=== PATIENT | female | born 1990 | race Caucasian/White ===

== ENCOUNTER 2023-04-02 13:47 | Emergency (ER) | payer OTHER, SELFPAY ==
[2023-04-02 13:57] VITALS: BP 137/81; PULSE 69; RESP 16; TEMP 36.8; O2SAT 98; BMI 26.6
--- NOTE | 2023-04-02 14:16 | ED.GENADULT ---
HPI - General Adult General Time Seen by Provider: 14:16 Date Seen: 04/02/23 Chief complaint: Nausea/Vomiting Stated complaint: Abdominal pain, vomited blood Time Seen by Provider: 04/02/23 14:16 Source: patient and RN notes reviewed Mode of arrival: ambulatory Limitations: no limitations History of Present Illness HPI narrative: This 32-year-old female is coming in with complaint of constipation and no stool production in 36 days. She went to an urgent care last week, did have an x-ray which showed large stool burden in the left colon and distension of the cecum. Friday she took a whole bottle of MiraLax, did produce some gas and has relieved the pressure of gas she has had. She was having some left shoulder pain which did resolve. She states she cannot lie on either side anymore because it hurts in her stomach. Today she started having nausea and vomiting, pain really intensified yesterday. She is scheduled to see a GI specialist in [place] next week. She states she just could not wait. She has had 3 vaginal deliveries since 2018, has 4 kids under the age of 4. She did have to have a retrieval of a migrated IUD in 2018 at [place]. Feels like she has had low-grade fever at home. She has been taking Colace. She has been on Cymbalta low-dose for neuropathic pain for about 3 years, denies any other medicines, no narcotics, not aware of anything else she could be taking that is constipating. She states she is having difficulty sleeping because she can not sleep on her sides due to the abdominal pain. She is on levothyroxine, states her TSH was normal last week at Urgent Care. She states she is eating minimally, still drinking. She does eat anything, has sharp type abdominal pain for about 10 minutes after that. Related Data Home Medications Medication Instructions Recorded Confirmed acetaminophen 500 mg oral powder 500 mg PO Q4-6H PRN 04/02/23 04/02/23 packet (Tylenol Extra Strength) doxylamine succinate 25 mg tablet 25 mg PO Q4H PRN 04/02/23 04/02/23 (Unisom (doxylamine)) levothyroxine 50 mcg tablet 50 mcg PO DAILY 04/02/23 04/02/23 (Synthroid) Allergies Allergy/AdvReac Type Severity Reaction Status Date / Time amoxicillin Allergy Intermediate Rash Verified 04/02/23 15:34 Review of Systems Status of ROS: Reports: 6 or more systems reviewed and unremarkable except as noted in History and below [facility] Social History Smoking Status: Never smoker Do you use any of these nicotine containing products: None Second hand tobacco smoke exposure: No How often do you have a drink containing alcohol: never AUDIT-C Alcohol total score: 0 Non-prescribed substance use: denies use service: No Exam Const: Vital Signs, click to edit/add: Vital Signs - 24 hr 04/02/23 13:57 Temperature 98.3 F Pulse Rate [Pulse Oximeter] 69 Respiratory Rate 16 Blood Pressure [Ri ght Upper Arm] 137/81 Pulse Oximetry 98 Oxygen Delivery Me thod Room Air Documenting provider has reviewed patient's vital signs: yes Common normals: no apparent distress, average body habitus, oriented x3, no limitations, healthy appearing, alert and well nourished General appearance: cooperative, comfortable, well kempt and well developed HENMT: Common normals: normocephalic, head/scalp atraumatic, hearing grossly normal bilaterally, external nose normal, moist oral mucous membranes, oropharynx normal, dentition normal and gingiva normal Head and scalp: normocephalic and atraumatic Nose: external nose normal Eye: Common normals: PERRL, EOMs intact bilaterally, conjunctivae normal and no scleral icterus Conjunctiva: conjunctiva(e) normal Pupil: PERRL Neck & C-Spine: Common normals: full ROM, no lymphadenopathy, supple, no meningeal signs, no JVD and thyroid normal Thyroid: thyroid normal Resp: Common normals: normal respiratory effort, no retractions, no use of accessory muscles and clear to auscultation bilaterally Auscultation: clear to auscultation bilaterally Cardio: Common normals: no JVD, regular rate, regular rhythm, S1 normal heart sound, S2 normal heart sound, no gallops, no clicks and no murmurs Rate: regular rate Rhythm: regular rhythm Heart sounds: S1 normal and S2 normal GI: Common normals: Normal to inspection, nondistended, normoactive bowel sounds present, soft to palpation, no hepatosplenomegaly and no masses Palpation: soft and no hepatosplenomegaly Other: Abdomen is soft but she states she hurts left upper quadrant and generalize periumbilical and lower abdomen on palpation. There is no rebound or guarding however. Neuro: Common normals: oriented x3 Sensorium/orientation: alert Meningeal signs: no meningeal signs Psych: Appearance: well kempt Course Course Hospital Course: Patient in I discussed her situation. At this time, I feel we should proceed with CT abdomen and pelvis with IV contrast. She is in agreement. Will check a full complement of labs. TSH will not be rechecked as it was just reported to be normal last week. Certainly she is reporting constipation, need to rule out other intra-abdominal pathology such as masses, possible strictures, bowel obstruction. CT imaging with IV contrast should certainly help us achieve this goal. Vital Signs Vital signs: Initial Vital Signs Temperature 98.3 F 04/02/23 13:57 Temperature Source Temporal Artery Scan 04/02/23 13:57 Pulse Rate 69 04/02/23 13:57 Pulse Rhythm Regular 04/02/23 13:57 Pulse Strength 3+ Normal 04/02/23 13:57 Respiratory Rate 16 04/02/23 13:57 Blood Pressure 137/81 04/02/23 13:57 Blood Pressure Mean 99 04/02/23 13:57 Blood Pressure Position Sitting 04/02/23 13:57 Pulse Oximetry 98 04/02/23 13:57 Oxygen Delivery Method Room Air 04/02/23 13:57 Vital Signs Temperature 98.3 F 04/02/23 13:57 Pulse Rate 69 04/02/23 13:57 Respiratory Rate 16 04/02/23 13:57 Blood Pressure 137/81 04/02/23 13:57 Pulse Oximetry 98 04/02/23 13:57 Oxygen Delivery Method Room Air 04/02/23 13:57 Temperature 98.3 F 04/02/23 13:57 Pulse Rate 69 04/02/23 13:57 Respiratory Rate 16 04/02/23 13:57 Blood Pressure 137/81 04/02/23 13:57 Pulse Oximetry 98 04/02/23 13:57 Oxygen Delivery Method Room Air 04/02/23 13:57 Medical Decision Making Lab Data Lab results reviewed: Yes I reviewed the patient's lab results Labs: Lab Results 04/02/23 Range/Units 14:55 WBC 8.97 (4.50-11.00) K/uL RBC 4.86 (4.00-5.20) m/uL Hgb 12.6 (12.0-16.0) gm/dL Hct 38.6 (33.0-51.0) % MCV 79 L (80-100) fL MCH 26 (26-34) pg MCHC 33 (32-36) gm/dL RDW Coeff of Sonia 13.8 (11.5-15.5) % Plt Count 243 (140-440) K/uL Neut % (Auto) 59.3 (42.0-72.0) % Lymph % (Auto) 27.4 (20-44) % [place] % (Auto) 6.8 (0.0-11.0) % Eos % (Auto) 6.2 (0.0-7.0) % Baso % (Auto) 0.2 (0.0-3.0) % Neut # (Auto) 5.31 (1.7-7.0) K/uL Lymph # (Auto) 2.46 (0.90-2.90) K/uL [place] # (Auto) 0.60 (0.00-0.90) K/UL Eos # (Auto) 0.56 H (0.00-0.50) K/uL Baso # (Auto) 0.02 (0.00-0.30) K/uL Sodium 138 (135-149) mmol/L Potassium 3.6 (3.6-5.1) mmol/L Chloride 104 (96-114) mmol/L Carbon Dioxide 25 (20-32) mmol/L BUN 7 (5-24) mg/dL Creatinine 0.6 (0.5-1.5) mg/dL Estimated Creat Clear 128.48 Estimated GFR 121 ml/min Glucose 79 (60-115) mg/dL Lactate 1.4 (0.5-1.9) mmol/L Calcium 9.2 (8.4-10.6) mg/dL Magnesium 2.1 (1.5-2.6) mg/dL Total Bilirubin 0.4 (0.1-1.5) mg/dL AST 16 (12-35) U/L ALT 16 (4-35) U/L Alkaline Phosphatase 53 (40-150) U/L C-Reactive Protein 0.7 (0.5-1.0) mg/dL Total Protein 7.0 (6.0-8.3) g/dL Albumin 4.0 (3.3-5.0) g/dL Imaging Data CT scan - abdomen: Attestation: I have reviewed the pertinent imaging results. Radiologist's impression: Patient: ANGEL BROWNLEE Facility:?[facility] Patient ID:?[id number] Site Patient ID:?[id number]. Site :?[id number] Study:?CT Abdomen/Pelvis 83 cc's Isovue 370-04/02/2023 3:34:19 PM Ordering Physician:?Jordy Copeland Final Report: INDICATION: Nausea, vomiting. TECHNIQUE: CT abdomen and pelvis acquired with 83 cc Omnipaque 350 IV contrast. COMPARISON: None. FINDINGS: Lower chest: Unremarkable. Liver: Unremarkable. Normal in size and attenuation. No suspicious masses. Gallbladder and bile ducts: Unremarkable. No stones or inflammation. No biliary dilatation. Pancreas: Unremarkable. No mass or inflammation. Spleen: Unremarkable. Normal in size. No masses. Adrenal glands: Unremarkable. No nodules. Kidneys: Unremarkable. No suspicious masses, stones, or hydronephrosis. GI tract: Mild colonic stool burden. Normal in caliber. No sign of mass or inflammation. Normal appendix. Vasculature: Abdominal aorta is normal in caliber. Mesenteric arteries are patent. Lymph nodes: No lymphadenopathy. Peritoneum/Abdominal Wall: Tiny fat containing umbilical hernia. No sign of mass or infiltration. No free air or significant free fluid. Pelvis: Unremarkable. Bones: Unremarkable for age. IMPRESSION: Mild colonic stool burden. Otherwise, no acute intra-abdominal/pelvic abnormality. Please note that all CT scans at this facility use dose modulation, iterative reconstruction, and/or weight-based dosing when appropriate to reduce radiation dose to as low as reasonably achievable. Dictated by Carlos Morgan MD @ 04/02/2023 4:11:49 PM (Electronic Signature) Critical Care Time Critical Care Time Critical Care Time: No Discharge Plan Discharge Clinical Impression: Constipation Patient Disposition: Home, Self-Care Condition: Stable Instructions: Constipation (ED), High Fiber Diet (ED) Additional Instructions: Recommend trying GoLYTELY, this is sold [id number]. Can mix with Gatorade or fluid of choice. Need to keep gastroenterology appointment for next week. Activity Level: No Restrictions Discharge Diet: Regular and High Fiber Prescriptions: No Action levothyroxine [Synthroid] 50 mcg tablet 50 mcg PO DAILY Tylenol Extra Strength 500 mg powder in packet 500 mg PO Q4-6H PRN Unisom (doxylamine) 25 mg tablet 25 mg PO Q4H PRN Stand Alone Forms: [employer] Info Instructions
--- NOTE | 2023-04-02 14:24 | CRLHL7_ITS ---
For Patients: As a result of the Century Cures Act, medical imaging exams and procedure reports are released immediately into your electronic medical record. You may view this report before your referring provider. If you have questions, please contact your health care provider. INDICATION: Nausea, vomiting. TECHNIQUE: CT abdomen and pelvis acquired with 83 cc Omnipaque 350 IV contrast. COMPARISON: None. FINDINGS: Lower chest: Unremarkable. Liver: Unremarkable. Normal in size and attenuation. No suspicious masses. Gallbladder and bile ducts: Unremarkable. No stones or inflammation. No biliary dilatation. Pancreas: Unremarkable. No mass or inflammation. Spleen: Unremarkable. Normal in size. No masses. Adrenal glands: Unremarkable. No nodules. Kidneys: Unremarkable. No suspicious masses, stones, or hydronephrosis. GI tract: Mild colonic stool burden. Normal in caliber. No sign of mass or inflammation. Normal appendix. Vasculature: Abdominal aorta is normal in caliber. Mesenteric arteries are patent. Lymph nodes: No lymphadenopathy. Peritoneum/Abdominal Wall: Tiny fat containing umbilical hernia. No sign of mass or infiltration. No free air or significant free fluid. Pelvis: Unremarkable. Bones: Unremarkable for age. IMPRESSION: Mild colonic stool burden. Otherwise, no acute intra-abdominal/pelvic abnormality. Please note that all CT scans at this facility use dose modulation, iterative reconstruction, and/or weight-based dosing when appropriate to reduce radiation dose to as low as reasonably achievable. Dictated by Carlos Morgan MD @ 04/02/2023 4:11:49 PM (Electronically Signed)
[2023-04-02 15:03] LABS: Lactate* 1.4 mmol/L (0.5-1.9)
[2023-04-02 15:05] LABS: Basophils Absolute Auto 0.02 K/uL (0.00-0.30); Basophils Percent Auto 0.2 % (0.0-3.0); Eosinophils Absolute Auto 0.56 K/uL (0.00-0.50); Eosinophils Percent Auto 6.2 % (0.0-7.0); Hematocrit 38.6 % (33.0-51.0); Hemoglobin* 12.6 gm/dL (12.0-16.0); Immature Granulocytes Abs Auto 0.01 K/uL (0.00-0.30); Immature Granulocytes Pct Auto 0.1 %; Lymphocytes Absolute Auto 2.46 K/uL (0.90-2.90); Lymphocytes Percent Auto 27.4 % (20-44); Mean Corpuscular HGB Conc 33 gm/dL (32-36); Mean Corpuscular Hemoglobin 26 pg (26-34); Mean Corpuscular Volume 79 fL (80-100); Monocytes Percent Auto 6.8 % (0.0-11.0); Neutrophils Absolute Auto 5.31 K/uL (1.7-7.0); Neutrophils Percent Auto 59.3 % (42.0-72.0); Platelet Count* 243 K/uL (140-440); RDW Coefficient of Variation % 13.8 % (11.5-15.5); Red Blood Count 4.86 m/uL (4.00-5.20); Slide Review Reflex No; White Blood Count* 8.97 K/uL (4.50-11.00)
[2023-04-02 15:24] LABS: Chloride* 104 mmol/L (96-114)
[2023-04-02 15:25] LABS: Potassium* 3.6 mmol/L (3.6-5.1); Sodium* 138 mmol/L (135-149)
[2023-04-02 15:27] LABS: Alkaline Phosphatase* 53 U/L (40-150); Aspartate Amino Transferase* 16 U/L (12-35); Bilirubin Total* 0.4 mg/dL (0.1-1.5); Carbon Dioxide* 25 mmol/L (20-32); Creatinine* 0.6 mg/dL (0.5-1.5); Est. Creatinine Clearance* 128.48; Estimated Glomerular Filt Rate 121 ml/min
[2023-04-02 15:28] LABS: Alanine Aminotransferase* 16 U/L (4-35); Blood Urea Nitrogen* 7 mg/dL (5-24); Calcium* 9.2 mg/dL (8.4-10.6); Glucose* 79 mg/dL (60-115); Magnesium* 2.1 mg/dL (1.5-2.6)
[2023-04-02 15:30] LABS: C Reactive Protein* 0.7 mg/dL (0.5-1.0)
== END 2023-04-02 16:30 | disposition home or self-care (01) ==
PROVIDERS: Family Medicine; Emergency Provider Family Medicine; PCP Physician Assistant
DX: K59.00 Constipation, unspecified (principal)
CPT/HCPCS: 36415; 74177; 80053; 83605; 83735; 85025; 86140; 99283; 99284; Q9967

== ENCOUNTER 2024-07-01 20:19 | Emergency (ER) | payer OTHER, SELFPAY ==
[2024-07-01 20:23] VITALS: BP 153/117; PULSE 112; RESP 16; TEMP 36.6; O2SAT 100; BMI 25.1
[2024-07-01 21:02] LABS: Appearance Urine Clear (Clear); Bilirubin Urine Negative (Negative); Blood Urine Negative (Negative); Color Urine Yellow (Yellow); Glucose Urine Negative (Negative); Ketones Urine Negative (Negative); Leukocyte Esterase Urine 2+ (Negative); Nitrite Urine Negative (Negative); Protein Urine Negative (Negative); Urobilinogen Urine 0.2 (0.2-1.0)
[2024-07-01 21:24] LABS: Bacteria Urine Few; Squamous Epithelial Cell Urine Few (None-Few)
--- NOTE | 2024-07-01 21:38 | ED_ITS ---
HPI - General Adult General Date Seen: 07/01/24 Chief complaint: Urogenital Problems, Female Stated complaint: UTI, abdominal pain Time Seen by Provider: 07/01/24 21:20 Source: patient Mode of arrival: ambulatory Limitations: no limitations History of Present Illness HPI narrative: Patient is a 33-year-old female presenting to emergency department for abdominal pain. She states about a week ago she began having a lot of fatigue when she felt like she slept all weekend. Friday night she noted she was not urinating much so did a virtual visit and was prescribed Macrobid for UTI. She says since then she has felt like she is urinating low bit more but still feels like she is retaining. Does not have any associated back pain. Also noticing generalized abdominal pain worse in the epigastric and right lower quadrant regions. She had no previous abdominal surgeries. 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 Denies fevers but has had chills. Does notice pain worse at night. States she has been eating normally and has been drinking as much fluids as she can trying to get herself to urinate. Denies any shortness of breath or chest pain at this time. Denies headache, vision changes, weakness, numbness. Related Data Home Medications ?Medication ?Instructions ?Recorded ?Confirmed levothyroxine 50 mcg tablet 50 mcg PO DAILY 04/02/23 07/01/24 (Synthroid) nitrofurantoin 1 cap PO Q12H 07/01/24 07/01/24 monohydrate/macrocrystals 100 mg capsule Allergies Allergy/AdvReac Type Severity Reaction Status Date / Time amoxicillin Allergy Intermediate Rash Verified 07/01/24 22:27 Review of Systems Status of ROS: Reports: 10 or more systems reviewed and unremarkable except as noted in History and below [facility] Social History Smoking Status: Never smoker Do you use any of these nicotine containing products: None Second hand tobacco smoke exposure: No How often do you have a drink containing alcohol: never AUDIT-C Alcohol total score: 0 Non-prescribed substance use: denies use service: No Exam Narrative: Exam Narrative: Const: Well-nourished, Well-developed, in mild distress Eyes: PERRL, no conjunctival injection, and symmetrical lids HENT: Atraumatic external nose and ears. Moist mucous membranes. Neck: Symmetric, trachea midline, No thyromegaly. CVS: RRR, No murmurs or gallops. Peripheral pulses 2+ and equal in all extremities RESP: Unlabored respiratory effort. Clear to auscultation bilaterally. GI: Right lower quadrant tenderness, Nondistended, No rebound or guarding. MSK:Extremities w/o deformity, Normal Active ROM Skin: Warm, Dry. No rashes or lesions. Neuro: Normal Muscle tone, No focal neurological deficits. Psych: Awake, Alert, & Oriented x3. Appropriate mood and affect. Const: Vital Signs, click to edit/add: Vital Signs - 24 hr 07/01/24 20:23 Temperature 97.8 F Pulse Rate [Pulse Oximeter] 112 H Respiratory Rate 16 Blood Pressure [Ri ght Upper Arm] 153/117 H Pulse Oximetry 100 Oxygen Delivery Me thod Room Air Course Vital Signs Vital signs: Initial Vital Signs Temperature 97.8 F 07/01/24 20:23 Temperature Source Temporal Artery Scan 07/01/24 20:23 Pulse Rate 112 H 07/01/24 20:23 Respiratory Rate 16 07/01/24 20:23 Blood Pressure 153/117 H 07/01/24 20:23 Blood Pressure Mean 129 H 07/01/24 20:23 Blood Pressure Position Sitting 07/01/24 20:23 Pulse Oximetry 100 07/01/24 20:23 Oxygen Delivery Method Room Air 07/01/24 20:23 Vital Signs Temperature 97.8 F 07/01/24 20:23 Pulse Rate 112 H 07/01/24 20:23 Respiratory Rate 16 07/01/24 20:23 Blood Pressure 153/117 H 07/01/24 20:23 Pulse Oximetry 100 07/01/24 20:23 Oxygen Delivery Method Room Air 07/01/24 20:23 Temperature 97.8 F 07/01/24 20:23 Pulse Rate 112 H 07/01/24 20:23 Respiratory Rate 16 07/01/24 20:23 Blood Pressure 153/117 H 07/01/24 20:23 Pulse Oximetry 100 07/01/24 20:23 Oxygen Delivery Method Room Air 07/01/24 20:23 Medications Administered Medications: Discontinued Medications Generic Name Dose Route Start Last Admin Trade Name Freq PRN Reason Stop Dose Admin Hydromorphone HCl 0.5 mg 07/01/24 22:28 07/01/24 22:54 Hydromorphone 0.5 Mg/0.5 Ml Inj IVP 07/01/24 22:29 0.5 mg ONCE ONE Administration Lactated Ringer's 1,000 mls @ 1,000 mls/hr 07/01/24 21:43 07/01/24 23:06 Lactated Ringers 1000 Ml IV 07/01/24 22:42 Infused .Q1H ONE Infusion Ketorolac Tromethamine 15 mg 07/01/24 21:43 07/01/24 22:32 Ketorolac 15 Mg/Ml Inj IVP 07/01/24 21:44 15 mg ONCE ONE Administration Medical Decision Making MDM Narrative Medical decision making narrative: Patient is a 33-year-old female presenting for abdominal pain and concerns of UTI. Urinalysis will be ordered. Based on pain at McBurney's point I am concerned about the appendicitis. Less likely to be SBO considering no previous surgeries. Considering location also less likely to be gallbladder or pancreas disease. No pain left lower quadrant so diverticulitis is less likely. No pain in the pelvis and seems unlikely to be ovarian torsion at this time. Will also order a CBC, CMP, lipase. Toradol given for pain. Did do postvoid bladder scan and showed she is fully emptying her bladder. Lab work returned showing no concerning abnormalities. She was still having some pain and dose of dilaudid was ordered. CT scan reviewed by myself myalgias shows some moderate constipation but no CT evidence of acute abnormalities. Some not sure was causing pain at this time that she is doing well and will be discharged. Lab Data Labs: Lab Results 07/01/24 07/01/24 07/01/24 Range/Units 21:43 22:03 22:12 WBC 6.79 (4.50-11.00) K/uL RBC 4.94 (4.00-5.20) m/uL Hgb 13.1 (12.0-16.0) gm/dL Hct 40.1 (33.0-51.0) % MCV 81 (80-100) fL MCH 27 (26-34) pg MCHC 33 (32-36) gm/dL RDW Coeff of Sonia 13.4 (11.5-15.5) % Plt Count 240 (140-440) K/uL Neut % (Auto) 43.5 (42.0-72.0) % Lymph % (Auto) 42.4 (20-44) % [place] % (Auto) 7.4 (0.0-11.0) % Eos % (Auto) 5.7 (0.0-7.0) % Baso % (Auto) 0.6 (0.0-3.0) % Neut # (Auto) 2.95 (1.7-7.0) K/uL Lymph # (Auto) 2.88 (0.90-2.90) K/uL [place] # (Auto) 0.50 (0.00-0.90) K/UL Eos # (Auto) 0.39 (0.00-0.50) K/uL Baso # (Auto) 0.04 (0.00-0.30) K/uL Abs Immat Gran (auto) 0.03 (0.00-0.30) K/uL Imm/Tot Granulo (auto) 0.4 % Sodium 138 (135-149) mmol/L Potassium 3.9 (3.6-5.1) mmol/L Chloride 104 (96-114) mmol/L Carbon Dioxide 27 (20-32) mmol/L Anion Gap 7 (7-15) mEq/L BUN 15 (5-24) mg/dL Creatinine 0.8 (0.5-1.5) mg/dL Estimated Creat Clear 95.45 Estimated GFR 98 ml/min Glucose 96 (60-115) mg/dL Calcium 9.2 (8.4-10.6) mg/dL Total Bilirubin 0.6 (0.1-1.5) mg/dL AST 21 (12-35) U/L ALT 20 (4-35) U/L Alkaline Phosphatase 59 (40-150) U/L Total Protein 7.6 (6.0-8.3) g/dL Albumin 4.7 (3.3-5.0) g/dL Lipase 71 (23-300) U/L Urine Color (Yellow) Urine Appearance (Clear) Urine pH (5.0-8.5) Ur Specific [place] (1.000-1.030) Urine Protein (Negative) Urine Glucose (UA) (Negative) Urine Ketones (Negative) Urine Blood (Negative) Urine Nitrite (Negative) Urine Bilirubin (Negative) Urine Urobilinogen (0.2-1.0) Ur Leukocyte Esterase (Negative) Urine RBC (0-2) Urine WBC (0-5) Ur Squamous Epith Cells (None-Few) Urine Bacteria (None) Urine HCG, Qual Negative (Negative) SARS-CoV-2 (PCR) Negative SARS-CoV-2 (Negative) Influenza Type A (PCR) Negative PCR FLU A (Negative) Influenza Type B (PCR) Negative PCR FLU B (Negative) 07/01/24 Range/Units Unknown WBC (4.50-11.00) K/uL RBC (4.00-5.20) m/uL Hgb (12.0-16.0) gm/dL Hct (33.0-51.0) % MCV (80-100) fL MCH (26-34) pg MCHC (32-36) gm/dL RDW Coeff of Sonia (11.5-15.5) % Plt Count (140-440) K/uL Neut % (Auto) (42.0-72.0) % Lymph % (Auto) (20-44) % [place] % (Auto) (0.0-11.0) % Eos % (Auto) (0.0-7.0) % Baso % (Auto) (0.0-3.0) % Neut # (Auto) (1.7-7.0) K/uL Lymph # (Auto) (0.90-2.90) K/uL [place] # (Auto) (0.00-0.90) K/UL Eos # (Auto) (0.00-0.50) K/uL Baso # (Auto) (0.00-0.30) K/uL Abs Immat Gran (auto) (0.00-0.30) K/uL Imm/Tot Granulo (auto) % Sodium (135-149) mmol/L Potassium (3.6-5.1) mmol/L Chloride (96-114) mmol/L Carbon Dioxide (20-32) mmol/L Anion Gap (7-15) mEq/L BUN (5-24) mg/dL Creatinine (0.5-1.5) mg/dL Estimated Creat Clear Estimated GFR ml/min Glucose (60-115) mg/dL Calcium (8.4-10.6) mg/dL Total Bilirubin (0.1-1.5) mg/dL AST (12-35) U/L ALT (4-35) U/L Alkaline Phosphatase (40-150) U/L Total Protein (6.0-8.3) g/dL Albumin (3.3-5.0) g/dL Lipase (23-300) U/L Urine Color Yellow (Yellow) Urine Appearance Clear (Clear) Urine pH 7.0 (5.0-8.5) Ur Specific [place] 1.020 (1.000-1.030) Urine Protein Negative (Negative) Urine Glucose (UA) Negative (Negative) Urine Ketones Negative (Negative) Urine Blood Negative (Negative) Urine Nitrite Negative (Negative) Urine Bilirubin Negative (Negative) Urine Urobilinogen 0.2 (0.2-1.0) Ur Leukocyte Esterase 2+ A (Negative) Urine RBC 2-5 A (0-2) Urine WBC 5-10 A (0-5) Ur Squamous Epith Cells Few (None-Few) Urine Bacteria Few A (None) Urine HCG, Qual (Negative) SARS-CoV-2 (PCR) (Negative) Influenza Type A (PCR) (Negative) Influenza Type B (PCR) (Negative) Imaging Data CT scan abdomen pelvis: Attestation: I have reviewed the pertinent imaging results. Radiologist's impression: No CT evidence of an acute process involving the abdomen or pelvis. Please note that all CT scans at this facility use dose modulation, iterative reconstruction, and/or weight-based dosing when appropriate to reduce radiation dose to as low as reasonably achievable. Dictated by Gómez Adkins MD @ 07/01/2024 11:17:36 PM Discharge Plan Discharge Clinical Impression: Abdominal pain Qualifiers: Abdominal location: unspecified location Qualified Code(s): R10.9 - Unspecified abdominal pain Patient Disposition: Home, Self-Care Condition: Stable Instructions: Abdominal Pain (ED) Additional Instructions: Take Tylenol and ibuprofen for your pain. If symptoms persist follow-up with primary care provider. Return for new worsening symptoms Prescriptions: No Action levothyroxine [Synthroid] 50 mcg tablet 50 mcg PO DAILY nitrofurantoin monohyd/m-cryst 100 mg capsule 1 cap PO Q12H Follow Up/Referrals: Scott,Jazmín N, PA [Primary Care Provider] - Stand Alone Forms: [employer] Info Instructions
--- NOTE | 2024-07-01 21:43 | CRLHL7_ITS ---
For Patients: As a result of the Century Cures Act, medical imaging exams and procedure reports are released immediately into your electronic medical record. You may view this report before your referring provider. If you have questions, please contact your health care provider. Indication: RLQ TENDERNESS Technique: CT abdomen/pelvis with IV contrast, 79 mL Isovue 370 Comparison: CT abdomen/pelvis on April 02, 2023 Findings: Lower thorax: Unremarkable Abdomen/pelvis: The liver, gallbladder and biliary system, spleen, pancreas, adrenal glands, kidneys, ureters, bladder, uterus, and bilateral ovaries are within normal limits in appearance. Likely right ovarian corpus luteal cyst measuring approximately 1.8 centimeters in greatest dimension. There is no evidence of bowel obstruction or inflammation. The appendix is normal in appearance. Moderate stool burden throughout the colon. No free fluid or free air. No abscess. No abdominopelvic lymphadenopathy. The vasculature is unremarkable. Soft tissue/musculoskeletal: Tiny fat containing umbilical hernia. No acute fracture or malalignment. No suspicious osseous lesions. Impression: No CT evidence of an acute process involving the abdomen or pelvis. Please note that all CT scans at this facility use dose modulation, iterative reconstruction, and/or weight-based dosing when appropriate to reduce radiation dose to as low as reasonably achievable. Dictated by Gómez Adkins MD @ 07/01/2024 11:17:36 PM (Electronically Signed)
[2024-07-01 22:09] LABS: Basophils Absolute Auto 0.04 K/uL (0.00-0.30); Basophils Percent Auto 0.6 % (0.0-3.0); Eosinophils Absolute Auto 0.39 K/uL (0.00-0.50); Eosinophils Percent Auto 5.7 % (0.0-7.0); Hematocrit 40.1 % (33.0-51.0); Hemoglobin* 13.1 gm/dL (12.0-16.0); Immature Granulocytes Abs Auto 0.03 K/uL (0.00-0.30); Immature Granulocytes Pct Auto 0.4 %; Lymphocytes Absolute Auto 2.88 K/uL (0.90-2.90); Lymphocytes Percent Auto 42.4 % (20-44); Mean Corpuscular HGB Conc 33 gm/dL (32-36); Mean Corpuscular Hemoglobin 27 pg (26-34); Mean Corpuscular Volume 81 fL (80-100); Monocytes Percent Auto 7.4 % (0.0-11.0); Neutrophils Absolute Auto 2.95 K/uL (1.7-7.0); Neutrophils Percent Auto 43.5 % (42.0-72.0); Platelet Count* 240 K/uL (140-440); RDW Coefficient of Variation % 13.4 % (11.5-15.5); Red Blood Count 4.94 m/uL (4.00-5.20); White Blood Count* 6.79 K/uL (4.50-11.00)
[2024-07-01 22:12] LABS: Ur HCG Qualitative* Negative (Negative)
[2024-07-01 22:12] LABS: Slide Review Reflex No
--- OUTSIDE RECORDS SUMMARY | 2024-07-01 22:15 | XMS_ITS | Encounter Summary ---
Author Organization [facility] Address [address] [place] [address]. [place] [address] Care Team Providers Care Weather Strip Installer Name Role Phone Jazmín Chavez PA-C Primary Care Provider [phone]- [phone] Jazmín Chavez PA-C Unavailable Encounter Details Date Type Department Care Team (Late st Contact Info) Description 05/03/2024 MyC Medical Advice [facility] [id number] [place] [id number] Jazmín Chavez PA-C [id number] [place] [address] [id number] ADHD, predominantly inattentive type Social History Tobacco Use Types Packs/Day Years Used Date Smoking Tobacco: Never Smokeless Tobacco: Never Alcohol Use Standard Drinks/Week Comments No 0 (1 standard drink = 0.6 oz pur e alcohol) PHQ-2 Answer Date Recorded PHQ-2 Score 2 04/06/2024 Adolescent Education Answer Date Record ed Getting School Help Needed Not on file 06/20 Food Insecurity Answer Date Recorded Within the past 12 months, d id you worry that your food would run out before you got money to buy more? No 07/04/2023 Within the past 12 months, d id the food you bought just not last and you didn? t have money to get more? No 07/04/2023 Housing Stability Answer Date Recorded Do you have housing? (Housin g is defined as stable permanent housing and does not include staying ouside in a car, in a tent, in an abandoned building, in an overnight prison, or couch-surfing.) Yes 07/04/2023 Are you worried about losing your housing? No 07/04/2023 Financial Resource Strain Answer Date R ecorded Within the past 12 months, h ave you or your family members you live with been unable to get utilities (heat, electricity) when it was really needed? No 07/04/2023 Transportation Needs Answer Date Record ed Within the past 12 months, h as lack of transportation kept you from medical appointments, getting your medicines, non-medical meetings or appointments, work, or from getting things that you need? No 07/04/2023 Interpersonal Safety Answer Date Record ed Do you feel physically and e motionally safe where you currently live? Yes 07/04/2023 Within the past 12 months, h ave you been hit, slapped, kicked or otherwise physically hurt by someone? No 07/04/2023 Within the past 12 months, h ave you been humiliated or emotionally abused in other ways by your partner or ex-partner? 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
--- OUTSIDE RECORDS SUMMARY | 2024-07-01 22:15 | XMS_ITS | Clinical Summary ---
Author Organization [facility] Address [address] [place] [id number] Care Team Providers Care Banquet Set Up Person Name Role Phone Jazmín Chavez PA-C Unavailable [phone] Allergies Active Allergy Reactions Criticality Noted Date Comments Adhesive Tape Itching,Rash Low 07/19/2021 Amoxicillin Rash Low 12/05/2012 Azithromycin Diarrhea 03/07/2022 Watery diarrhea on the first day Cats 11/25/2013 Dexamethasone Other (See Comments) 09/10/2022 Numbness in legs Dogs 11/25/2013 Droperidol 11/20/2020 Dust Mite Extract Other (See Comments) 11/28/19 13 ITCHING Dust Mites 11/25/2013 [place] 11/25/2013 Gluten Meal 09/09/2022 Nuts 11/25/2013 Cephalexin Diarrhea 03/07/2022 Pollen Extract 11/25/2013 Medications Medication Sig Dispensed Refills Start Date End Date Status albuterol (PROAIR HFA/PROVENTIL HFA/VENTOLIN HFA) 108 (90 Base) MCG/ACT inhaler 1 Active EPINEPHrine (ANY BX GENERIC EQUIV) 0.3 MG/0.3ML injection 2-packIndications :Allergy to bee sting Inject 0.3 mLs (0.3 mg) into the muscle as needed for anaphylaxis 0.6 mL 2 Active cyclobenzaprine (FLEXERIL) 10 MG tabletIndications :Acute bilateral thoracic back pain Take 1 tablet (10 mg) by mouth nightly as needed for muscle spasms 90 tablet 2 3 Active ALPRAZolam (XANAX) 0.5 MG tabletIndications :Anxiety Take 1 tablet (0.5 mg) by mouth 3 times daily as needed for anxiety 10 tablet 3 Active drospirenone-ethi nyl estradiol (JANELLE) 3-0.03 MG tabletIndications :Encounter for initial prescription of contraceptive pills Take 1 tablet by mouth daily 84 tablet 3 4 Active Additional Information Patient not taking.Reported on 04/06/2024 benzonatate (TESSALON) 100 MG capsule Take 1 capsule (100 mg) by mouth 3 times daily as needed for cough 12 capsule 4 Active Additional Information Patient not taking.Reported on 04/06/2024 guaiFENesin (MUCINEX) 600 MG 12 hr tablet Take 1 tablet (600 mg) by mouth 2 times daily as needed for congestion 12 tablet 4 Active Additional Information Patient not taking.Reported on 04/06/2024 dextromethorphan (DELSYM) 30 MG/5ML liquid Take 10 mLs (60 mg) by mouth every 12 hours as needed for cough 89 mL 4 Active Additional Information Patient not taking.Reported on 04/06/2024 ondansetron (ZOFRAN ODT) 4 MG ODT tab Take 1 tablet (4 mg) by mouth every 8 hours as needed for vomiting or nausea 10 tablet 4 Active DULoxetine (CYMBALTA) 60 MG capsuleIndication s:Fibromyalgia Take 1 capsule (60 mg) by mouth daily 90 capsule 4 Active hydrOXYzine HCl (ATARAX) 25 MG tabletIndications :Other insomnia Take 1-2 tablets (25-50 mg) by mouth every 8 hours as needed for anxiety (or sleep) 30 tablet 1 4 Active rizatriptan (MAXALT) 10 MG tabletIndications :Migraine without aura and without status migrainosus, not intractable Take 1 tablet (10 mg) by mouth at onset of headache for migraine May repeat in 2 hours. Max 3 tablets/24 hours. 9 tablet 1 4 Active busPIRone (BUSPAR) 10 MG tabletIndications :Anxiety Take 1 tablet (10 mg) by mouth 2 times daily 60 tablet 1 4 Active cyclobenzaprine (FLEXERIL) 5 MG tabletIndications :Muscle spasm Take 1 tablet (5 mg) by mouth every 8 hours as needed for muscle spasms 12 tablet 4 Active amphetamine-dextr oamphetamine (ADDERALL) 10 MG tabletIndications :ADHD, predominantly inattentive type Take 1 tablet (10 mg) by mouth 2 times daily 60 tablet 4 Active SYNTHROID 75 MCG tabletIndications :Hypothyroidism, unspecified type Take 1 tablet (75 mcg) by mouth daily 90 tablet 1 4 Active amphetamine-dextr oamphetamine (ADDERALL XR) 30 MG 24 hr capsuleIndication s:ADHD, predominantly inattentive type Take 1 capsule (30 mg) by mouth daily 30 capsule 4 Active amphetamine-dextr oamphetamine (ADDERALL XR) 30 MG 24 hr capsuleIndication s:ADHD, predominantly inattentive type Take 1 capsule (30 mg) by mouth daily. Do not start before June 04, 2024. 30 capsule 4 Active amphetamine-dextr oamphetamine (ADDERALL) 10 MG tabletIndications :ADHD, predominantly inattentive type Take 1 tablet (10 mg) by mouth 2 times daily. Do not start before June 04, 2024. 60 tablet 4 Active amphetamine-dextr oamphetamine (ADDERALL XR) 30 MG 24 hr capsuleIndication s:ADHD, predominantly inattentive type Take 1 capsule (30 mg) by mouth daily. 30 capsule 4 Active amphetamine-dextr oamphetamine (ADDERALL) 10 MG tabletIndications :ADHD, predominantly inattentive type Take 1 tablet (10 mg) by mouth 2 times daily. 60 tablet 4 Active triamcinolone (KENALOG) 0.1 % pasteIndications: Aphthous ulcer of tongue Take by mouth 3 times daily 10 g 2 06/29/20 24 Discontinued ondansetron (ZOFRAN ODT) 4 MG ODT tabIndications:Mi graine without aura and without status migrainosus, not intractable Take 1 tablet (4 mg) by mouth every 8 hours as needed for nausea 9 tablet 1 3 06/29/20 24 Discontinued Zinc 30 MG TABS Take 1 by oral route once daily 3 06/29/20 24 Discontinued amphetamine-dextr oamphetamine (ADDERALL XR) 30 MG 24 hr capsuleIndication s:ADHD, predominantly inattentive type Take 1 capsule (30 mg) by mouth daily. Do not start before July 04, 2024. 30 capsule 4 06/29/20 24 Discontinued(Re order (No AVS)) amphetamine-dextr oamphetamine (ADDERALL) 10 MG tabletIndications :ADHD, predominantly inattentive type Take 1 tablet (10 mg) by mouth 2 times daily. Do not start before July 04, 2024. 60 tablet 4 06/29/20 24 Discontinued(Re order (No AVS)) Active Problems Problem Noted Date Diagnosed Date Fibromyalgia 03/11/2023 Migraine without aura and wi thout status migrainosus, not intractable 03/11/2023 Acute bilateral thoracic back pain 03/11/2023 Chronic constipation 03/11/2023 Encounter for triage in patient 021 Controlled substance agreement signed 06/11/2018 Other migraine without status migrainosus, not i ntractable 02/11/2017 Seasonal allergies 03/20/2016 Hypothyroidism 12/18/2015 Localized skin mass, lump, or swelling- left low back 12/18/2015 Swelling of face- puffy, per patient report 10/30 Other fatigue 11/08/2015 History of hypothyroidism= in college 11/08/2015 Low ferritin- taking oral ir on daily = stomach upset - consider iron infusions with hematology 08/06/2014 Scoliosis 06/30/2013 Cyst of brain 04/20/2013 CARDIOVASCULAR SCREENING; LDL GOAL LESS THAN 160 04/20/2013 OCD (obsessive compulsive disorder) 04/20/2013 Anxiety 02/17/2013 ADHD, 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 All refills should be approved by this provider, or covering partner. Medication(s): ritalin 20mg IR in the morning, 10 mg at noon, 10 mg at 3 pm Maximum quantity per month: #30 (20 mg); #60 (10 mg) of each Clinic visit frequency required: Q 3 months Controlled substance agreement on file: Yes Date(s): 11/08/2015, 06/11/2018 Neuropsych evaluation for ADD completed: Yes, completed in 2005 at [facility] aDisy Patten . , not on file Last [facility] website verification: Done 07/08/17 [email or web address] Resolved Problems Problem Noted Date Diagnosed Date Resolved Date H/O sinus surgery 03/20/2016 09/28/2020 Migraine headache 04/20/2013 04/20/2013 Encounters Date Type Department Care Team Description 06/29/2024 [facility] Medical Advice [address] [phone] Dulce Friedman PA-C Medication Problem 06/16/2024 [facility] Medical Advice [address] [address] Jumana Woods 05/24/2024 [facility] Medical Advice [address] [address] Jazmín Chavez PA-C 05/24/2024 MyC Refill [address] [address] Jazmín Chavez PA-C Refill Request 05/03/2024 My[facility] Medical Advice [address] [address] Jazmín Chavez PA-C ADHD, predominantly inattentive type 05/03/2024 Orders Only [address] [address] Jazmín Chavez PA-C Hypothyroidism, unspecified type 04/29/2024 4:15 PM CDT Lab [facility] [address] [place] [phone] Sweating increase; Muscle spasm; ADHD, predominantly inattentive type 04/29/2024 Travel 04/28/2024 MyC Medical Advice [address] [place] [address] Jazmín Chavez PA-C Patient Request 04/14/2024 MyC Medical Advice [facility] [address] [address] Zeina Macias 04/06/2024 2:30 PM CDT Virtual Visit [address] [address] Jazmín Chavez PA-C ADHD, predominantly inattentive type (Primary Dx); Fibromyalgia; Other insomnia; Migraine without aura and without status migrainosus, not intractable; Anxiety; Obsessive-compulsive disorder, unspecified type; Muscle spasm; Sweating increase; Neuropathy from Last 3 Months Immunizations Name Administration Dates Next Due Flu 65+ (Fluad) 10/12/2015 Flu, Unspecified 10/12/2015,09/18/2011 Influenza Vaccine >6 months,quad, PF 08/2023,07/05/2021,07/02/2020,2018,07/28/2018,09/02/2016,10/12/2015 MMR 07/10/2020 Rhogam 08/28/2021,,06/26/2019,2018,06/10/2018 TDAP (Adacel,Boostrix) 08/02/2021,2018,04/28/2018,2015,05/30/2005 TDAP Vaccine (Adacel) 05/30/2005,06/18/2002 Family History Medical History Relation Comments Diabetes Father Hypertension Father Coronary Artery Disease Maternal Grandfather Colon Cancer Maternal Grandmother Hypertension Mother Coronary Artery Disease Paternal Grandmother Psychotic Disorder Sister 2 anxiety Obesity Sister 3 Other Cancer Sister 3 Obesity Sister 4 Relation Status Comments Brother Alive Father Alive Maternal Grandfather Maternal Grandmother Mother Alive Paternal Grandfather Paternal Grandmother Sister 1 Alive 3 Sister 2 Sister 3 Sister 4 Social History Tobacco Use Types Packs/Day Years Used Date Smoking Tobacco: Never Smokeless Tobacco: Never Tobacco Cessation:Counseling Given: Not Answered Alcohol Use Standard Drinks/Week Comments No 0 [...] Answer Date Recorded Do you have housing? (Linda munson is defined as stable permanent housing and does not include staying ouside in a car, in a tent, in an abandoned building, in an overnight care home, or couch-surfing.) Yes 07/04/2023 Are you worried [...] Orientation Straight 02/28/2020 8: 14 PM CDT Last Filed Vital Signs Vital Sign Reading Time Taken Comments Blood Pressure 136/88 12/27/2023 12:36 AM CDT Pulse 88 12/27/2023 12:36 AM CDT Temperature 36.9 ??C (98.4 ??F) 12/26/2023 8:38 PM CD T Respiratory Rate 18 12/27/2023 12:36 AM CDT Oxygen Saturation 100% 12/27/2023 12:36 AM CDT Inhaled Oxygen Concentration - - Weight 80.8 kg (178 lb 3.2 oz) 07/04/2023 1:32 P M CDT Height 170.2 cm (5' 7) 07/04/2023 1:32 PM CDT Body Mass Index 27.91 07/04/2023 1:32 PM CDT Plan of Treatment Health Maintenance Due Date Last Done Comments ADVANCE CARE PLANNING 1988 CT COLONOGRAPHY 1988 FIT 1988 sDNA (Cologuard) 1988 HEPATITIS B IMMUNIZATION (1 of 3 - 19+ 3-dose series) 2007 YEARLY PREVENTIVE VISIT 08/23/2020 08/23/2019 COVID-19 Vaccine ( season) 2024 INFLUENZA VACCINE (#1) 2024 , 07/05/2021, 07/02/2020, Additional history exists HPV TEST 08/23/2024 08/23/2019, 08/23/2019 PAP 08/23/2024 08/23/2019, 07/31, 08/23/2019, Additional history exists ANNUAL REVIEW OF HM ORDERS 04/06/202504/06, 03/11/2023, 10/23/2021 TSH W/FREE T4 REFLEX 04/29/2025 04/29/2024, 04/29/2024, 07/04/2023, Additional history exists GLUCOSE 04/29/2027 04/29/2024, 11/28, 07/04/2023, Additional history exists FLEX SIG 06/03/2028 06/03/2023 DTAP/TDAP/TD IMMUNIZATION (7 - Td or Tdap) 08/02/2031 08/02/2021, 04/20/2019, 04/28/2018, Additional history exists COLONOSCOPY 06/04/2033 06/04/2023, 09/0 02/2023, 06/03/2023, Additional history exists COLORECTAL CANCER SCREENING 06/04/2033 RSV VACCINE (1 - 1-dose 75+ series) 2063 MIGRAINE ACTION PLAN Completed 04/20/2013 HIV SCREENING Completed 10/08/2017 HEPATITIS C SCREENING Addressed 10/23/2021 (Decline d) Overridden with the intention of not completing the topic MAMMO SCREENING Discontinued 07/18/2023, 03/08/2022 PHQ-2 (once per calendar year) Completed 04/06/2024, 04/06/2024, 11/20/2023, Additional history exists HPV IMMUNIZATION Aged Out No longer e ligible based on patient's age to complete this topic MENINGITIS IMMUNIZATION Aged Out No l onger eligible based on patient's age to complete this topic Pneumococcal Vaccine: Pediatrics (0 to 5 Years) and At-Risk Patients (6 to 64 Years) Aged Out No longer eligible based on patient's age to complete this topic RSV MONOCLONAL ANTIBODY Aged Out No l onger eligible based on patient's age to complete this topic Procedures Procedure Name Priority Date/Time Associated Diagnosis Comments DRUG CONFIRMATION PANEL URINE WITH CREAT Routine 04/29/2024 4:43 PM CDT ADHD, predominantly inattentive type URINE CREATININE FOR DRUG SCREEN PANEL Routine 04/29/2024 4:43 PM CDT ADHD, predominantly inattentive type URINE DRUG CONFIRMATION PANEL Routine 04/29/2024 4:43 PM CDT ADHD, predominantly inattentive type T4 FREE Routine 04/29/2024 4:39 PM CDT Sweating increase MAGNESIUM Routine 04/29/2024 4:39 PM CDT Muscle spasm FERRITIN Routine 04/29/2024 4:39 PM CDT Muscle spasm HEMOGLOBIN A1C Routine 04/29/2024 4:39 PM CDT Sweating increase TSH WITH FREE T4 REFLEX Routine 04/29/2024 4:39 PM CDT Sweating increase COMPREHENSIVE METABOLIC PANEL Routine 04/29/2024 4:39 PM CDT Sweating increase CBC WITH PLATELETS Routine 04/29/2024 4: 39 PM CDT Sweating increase MA DIAGNOSTIC BILATERAL W/ ARVIND Routine 07/18/2023 3:16 PM CDT Mass of right axilla COLONOSCOPY - HIM SCAN 06/04/2023 12:00 AM CDT ABSTRACT HPV (HIM EXTERNAL RESULT) Routine 08/23/2019 HIV ANTIGEN ANTIBODY COMBO Routine 10/08/2017 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 The results should be integrated into the clinical context for interpretation. Urine MID-STREAM URINE SPECIMEN / Unknown Non-blood Collection / Unknown 04/29/2024 4:43 PM CDT 04/29/2024 4:43 PM CDT Jazmín Chavez PA-C LAB - URINE ORDERA BLES [facility] [address] [facility], [address] [address] * (ABNORMAL) Urine Drug Confirmation Panel (04/29/2024 4:43 PM CDT) Amphetamine ng/mL >12,000(H) <50 ng/mL 05/05/2024 7:17 AM CDT [facility] Amphetamine 05/05/2024 7:17 AM CDT [facility] Comment:Unable to calculate: Result value above analytical measurement range Urine MID-STREAM URINE SPECIMEN / Unknown Non-blood Collection / Unknown 04/29/2024 4:43 PM CDT 04/29/2024 4:43 PM CDT Narrative SPECIALTY LABS - 05/05/2024 7:17 AM CDT Interpretation: ??Absent or none detected This test was developed and its performance characteristics determined by the [facility], ??Special Chemistry Laboratory. It has not been cleared or approved by the FDA. The laboratory is regulated under CLIA as qualified to perform high-complexity testing. This test is used for clinical purposes. It should not be regarded as investigational or for research. Drugs with concentrations less than the cutoff will not be reported.?? The drugs with applicable detection cutoff limits that are included within the Drug Confirmation Panel are: The following drugs are detected with a cutoff of 3 ng/ml: FENTANYL The following drugs are detected with a cutoff of 5 ng/mL: 6-ACETYLMORPHINE, BUPRENORPHINE, NALOXONE, NORBUPRENORPHINE, NORFENTANYL The following drugs are detected with a cutoff of 10 ng/mL: SUFENTANIL The following drugs are detected with a cutoff of 20 ng/mL: PCP (PHENCYCLIDINE) The following drugs are detected with a cutoff of 50 ng/mL: 7-AMINOCLONAZEPAM, 7-AMINOFLUNITRAZEPAM, ALPRAZOLAM, AMPHETAMINE, X-ZU-AJFNJQXACS, N-XG-JZGGYTPIR, D-QQ-FDSDZEOJC, BENZOYLECGONINE (Cocaine Metabolite), CLONAZEPAM, COCAETHYLENE (Cocaine Metabolite), CODEINE, DIAZEPAM, DIHYDROCODEINE, EDDP (Methadone Metabolite), HYDROCODONE, HYDROMORPHONE, LORAZEPAM, MDA (3,4-Methylenedioxyamphetamine), MDEA (3,3-Qvapknwcfsqvqa-Y-ethylcathinone), MDMA (Methylenedioxyamphetamine,Ecstasy), MEPERIDINE, METHADONE, METHAMPHETAMINE, METHYLPHENIDATE (Ritalin), MORPHINE, NALTREXONE, Y-SHJVFTW-VMUNYAPOAS, NORCODEINE, NORDIAZEPAM, NORMEPERIDINE, U-HDE-NVNJHEAK, OXAZEPAM, OXYCODONE, OXYMORPHONE, PROPOXYPHENE, RITALINIC ACID, TAPENTADOL, TEMAZEPAM, THEBAINE, TRAMADOL The following drugs are detected with a cutoff of 100 ng/mL: GABAPENTIN, KETAMINE The following drugs are detected with a cutoff of 200 ng/mL: PREGABALIN, XYLAZINE Questions surrounding testing results should be directed to the Clinical Chemistry service line at: [phone] Jazmín Chavez PA-C LAB - URINE ORDERA BLES [facility] [address] [facility], [address] [address] Special Drug/[facility] [address] [facility], [address] [address] * (ABNORMAL) TSH with free T4 reflex (04/29/2024 4:39 PM CDT) TSH 4.52(H) 0.30 - 4.20 uIU/mL 04/30/2024 2:58 PM CDT [facility] Blood STRUCTURE OF RIGHT UPPER LIMB / Unknown Venipuncture / Unknown 04/29/2024 4:39 PM CDT 04/29/2024 4:39 PM CDT Jazmín Chavez PA-C LAB - BLOOD ORDERA BLES Performing Organization Address City/[facility]/ZIP Co de Phone Number [facility] [place] [facility] [address] [facility], [address] [address] * T4 free (04/29/2024 4:39 PM CDT) Free T4 1.30 0.90 - 1.70 ng/dL 04/30/2024 3:23 PM CDT [facility] Blood STRUCTURE OF RIGHT UPPER LIMB / Unknown Venipuncture / Unknown 04/29/2024 4:39 PM CDT 04/29/2024 4:39 PM CDT Jazmín Chavez PA-C LAB - BLOOD ORDERA BLES [facility] [place] [facility] [address] [facility], [address] [address] * (ABNORMAL) Magnesium (04/29/2024 4:39 PM CDT) Magnesium 2.4(H) 1.7 - 2.3 mg/dL 04/30/2024 2:57 PM CDT [facility] Blood STRUCTURE OF RIGHT UPPER LIMB / Unknown Venipuncture / Unknown 04/29/2024 4:39 PM CDT 04/29/2024 4:39 PM CDT Jazmín Chavez PA-C LAB - BLOOD ORDERA BLES [facility] [place] [facility] [address] [facility], [address] [place] [address], [facility] * (ABNORMAL) Hemoglobin A1c (04/29/2024 4:39 PM CDT) Hemoglobin A1C 5.7(H) 0.0 - 5.6 % 04/29/2024 4:46 PM CDT [facility] Comment: Normal <5.7% Prediabetes 5.7-6.4% ?? Diabetes 6.5% or higher Note: Adopted from ADA consensus guidelines. Blood STRUCTURE OF RIGHT UPPER LIMB / Unknown Venipuncture / Unknown 04/29/2024 4:39 PM CDT 04/29/2024 4:39 PM CDT Jazmín Chavez PA-C LAB - BLOOD ORDERA BLES [facility] [place] [facility] [address] [place] [address] (no room number, 1st floor of clinic) [place] [address], [facility] [phone] * Ferritin (04/29/2024 4:39 PM CDT) Ferritin 17 6 - 175 ng/mL 04/30/2024 2:57 PM CDT [facility] Blood STRUCTURE OF RIGHT UPPER LIMB / Unknown Venipuncture / Unknown 04/29/2024 4:39 PM CDT 04/29/2024 4:39 PM CDT Jazmní Chavez PA-C LAB - BLOOD ORDERA BLES [facility] [place] [facility] [address] [facility]. [facility], [address] [place] [address], [facility] * (ABNORMAL) Comprehensive metabolic panel (BMP + Alb, Alk Phos, ALT, AST, Total. Bili, TP) (04/29/2024 4:39 PM CDT) Sodium 140 135 - 145 mmol/L 04/30/2024 2:57 PM CDT [facility] Potassium 4.0 3.4 - 5.3 mmol/L 04/30/2024 2:57 PM CDT [facility] Carbon Dioxide (CO2) 25 22 - 29 mmol/L 04/30/2024 2:57 PM CDT [facility] Anion Gap 12 7 - 15 mmol/L 04/30/2024 2:57 PM CDT [facility] Urea Nitrogen 12.3 6.0 - 20.0 mg/dL 04/30/2024 2:57 PM CDT [facility] Creatinine 0.80 0.51 - 0.95 mg/dL 04/30/2024 2:57 PM CDT [facility] GFR Estimate >90 >60 mL/min/1.7 3m2 04/30/2024 2:57 PM CDT [facility] Comment:eGFR calculated usin 2020 CKD-EPI equation. Calcium 8.9 8.8 - 10.4 mg/dL 04/30/2024 2:57 PM CDT [facility] Comment:Reference intervals for this test were updated on 04/13/2024 to reflect our healthy population more accurately. There may be differences in the flagging of prior results with similar values performed with this method. Those prior results can be interpreted in the context of the updated reference intervals. Chloride 103 98 - 107 mmol/L 04/30/2024 2:57 PM CDT [facility] Glucose 105(H) 70 - 99 mg/dL 04/30/2024 2:57 PM CDT [facility] Alkaline Phosphatase 69 40 - 150 U/L 04/30/2024 2:57 PM CDT [facility] AST 20 0 - 45 U/L 04/30/2024 2:57 PM CDT [facility] ALT 18 0 - 50 U/L 04/30/2024 2:57 PM CDT [facility] Protein Total 7.3 6.4 - 8.3 g/dL 04/30/2024 2:57 PM CDT [facility] Albumin 4.5 3.5 - 5.2 g/dL 04/30/2024 2:57 PM CDT [facility] Bilirubin Total 0.3 <=1.2 mg/dL 04/30/2024 2:57 PM CDT [facility] Blood STRUCTURE OF RIGHT UPPER LIMB / Unknown Venipuncture / Unknown 04/29/2024 4:39 PM CDT 04/29/2024 4:39 PM CDT Jazmín Chavez PA-C LAB - BLOOD ORDERA BLES [facility] [place] [facility] [address] [facility], [address] [address] * (ABNORMAL) CBC with platelets (04/29/2024 4:39 PM CDT) WBC Count 7.5 4.0 - 11.0 10e3/uL 04/29/2024 5:21 PM CDT [facility] RBC Count 4.94 3.80 - 5.20 10e6/uL 04/29/2024 5:21 PM CDT [facility] Hemoglobin 13.0 11.7 - 15.7 g/dL 04/29/2024 5:21 PM CDT [facility] Hematocrit 39.3 35.0 - 47.0 % 04/29/2024 5:21 PM CDT [facility] MCV 80 78 - 100 fL 04/29/2024 5:21 PM CDT [facility] MCH 26.3(L) 26.5 - 33.0 pg 04/29/2024 5:21 PM CDT [facility] MCHC 33.1 31.5 - 36.5 g/dL 04/29/2024 5:21 PM CDT [facility] RDW 14.2 10.0 - 15.0 % 04/29/2024 5:21 PM CDT [facility] Platelet Count 231 150 - 450 10e3/uL 04/29/2024 5:21 PM CDT [facility] Blood STRUCTURE OF RIGHT UPPER LIMB / Unknown Venipuncture / Unknown 04/29/2024 4:39 PM CDT 04/29/2024 4:39 PM CDT Jazmín Chavez PA-C LAB - BLOOD ORDERA BLES [facility] [place] [facility] [address] [facility] (no room number, 1st floor of clinic) [place] [address], [facility] [phone] * MA Diagnostic Bilateral w/Arvind (07/18/2023 3:16 PM CDT) Anatomical Region Laterality Modality Breast Bilateral Mammography Impressions 07/18/2023 3:29 PM CDT Impression: BI-RADS CATEGORY: 1 - ??NEGATIVE Given the lack of specific imaging findings for this patient's symptoms, further management would need to be based on clinical grounds. Recommended Follow-up: Annual Mammography. The patient was given the results of the examination. ADRIEL MATHUR MD Narrative 07/18/2023 3:29 PM CDT Examinations: MA DIAGNOSTIC BILATERAL W/ ARVIND, US AXILLARY RIGHT, 07/18/2023 3:16 PM Comparisons: Diagnostic mammogram and ultrasound 03/08/2023 History/family history: Right axillary lump and tenderness. Breast Density: Heterogeneously dense Findings: ?? Mammogram: No suspicious findings or significant interval change in either breast. Ultrasound: Targeted ultrasound evaluation of the right axilla was performed by the technologist and the radiologist at the site of the patient's palpable concern, which demonstrates only normal tissue. No lymphadenopathy or other suspicious sonographic findings are identified. Dulce Friedman PA-C IMG MAMMOGRAPHY OR DERABLES * COLONOSCOPY - HIM SCAN (06/04/2023 12:00 AM CDT) 06/04/2023 Provider Outside PROCEDURES * ABSTRACT HPV-NO CHARGE (08/23/2019) HPV Abstract See Scanned Document [facility] Comment:Not Detected 08/23/[address] [facility] - 08/23/2019 See Care Everywhere-[facility] Provider Outside LAB - HIM EXTERNAL R ESULT 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
--- OUTSIDE RECORDS SUMMARY | 2024-07-01 22:15 | XMS_ITS | Encounter Summary ---
Author Organization [facility] Address [address] [place] [address]. [place] [address] Care Team Providers Care Senior Ui Software Engineer Name Role Phone Jazmín Chavez PA-C Primary Care Provider [phone]- [phone] Jazmín Chavez PA-C Unavailable [phone] Reason for Visit * Reason Onset Date Comments Patient Request 04/28/2024 Encounter Details Date Type Department Care Team (Late st Contact Info) Description 04/28/2024 MyC Medical Advice [address] [address] Jazmín Chavez PA-C [address] [place] [address] [phone] Patient Request Social History Tobacco Use Types Packs/Day Years [...] in an abandoned building, in an overnight mcfp, or couch-surfing.) Yes 07/04/2023 Are you worried [...] documented as of this encounter Visit Diagnoses Not on filedocumented in this encounter Additional Health Concerns Assessment Noted Time PHQ-9 Depression Total Score: 10 024 2:28 PM CDT documented as of this encounter Care Teams Senior Ui Software Engineer Relationship Specialty Start Date End Date Jazmín Chavez PA-C [address] [place] [address] PCP - General Family Medicine 02/10/23 06/28/24 Jazmín Chavez PA-C [address] [place] [address] Assigned PCP 02/15/23 documented as of this encounter
--- OUTSIDE RECORDS SUMMARY | 2024-07-01 22:15 | XMS_ITS | Encounter Summary ---
Author Organization [facility] Address [address] [place] [address]. [place] [address] Care Team Providers Care Mining Support Worker Name Role Phone Jazmín Chavez PA-C Primary Care Provider [phone]- [phone] Jazmín Chavez PA-C Unavailable Encounter Details Date Type Department Care Team (Late st Contact Info) Description 05/03/2024 Orders Only [facility] [address] [place] [phone] Jazmín Chavez PA-C [id number] [place] [address] [phone] Hypothyroidism, unspecified type Social History Tobacco Use Types Packs/Day [...] in an abandoned building, in an overnight retirement, or couch-surfing.) Yes 07/04/2023 Are you worried [...] as of this encounter Visit Diagnoses Diagnosis Hypothyroidism, unspecified type documented in this encounter Additional Health Concerns Assessment Noted Time PHQ-9 Depression Total Score: 10 024 2:28 PM CDT documented as of this encounter Care Teams Mining Support Worker Relationship Specialty Start Date End Date Jazmín Chavez PA-C [address] [place] [address] PCP - General Family Medicine 02/10/23 06/28/24 Jazmín Chavez PA-C [address] [place] [address] Assigned PCP 02/15/23 documented as of this encounter
--- OUTSIDE RECORDS SUMMARY | 2024-07-01 22:15 | XMS_ITS | Encounter Summary ---
Author Organization [facility] Address [address] [place] [address]. [place] [address] Care Team Providers Care Hand Paint Mixer Name Role Phone Jazmín Chavez PA-C Primary Care Provider [phone]- [phone] Jazmín Chavez PA-C Unavailable Reason for Visit * Reason Onset Date Comments Refill Request 05/24/2024 Encounter Details Date Type Department Care Team (Late st Contact Info) Description 05/24/2024 [facility] [address] [address] Jazmín Chavez PA-C [address] [place] [address] [phone] Refill Request Social History Tobacco Use Types Packs/Day [...] in an abandoned building, in an overnight mcc, or couch-surfing.) Yes 07/04/2023 Are you worried [...] documented as of this encounter Care Teams Hand Paint Mixer Relationship Specialty Start Date End Date Jazmín Chavez PA-C [address] [place] [address] PCP - General Family Medicine 02/10/23 06/28/24 Jazmín Chavez PA-C [address] [place] [address] Assigned PCP 02/15/23 documented as of this encounter
--- OUTSIDE RECORDS SUMMARY | 2024-07-01 22:15 | XMS_ITS | Encounter Summary ---
Author Organization [facility] Address [address] [place] [address]. [place] [address] Care Team Providers Care Table Tender Sludge Name Role Phone Jazmín Chavez PA-C Primary Care Provider [phone]- [phone] Jazmín Chavez PA-C Unavailable [phone] Encounter Details Date Type Department Care Team (Late st Contact Info) Description 04/14/2024 MyC Medical Advice [facility] Mental Health & Addiction [facility] [id number] [place] [phone] Zeina Macias Social History Tobacco Use Types Packs/Day Years [...] in an abandoned building, in an overnight alf, or couch-surfing.) Yes 07/04/2023 Are you worried [...] documented as of this encounter Care Teams Table Tender Sludge Relationship Specialty Start Date End Date Jazmín Chavez PA-C [address] [place] [address] PCP - General Family Medicine 02/10/23 06/28/24 Jazmín Chavez PA-C [address] [place] [address] Assigned PCP 02/15/23 documented as of this encounter
--- OUTSIDE RECORDS SUMMARY | 2024-07-01 22:15 | XMS_ITS | Encounter Summary ---
Author Organization [facility] Address [address] [place] [address]. [place] [address] Care Team Providers Care Replenishment Buyer Name Role Phone Jazmín Chavez PA-C Primary Care Provider [phone]- [phone] Jazmín Chavez PA-C Unavailable [phone] Encounter Details Date Type Department Care Team (Late st Contact Info) Description 05/24/2024 MyC Medical Advice [facility] [address] [place] [phone] Jazmín Chavez PA-C [id number] [place] [address] [phone] Social History Tobacco Use Types Packs/Day Years [...] in an abandoned building, in an overnight usp, or couch-surfing.) Yes 07/04/2023 Are you worried [...] documented as of this encounter Care Teams Replenishment Buyer Relationship Specialty Start Date End Date Jazmín Chavez PA-C [address] [place] [address] PCP - General Family Medicine 02/10/23 06/28/24 Jazmín Chavez PA-C [address] [place] [address] Assigned PCP 02/15/23 documented as of this encounter
--- OUTSIDE RECORDS SUMMARY | 2024-07-01 22:15 | XMS_ITS | Encounter Summary ---
Author Organization [facility] Address [address] [facility] [place] [address] Care Team Providers Care Financial Accounting Analyst Name Role Phone Jazmín Chavez PA-C Primary Care Provider [phone]- [phone] Jazmín Chavez PA-C Unavailable [phone] Encounter Details Date Type Department Care Team (Latest Contact Info) Description 04/29/2024 Travel Social History Tobacco Use Types Packs/Day Years [...] Answer Date Recorded Do you have housing? (Adrianin g is defined as stable permanent housing and does not include staying ouside in a car, in a tent, in an abandoned building, in an overnight detention, or couch-surfing.) Yes 07/04/2023 Are you worried [...] documented as of this encounter Care Teams Financial Accounting Analyst Relationship Specialty Start Date End Date Jazmín Chavez PA-C [address] [place] [address] PCP - General Family Medicine 02/10/23 06/28/24 Jazmín Chavez PA-C [address] [place] [address] Assigned PCP 02/15/23 documented as of this encounter
--- OUTSIDE RECORDS SUMMARY | 2024-07-01 22:15 | XMS_ITS | Encounter Summary ---
Author Organization [facility] Address [address] [place] [address]. [place] [address] Care Team Providers Care Electrical Appliance Servicer Name Role Phone Jazmín Chavez PA-C Primary Care Provider [phone]- [phone] Jazmín Chavez PA-C Unavailable [phone] Encounter Details Date Type Department Care Team (Late st Contact Info) Description 06/16/2024 MyC Medical Advice [address] [address] Jumana Woods Social History Tobacco Use Types Packs/Day Years [...] in an abandoned building, in an overnight half-way, or couch-surfing.) Yes 07/04/2023 Are you worried [...] documented as of this encounter Care Teams Electrical Appliance Servicer Relationship Specialty Start Date End Date Jazmín Chavez PA-C [address] [place] [address] PCP - General Family Medicine 02/10/23 06/28/24 Jazmín Chavez PA-C [address] [place] [address] Assigned PCP 02/15/23 documented as of this encounter
--- OUTSIDE RECORDS SUMMARY | 2024-07-01 22:15 | XMS_ITS | Encounter Summary ---
Author Organization [facility] Address [address] [place] [address] Care Team Providers Care Hospital Fellow Name Role Phone Jazmín Chavez PA-C Unavailable [phone] Reason for Visit * Reason Onset Date Comments Medication Problem 06/29/2024 Encounter Details Date Type Department Care Team (Late st Contact Info) Description 06/29/2024 MyC Medical Advice [facility] [address] [place] [phone] Dulce Friedman PA-C [address] [place], [place] [phone] Medication Problem Social History Tobacco Use Types Packs/Day Years [...] PM CDT documented as of this encounter Miscellaneous Notes * Telephone Encounter - Dulce Friedman PA-C - 06/29/2024 11:43 AM CDT MANAGER PRODUCT reviewed and refill sent. 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
--- OUTSIDE RECORDS SUMMARY | 2024-07-01 22:15 | XMS_ITS | Referral Summary ---
Author Organization [facility] Address [address] [place] [address] Care Team Providers Care Box Maker Name Role Phone Jazmín Chavez PA-C Unavailable [phone] Encounters Date Type Department Care Team Description 06/29/2024 MyC Medical Advice [address] [phone] Dulce Friedman PA-C Medication Problem 06/16/2024 MyC Medical Advice [address] [phone] Jumana Woods 05/24/2024 MyC Medical Advice [address] [address] Jazmín Chavez PA-C 05/24/2024 MyC Refill [address] [address] Jazmín Chavez PA-C Refill Request 05/03/2024 MyC Medical Advice [address] [address] Jazmín Chavez PA-C ADHD, predominantly inattentive type 05/03/2024 Orders Only [address] [address] Jazmín Chavez PA-C Hypothyroidism, unspecified type 04/29/2024 Travel 04/29/2024 4:15 PM CDT Lab [facility] [address] [place] [phone] Sweating increase; Muscle spasm; ADHD, predominantly inattentive type 04/28/2024 MyC Medical Advice [facility] [address] [place] [phone] Jazmín Chavez PA-C Patient Request 04/14/2024 MyC Medical Advice [facility] Mental Health & Addiction [address] [phone] Zeina Macias 04/06/2024 2:30 PM CDT Virtual Visit [address] [address] Jazmín Chavez PA-C ADHD, predominantly inattentive type (Primary Dx); Fibromyalgia; Other insomnia; Migraine without aura and without status migrainosus, not intractable; Anxiety; Obsessive-compulsive disorder, unspecified type; Muscle spasm; Sweating increase; Neuropathy from Last 3 Months Allergies Active Allergy Reactions Criticality Noted Date Comments Adhesive Tape Itching,Rash Low 07/19/2021 Amoxicillin Rash Low 12/05/2012 Azithromycin Diarrhea 03/07/2022 Watery diarrhea on the first day Cats 11/25/2013 Dexamethasone Other (See Comments) 09/10/2022 Numbness in legs Dogs 11/25/2013 Droperidol 11/20/2020 Dust Mite Extract Other (See Comments) 11/28/19 13 ITCHING Dust Mites 11/25/2013 [place] 11/25/2013 Gluten Meal 09/09/2022 Nuts 11/25/2013 Cephalexin [...] 02/17/2013 Overview: Patient is followed by Jazmín Chavez for ongoing prescription of stimulants. All refills [...] [facility] completed: [facility] , not on file Last [facility] website verification: Done 07/08/17 [email or web address] Problem Noted Date Diagnosed Date Resolved Date H/O sinus surgery 03/20/2016 09/28/2020 Migraine headache 04/20/2013 04/20/2013 Immunizations Name Administration Dates Next Due Flu 65+ (Fluad) 10/12/2015 Flu, Unspecified 10/12/2015,09/18/2011 Influenza Vaccine >6 months,quad, PF 08/2023,07/05/2021,07/02/2020,2018,07/28/2018,09/02/2016,10/12/2015 MMR 07/10/2020 Rhogam 08/28/2021,,06/26/2019,2018,06/10/2018 TDAP (Adacel,Boostrix) 08/02/2021,2018,04/28/2018,2015,05/30/2005 TDAP Vaccine (Adacel) 05/30/2005,06/18/2002 Social History Tobacco Use Types Packs/Day Years [...] in an abandoned building, in an overnight halfway, or couch-surfing.) Yes 07/04/2023 Are you worried [...] 07/04/2023 1:32 PM CDT Plan of Treatment Not on file Procedures Procedure Name Priority Date/Time Associated Diagnosis [...] ANTIGEN ANTIBODY COMBO Routine 10/08/2017 9:01 AM WARP SCOURING VAT TENDER , incidental from Last 3 Months or [...] Chavez PA-C LAB - URINE ORDERA BLES LABORATORY [facility] Core Lab [address] [facility], [address] [address] * (ABNORMAL) Urine Drug Confirmation Panel (04/29/2024 4:43 PM CDT) Amphetamine ng/mL >12,000(H) <50 ng/mL 05/05/2024 7:17 AM CDT [facility] Amphetamine 05/05/2024 7:17 AM CDT [facility] Comment:Unable to calculate: Result value above analytical measurement range Urine MID-STREAM URINE SPECIMEN / Unknown Non-blood Collection / Unknown 04/29/2024 4:43 PM CDT 04/29/2024 4:43 PM CDT Narrative SPECIALTY LABS - 05/05/2024 7:17 AM CDT Interpretation: ??Absent or none detected This test was developed and its performance characteristics determined by the [facility], ??Special Chemistry Laboratory. It has not been [...] of 50 ng/mL: 7-AMINOCLONAZEPAM, 7-AMINOFLUNITRAZEPAM, ALPRAZOLAM, AMPHETAMINE, F-QS-JSTXWYWYRM, Y-OY-AXRFTHMSJ, A-MM-QMWGXWWYT, BENZOYLECGONINE (Cocaine Metabolite), CLONAZEPAM, COCAETHYLENE (Cocaine Metabolite), CODEINE, DIAZEPAM, DIHYDROCODEINE, EDDP (Methadone Metabolite), HYDROCODONE, HYDROMORPHONE, LORAZEPAM, MDA (3,4-Methylenedioxyamphetamine), MDEA (3,9-Kriithnxynrjov-O-ethylcathinone), MDMA (Methylenedioxyamphetamine,Ecstasy), MEPERIDINE, METHADONE, METHAMPHETAMINE, METHYLPHENIDATE (Ritalin), MORPHINE, NALTREXONE, Z-ATILZGA-SXUEKGUGFB, NORCODEINE, NORDIAZEPAM, NORMEPERIDINE, I-JCU-VPQAARNQ, OXAZEPAM, OXYCODONE, OXYMORPHONE, PROPOXYPHENE, RITALINIC ACID, TAPENTADOL, TEMAZEPAM, THEBAINE, TRAMADOL The following drugs are detected with a cutoff of 100 ng/mL: GABAPENTIN, KETAMINE The following drugs are detected with a cutoff of 200 ng/mL: PREGABALIN, XYLAZINE Questions surrounding testing results should be directed to the Clinical Chemistry service line at: [phone] Jazmín Chavez PA-C LAB - URINE ORDERA BLES [facility] Specialty Lab [address] [facility], [address] [place] [address], [facility] SPECIAL DRUG/[facility] Special Drug/[facility] [address] [facility] [address] [facility], [address] [place] [address], [facility] * (ABNORMAL) TSH with free T4 reflex (04/29/2024 4:39 PM CDT) TSH 4.52(H) 0.30 - 4.20 uIU/mL 04/30/2024 2:58 PM CDT [facility] Blood STRUCTURE OF RIGHT UPPER LIMB / Unknown Venipuncture / Unknown 04/29/2024 4:39 PM CDT 04/29/2024 4:39 PM CDT Jazmín Chavez PA-C LAB - BLOOD ORDERA BLES Performing Organization Address City/[facility]/ZIP Co de Phone Number U LABORATORY [facility] [address] [facility], [address] * T4 free (04/29/2024 4:39 PM CDT) Free T4 1.30 0.90 - 1.70 ng/dL 04/30/2024 3:23 PM CDT U LABORATORY Blood STRUCTURE OF RIGHT UPPER LIMB / Unknown Venipuncture / Unknown 04/29/2024 4:39 PM CDT 04/29/2024 4:39 PM CDT Jazmín Chavez PA-C LAB - BLOOD ORDERA BLES Performing Organization Address City/[facility]/ZIP Co de Phone Number LABORATORY [facility] [address] [facility], [address] * (ABNORMAL) Magnesium (04/29/2024 4:39 PM CDT) Magnesium 2.4(H) 1.7 - 2.3 mg/dL 04/30/2024 2:57 PM CDT U LABORATORY Blood STRUCTURE OF RIGHT UPPER LIMB / Unknown Venipuncture / Unknown 04/29/2024 4:39 PM CDT 04/29/2024 4:39 PM CDT Jazmín Chavez PA-C LAB - BLOOD ORDERA BLES Performing Organization Address City/[facility]/ZIP Co de Phone Number U LABORATORY [facility] [address] [facility], [address] * (ABNORMAL) Hemoglobin A1c (04/29/2024 4:39 PM [...] LAB - BLOOD ORDERA BLES CR LABORATORY [facility] [address] [facility] Lab (no room number, 1st floor of clinic) [place] [address], [facility] [phone] * Ferritin (04/29/2024 4:39 PM CDT) Pathologist [facility] Ferritin 17 6 - 175 ng/mL 04/30/2024 2:57 PM CDT [facility] LABORATORY Blood STRUCTURE OF RIGHT UPPER LIMB / Unknown Venipuncture / Unknown 04/29/2024 4:39 PM CDT 04/29/2024 4:39 PM CDT Jazmín Chavez PA-C LAB - BLOOD ORDERA BLES [facility] LABORATORY [facility] [address] [facility], [address] [place] [address], [facility] * (ABNORMAL) Comprehensive metabolic panel (BMP + Alb, Alk Phos, ALT, AST, Total. Bili, TP) (04/29/2024 4:39 PM CDT) Pathologist [facility] Sodium 140 135 - 145 mmol/L 04/30/2024 [...] 2:57 PM CDT [facility] Comment:eGFR calculated us2020 CKD-EPI equation. Calcium 8.9 8.8 - 10.4 [...] PM CDT 04/29/2024 4:39 PM CDT Jazmín N Scott PA-C LAB - BLOOD ORDERA BLES [facility] LABORATORY [facility] Lab [address] [facility], [address] [place] [address], [facility] * (ABNORMAL) CBC with platelets (04/29/2024 4:39 [...] LAB - BLOOD ORDERA BLES CR LABORATORY [facility] [address] [place] [address] (no room number, 1st floor of clinic) [place] [address], [place] [phone] * MA Diagnostic Bilateral w/Arvind (07/18/2023 3:16 [...] CHARGE (08/23/2019) HPV Abstract See Scanned Document [facility] Comment:Not Detected 08/23/2019 Narrative [facility] - 08/23/2019 See Care Everywhere-[facility] Provider Outside LAB - HIM EXTERNAL R ESULT [facility] [address] [employer] [place] [address], [facility] [phone] * HIV Antigen Antibody Combo (10/08/2017 9:01 AM WARP SCOURING VAT TENDER) HIV Antigen Antibody Combo Nonreactive NR^Nonrea ctive 10/08/2017 9:02 PM WARP SCOURING VAT TENDER [facility] Comment:HIV-1 p24 Ag & HIV-1 /HIV-2 Ab Not Detected Blood specimen (specimen) 10/08/2017 9:01 AM WARP SCOURING VAT TENDER 10/08/2017 9:02 AM WARP SCOURING VAT TENDER Micaela Baker MD LAB - BLOOD ORDERABL ES [facility] [address] [place] [address] from Last 3 Months or Most Recently Relevant to Health Maintenance Care Teams Box Maker Relationship Specialty Start Date End Date Jazmín Chavez PA-C [address] [place] [address] Assigned PCP 02/15/23
--- OUTSIDE RECORDS SUMMARY | 2024-07-01 22:15 | XMS_ITS | Encounter Summary ---
Author Organization [place] Address [address] [place] [address] Care Team Providers Care Gas Turbine Powerplant Mechanic Name Role Phone Jazmín Chavez PA-C Primary Care Provider [phone]- [phone] Jazmín Chavez PA-C Unavailable [phone] Encounter Details Date Type Department Care Team (Late st Contact Info) Description 04/29/2024 4:[address] [facility] Laboratory [address] [place] [phone] Sweating increase; Muscle spasm; ADHD, predominantly inattentive type Social History Tobacco [...] on file documented as of this encounter Procedures Procedure Name Priority Date/Time Associated Diagnosis Comments URINE CREATININE FOR DRUG SCREEN PANEL Routine 04/29/2024 4:43 PM CDT ADHD, predominantly inattentive type URINE DRUG CONFIRMATION PANEL Routine 04/29/2024 4:43 PM CDT ADHD, predominantly inattentive type DRUG CONFIRMATION PANEL URINE WITH CREAT Routine 04/29/2024 4:43 PM CDT ADHD, predominantly inattentive type TSH WITH FREE T4 REFLEX Routine 04/29/2024 4:39 PM CDT Sweating increase T4 FREE Routine 04/29/2024 4:39 PM CDT Sweating increase MAGNESIUM Routine 04/29/2024 4:39 PM CDT Muscle spasm HEMOGLOBIN A1C Routine 04/29/2024 4:39 PM CDT Sweating increase FERRITIN Routine 04/29/2024 4:39 PM CDT Muscle spasm COMPREHENSIVE METABOLIC PANEL Routine 04/29/2024 4:39 PM CDT Sweating increase CBC WITH PLATELETS Routine 04/29/2024 4: 39 PM CDT Sweating increase documented in this encounter Results * Urine Creatinine for Drug Screen Panel (04/29/2024 4:43 PM CDT) Creatinine Urine for Drug Screen 164 mg/dL 04/30/2024 2:49 PM CDT U LABORATORY Comment:The reference range has not been established for creatinine in random urines. The results should be integrated into the clinical context for interpretation. Urine MID-STREAM URINE SPECIMEN / Unknown Non-blood Collection / Unknown 04/29/2024 4:43 PM CDT 04/29/2024 4:43 PM CDT Jazmín Chavez PA-C LAB - URINE ORDERA ANH UU LABORATORY [facility] Core Lab 500 [facility], Room [address] [phone] * (ABNORMAL) Urine Drug Confirmation Panel [...] and its performance characteristics determined by the [facility], ??Special Chemistry Laboratory. It has not been [...] of 50 ng/mL: 7-AMINOCLONAZEPAM, 7-AMINOFLUNITRAZEPAM, ALPRAZOLAM, AMPHETAMINE, W-HV-VXEPDGEULU, N-CD-WKESKENQW, L-JA-YYQCXNOVZ, BENZOYLECGONINE (Cocaine Metabolite), CLONAZEPAM, COCAETHYLENE (Cocaine Metabolite), CODEINE, DIAZEPAM, DIHYDROCODEINE, EDDP (Methadone Metabolite), HYDROCODONE, HYDROMORPHONE, LORAZEPAM, MDA (3,4-Methylenedioxyamphetamine), MDEA (3,0-Hrdzoxtcblwilb-I-ethylcathinone), MDMA (Methylenedioxyamphetamine,Ecstasy), MEPERIDINE, METHADONE, METHAMPHETAMINE, METHYLPHENIDATE (Ritalin), MORPHINE, NALTREXONE, Y-BLMTNBX-WEOQPUIVTG, NORCODEINE, NORDIAZEPAM, NORMEPERIDINE, G-VGS-AFVTGKTQ, OXAZEPAM, OXYCODONE, OXYMORPHONE, PROPOXYPHENE, RITALINIC ACID, TAPENTADOL, TEMAZEPAM, THEBAINE, TRAMADOL The following drugs are detected with a cutoff of 100 ng/mL: GABAPENTIN, KETAMINE The following drugs are detected with a cutoff of 200 ng/mL: PREGABALIN, XYLAZINE Questions surrounding testing results should be directed to the Clinical Chemistry service line at: [phone] Jazmín Chavez PA-C LAB - URINE ORDERA BLES SPECIALTY LABS Specialty Lab 500 [facility], Room [address] [phone], [facility] UM SPECIAL DRUG/BGEN Special Drug/BGEN 500 [facility], Room [address] [phone] * T4 free (04/29/2024 4:39 PM CDT) Free T4 1.30 0.90 - 1.70 ng/dL 04/30/2024 3:23 PM CDT UU LABORATORY Blood STRUCTURE OF RIGHT UPPER LIMB / Unknown Venipuncture / Unknown 04/29/2024 4:39 PM CDT 04/29/2024 4:39 PM CDT Jazmín Chavez PA-C LAB - BLOOD ORDERA BLES Performing Organization Address City/[facility]/ZIP Co de Phone Number LABORATORY [facility] [place] Core Lab 500 [facility], [address] [phone] * (ABNORMAL) Magnesium (04/29/2024 4:39 PM CDT) [facility] Magnesium 2.4(H) 1.7 - 2.3 mg/dL 04/30/2024 2:57 PM CDT UU LABORATORY Blood STRUCTURE OF RIGHT UPPER LIMB / Unknown Venipuncture / Unknown 04/29/2024 4:39 PM CDT 04/29/2024 4:39 PM CDT Jazmín Chavez PA-C LAB - BLOOD ORDERA BLES Performing Organization Address City/[facility]/ZIP Co de Phone Number LABORATORY [facility] [place] Core Lab 500 [facility], [address] [phone] * Ferritin (04/29/2024 4:39 PM CDT) Pathologist [facility] Ferritin 17 6 - 175 ng/mL 04/30/2024 2:57 PM CDT UU LABORATORY Blood STRUCTURE OF RIGHT UPPER LIMB / Unknown Venipuncture / Unknown 04/29/2024 4:39 PM CDT 04/29/2024 4:39 PM CDT Jazmín Chavez PA-C LAB - BLOOD ORDERA BLES UU LABORATORY [facility] [place] [facility] 500 [facility], Room [address] [place] [address] * (ABNORMAL) Hemoglobin A1c (04/29/2024 4:39 PM [...] LAB - BLOOD ORDERA BLES CR LABORATORY [facility] - [address] (no room number, 1st floor of clinic) [place] [address], [facility] [phone] * (ABNORMAL) TSH with free T4 reflex (04/29/2024 4:39 PM CDT) TSH 4.52(H) 0.30 - 4.20 uIU/mL 04/30/2024 2:58 PM CDT UU LABORATORY Blood STRUCTURE OF RIGHT UPPER LIMB / Unknown Venipuncture / Unknown 04/29/2024 4:39 PM CDT 04/29/2024 4:39 PM CDT Jazmín Chavez PA-C LAB - BLOOD ORDERA BLES UU LABORATORY [facility] [place] [facility] Lab 500 [facility], Room [address] [place] [address], [facility] * (ABNORMAL) Comprehensive metabolic panel [...] LAB - BLOOD ORDERA BLES UU LABORATORY [facility] [place] [facility] Lab 500 [facility], [address] [phone] * (ABNORMAL) CBC with platelets (04/29/2024 [...] LAB - BLOOD ORDERA BLES CR LABORATORY [facility] [place] Lab [address] [facility] (no room number, 1st floor of clinic) [place] [address], [facility] [phone] documented in this encounter Visit Diagnoses Diagnosis Sweating increase Generalized hyperhidrosis Muscle spasm Spasm of muscle ADHD, 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
--- OUTSIDE RECORDS SUMMARY | 2024-07-01 22:16 | XMS_ITS | Encounter Summary ---
Author Organization [place] Address [address] [place] [address]. [place] [address] Care Team Providers Care Centrifuge Operator Name Role Phone Dewey Astorga PA-C Unavailable Dewey Astorga PA-C Primary Care Provide r Johnathan Brand Primary Care Provider Unavailab le Jazmín Chavez PA-C Unavailable Johnathan Villanueva DO Unavailable [phone] Jazmín Chavez PA-C Primary Care Provider [phone]- [phone] Jazmín Chavez PA-C Unavailable Reason for Visit * Reason Comments Medication Refill Encounter Details Date Type Department Care Team (Late st Contact Info) Description 06/07/[address] [facility] [address], [address] [place] [address] Dewey Astorga PA-C [address] [facility] [address] [place] [address] Medication Refill Social History Tobacco Use Types Packs/Day Years Used Date Smoking Tobacco: Never Smokeless Tobacco: Never Alcohol Use Standard Drinks/Week Comments No 0 (1 standard drink = 0.6 oz pur e alcohol) PHQ-2 Answer Date Recorded PHQ-2 Score 0 10/05/2020 Sex and Gender Information Value Date Recorded Sex Assigned at Female 02/28/2020 8:14 PM CDT Gender Identity Female 02/28/2020 8:14 PM CDT Sexual Orientation Straight 02/28/2020 8: 14 PM CDT documented as of this encounter Miscellaneous Notes * Telephone Encounter - aCtherine Gonsalez RN - 06/07/2021 9:26 AM CDT [facility] requesting refill Denied Too early; Rx sent 01/30/2021 for 6 months to Jennifer Reese RN documented in this encounter Plan of Treatment Not on file documented as of this encounter Visit Diagnoses Diagnosis Fibromyalgia Mylagia and myositis, unspecified documented in this encounter Additional Health Concerns Infection Onset Date Last Indicated Resolved Time Rule Out COVID-19 12/14/2021 12/14/2021 12/15/2021 11:31 PM CDT Rule Out COVID-19 12/26/2023 12/26/2023 12/26/2023 9:46 PM CDT Assessment Noted Time PHQ-9 Depression Total Score: 4 08/11/20 17 7:57 AM APPETIZER PACKER documented as of this encounter Care Teams Centrifuge Operator Relationship Specialty Start Date End Date Dewey Astorga PA-C [address] [place] [address] PCP - General Family Medicine 11/18/20 11/20/21 Johnathan Brand [address] [place] [address] PCP - General Family Medicine 11/21/21 09/23/22 Jazmín Chavez PA-C [address] [place] [address] PCP - General Family Medicine 02/10/23 06/28/24 Dewey Astorga PA-C [address] [place] [address] Assigned PCP 07/23/20 08/02/22 Jazmín Chavez PA-C [address] [place] [address] Assigned PCP 08/03/22 08/30/22 [place] [address] [place] [address] Assigned PCP 09/28/22 02/14/23 Jazmín Chavez PA-C [address] [place] [address] Assigned PCP 02/15/23 documented as of this encounter
--- OUTSIDE RECORDS SUMMARY | 2024-07-01 22:16 | XMS_ITS | Encounter Summary ---
Author Organization [place] Address [address] [place] [address]. [place] [address] Care Team Providers Care Negative Stripper Name Role Phone Johnathan Villanueva Unavailable [phone] Jazmín Chavez PA-C Primary Care Provider [phone]- [phone] Jazmín Chavez PA-C Unavailable Reason for Visit * Reason Onset Date Comments Refill Request 11/08/2022 Encounter Details Date Type Department Care Team (Late st Contact Info) Description 11/08/2022 Ernst [address] [phone] Jazmín Chavez PA-C [address] [place] [phone] Refill Request Social History Tobacco Use Types Packs/Day Years Used Date Smoking Tobacco: Never Smokeless Tobacco: Never Alcohol Use Standard Drinks/Week Comments No 0 (1 standard drink = 0.6 oz pur e alcohol) PHQ-2 Answer Date Recorded PHQ-2 Score 0 06/11/2022 Sex and Gender Information Value Date Recorded [...] Last Indicated Resolved Time Rule Out COVID-19 12/26/2023 12/26/2023 12/26/2023 9:46 PM CDT Assessment Noted Time PHQ-9 Depression Total Score: 4 06/11/20 3:16 AM CDT documented as of this encounter Care Teams Negative Stripper Relationship Specialty Start Date End Date Jazmín Chavez PA-C [address] [place] [address] PCP - General Family Medicine 02/10/23 06/28/24 [place] [address] [place] [address] Assigned PCP 09/28/22 02/14/23 Jazmín Chavez PA-C [address] [place] [address] Assigned PCP 02/15/23 documented as of this encounter
--- OUTSIDE RECORDS SUMMARY | 2024-07-01 22:16 | XMS_ITS | Encounter Summary ---
Author Organization [place] Address [address] [place] [address]. [place] [address] Care Team Providers Care Outreach Assistant Name Role Phone Jazmín Chavez PA-C Primary Care Provider [phone]- [phone] Jazmín Chavez PA-C Unavailable Reason for Visit * Reason Onset Date Comments Refill Request 05/02/2023 Encounter Details Date Type Department Care Team (Late st Contact Info) Description 05/02/2023 Ernst Patel [address] [address] Jazmín Chavez PA-C [address] [place] [phone] Refill Request Social History Tobacco Use Types [...] Telephone Encounter - Dulce Friedman PA-C - 05/02/2023 3:52 PM CDT Prescription request is a little early. SAMPLE DYE MIXER reviewed. Will leave for PCP to send when she is back next week. * Telephone Encounter - Elidia Roca RN - 05/02/2023 3:11 PM CDT Routing refill request to provider for review/approval because: Drug not on the [facility] refill protocol Please clarify dosing. 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
--- OUTSIDE RECORDS SUMMARY | 2024-07-01 22:16 | XMS_ITS | Encounter Summary ---
Author Organization [facility] Address [address] [place] [address]. [place] [address] Care Team Providers Care Continuous Pillowcase Cutter Name Role Phone Jazmín Chavez PA-C Primary Care Provider [phone]- [phone] Jazmín Chavez PA-C Unavailable Encounter Details Date Type Department Care Team (Late st Contact Info) Description 10/28/2023 MyC Medical Advice [facility] [address] [place] [phone] Jazmín Chavez PA-C [address] [place] [phone] Social History Tobacco Use Types Packs/Day Years Used Date Smoking Tobacco: Never Smokeless Tobacco: Never Alcohol Use Standard Drinks/Week Comments No 0 (1 standard drink = 0.6 oz pur e alcohol) PHQ-2 Answer Date Recorded PHQ-2 Score 1 07/04/2023 Adolescent Education Answer Date Record ed Getting [...] in an abandoned building, in an overnight jail, or couch-surfing.) Yes 07/04/2023 Are you worried [...] encounter Miscellaneous Notes * Telephone Encounter - Mayda Amado RN - 10/28/2023 8:43 AM NEUROSURGICAL NURSE Responded to pt [employer] message advising pt submit e-visit for UTI Mayda Huerta RN OSURGICAL NURSE documented in this encounter Plan of Treatment Not on file documented as of this encounter Visit Diagnoses Not on filedocumented in this encounter Additional Health Concerns Infection Onset Date Last Indicated Resolved Time Rule Out COVID-19 12/26/2023 12/26/2023 12/26/2023 9:46 PM CDT Assessment Noted Time PHQ-9 Depression Total Score: 4 06/11/20 22 3:16 AM CDT documented as of this encounter Care Teams Continuous Pillowcase Cutter Relationship Specialty Start Date End Date Jazmín Chavez PA-C [address] [place] [address] PCP - General Family Medicine 02/10/23 06/28/24 Jazmín Chavez PA-C [address] [place] [address] Assigned PCP 02/15/23 documented as of this encounter
--- OUTSIDE RECORDS SUMMARY | 2024-07-01 22:16 | XMS_ITS | Encounter Summary ---
Author Organization [place] Address [address] [place] [address]. [place] [address] Care Team Providers Care Rope Tow Operator Name Role Phone Dewey Astorga PA-C Unavailable Johnathan Brand Primary Care Provider Unavailab le Jazmín Chavez PA-C Unavailable Johnathan Villanueva DO Unavailable [phone] Jazmín Chavez PA-C Primary Care Provider [phone] Jazmín Chavez PA-C Unavailable Reason for Visit * Reason Onset Date Comments MyChart Communication 01/15/2022 F/up covid ? Encounter Details Date Type Department Care Team (Late st Contact Info) Description 01/15/2022 [facility] [address] [place] [phone] Jazmín Chavez PA-C [address] [place] [address] MyChart Communication (F/up covid ?) Social History Tobacco Use Types Packs/Day Years Used Date Smoking Tobacco: Never Smokeless Tobacco: Never Alcohol Use Standard Drinks/Week Comments No 0 (1 standard drink = 0.6 oz pur e alcohol) PHQ-2 Answer Date Recorded PHQ-2 Score 1 10/23/2021 Sex and Gender Information Value Date Recorded Sex Assigned at Female 02/28/2020 8:14 PM CDT Gender Identity Female 02/28/2020 8:14 PM CDT Sexual Orientation Straight 02/28/2020 8: 14 PM CDT COVID-19 Exposure Response Date Recorded In the last 10 days, have yo u been in contact with someone who was confirmed or suspected to have Coronavirus/COVID-19? No / Unsure 01/18/2022 1:10 PM CDT documented as of this encounter Miscellaneous Notes * Telephone Encounter - Yoli Raza RN - 01/16/2022 7:40 AM CDT See [employer] message and advise, pt sending CJ message, PCP listed elsewhere Yoli Raza RN, BSN [facility] documented in this encounter Plan of Treatment Not on file documented as of this encounter Visit Diagnoses Not on filedocumented in this encounter Additional Health Concerns Infection Onset Date Last Indicated Resolved Time Rule Out COVID-19 12/26/2023 12/26/2023 12/26/2023 9:46 PM CDT Assessment Noted Time PHQ-9 Depression Total Score: 14 022 11:53 AM ENVIRONMENTAL MANAGEMENT SPECIALIST documented as of this encounter Care Teams Rope Tow Operator Relationship Specialty Start Date End Date Johnathan Brand [facility] [employer] [address] PCP - General Family Medicine 11/21/21 09/23/22 Jazmín Chavez PA-C [address] [place] [address] PCP - General Family Medicine 02/10/23 06/28/24 Dewey Astorga PA-C [facility] [employer] [address] Assigned PCP 07/23/20 08/02/22 Jazmín Chavez PA-C [address] [place] [address] Assigned PCP 08/03/22 08/30/22 [place] [address] [place] [address] Assigned PCP 09/28/22 02/14/23 Jazmín Chavez PA-C [address] [place] [address] Assigned PCP 02/15/23 documented as of this encounter
--- OUTSIDE RECORDS SUMMARY | 2024-07-01 22:16 | XMS_ITS | Encounter Summary ---
Author Organization [place] Address [address] [place] [address]. [place] [address] Care Team Providers Care Decay Control Operator Name Role Phone Dewey Astorga PA-C Unavailable Dewey Astorga PA-C Primary Care Provide r Johnathan Brand Primary Care Provider Unavailab le Jazmín Chavez PA-C Unavailable Johnathan Villanueva DO Unavailable [phone] Jazmín Chavez PA-C Primary Care Provider [phone] Jazmín Chavez PA-C Unavailable Reason for Visit * Reason Onset Date Comments Refill Request 05/08/2021 SYNTHROID 50 MCG tablet Encounter Details Date Type Department Care Team (Late st Contact Info) Description 05/08/2021 Refill [facility] [address], [address] [place] [address] Dewey Astorga PA-C [address] [facility] [address] [place] [address] Refill Request (SYNTHROID 50 MCG tablet) Social History Tobacco Use Types Packs/Day Years [...] encounter Miscellaneous Notes * Telephone Encounter - Catherine Gonsalez RN - 05/09/2021 12:34 PM CDT Routing refill request to provider for review/approval because: Last Rx from outside provider in 2019 Catherine Reese RN documented in this encounter Plan [...] Total Score: 4 08/11/20 17 7:57 AM LOOM STOP CHECKER documented as of this encounter Care Teams Decay Control Operator Relationship Specialty Start Date End Date Dewey Astorga PA-C [address] [employer] [address] [place] [address] PCP - General Family Medicine 11/18/20 11/20/21 Johnathan Brand [address] [facility] [address] [place] [address] PCP - General Family Medicine 11/21/21 09/23/22 Jazmín Chavez PA-C [address] [place] [address] PCP - General Family Medicine 02/10/23 06/28/24 Dewey Astorga PA-C [address] [place] [address] Assigned PCP 07/23/20 08/02/22 Jazmín Chavez PA-C [address] [place] [address] Assigned PCP 08/03/22 08/30/22 [place] [address] [place] [address] Assigned PCP 09/28/22 02/14/23 Jazmín Chavez PA-C [address] [place] [address] Assigned PCP 02/15/23 documented as of this encounter
--- OUTSIDE RECORDS SUMMARY | 2024-07-01 22:16 | XMS_ITS | Encounter Summary ---
Author Organization [place] Address [address] [place] [address]. [place] [address] Care Team Providers Care Chicle Grinder Feeder Name Role Phone Jazmín Chavez PA-C Primary Care Provider [phone] Jazmín Chavez PA-C Unavailable Reason for Visit * Reason Onset Date Comments Refill Request 03/28/2024 Encounter Details Date Type Department Care Team (Late st Contact Info) Description 03/28/2024 Ernst Patel [address] [phone] Jazmín Chavez PA-C [address] [place] [phone] Refill Request Social History Tobacco Use Types Packs/Day Years Used Date Smoking Tobacco: Never Smokeless Tobacco: Never Alcohol Use Standard Drinks/Week Comments No 0 (1 standard drink = 0.6 oz pur e alcohol) PHQ-2 Answer Date Recorded PHQ-2 Score 1 11/20/2023 Adolescent Education Answer Date Record ed Getting [...] in an abandoned building, in an overnight long term, or couch-surfing.) Yes 07/04/2023 Are you worried [...] documented as of this encounter Care Teams Chicle Grinder Feeder Relationship Specialty Start Date End Date Jazmín Chavez PA-C [address] [place] [address] PCP - General Family Medicine 02/10/23 06/28/24 Jazmín Chavez PA-C [address] [place] [address] Assigned PCP 02/15/23 documented as of this encounter
--- OUTSIDE RECORDS SUMMARY | 2024-07-01 22:16 | XMS_ITS | Encounter Summary ---
Author Organization [place] Address [address] [place] [address]. [place] [address] Care Team Providers Care Dietitian Consultant Name Role Phone Jazmín Chavez PA-C Primary Care Provider [phone] Jazmín Chavez PA-C Unavailable [phone] Reason for Visit * Reason Onset Date Comments Refill Request 07/25/2023 Encounter Details Date Type Department Care Team (Late st Contact Info) Description 07/25/2023 Ernst Patel [address] [address] Jazmín Chavez PA-C [address] [place] [phone] Refill Request Social History Tobacco Use Types [...] in an abandoned building, in an overnight skilled nursing, or couch-surfing.) Yes 07/04/2023 Are you worried [...] suspected to have Coronavirus/COVID-19? No / Unsure 07/04/2023 1:07 PM CDT documented as of this encounter Miscellaneous Notes * Telephone Encounter - Yoli Raza RN - 07/25/2023 9:35 AM CDT See [employer] message documented in this encounter Plan of Treatment [...] documented as of this encounter Care Teams Dietitian Consultant Relationship Specialty Start Date End Date Jazmín Chavez PA-C [address] [place] [address] PCP - General Family Medicine 02/10/23 06/28/24 Jazmín Chavez PA-C [address] [place] [address] Assigned PCP 02/15/23 documented as of this encounter
--- OUTSIDE RECORDS SUMMARY | 2024-07-01 22:16 | XMS_ITS | Encounter Summary ---
Author Organization [facility] Address [address] [place] [address] Care Team Providers Care Electric Pile Driver Operator Name Role Phone Dewey Astorga PA-C Unavailable [phone] Dewey Astorga PA-C Primary Care Provide r Johnathan Brand Primary Care Provider Unavailab le Jazmín Chavez PA-C Unavailable Johnathan Villanueva DO Unavailable Jazmín Chavez PA-C Primary Care Provider [phone] Jazmín Chavez PA-C Unavailable Reason for Visit * Reason Onset Date Comments Refill Request 09/29/2021 Encounter Details Date Type Department Care Team (Late st Contact Info) Description 09/29/2021 Ernst [facility] [address], [address] [place] [address] Dewey Astorga PA-C [address] [facility] [address] [place] [address] Refill Request Social History Tobacco Use Types Packs/Day Years Used Date Smoking Tobacco: Never Smokeless Tobacco: Never Alcohol Use Standard Drinks/Week Comments No 0 (1 standard drink = 0.6 oz pur e alcohol) PHQ-2 Answer Date Recorded PHQ-2 Score 0 10/05/2020 Comments Yes Sex and Gender Information Value Date Recorded Sex Assigned at Female 02/28/2020 8:14 PM CDT Gender Identity Female 02/28/2020 8:14 PM CDT Sexual Orientation Straight 02/28/2020 8: 14 PM CDT documented as of this encounter Miscellaneous Notes * Telephone Encounter - Catherine Gonsalez RN - 10/01/2021 8:19 AM CST Routing refill request to provider for review/approval because: Drug not on the [facility] refill protocol Catherine Reese RN CAL DOCTOR MD/MEDICAL DIRECTOR documented in this encounter Plan of Treatment [...] Total Score: 4 08/11/20 17 7:57 AM MEDICAL DOCTOR MD/MEDICAL DIRECTOR documented as of this encounter Care Teams Electric Pile Driver Operator Relationship Specialty Start Date End Date Dewey Astorga PA-C [address] [employer] [address] [place] [address] PCP - General Family Medicine 11/18/20 11/20/21 Johnathan Brand [address] [facility] [address] [place] [address] PCP - General Family Medicine 11/21/21 09/23/22 Jazmín Chavez PA-C [address] [place] [address] PCP - General Family Medicine 02/10/23 06/28/24 Dewey Astorga PA-C [address] [place] [address] Assigned PCP 07/23/20 08/02/22 Jazmín Chavez PA-C [address] [place] [address] Assigned PCP 08/03/22 08/30/22 [place] [address] [place] [address] Assigned PCP 09/28/22 02/14/23 Jazmín Chavez PA-C [address] [place] [address] Assigned PCP 02/15/23 documented as of this encounter
--- OUTSIDE RECORDS SUMMARY | 2024-07-01 22:16 | XMS_ITS | Encounter Summary ---
Author Organization [facility] Address [address] [place] [address] Care Team Providers Care Disease And Insect Control Boss Name Role Phone Jazmín Chavez PA-C Primary Care Provider [phone] Jazmín Chavez PA-C Unavailable Reason for Visit * Reason Onset Date Comments Patient Request 07/07/2023 Encounter Details Date Type Department Care Team (Late st Contact Info) Description 07/07/2023 MyC Medical Advice [facility] [address] [place] [address] Dulce Friedman PA-C [address] [place], [place] [phone] Patient Request Social History Tobacco Use Types [...] encounter Miscellaneous Notes * Telephone Encounter - Faith Gee RN - 07/07/2023 3:43 PM CDT Dulce- see mychart message below. Please advise. Faith Gee RN documented in this encounter Plan of Treatment Not on file documented as of this encounter Visit Diagnoses Not on filedocumented in this encounter Additional Health Concerns Infection Onset Date Last Indicated Resolved Time Rule Out COVID-19 12/26/2023 12/26/2023 12/26/2023 9:46 PM CDT Assessment Noted Time PHQ-9 Depression Total Score: 4 06/11/20 22 3:16 AM CDT documented as of this encounter Care Teams Disease And Insect Control Boss Relationship Specialty Start Date End Date Jazmín Chavez PA-C [address] [place] [address] PCP - General Family Medicine 02/10/23 06/28/24 aJzmín Chavez PA-C [address] [place] [address] Assigned PCP 02/15/23 documented as of this encounter"
--- OUTSIDE RECORDS SUMMARY | 2024-07-01 22:16 | XMS_ITS | Encounter Summary ---
Author Organization [facility] Address [address] [place] [address]. [place] [address] Care Team Providers Care Hockey Instructor Name Role Phone Johnathan Villanueva DO Unavailable [phone] Jazmín Chavez PA-C Primary Care Provider [phone] Jazmín Chavez PA-C Unavailable Encounter Details Date Type Department Care Team (Late st Contact Info) Description 11/08/2022 MyC Medical Advice [address] [address] [place] DO [id number] [place] [address] [id number] Social History Tobacco Use Types Packs/Day Years [...] documented as of this encounter Care Teams Hockey Instructor Relationship Specialty Start Date End Date Jazmín Chavez PA-C [address] [place] [address] PCP - General Family Medicine 02/10/23 06/28/24 [place] [address] [place] [address] Assigned PCP 09/28/22 02/14/23 Jazmín Chavez PA-C [address] [place] [address] Assigned PCP 02/15/23 documented as of this encounter
--- OUTSIDE RECORDS SUMMARY | 2024-07-01 22:16 | XMS_ITS | Encounter Summary ---
Author Organization [facility] Address [address] [place] [address]. [place] [address] Care Team Providers Care Vac Press Operator Name Role Phone Dewey Astorga PA-C Unavailable Johnathan Brand Primary Care Provider Unavailab le Jazmín Chavez PA-C Unavailable Johnathan Villanueva DO Unavailable [phone] Jazmín Chavez PA-C Primary Care Provider [phone] Jazmín Chavez PA-C Unavailable Encounter Details Date Type Department Care Team (Late st Contact Info) Description 03/28/2022 Telephone [facility] [address] [place] [phone] Jazmín Chavez PA-C [address] [place] [address] Social History Tobacco Use Types Packs/Day Years Used Date Smoking Tobacco: Never Smokeless Tobacco: Never Alcohol Use Standard Drinks/Week Comments No 0 (1 standard drink = 0.6 oz pur e alcohol) PHQ-2 Answer Date Recorded PHQ-2 Score 2 03/07/2022 Sex and Gender Information Value Date Recorded Sex Assigned at Female 02/28/2020 8:14 PM CDT Gender Identity Female 02/28/2020 8:14 PM CDT Sexual Orientation Straight 02/28/2020 8: 14 PM CDT COVID-19 Exposure Response Date Recorded In the last 10 days, have yo u been in contact with someone who was confirmed or suspected to have Coronavirus/COVID-19? No / Unsure 03/08/2022 1:39 PM CDT documented as of this encounter Plan of Treatment Not on file documented as of this encounter Visit Diagnoses Not on filedocumented in this encounter Additional Health Concerns Infection Onset Date Last Indicated Resolved Time Rule Out COVID-19 12/26/2023 12/26/2023 12/26/2023 9:46 PM CDT Assessment Noted Time PHQ-9 Depression Total Score: 13 024 9:07 AM CDT documented as of this encounter Care Teams Vac Press Operator Relationship Specialty Start Date End Date Johnathan Brand [address] [employer] [facility] [address] [place] [address] PCP - General Family Medicine 11/21/21 09/23/22 Jazmín Chavez PA-C [address] [place] [address] PCP - General Family Medicine 02/10/23 06/28/24 Dewey Astorga PA-C [address] [employer] [facility] [address] [place] [address] Assigned PCP 07/23/20 08/02/22 Jazmín Chavez PA-C [address] [place] [address] Assigned PCP 08/03/22 08/30/22 [place] [address] [place] [address] Assigned PCP 09/28/22 02/14/23 Jazmín Chavez PA-C [address] [place] [address] Assigned PCP 02/15/23 documented as of this encounter
--- OUTSIDE RECORDS SUMMARY | 2024-07-01 22:16 | XMS_ITS | Encounter Summary ---
Author Organization [facility] Address [address] [place] [address] Care Team Providers Care Digital Content Specialist Name Role Phone Dewey Astorga PA-C Unavailable Dewey Astorga PA-C Primary Care Provide r Johnathan Brand Primary Care Provider Unavailab le Jazmín Chavez PA-C Unavailable [phone] Johnathan Villanueva DO Unavailable [phone] Jazmín Chavez PA-C Primary Care Provider [phone] Jazmín Chavez PA-C Unavailable [phone] Encounter Details Date Type Department Care Team (Late st Contact Info) Description 11/12/2021 Community Resource Summary INTERFACED REPORT Social History Tobacco Use Types Packs/Day Years [...] Exposure Response Date Recorded In the last month, have you been in contact with someone who was confirmed or suspected to have Coronavirus / COVID-19? No / Unsure 10/23/2021 9:14 [address] documented as of this encounter Plan of Treatment Not on file documented as of this encounter Visit Diagnoses Not on filedocumented in this encounter Additional Health Concerns Infection Onset Date Last Indicated Resolved Time Rule Out COVID-19 12/14/2021 12/14/2021 12/15/2021 11:31 PM CDT Rule Out COVID-19 12/26/2023 12/26/2023 12/26/2023 9:46 PM CDT Assessment Noted Time PHQ-9 Depression Total Score: 14 022 11:53 AM [address] documented as of this encounter Care Teams Digital Content Specialist Relationship Specialty Start Date End Date Dewey Astorga PA-C [address] [employer] [address] [address] [address] PCP - General Family Medicine 11/18/20 11/20/21 [facility] [employer] [address] [address] PCP - General Family Medicine 11/21/21 09/23/22 Jazmín Chavez PA-C [address] [place] [address] PCP - General Family Medicine 02/10/23 06/28/24 Dewey Astorga PA-C [facility] [employer] [address] [address] Assigned PCP 07/23/20 08/02/22 Jazmín Chavez PA-C [address] [place] [address] Assigned PCP 08/03/22 08/30/22 [place] [address] [place] [address] Assigned PCP 09/28/22 02/14/23 Jazmín Chavez PA-C [address] [place] [address] Assigned PCP 02/15/23 documented as of this encounter
--- OUTSIDE RECORDS SUMMARY | 2024-07-01 22:16 | XMS_ITS | Encounter Summary ---
Author Organization [facility] Address [address] [place] [address]. [place] [address] Care Team Providers Care Anvil Seating Press Operator Name Role Phone Dewey Astorga PA-C Unavailable Dewey Astorga PA-C Primary Care Provide r Johnathan Brand Primary Care Provider Unavailab le Jazmín Chavez PA-C Unavailable Johnathan Villanueva DO Unavailable [phone] Jazmín Chavez PA-C Primary Care Provider [phone] Jazmín Chavez PA-C Unavailable Reason for Visit * Reason Onset Date Comments Prior Auth - Medication 09/27/2021 SYNTHROI D 50 MCG tablet Encounter Details Date Type Department Care Team (Late st Contact Info) Description 09/27/2021 Telephone [facility] [address] [employer] [place], [address] [place] [address] Dewey Astorga PA-C [address] [employer] [facility] [address] [place] [address] Prior Auth - Medication (SYNTHROID 50 MCG tablet) Social History Tobacco [...] encounter Miscellaneous Notes * Telephone Encounter - Alexia Colindres - 10/03/2021 9:12 AM CST Please see message below ER * Telephone Encounter - Jennifer Holguin - 09/27/2021 2:20 PM CST Images from the original note were not included. PRIOR AUTHORIZATION DENIED Medication: SYNTHROID 50 MCG tablet Denial Date: 09/27/2021 Denial Rationale: Medication is not a covered benefit and is excluded from coverage. Appeal Information: If provider would like to appeal this decision we will need a detailed letter of medical necessity to start the process. Then re-route this request back to the PA pool. ER * Telephone Encounter - Jennifer Holguin - 09/27/2021 1:02 PM CST Images from the original note were not included. PA Initiation Medication: SYNTHROID 50 MCG tablet Insurance Company: Mickey ([facility]) - Pharmacy Filling the Rx: [id number] [id number] [facility] [address] Filling Pharmacy Filling Pharmacy Start Date: 09/27/2021 ER * Telephone Encounter - Sissy Zaidi - 09/27/2021 11:57 AM CST Prior Authorization Retail Medication Request Medication/Dose: SYNTHROID 50 MCG tablet ICD code (if different than what is on RX): unknown Previously Tried and Failed: unknown Rationale: unknown Insurance Name: unknown Pharmacy Information (if different than what is on RX) Name: [facility] documented in this encounter Plan of Treatment Not on file documented as of this encounter Visit Diagnoses Not on filedocumented in this encounter Additional Health Concerns Infection Onset Date Last Indicated Resolved Time Rule Out COVID-19 12/14/2021 12/14/2021 12/15/2021 11:31 PM CDT Rule Out COVID-19 12/26/2023 12/26/2023 12/26/2023 9:46 PM CDT Assessment Noted Time PHQ-9 Depression Total Score: 4 08/11/20 17 7:57 AM RIGGER documented as of this encounter Care Teams Anvil Seating Press Operator Relationship Specialty Start Date End Date Dewey Astorga PA-C [address] [employer] [address] [place] [address] PCP - General Family Medicine 11/18/20 11/20/21 Johnathan Brand [address] [employer] [address] [place] [address] PCP - General Family Medicine 11/21/21 09/23/22 Jazmín Chavez PA-C [address] [place] [address] PCP - General Family Medicine 02/10/23 06/28/24 Dewey Astorga PA-C [address] [employer] [address] [place] [address] Assigned PCP 07/23/20 08/02/22 Jazmín Chavez PA-C [address] [place] [address] Assigned PCP 08/03/22 08/30/22 [place] [address] [place] [address] Assigned PCP 09/28/22 02/14/23 Jazmín Chavez PA-C [address] [place] [address] Assigned PCP 02/15/23 documented as of this encounter
--- OUTSIDE RECORDS SUMMARY | 2024-07-01 22:16 | XMS_ITS | Encounter Summary ---
Author Organization [facility] Address [address] [place] [address]. [place] [address] Care Team Providers Care Chisel Grinder Name Role Phone Dewey Astorga PA-C Unavailable Dewey Astorga PA-C Primary Care Provide r Johnathan Brand Primary Care Provider Unavailab le Jazmín Chavez PA-C Unavailable Johnathan Villanueva DO Unavailable [phone] Jazmín Chavez PA-C Primary Care Provider [phone] Jazmín Chavez PA-C Unavailable Reason for Visit * Reason Comments Medication Refill Encounter Details Date Type Department Care Team (Late st Contact Info) Description 08/12/2021 Refill [facility] [address], [address] [place] [address] Dewey Astorga PA-C [address] [facility] [address] [address] [place] [address] Medication Refill Social History Tobacco [...] Telephone Encounter - Catherine Gonsalez RN - 08/13/2021 1:08 PM CST Prescription approved per [facility] Refill Protocol. 1 month refill only; patient due for appointment (followup) Catherine Reese RN R LAYER HELPER documented in this encounter Plan of Treatment [...] Total Score: 4 08/11/20 17 7:57 AM FLOOR LAYER HELPER documented as of this encounter Care Teams Chisel Grinder Relationship Specialty Start Date End Date Dewey Astorga PA-C [address] [place] [address] PCP - General Family Medicine 11/18/20 11/20/21 Johnathan Brand [address] [place] [address] PCP - General Family Medicine 11/21/21 09/23/22 Jazmín Chavez PA-C [address] [place] [address] PCP - General Family Medicine 02/10/23 06/28/24 Dewey Astorga PA-C [address] [place] [address] Assigned PCP 07/23/20 08/02/22 Jazmín Chavez PA-C [address] [place] [address] Assigned PCP 08/03/22 08/30/22 [place] [address] [place] [address] Assigned PCP 09/28/22 02/14/23 Jazmín Chavez PA-C [address] [place] [address] Assigned PCP 02/15/23 documented as of this encounter
--- OUTSIDE RECORDS SUMMARY | 2024-07-01 22:16 | XMS_ITS | Encounter Summary ---
Author Organization [facility] Address [address] [place] [address]. [place] [address] Care Team Providers Care Associate Professor Of Violin Name Role Phone Dewey Astorga PA-C Unavailable Dewey Astorga PA-C Primary Care Provide r Johnathan Brand Primary Care Provider Unavailab le Jazmín Chavez PA-C Unavailable Jhonathan Villanueva DO Unavailable [phone] Jazmín Chavez PA-C Primary Care Provider [phone] Jazmín Chavez PA-C Unavailable Reason for Visit * Reason Onset Date Comments Refill Request 09/06/2021 Encounter Details Date Type Department Care Team (Late st Contact Info) Description 09/06/2021 [facility] [address], [address] [place] [address] Dewey Astorga PA-C [address] [facility] [address] [place] [address] Refill Request Social History Tobacco [...] Total Score: 4 08/11/20 17 7:57 AM ROLLER PICKER documented as of this encounter Care Teams Associate Professor Of Violin Relationship Specialty Start Date End Date Dewey Astorga PA-C [address] [employer] [address] [address] PCP - General Family Medicine 11/18/20 11/20/21 Johnathan Brand [facility] [employer] [address] [address] PCP - General Family Medicine 11/21/21 09/23/22 Jazmín Chavez PA-C [address] [place] [address] PCP - General Family Medicine 02/10/23 06/28/24 Dewey Astorga PA-C [address] [employer] [address] [address] Assigned PCP 07/23/20 08/02/22 Jazmín Chavez PA-C [address] [place] [address] Assigned PCP 08/03/22 08/30/22 [place] [address] [place] [address] Assigned PCP 09/28/22 02/14/23 Jazmín Chavez PA-C [address] [place] [address] Assigned PCP 02/15/23 documented as of this encounter
--- OUTSIDE RECORDS SUMMARY | 2024-07-01 22:16 | XMS_ITS | Encounter Summary ---
Author Organization [facility] Address [address] [place] [address] Care Team Providers Care Oil Well Directional Surveyor Name Role Phone Jazmín Chavez PA-C Primary Care Provider [phone] Jazmín Chavez PA-C Unavailable [phone] Reason for Referral * Consultation (Routine: Next available opening) - Referral NOT Required Specialty Diagnoses / Procedures Referred By Jessica parks Referred To Contact Surgery / General Surgery Diagnoses Large breasts Dulce Friedman PA-C [address] [place] [address] Surgical Consult [facility] [address] [place] [address] Referral ID Status Reason Start Date Expiration Date V isits Requested Visits Authorized [id number] Referral NOT Required 08/19/2023 08/18/2024 1 1 Question Answer Preferred Location: [facility] Surgical Consultants [facility] Scheduling Instructions: Please call to schedule your appointment Comments Please be aware that coverage of these services is subject to the terms and limitations of your health insurance plan. Call member services at your health plan with any benefit or coverage questions. Please call to schedule your appointment BILITY INSURANCE CLAIM EXAMINER Reason for Visit * Reason Onset Date Comments MyChart Communication 08/18/2023 Encounter Details Date Type Department Care Team (Latest Contact Info) Description 08/18/2023 MyC Medical Advice [facility] [address] [place] [address] Dulce Friedman PA-C [address] [place], [place] [phone] MyChart Communication Social History Tobacco Use Types Packs/Day Years [...] in an abandoned building, in an overnight correction, or couch-surfing.) Yes 07/04/2023 Are you worried [...] Telephone Encounter - Yoli Raza RN - 08/19/2023 7:42 AM CST See [employer] message, routed to Dulce per pt request, please review and advise Yoli Raza RN, BSN [facility] BILITY INSURANCE CLAIM EXAMINER documented in this encounter Plan of Treatment Scheduled Referrals Name Type Priority Associated Diagnoses Orde r Schedule Adult General Surg Referral Referral Routine: Next available opening Large breasts Expected: 08/19/2023 (Approximate), Expires: 08/19/2024 documented as of this encounter Visit Diagnoses Diagnosis Large breasts- Primary Hypertrophy of breast documented in this encounter Additional Health Concerns Infection Onset Date Last Indicated Resolved Time Rule Out COVID-19 12/26/2023 12/26/2023 12/26/2023 9:46 PM CDT Assessment Noted Time PHQ-9 Depression Total Score: 4 06/11/20 22 3:16 AM CDT documented as of this encounter Care Teams Oil Well Directional Surveyor Relationship Specialty Start Date End Date Jazmín Chavez PA-C [address] [place] [address] PCP - General Family Medicine 02/10/23 06/28/24 Jazmín Chavez PA-C [address] [place] [address] Assigned PCP 02/15/23 documented as of this encounter
--- OUTSIDE RECORDS SUMMARY | 2024-07-01 22:16 | XMS_ITS | Encounter Summary ---
Author Organization [facility] Address [address] [place] [address]. [place] [address] Care Team Providers Care Bow Repairer Custom Name Role Phone Johnathan Villanueva Unavailable [phone] Jazmín Chavez PA-C Primary Care Provider [phone] Jazmín Chavez PA-C Unavailable [phone] Reason for Visit * Reason Onset Date Comments Refill Request 11/08/2022 Encounter Details Date Type Department Care Team (Late st Contact Info) Description 11/08/2022 Ernst Matias [address] [phone] Jazmín Chavez PA-C [address] [place] [id number] Refill Request Social History Tobacco Use Types [...] encounter Miscellaneous Notes * Telephone Encounter - Rossana Chicas CMA - 12/17/2022 10:15 AM CDT Letter sent. Rossana Chicas CMA * Telephone Encounter - Jennifer Beckford MA - 11/25/2022 3:27 PM CST Left voice message to return call back. Please help schedule appointment per LG. Jennifer Beckford CMA TEAM COORDINATOR SCHEDULER * Telephone Encounter - Dulce Friedman PA-C - 11/12/2022 8:43 AM CARE TEAM COORDINATOR SCHEDULER New refill request sent. See other request for refill. TEAM COORDINATOR SCHEDULER * Telephone Encounter - Dulce Friedman PA-C - 11/08/2022 1:30 PM CARE TEAM COORDINATOR SCHEDULER Not due for refill until 11/14/22. Will keep for Jazmín to send and review (see when she would like a follow up). Please let patient know this. TEAM COORDINATOR SCHEDULER * Telephone Encounter - Elidia Roca RN - 11/08/2022 10:31 AM CST Routing refill request to provider for review/approval because: Drug not on the [facility] refill protocol Elidia Roca RN PAL (Patient Advocate Liason) [facility] TEAM COORDINATOR SCHEDULER documented in this encounter Plan of Treatment [...] documented as of this encounter Care Teams Bow Repairer Custom Relationship Specialty Start Date End Date Jazmín Chavez PA-C [address] [place] [address] PCP - General Family Medicine 02/10/23 06/28/24 [place] [address] [place] [address] Assigned PCP 09/28/22 02/14/23 Jazmín Chavez PA-C [address] [place] [address] Assigned PCP 02/15/23 documented as of this encounter
--- OUTSIDE RECORDS SUMMARY | 2024-07-01 22:16 | XMS_ITS | Encounter Summary ---
Author Organization [facility] Address [address] [place] [address] Care Team Providers Care Nurse Head Name Role Phone Johnathan Villanueva Unavailable [phone] Jazmín Chavez PA-C Primary Care Provider [phone] Jazmín Chavez PA-C Unavailable Encounter Details Date Type Department Care Team (Late st Contact Info) Description 12/26/2022 MyC Medical Advice [facility] [address] [address] Mayda Redman RN Social History Tobacco Use Types Packs/Day Years [...] documented as of this encounter Care Teams Nurse Head Relationship Specialty Start Date End Date Jazmín Chavez PA-C [address] [place] [address] PCP - General Family Medicine 02/10/23 06/28/24 [place] [address] [place] [address] Assigned PCP 09/28/22 02/14/23 Jazmín Chavez PA-C [address] [place] [address] Assigned PCP 02/15/23 documented as of this encounter
--- OUTSIDE RECORDS SUMMARY | 2024-07-01 22:16 | XMS_ITS | Encounter Summary ---
Author Organization [facility] Address [facility] [place] [address] Care Team Providers Care Dairy Hand Name Role Phone Jazmín Chavez PA-C Primary Care Provider [phone] Jazmín Chavez PA-C Unavailable Reason for Referral * Consultation (Routine: Next available opening) - Pending Review Specialty Diagnoses / Procedures Referred By Jessica parks Referred To Contact Diagnoses Migraine without aura and without status migrainosus, not intractable Neuropathy Jazmín Chavez PA-C [address] [place] [address] [facility] NEUROLOGICAL [facility] [id number] [place] [address] [address] [place] [address] Referral ID Status Reason Start Date Expiration Date V isits Requested Visits Authorized [id number] Pending Review 04/06/2024 04/06/2025 1 1 Question Answer Reason for Referral: Headache/Migraine Scheduling Instructions: Pt will call to schedule Comments Please be aware that coverage of these services is subject to the terms and limitations of your health insurance plan. Call member services at your health plan with any benefit or coverage questions. Pt will call to schedule * Mental Health Outpatient (Routine: Next available opening) - Pending Review Specialty Diagnoses / Procedures Referred By Contac t Referred To Contact Behavioral Health Diagnoses ADHD, predominantly inattentive type Fibromyalgia Other insomnia Anxiety Obsessive-compulsive disorder, unspecified type Jazmín Chavez PA-C [id number] [place] [address] Referral ID Status Reason Start Date Expiration Date V isits Requested Visits Authorized [id number] Pending Review 04/06/2024 04/06/2025 1 1 Question Answer Services: Psychiatry/Med Management Reason for Referral - REVIEW REFERENCE LINK BELOW: Short-term consultation & return to PCP/Collaborative Care (CCPS) My Clinical Question Is: anxiety, depression Scheduling Instructions: [facility] will call you to coordinate your care as prescribed by your provider. If you don't hear from a membership sales representative within 2 business days, please call . Only select yes if the patient has already been scheduled and requires a referral for insurance. If yes is selected, the referral will NOT route to scheduling for outreach. No Comments Please be aware that coverage of these services is subject to the terms and limitations of your health insurance plan. Call member services at your health plan with any benefit or coverage questions. [facility] will call you to coordinate your care as prescribed by your provider. If you don't hear from a membership sales representative within 2 business days, please call . Reason for Visit * Reason Comments Recheck Medication Excessive Sweating Sweat during the day doing nothing, and sweating in bed x 6 months Encounter Details Date Type Department Care Team (Late st Contact Info) Description 04/06/2024 2:30 PM CDT Virtual Visit [facility] [address] [place] [phone] Jazmín Chavez PA-C [id number] [place] [address] ADHD, predominantly inattentive type (Primary Dx); Fibromyalgia; Other insomnia; Migraine without aura and without status migrainosus, not intractable; Anxiety; Obsessive-compulsive disorder, unspecified type; Muscle spasm; Sweating increase; Neuropathy Social History Tobacco Use Types Packs/Day Years [...] PM CDT documented as of this encounter Progress Notes * Jazmín Chavez PA-C - 04/06/2024 2:30 PM CDT Jennifer is a 33 year old who is being evaluated via a billable video visit. How would you like to obtain your AVS? MyChart If the video visit is dropped, the invitation should be resent by: Text to cell phone: [phone] Will anyone else be joining your video visit? No Assessment & Plan (F90.0) ADHD, predominantly inattentive type (primary encounter diagnosis) Comment: Symptoms stable with medication. Due for UDS. Plan: Adult Mental Health Plasma Cutting Machine Operator Referral, amphetamine-dextroamphetamine (ADDERALL XR) 30 MG 24 hr capsule, amphetamine-dextroamphetamine (ADDERALL) 10 MG tablet, amphetamine-dextroamphetamine (ADDERALL XR) 30 MG 24 hr capsule, amphetamine-dextroamphetamine (ADDERALL) 10 MG tablet, Drug Confirmation Panel Urine with Creat - lab collect (M79.7) Fibromyalgia Comment: overall stable. Plan: DULoxetine (CYMBALTA) 60 MG capsule, Adult Mental Health Plasma Cutting Machine Operator Referral (G47.09) Other insomnia Comment: Secondary to anxiety. Will add buspirone and hydroxyzine as needed recommend consult with psychiatry for medication Plan: hydrOXYzine HCl (ATARAX) 25 MG tablet, Adult Mental Health Plasma Cutting Machine Operator Referral (G43.009) Migraine without aura and without status migrainosus, not intractable Comment: Plan: rizatriptan (MAXALT) 10 MG tablet, Adult Neurology Plasma Cutting Machine Operator Referral External referral will be faxed to [facility]. (F41.9) Anxiety Comment: Plan: Adult Mental Health Plasma Cutting Machine Operator Referral, busPIRone (BUSPAR) 10 MG tablet Will continue with duloxetine. Consult for psychiatry. Will have patient get up set up with [facility] to start therapy. Will add buspirone and continue duloxetine. The longitudinal plan of care for the diagnosis(es)/condition(s) as documented were addressed during this visit. Due to the added complexity in care, I will continue to support Jennifer in the subsequent management and with ongoing continuity of care. (F42.9) Obsessive-compulsive disorder, unspecified type Comment: Plan: Adult Mental Health Plasma Cutting Machine Operator Referral Referral placed (A22.303) Muscle spasm Comment: Plan: cyclobenzaprine (FLEXERIL) 5 MG tablet, Ferritin, Magnesium Await labs. (R61) Sweating increase Comment: Plan: CBC with platelets, Comprehensive metabolic panel (BMP + Alb, Alk Phos, ALT, AST, Total. Bili, TP), TSH with free T4 reflex, Hemoglobin A1c Await labs. May be secondary to duloxetine use. (G62.9) Neuropathy Comment: Plan: Adult Neurology Plasma Cutting Machine Operator Referral External referral faxed BMI Estimated body mass index is 27.91 kg/m?? as calculated from the following: Height as of 07/04/23: 1.702 m (5' 7). Weight as of 07/04/23: 80.8 kg (178 lb 3.2 oz). Depression Screening Follow Up Follow Up Actions Taken Mental Health Referral placed Adjusted patient's anti-depressant medication. Set up appt with [facility] Follow-up 4-6 weeks. Kang Rodriguez is a 33 year old, presenting for the following health issues: Recheck Medication 04/06/2024 2:22 PM Additional Questions Roomed by Lilibeth MCDUFFIE Anxiety How are you doing with your anxiety since your last visit? Worsened Are you having other symptoms that might be associated with anxiety? Yes: panic attacks , situational would like to discuss , almost has restless legs, hard to sit still Have you had a significant life event? 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 No Do you have any concerns with your use of alcohol or other drugs? No Social History Tobacco Use Smoking status: Never Smokeless tobacco: Never Vaping Use Vaping status: Never Used Substance Use Topics Alcohol use: No Alcohol/week: 0.0 standard drinks of alcohol Drug use: No 03/07/2022 4:53 PM 06/11/2022 3:17 AM 04/06/2024 2:25 PM NATASHA-7 SCORE Total Score 9 (mild anxiety) Total Score 14 9 12 03/07/2022 4:53 PM 06/11/2022 3:16 AM 04/06/2024 2:25 PM PHQ PHQ-9 Total Score 14 4 10 Q9: Thoughts of better off /self-harm past 2 weeks Not at all Not at all Not at all 04/06/2024 2:25 PM Last PHQ-9 1. Little interest or pleasure in doing things 1 2. Feeling down, depressed, or hopeless 1 3. Trouble falling or staying asleep, or sleeping too much 2 4. Feeling tired or having little energy 2 5. Poor appetite or overeating 0 6. Feeling bad about yourself 1 7. Trouble concentrating 2 8. Moving slowly or restless 1 Q9: Thoughts of better off /self-harm past 2 weeks 0 PHQ-9 Total Score 10 Difficulty at work, home, or with people Very difficult 04/06/2024 2:25 PM NATASHA-7 1. Feeling nervous, anxious, or on edge 2 2. Not being able to stop or control worrying 2 3. Worrying too much about different things 2 4. Trouble relaxing 2 5. Being so restless that it is hard to sit still 3 6. Becoming easily annoyed or irritable 0 7. Feeling afraid, as if something awful might happen 1 NATASHA-7 Total Score 12 If you checked any problems, how difficult have they made it for you to do your work, take care of things at home, or get along with other people? Very difficult ADHD Follow-Up (Adult) Concerns: none Changes since last visit: Stable-no change, not worse but not better Taking controlled (daily) medications as prescribed: Yes Sleep: trouble falling asleep and oversleeping with the insomnia . Adult ADHD Self-Reporting form given to patient?: No Currently in counseling: Working on this with sabianism, individual and marriage counseling Medication Benefits: Controlled symptoms: Attention span and Distractability Uncontrolled symptoms: Frustration tolerance Medication Side Effects: Reports: none Sleep Problems? At time ++++++++++++++++++++++++++++++++++++++++++++++++ Patient is finding that her stress is high and her symptoms have worsened for her mood. She is alsofound that she is sweating more and having some muscle twitches almost like restless legs in the evening. Patient has family history of autoimmune disorders and does have some neuropathy. She has been seenby neuro and neurology in the past. She would like to go back for consult with them for neuropathy and headaches. Review of Systems Constitutional, HEENT, cardiovascular, pulmonary, gi and gu systems are negative, except as otherwise noted. Objective Vitals - Patient Reported Weight (Patient Reported): 74.8 kg (165 lb) Height (Patient Reported): 170.2 cm (5' 7) BMI (Based on Pt Reported Ht/Wt): 25.84 Vitals: No vitals were obtained today due to virtual visit. Physical Exam GENERAL: alert and no distress EYES: Eyes grossly normal to inspection. No discharge or erythema, or obvious scleral/conjunctival abnormalities. RESP: No audible wheeze, cough, or visible cyanosis. SKIN: Visible skin clear. No significant rash, abnormal pigmentation or lesions. NEURO: Cranial nerves grossly intact. Mentation and speech appropriate for age. PSYCH: mentation appears normal, anxious, and fatigued Video-Visit Details Type of service: Video Visit Originating Location (pt. Location): Home Distant Location (provider location): Off-site Platform used for Video Visit: Sam Signed Electronically by: Jazmín Chavez PA-C documented in this encounter Plan of Treatment Scheduled Referrals Name Type Priority Associated Diagnoses Orde r Schedule Adult Mental Health Plasma Cutting Machine Operator Referral Referral Routine: Next available opening ADHD, predominantly inattentive type Fibromyalgia Other insomnia Anxiety Obsessive-compulsive disorder, unspecified type Expected: 04/06/2024 (Approximate), Expires: 04/06/2025 Adult Neurology Plasma Cutting Machine Operator Referral Referral Routine: Next available opening Migraine without aura and without status migrainosus, not intractable Neuropathy Expected: 04/06/2024 (Approximate), Expires: 04/06/2025 documented as of this encounter Results * (ABNORMAL) Magnesium (04/29/2024 4:39 PM CDT) Magnesium 2.4(H) 1.7 - 2.3 mg/dL 04/30/2024 2:57 PM CDT [facility] Blood STRUCTURE OF RIGHT UPPER LIMB / Unknown Venipuncture / Unknown 04/29/2024 4:39 PM CDT 04/29/2024 4:39 PM CDT Jazmín Chavez PA-C LAB - BLOOD ORDERA BLES [facility] [address] [facility], Room [address] [place] [id number] * Ferritin (04/29/2024 4:39 PM CDT) Pathologist [facility] Ferritin 17 6 - 175 ng/mL 04/30/2024 2:57 PM CDT [facility] Blood STRUCTURE OF RIGHT UPPER LIMB / Unknown Venipuncture / Unknown 04/29/2024 4:39 PM CDT 04/29/2024 4:39 PM CDT Jazmín Chavez PA-C LAB - BLOOD ORDERA BLES [facility] [address] [facility], Room [address] [id number] * (ABNORMAL) Hemoglobin A1c (04/29/2024 4:39 PM CDT) [facility] Hemoglobin A1C 5.7(H) 0.0 - 5.6 % 04/29/2024 4:46 PM CDT [facility] Comment: Normal <5.7% Prediabetes 5.7-6.4% ?? Diabetes 6.5% or higher Note: Adopted from ADA consensus guidelines. Blood STRUCTURE OF RIGHT UPPER LIMB / Unknown Venipuncture / Unknown 04/29/2024 4:39 PM CDT 04/29/2024 4:39 PM CDT Jazmín Chavez PA-C LAB - BLOOD ORDERA BLES [facility] [address] [facility] (no room number, 1st floor of clinic) [place] [address], [facility] [phone] * (ABNORMAL) TSH with free T4 reflex (04/29/2024 4:39 PM CDT) Pathologist [facility] TSH 4.52(H) 0.30 - 4.20 uIU/mL 04/30/2024 2:58 PM CDT [facility] Blood STRUCTURE OF RIGHT UPPER LIMB / Unknown Venipuncture / Unknown 04/29/2024 4:39 PM CDT 04/29/2024 4:39 PM CDT Jazmín Chavez PA-C LAB - BLOOD ORDERA BLES [facility] [address] [facility], Room [address] [place] [id number] * (ABNORMAL) Comprehensive metabolic panel [...] LAB - BLOOD ORDERA BLES [facility] [address] [facility], Room [address] [place], [place] [id number] * (ABNORMAL) CBC with platelets (04/29/2024 [...] LAB - BLOOD ORDERA BLES [facility] [address] [facility] (no room number, 1st floor of clinic) [place] [address], [facility] [phone] documented in this encounter Visit Diagnoses Diagnosis ADHD, predominantly inattentive type- Primary Attention deficit disorder with hyperactivity Fibromyalgia Mylagia and myositis, unspecified Other insomnia Migraine without aura and without status migrainosus, not intractable Migraine without aura, without mention of intractable migraine without mention of status migrainosus Anxiety Anxiety state, unspecified Obsessive-compulsive disorder, unspecified type Muscle spasm Spasm of muscle Sweating increase Generalized hyperhidrosis Neuropathy Mononeuritis of unspecified site documented in this encounter Additional Health Concerns Assessment Noted Time PHQ-9 Depression Total Score: 10 04/06/ 024 2:28 PM CDT documented as of this encounter Care Teams Dairy Hand Relationship Specialty Start Date End Date Jazmín Chavez PA-C [address] [place] [address] PCP - General Family Medicine 02/10/23 06/28/24 Jazmín Chavez PA-C [address] [place] [address] Assigned PCP 02/15/23 documented as of this encounter
--- OUTSIDE RECORDS SUMMARY | 2024-07-01 22:16 | XMS_ITS | Encounter Summary ---
Author Organization [facility] Address [address] [place] [address]. [place] [address] Care Team Providers Care Forge Helper Name Role Phone Johnathan Brand Primary Care Provider Unavailab Johnathan Villanueva DO Unavailable [phone] Jazmín Chavez PA-C Primary Care Provider [phone] Jazmín Chavez PA-C Unavailable Reason for Visit * Reason Onset Date Comments MyChart Communication 09/23/2022 Encounter Details Date Type Department Care Team (Latest Contact Info) Description 09/23/2022 MyC Medical Adv[address] [facility] [id number] [place] [phone] [place]ueva DO [id number] [place] [address] [phone] MyChart Communication (/) Social History Tobacco Use Types Packs/Day Years [...] Recorded In the last 10 days, have elena u been in contact with someone who was confirmed or suspected to have Coronavirus/COVID-19? No / Unsure 09/23/2022 6:11 PM PULP HOUSE SUPERVISOR documented as of this encounter Miscellaneous Notes * Telephone Encounter - Micheal Roth RN - 09/23/2022 2:15 PM CST Please see pt MyChart message regarding additional questions about CT scan ordered and advise. Micheal Boone RN HOUSE SUPERVISOR documented in this encounter Plan of Treatment Not on file documented as of this encounter Visit Diagnoses Not on filedocumented in this encounter Additional Health Concerns Infection Onset Date Last Indicated Resolved Time Rule Out COVID-19 12/26/2023 12/26/2023 12/26/2023 9:46 PM CDT Assessment Noted Time PHQ-9 Depression Total Score: 4 06/11/20 3:16 AM CDT documented as of this encounter Care Teams Forge Helper Relationship Specialty Start Date End Date Johnathan Brand PCP - General Family Medicine 11/21/21 09/23/22 Jazmín Chavez PA-C [address] [place] [address] PCP - General Family Medicine 02/10/23 06/28/24 [place] [address] [place] [address] Assigned PCP 09/28/22 02/14/23 Jazmín Chavez PA-C [address] [place] [address] Assigned PCP 02/15/23 documented as of this encounter
--- OUTSIDE RECORDS SUMMARY | 2024-07-01 22:16 | XMS_ITS | Encounter Summary ---
Author Organization [facility] Address [address] [place] [address]. [place] [address] Care Team Providers Care Notching Press Operator Name Role Phone Jazmín Chavez PA-C Primary Care Provider [phone]- [phone] Jazmín Chavez PA-C Unavailable [phone] Reason for Visit * Reason Onset Date Comments Refill Request 03/02/2024 Encounter Details Date Type Department Care Team (Late st Contact Info) Description 03/02/2024 Ernst Patel [address] [phone] Jazmín Chavez PA-C [address] [place] [address] [phone] Refill Request Social History Tobacco Use Types [...] encounter Miscellaneous Notes * Telephone Encounter - Lilibeth Hutchinson CMA - 03/03/2024 11:38 AM CDT LM Lilibeth Hutchinson CMA * Telephone Encounter - Jazmín Chavez PA-C - 03/02/2024 4:38 PM CDT Please call patient. The medication has been refilled. They are due for a follow-up visit for ADHD in person April 2024 documented in this encounter Plan of Treatment Not on file documented as of this encounter Visit Diagnoses Diagnosis ADHD, predominantly inattentive type Attention deficit disorder with hyperactivity documented in this encounter Additional Health Concerns Assessment Noted Time PHQ-9 Depression Total Score: 4 06/11/20 22 3:16 AM CDT documented as of this encounter Care Teams Notching Press Operator Relationship Specialty Start Date End Date Jazmín Chavez PA-C [address] [place] [address] PCP - General Family Medicine 02/10/23 06/28/24 Jazmín Chavez PA-C [address] [place] [address] Assigned PCP 02/15/23 documented as of this encounter
--- OUTSIDE RECORDS SUMMARY | 2024-07-01 22:16 | XMS_ITS | Encounter Summary ---
Author Organization [facility] Address [address] [place] [address]. [place] [address] Care Team Providers Care Digital Photographic Printer Name Role Phone Dewey Astorga PA-C Unavailable Johnathan Brand Primary Care Provider Unavailab le Jazmín Chavez PA-C Unavailable Johnathan Villanueva DO Unavailable Jazmín Chavez PA-C Primary Care Provider [phone] Jazmín Chavez PA-C Unavailable Encounter Details Date Type Department Care Team (Late st Contact Info) Description 04/30/2022 [facility] Medical Advice [facility] [id number] [place] [phone] Jazmín Chavez PA-C [address] [place] [phone] Social History Tobacco Use Types Packs/Day Years [...] as of this encounter Care Teams Digital Photographic Printer Relationship Specialty Start Date End Date Johnathan Brand [address] [place] [address] PCP - General Family Medicine 11/21/21 09/23/22 Jazmín Chavez PA-C [address] [place] [address] PCP - General Family Medicine 02/10/23 06/28/24 Dewey Astorga PA-C [address] [place] [address] Assigned PCP 07/23/20 08/02/22 Jazmín Chavez PA-C [address] [place] [address] Assigned PCP 08/03/22 08/30/22 [place] [address] [place] [address] Assigned PCP 09/28/22 02/14/23 Jazmín Chavez PA-C [address] [place] [address] Assigned PCP 02/15/23 documented as of this encounter
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
--- OUTSIDE RECORDS SUMMARY | 2024-07-01 22:16 | XMS_ITS | Encounter Summary ---
Author Organization [place] Address [address] [place] [address]. [place] [address] Care Team Providers Care Director Of Residence Life Name Role Phone Jazmín Chavez PA-C Primary Care Provider [phone] Jazmín Chavez PA-C Unavailable [phone] Reason for Visit * Reason Onset Date Comments MyChart Communication 11/14/2023 refill Encounter Details Date Type Department Care Team (Late st Contact Info) Description 11/14/2023 MyC Medical Advice [address] [address] Jazmín Chavez PA-C [address] [place] [address] MyChart Communication (refill) Social History Tobacco Use Types Packs/Day Years [...] documented as of this encounter Care Teams Director Of Residence Life Relationship Specialty Start Date End Date Jazmín Chavez PA-C [address] [place] [address] PCP - General Family Medicine 02/10/23 06/28/24 Jazmín Chavez PA-C [address] [place] [address] Assigned PCP 02/15/23 documented as of this encounter
--- OUTSIDE RECORDS SUMMARY | 2024-07-01 22:17 | XMS_ITS | Encounter Summary ---
Author Organization [place] Address [address] [place] [address] Care Team Providers Care Rn Flight Name Role Phone Dewey Astorga PA-C Unavailable Dewey Astorga PA-C Primary Care Provide r Johnathan Brand Primary Care Provider Unavailab le Jazmín Chavez PA-C Unavailable Johnathan Villanueva DO Unavailable [phone] Jazmín Chavez PA-C Primary Care Provider [phone] Jazmín Chavez PA-C Unavailable [phone] Encounter Details Date Type Department Care Team (Late st Contact Info) Description 03/26/2021 MyC Medical Advice [address] [address] Angelina Balderrama MD [address] [place] [address] KEVIN OROURKE [id number] Social History Tobacco Use Types Packs/Day Years [...] Total Score: 4 08/11/20 17 7:57 AM RETENTION SPECIALIST documented as of this encounter Care Teams Rn Flight Relationship Specialty Start Date End Date Dewey Astorga PA-C [address] [place] [address] PCP - General Family Medicine 11/18/20 11/20/21 Johnathan Brand [address] [place] [address] PCP - General Family Medicine 11/21/21 09/23/22 Jazmín Chavez PA-C [address] [place] [address] PCP - General Family Medicine 02/10/23 06/28/24 Dewey Astorga PA-C [address] [place] [address] Assigned PCP 07/23/20 08/02/22 Jazmín Chavez PA-C [address] [place] [address] Assigned PCP 08/03/22 08/30/22 [place] [address] [place] [address] Assigned PCP 09/28/22 02/14/23 Jazmín Chavez PA-C [address] [place] [address] Assigned PCP 02/15/23 documented as of this encounter
--- OUTSIDE RECORDS SUMMARY | 2024-07-01 22:17 | XMS_ITS | Encounter Summary ---
Author Organization [place] Address [address] [place] [address] Care Team Providers Care Award Machine Operator Name Role Phone Dewey Astorga PA-C Unavailable [phone] Dewey Astorga PA-C Primary Care Provide r Johnathan Brand Primary Care Provider Unavailab le Jazmín Chavez PA-C Unavailable Johnathan Villanueva DO Unavailable [phone] Jazmín Chavez PA-C Primary Care Provider [phone] Jazmín Chavez PA-C Unavailable Reason for Visit * Reason Onset Date Comments MyChart Communication 01/05/2021 Derm issue - Msg. #1 Encounter Details Date Type Department Care Team (Late st Contact Info) Description 01/05/2021 MyC Medical Advice [facility] [address], [address] [place] [address] Dewey Astorga PA-C [address] [place] [address] MyChart Communication (Derm issue - Msg. #1) Social History Tobacco Use Types Packs/Day Years [...] have Coronavirus / COVID-19? No / Unsure 12/27/2020 10:14 AM CDT documented as of this encounter Miscellaneous Notes * Telephone Encounter - Sharon Styles RN - 01/05/2021 3:00 PM CDT JS, Please see [employer] message below. Thanks, Symone Styles RN documented in this encounter Plan of [...] Total Score: 4 08/11/20 17 7:57 AM BUILDING RIGGER documented as of this encounter Care Teams Award Machine Operator Relationship Specialty Start Date End Date Dewey Astorga PA-C [address] [place] [address] PCP - General Family Medicine 11/18/20 11/20/21 Johnathan Brand [address] [place] [address] PCP - General Family Medicine 11/21/21 09/23/22 Jazmín Chavez PA-C [address] [place] [address] PCP - General Family Medicine 02/10/23 06/28/24 Dewey Astorga PA-C [address] [facility] [address] [place] [address] Assigned PCP 07/23/20 08/02/22 Jazmín Chavez PA-C [address] [place] [address] Assigned PCP 08/03/22 08/30/22 [place] [address] [place] [address] Assigned PCP 09/28/22 02/14/23 Jazmín Chavez PA-C [address] [place] [address] Assigned PCP 02/15/23 documented as of this encounter
--- OUTSIDE RECORDS SUMMARY | 2024-07-01 22:17 | XMS_ITS | Encounter Summary ---
Author Organization [place] Address [address] [place] [address] Care Team Providers Care Rn Procedure Name Role Phone Dewey Astorga PA-C Unavailable [phone] Dewey Astorga PA-C Primary Care Provide r Johnathan Brand Primary Care Provider Unavailab le Jazmín Chavez PA-C Unavailable Johnathan Villanueva DO Unavailable [phone] Jazmín Chavez PA-C Primary Care Provider [phone] Jazmín Chavez PA-C Unavailable [phone] Encounter Details Date Type Department Care Team (Late st Contact Info) Description 12/07/2020 MyC Medical Advice [address] [address] Angelina Balderrama MD [address] [place] [address] KEVIN OROURKE [id number] Social History Tobacco Use Types Packs/Day Years [...] have Coronavirus / COVID-19? No / Unsure 12/05/2020 11:01 AM CRAB STEAMER documented as of this encounter Plan of [...] Total Score: 4 08/11/20 17 7:57 AM CRAB STEAMER documented as of this encounter Care Teams Rn Procedure Relationship Specialty Start Date End Date Dewey Astorga PA-C [address] [place] [address] PCP - General Family Medicine 11/18/20 11/20/21 Johnathan Brand [address] [place] [address] PCP - General Family Medicine 11/21/21 09/23/22 Jazmín Chavez PA-C [address] [place] [address] PCP - General Family Medicine 02/10/23 06/28/24 Dewey Astorga PA-C [address] [place] [address] Assigned PCP 07/23/20 08/02/22 Jazmín Chavez PA-C [address] [place] [address] Assigned PCP 08/03/22 08/30/22 [place] [address] [place] [address] Assigned PCP 09/28/22 02/14/23 Jazmín Chavez PA-C [address] [place] [address] Assigned PCP 02/15/23 documented as of this encounter
--- OUTSIDE RECORDS SUMMARY | 2024-07-01 22:17 | XMS_ITS | Encounter Summary ---
Author Organization [place] Address [address] [place] [address]. [place] [address] Care Team Providers Care Clinical Informatics Director Name Role Phone Dewey Astorga PA-C Unavailable Dewey Astorga PA-C Primary Care Provide r Johnathan Brand Primary Care Provider Unavailab le Jazmín Chavez PA-C Unavailable Johnathan Villanueva DO Unavailable [phone] Jazmín Chavez PA-C Primary Care Provider [phone] Jazmín Chavez PA-C Unavailable Reason for Visit * Reason Onset Date Comments MyChart Communication 01/03/2021 Neurology/ Twitching Encounter Details Date Type Department Care Team (Late st Contact Info) Description 01/03/2021 MyC Medical Advice [facility] [address], [address] [place] [address] Dewey Astorga PA-C [address] [place] [address] MyChart Communication (Neurology/Twitching) Social History Tobacco Use Types Packs/Day Years [...] Telephone Encounter - Catherine Gonsalez RN - 01/04/2021 8:57 AM CDT JS, Please see below MyChart message and advise. Thanks, Catherine Reese RN documented in this encounter [...] Total Score: 4 08/11/20 17 7:57 AM MANAGER OF HOSPITAL documented as of this encounter Care Teams Clinical Informatics Director Relationship Specialty Start Date End Date Dewey Astorga PA-C [address] [employer] [place], [place] [address] PCP - General Family Medicine 11/18/20 11/20/21 Johnathan Brand [address] [place] [address] PCP - General Family Medicine 11/21/21 09/23/22 Jazmín Chavez PA-C [address] [place] [address] PCP - General Family Medicine 02/10/23 06/28/24 Dewey Astorga PA-C [address] [facility] [address] [place] [address] Assigned PCP 07/23/20 08/02/22 Jazmín Chavez PA-C [address] [place] [address] Assigned PCP 08/03/22 08/30/22 [place] [address] [place] [address] Assigned PCP 09/28/22 02/14/23 Jazmín Chavez PA-C [address] [place] [address] Assigned PCP 02/15/23 documented as of this encounter
--- OUTSIDE RECORDS SUMMARY | 2024-07-01 22:17 | XMS_ITS | Encounter Summary ---
Author Organization [place] Address [address] [place] [address] Care Team Providers Care Train System Operator Name Role Phone Dewey Astorga PA-C Unavailable Dewey Astorga PA-C Primary Care Provide r Johnathan Brand Primary Care Provider Unavailab le Jazmín Chavez PA-C Unavailable Johnathan Villanueva DO Unavailable [phone] Jazmín Chavez PA-C Primary Care Provider [phone] Jazmín Chavez PA-C Unavailable Reason for Visit * Reason Onset Date Comments MyChart Communication 01/05/2021 Derm issue - msg. #2 Encounter Details Date Type Department Care Team (Late st Contact Info) Description 01/05/2021 MyC Medical Advice [facility] [address], [address] [place] [address] Dewey Astorga PA-C [address] [place] [address] MyChart Communication (Derm issue - msg. #2) Social History Tobacco Use Types Packs/Day Years [...] RN - 01/05/2021 3:00 PM CDT JS, 2nd 71lbs message sent by patient. Symone Styles RN documented in this encounter [...] Total Score: 4 08/11/20 17 7:57 AM WIND TUNNEL MECHANIC documented as of this encounter Care Teams Train System Operator Relationship Specialty Start Date End Date Dewey Astorga PA-C [address] [place] [address] PCP - General Family Medicine 11/18/20 11/20/21 Johnathan Brand [address] [place] [address] PCP - General Family Medicine 11/21/21 09/23/22 Jazmín Chavez PA-C [address] [place] [address] PCP - General Family Medicine 02/10/23 06/28/24 Dewey Astorga PA-C [address] [facility] [address] [place] [address] Assigned PCP 07/23/20 08/02/22 Jazmín Chavez PA-C [address] [place] [address] Assigned PCP 08/03/22 08/30/22 [place] [address] [place] [address] Assigned PCP 09/28/22 02/14/23 Jazmín Chavez PA-C [address] [place] [address] Assigned PCP 02/15/23 documented as of this encounter
--- OUTSIDE RECORDS SUMMARY | 2024-07-01 22:17 | XMS_ITS | Encounter Summary ---
Author Organization [place] Address [address] [place] [address] Care Team Providers Care Glass Furnace Tender Name Role Phone Rosa Gorman RN Unavailable Unavailable Dewey Astorga PA-C Primary Care Provide r Dewey Astorga PA-C Unavailable Yoli Skinner MD Primary Care Provider Dewey Astorga PA-C Primary Care Provide r Johnathan Brand Primary Care Provider Unavailab le Jazmín Chavez PA-C Unavailable [phone] Johnathan Villanueva DO Unavailable Jazmín Chavez PA-C Primary Care Provider [phone] Jazmín hCavez PA-C Unavailable Reason for Visit * Reason Onset Date Comments Refill Request 08/06/2020 Encounter Details Date Type Department Care Team (Late st Contact Info) Description 08/06/2020 Ernst Patel [facility] [address] [place] [address] Dewey Astorga PA-C [address] [facility] [address] [place] [address] Refill Request Social History Tobacco Use Types Packs/Day Years Used Date Smoking Tobacco: Never Smokeless Tobacco: Never Alcohol Use Standard Drinks/Week Comments No 0 (1 standard drink = 0.6 oz pur e alcohol) PHQ-2 Answer Date Recorded PHQ-2 Score 0 10/07/2018 Sex and Gender Information Value Date Recorded Sex Assigned at Female 02/28/2020 8:14 PM CDT Gender Identity Female 02/28/2020 8:14 PM CDT Sexual Orientation Straight 02/28/2020 8: 14 PM CDT COVID-19 Exposure Response Date Recorded In the last month, have you been in contact with someone who was confirmed or suspected to have Coronavirus / COVID-19? Unable to assess 08/08/2020 11:02 AM CS T documented as of this encounter Miscellaneous Notes * Telephone Encounter - Portia Ruiz RN - 08/07/2020 11:36 AM CST Due for apt- Return in about 4 weeks (around 08/07/2020). Portia Ruiz RN ROENTEROLOGY PROFESSOR documented in this encounter Plan of Treatment [...] Total Score: 4 08/11/20 17 7:57 AM GASTROENTEROLOGY PROFESSOR documented as of this encounter Care Teams Glass Furnace Tender Relationship Specialty Start Date End Date Dewey Astorga PA-C [address] [address] [address] PCP - General Physician Distribution Engineer 07/11/20 11/13/20 Yoli Skinner MD [address] [facility] [address] [place] [address] PCP - General Internal Medicine 11/14/20 11/17/20 Dewey Astorga PA-C [address] [place] [address] PCP - General Family Medicine 11/18/20 11/20/21 Johnathan Brand [address] [place] [address] PCP - General Family Medicine 11/21/21 09/23/22 Jazmín Chavez PA-C [address] [place] [address] PCP - General Family Medicine 02/10/23 06/28/24 Rsoa Gorman, DANIEL Personal Advocate & Liaison (PAL) 03/14/20 09/04/20 Dewey Astorga PA-C [address] [place] [address] Assigned PCP 07/23/20 08/02/22 Jazmín Chavez PA-C [address] [place] [address] Assigned PCP 08/03/22 08/30/22 [place] [address] [place] [address] Assigned PCP 09/28/22 02/14/23 Jazmín Chavez PA-C [address] [place] [address] Assigned PCP 02/15/23 documented as of this encounter
--- OUTSIDE RECORDS SUMMARY | 2024-07-01 22:17 | XMS_ITS | Encounter Summary ---
Author Organization [place] Address [address] [place] [address] Care Team Providers Care Aircraft Time Clerk Name Role Phone Dewey Astorga PA-C Primary Care Provide r Dewey Astorga PA-C Unavailable [phone] Yoli Skinner MD Primary Care Provider [phone] Dewey Astorga PA-C Primary Care Provide r Johnathan Brand Primary Care Provider Unavailab le Jazmín Chavez PA-C Unavailable [phone] Johnathan Villanueva DO Unavailable [phone] Jazmín Chavez PA-C Primary Care Provider [phone] Jazmín Chavez PA-C Unavailable [phone] Encounter Details Date Type Department Care Team (Late st Contact Info) Description 10/24/2020 MyC Medical Advice [address] [place] [address] Angelina Balderrama MD [address] [place] [address] KEV[place]OURKE [address] Social History Tobacco Use Types Packs/Day Years [...] have Coronavirus / COVID-19? No / Unsure 10/23/2020 3:22 PM ATOMIC PHYSICS TEACHER documented as of this encounter Plan of [...] Total Score: 4 08/11/20 17 7:57 AM ATOMIC PHYSICS TEACHER documented as of this encounter Care Teams Aircraft Time Clerk Relationship Specialty Start Date End Date Dewey Astorga PA-C [address] [employer] [place] [address] PCP - General Physician Human Resource Officer 07/11/20 11/13/20 Yoli Skinner MD [address] [place] [address] PCP - General Internal Medicine 11/14/20 11/17/20 Dewey Astorga PA-C [address] [place] [address] PCP - General Family Medicine 11/18/20 11/20/21 Johnathan Brand [address] [place] [address] PCP - General Family Medicine 11/21/21 09/23/22 Jazmín Chavez PA-C [address] [place] [address] PCP - General Family Medicine 02/10/23 06/28/24 Dewey Astorga PA-C [address] [facility] [address] [place] [address] Assigned PCP 07/23/20 08/02/22 Jazmín Chavez PA-C [address] [place] [address] Assigned PCP 08/03/22 08/30/22 [place] [address] [place] [address] Assigned PCP 09/28/22 02/14/23 Jazmín Chavez PA-C [address] [place] [address] Assigned PCP 02/15/23 documented as of this encounter
--- OUTSIDE RECORDS SUMMARY | 2024-07-01 22:17 | XMS_ITS | Encounter Summary ---
Author Organization [place] Address [address] [place] [address]. [place] [address] Care Team Providers Care High School Home Economics Teacher Name Role Phone Jazmín Chavez PA-C Primary Care Provider [phone] Jazmín Chavez PA-C Unavailable [phone] Rosa Gorman RN Unavailable Unavailable Dewey Astorga PA-C Primary Care Provide r Deewy Astorga PA-C Unavailable Yoli Skinner MD Primary Care Provider [phone] Dewey Astorga PA-C Primary Care Provide r Johnathan Brand Primary Care Provider Unavailab le Jazmín Chavez PA-C Unavailable [phone] Johnathan Villanueva DO Unavailable [phone] Jazmín Chavez PA-C Primary Care Provider [phone] Jazmín Chavez PA-C Unavailable [phone] Reason for Visit * Reason Onset Date Comments Medication Question 07/09/2020 Encounter Details Date Type Department Care Team (Late st Contact Info) Description 07/09/2020 MyC Medical Advice [facility] [address] [place] [address] Jazmín Chavez PA-C [id number] [place] [address] Medication Question Social History Tobacco Use Types Packs/Day Years [...] have Coronavirus / COVID-19? No / Unsure 07/10/2020 4:13 PM CDT documented as of this encounter Miscellaneous Notes * Telephone Encounter - Emely Harley RN - 07/10/2020 8:19 AM CDT Jazmín Chavez PA-C Patient sent my chart message asking for change in dose of adderall RN advised a visit is needed, last visit was 02/29/2020 and was virtual Patient scheduled another virtual visit 07/25/2020 - does this need to be an office visit ? Emely Harley, Registered Nurse, LAURE (Patient Advocate Liason) [facility] [phone] documented in this encounter Plan of Treatment Not on file documented as of this encounter Visit Diagnoses Not on filedocumented in this encounter Additional Health Concerns Infection Onset Date Last Indicated Resolved Time Rule Out COVID-19 12/14/2021 12/14/2021 12/15/2021 11:31 PM CDT Rule Out COVID-19 12/26/2023 12/26/2023 12/26/2023 9:46 PM CDT Assessment Noted Time PHQ-9 Depression Total Score: 4 08/11/20 17 7:57 AM DIRECTOR STRATEGIC PLANNING documented as of this encounter Care Teams High School Home Economics Teacher Relationship Specialty Start Date End Date Jazmín Chavez PA-C [address] [place] [address] PCP - General Physician Solid Propellant Processor 08/01/17 07/10/20 Dewey Astorga PA-C [address] [place] [address] PCP - General Physician Solid Propellant Processor 07/11/20 11/13/20 Yoli Skinner MD [address] [place] [address] PCP - General Internal Medicine 11/14/20 11/17/20 Dewey Astorga PA-C [address] [address] PCP - General Family Medicine 11/18/20 11/20/21 Johnathan Brand [address] [place] [address] PCP - General Family Medicine 11/21/21 09/23/22 Jazmín Chavez PA-C [address] [place] [address] PCP - General Family Medicine 02/10/23 06/28/24 Jazmín Chavez PA-C [address] [place] [address] Assigned PCP 03/30/17 07/22/20 Rosa Gorman, DANIEL Personal Advocate & Liaison (PAL) 03/14/20 09/04/20 Dewey Astorga PA-C [address] [address] Assigned PCP 07/23/20 08/02/22 Jazmín Chavez PA-C [address] [place] [address] Assigned PCP 08/03/22 08/30/22 [place] [address] [place] [address] Assigned PCP 09/28/22 02/14/23 Jazmín Chavez PA-C [address] [place] [address] Assigned PCP 02/15/23 documented as of this encounter
--- OUTSIDE RECORDS SUMMARY | 2024-07-01 22:17 | XMS_ITS | Encounter Summary ---
Author Organization [place] Address [address] [place] [address] Care Team Providers Care Soda Dispenser Name Role Phone Rosa Gorman RN Unavailable Unavailable Dewey Astorga PA-C Primary Care Provide r Dewey Astorga PA-C Unavailable Yoli Skinner MD Primary Care Provider [phone] Dewey Astorga PA-C Primary Care Provide r Johnathan Brand Primary Care Provider Unavailab le Jazmín Chavez PA-C Unavailable [phone] Johnathan Villanueva DO Unavailable Jazmín Chavez PA-C Primary Care Provider [phone] Jazmín Chavez PA-C Unavailable Encounter Details Date Type Department Care Team (Late st Contact Info) Description 08/08/2020 [facility] [address], [address] [place] [address] Dewey Astorga PA-C [address] [facility] [address] [place] [address] Social History Tobacco Use Types Packs/Day Years [...] CS T documented as of this encounter Plan of [...] Total Score: 4 08/11/20 17 7:57 AM BRICK TESTER documented as of this encounter Care Teams Soda Dispenser Relationship Specialty Start Date End Date Dewey Astorga PA-C [address] [place] [address] PCP - General Physician Cashier Or Checker Stock Clerk 07/11/20 11/13/20 Yoli Skinner MD [address] [place] [address] PCP - General Internal Medicine 11/14/20 11/17/20 Dewey Astorga PA-C [address] [place] [address] PCP - General Family Medicine 11/18/20 11/20/21 Johnathan Brnad [address] [place] [address] PCP - General Family Medicine 11/21/21 09/23/22 Jazmín Chavez PA-C [address] [place] [address] PCP - General Family Medicine 02/10/23 06/28/24 Rosa Gorman, RN Personal Advocate & Liaison (PAL) 03/14/20 09/04/20 Dewey Astorga PA-C [address] [facility] [address] [place] [address] Assigned PCP 07/23/20 08/02/22 Jazmín Chavez PA-C [address] [place] [address] Assigned PCP 08/03/22 08/30/22 [place] [address] [place] [address] Assigned PCP 09/28/22 02/14/23 Jazmín Chavez PA-C [address] [place] [address] Assigned PCP 02/15/23 documented as of this encounter
--- OUTSIDE RECORDS SUMMARY | 2024-07-01 22:17 | XMS_ITS | Encounter Summary ---
Author Organization [place] Address [address] [place] [address]. [place] [address] Care Team Providers Care Manufacturing Production Technician Name Role Phone Dewey Astorga PA-C Unavailable Dewey Astorga PA-C Primary Care Provide r Johnathan Brand Primary Care Provider Unavailab le Jazmín Chavez PA-C Unavailable Johnathan Villanueva DO Unavailable [phone] Jazmín Chavez PA-C Primary Care Provider [phone] Jazmín Chavez PA-C Unavailable Reason for Visit * Reason Onset Date Comments MyChart Communication 12/19/2020 food in es ophagus Encounter Details Date Type Department Care Team (Late st Contact Info) Description 12/19/2020 MyC Medical Advice [facility] [place] [address], [address] [place] [address] Dewey Astorga PA-C [address] [place] [address] MyChart Communication (food in esophagus ) Social History Tobacco Use Types Packs/Day Years [...] have Coronavirus / COVID-19? No / Unsure 12/15/2020 5:40 PM CDT documented as of this encounter Miscellaneous Notes * Telephone Encounter - Catherine Gonsalez RN - 12/19/2020 6:07 PM CDT Sent MyChart to patient Catherine Reese RN * Telephone Encounter - Dewey Astorga PA-C - 12/19/2020 5:57 PM CDT Not really, hopefully will resolved soon, but may need to go to ED for treatment. Saman Astorga PA-C * Telephone Encounter - Catherine Gonsalez RN - 12/19/2020 4:12 PM CDT JS, Please see below MyChart message and advise. Any other suggestions? Thanks, Catherine Reese RN documented in this [...] Total Score: 4 08/11/20 17 7:57 AM RECYCLING WORKER documented as of this encounter Care Teams Manufacturing Production Technician Relationship Specialty Start Date End Date Deewy Astorga PA-C [address] [place] [address] PCP - General Family Medicine 11/18/20 11/20/21 Johnathan Brand [address] [place] [address] PCP - General Family Medicine 11/21/21 09/23/22 Jazmín Chavez PA-C [address] [place] [address] PCP - General Family Medicine 02/10/23 06/28/24 Dewey Astorga PA-C [email or web address] [facility] [address] [place] [address] Assigned PCP 07/23/20 08/02/22 Jazmín Chavez PA-C [address] [place] [address] Assigned PCP 08/03/22 08/30/22 [place] [address] [place] [address] Assigned PCP 09/28/22 02/14/23 Jazmín Chavez PA-C [address] [place] [address] Assigned PCP 02/15/23 documented as of this encounter
--- OUTSIDE RECORDS SUMMARY | 2024-07-01 22:17 | XMS_ITS | Encounter Summary ---
Author Organization [place] Address [address] [place] [address] Care Team Providers Care Paper Testing Supervisor Name Role Phone Jazmín Chavez PA-C Unavailable [phone] Rosa Gorman RN Unavailable Unavailable Dewey Astorga PA-C Primary Care Provide r Dewey Astorga PA-C Unavailable [phone] Yoli Skinner MD Primary Care Provider [phone] Dewey Astorga PA-C Primary Care Provide r Johnathan Brand Primary Care Provider Unavailab le Jazmín Chavez PA-C Unavailable Johnathan Villanueva DO Unavailable [phone] Jazmín Chavez PA-C Primary Care Provider [phone] Jazmín Chavez PA-C Unavailable [phone] Encounter Details Date Type Department Care Team (Late st Contact Info) Description 07/11/2020 [facility] [place] [address], [address] [place] [address] Dewey Astorga PA-C [address] [facility] [address] [place] [address] Social History Tobacco Use Types [...] Total Score: 4 08/11/20 17 7:57 AM TAIL DOGGER documented as of this encounter Care Teams Paper Testing Supervisor Relationship Specialty Start Date End Date Dewey Astorga PA-C [address] [place] [address] PCP - General Physician Mud Cleaner Operator 07/11/20 11/13/20 Yoli Skinner MD [address] [place], [place] [address] PCP - General Internal Medicine 11/14/20 11/17/20 Dewey Astorga PA-C [address] [place] [address] PCP - General Family Medicine 11/18/20 11/20/21 Johnathan Brand [address] [facility] 200 [place] [address] PCP - General Family Medicine 11/21/21 09/23/22 Jazmín Chavez PA-C [address] [place] [address] PCP - General Family Medicine 02/10/23 06/28/24 Jazmín Chavez PA-C [address] [place] [address] Assigned PCP 03/30/17 07/22/20 Rosa Gorman, DANIEL Personal Advocate & Liaison (PAL) 03/14/20 09/04/20 Dewey Astorga PA-C [address] [facility] [address] [place] [address] Assigned PCP 07/23/20 08/02/22 Jazmín Chavez PA-C [address] [place] [address] Assigned PCP 08/03/22 08/30/22 [place] [address] [place] [address] Assigned PCP 09/28/22 02/14/23 Jazmín Chavez PA-C [address] [place] [address] Assigned PCP 02/15/23 documented as of this encounter
--- OUTSIDE RECORDS SUMMARY | 2024-07-01 22:17 | XMS_ITS | Encounter Summary ---
Author Organization [place] Address [address] [place] [address]. [place] [address] Care Team Providers Care Stock Puller Name Role Phone Dweey Astorga PA-C Unavailable Dewey Astorga PA-C Primary Care Provide r Johnathan Brand Primary Care Provider Unavailab le Jazmín Chavez PA-C Unavailable Johnathan Villanueva DO Unavailable [phone] Jazmín Chavez PA-C Primary Care Provider [phone] Jazmín Chavez PA-C Unavailable Reason for Visit * Reason Onset Date Comments MyChart Communication 12/25/2020 Elizabeth Alexander Encounter Details Date Type Department Care Team (Late st Contact Info) Description 12/25/2020 MyC Medical Advice [facility] [address], [address] [place] [address] Dewey Astorga PA-C [address] [place] [address] MyChart Communication (Elizabeth Alexander) Social History Tobacco Use Types Packs/Day Years [...] Telephone Encounter - Catherine Gonsalez RN - 12/26/2020 10:38 AM CDT JS, Please see below MyChart message and advise. ThanksCatherine RN documented in this encounter Plan of [...] Total Score: 4 08/11/20 17 7:57 AM PLATFORM MATERIAL HANDLING SUPERVISOR documented as of this encounter Care Teams Stock Puller Relationship Specialty Start Date End Date Dewey Astorga PA-C [address] [place], [place] [address] PCP - General Family Medicine 11/18/20 11/20/21 Johnathan Brand [address] [place] [address] PCP - General Family Medicine 11/21/21 09/23/22 Jazmín Chavez PA-C [address] [place] [address] PCP - General Family Medicine 02/10/23 06/28/24 Dewey Astorga PA-C [address] [address] [facility] [address] [place] [address] Assigned PCP 07/23/20 08/02/22 Jazmín Chavez PA-C [address] [place] [address] Assigned PCP 08/03/22 08/30/22 [place] [address] [place] [address] Assigned PCP 09/28/22 02/14/23 Jazmín Chavez PA-C [address] [place] [address] Assigned PCP 02/15/23 documented as of this encounter
--- OUTSIDE RECORDS SUMMARY | 2024-07-01 22:17 | XMS_ITS | Encounter Summary ---
Author Organization [place] Address [address] [place] [address] Care Team Providers Care Boilermaker Assembly And Erection Name Role Phone Dewey Astorga PA-C Primary Care Provide r Dewey Astorga PA-C Unavailable Yoli Skinner MD Primary Care Provider Dewey Astorga PA-C Primary Care Provide r Johnathan Brand Primary Care Provider Unavailab le Jazmín Chavez PA-C Unavailable [phone] Johnathan Villanueva DO Unavailable [phone] Jazmín Chavez PA-C Primary Care Provider Jazmín Chavez PA-C Unavailable [phone] Encounter Details Date Type Department Care Team (Late st Contact Info) Description 10/26/2020 MyC Medical Advice [address] [address] Merle Naranjo RN Social History Tobacco Use Types Packs/Day [...] COVID-19? No / Unsure 10/23/2020 3:22 PM ARTILLERY METEOROLOGICAL MAN documented as of this encounter Plan of [...] Total Score: 4 08/11/20 17 7:57 AM ARTILLERY METEOROLOGICAL MAN documented as of this encounter Care Teams Boilermaker Assembly And Erection Relationship Specialty Start Date End Date Dewey Astorga PA-C [address] [place] [address] PCP - General Physician Duct Cleaner 07/11/20 11/13/20 Yoli Skinner MD [address] [place] [address] PCP - General Internal Medicine 11/14/20 11/17/20 Dewey Astorga PA-C [address] [place], [place] [address] PCP - General Family Medicine 11/18/20 11/20/21 Johnathan Brand [address] [place] [address] PCP - General Family Medicine 11/21/21 09/23/22 Jazmín Chavez PA-C [address] [place] [address] PCP - General Family Medicine 02/10/23 06/28/24 Dewey Astorga PA-C [address] [place] [address] Assigned PCP 07/23/20 08/02/22 Jazmín Chavez PA-C [address] [place] [address] Assigned PCP 08/03/22 08/30/22 [place] [address] [place] [address] Assigned PCP 09/28/22 02/14/23 Jazmín Chavez PA-C [address] [place] [address] Assigned PCP 02/15/23 documented as of this encounter
--- OUTSIDE RECORDS SUMMARY | 2024-07-01 22:17 | XMS_ITS | Encounter Summary ---
Author Organization [place] Address [address] [place] [address] Care Team Providers Care Interventional Sale Consultant Name Role Phone Dewey Astorga PA-C Primary Care Provide r Dewey Astorga PA-C Unavailable Yoli Skinner MD Primary Care Provider [phone] Dewey Astorga PA-C Primary Care Provide r Johnathan Brand Primary Care Provider Unavailab le Jazmín Chavez PA-C Unavailable Johnathan Villanueva DO Unavailable [phone] Jazmín Chavez PA-C Primary Care Provider [phone] Jazmín Chavez PA-C Unavailable Reason for Visit * Reason Onset Date Comments MyChart Communication 10/12/2020 medication & vaccine question Encounter Details Date Type Department Care Team (Late st Contact Info) Description 10/12/2020 Ernst Marroquin [facility] [place] [address], [address] [place] [address] Dewey Astorga PA-C [address] [facility] [address] [place] [address] MyChart Communication (medication & vaccin... Social History Tobacco Use Types Packs/Day Years [...] have Coronavirus / COVID-19? No / Unsure 10/05/2020 1:20 PM APPLICATIONS TRAINER documented as of this encounter Miscellaneous Notes * Telephone Encounter - Fara Jain RN - 10/12/2020 12:57 PM CST JS Please see [employer]ate[employer] message and advise. Thank you, Fara Jain RN ICATIONS TRAINER documented in this encounter Plan of Treatment Not on file documented as of this encounter Visit Diagnoses Not on filedocumented in this encounter Additional Health Concerns Infection Onset Date Last Indicated Resolved Time Rule Out COVID-19 12/14/2021 12/14/2021 12/15/2021 11:31 PM CDT Rule Out COVID-19 12/26/2023 12/26/2023 12/26/2023 9:46 PM CDT Assessment Noted Time PHQ-9 Depression Total Score: 4 08/11/20 17 7:57 AM APPLICATIONS TRAINER documented as of this encounter Care Teams Interventional Sale Consultant Relationship Specialty Start Date End Date Dewey Astorga PA-C [address] [facility] [address] [place] [address] PCP - General Physician Hydraulic Assembler 07/11/20 11/13/20 Yoli Skinner MD [address] [facility] 200 [place] [address] PCP - General Internal Medicine 11/14/20 11/17/20 Dewey Astorga PA-C [address] [place] [address] PCP - General Family Medicine 11/18/20 11/20/21 Johnathan Brand [address] [place] [address] PCP - General Family Medicine 11/21/21 09/23/22 Jazmín Chavez PA-C [address] [place] [address] PCP - General Family Medicine 02/10/23 06/28/24 Dewey Astorga PA-C [address] [place] [address] Assigned PCP 07/23/20 08/02/22 Jazmín Chavez PA-C [address] [place] [address] Assigned PCP 08/03/22 08/30/22 [place] [address] [place] [address] Assigned PCP 09/28/22 02/14/23 Jazmín Chavez PA-C [address] [place], [place] [address] Assigned PCP 02/15/23 documented as of this encounter
--- OUTSIDE RECORDS SUMMARY | 2024-07-01 22:17 | XMS_ITS | Encounter Summary ---
Author Organization [place] Address [address] [place] [address]. [place] [address] Care Team Providers Care Info Print Press Operator Name Role Phone Dewey Astorga PA-C Unavailable [phone] Dewey Astorga PA-C Primary Care Provide r Johnathan Brand Primary Care Provider Unavailab le Jazmín Chavez PA-C Unavailable Johnathan Villanueva DO Unavailable [phone] Jazmín Chavez PA-C Primary Care Provider [phone] Jazmín Chavez PA-C Unavailable Reason for Visit * Reason Onset Date Comments MyChart Communication 04/26/2021 Johnnieed West keyes Encounter Details Date Type Department Care Team (Late st Contact Info) Description 04/26/2021 MyC Medical Advice [facility] [place] [address], [address] [place] [address] Dewey Astorga PA-C [address] [place] [address] MyChart Communication (Spilled Adderall) Social History Tobacco Use Types Packs/Day Years [...] Telephone Encounter - Sharon Styles RN - 04/27/2021 1:07 PM CDT JS, Please see XIHAt message below. Thanks, Symone Styles RN documented [...] Total Score: 4 08/11/20 17 7:57 AM HIGH SCHOOL ASSISTANT PRINCIPAL documented as of this encounter Care Teams Info Print Press Operator Relationship Specialty Start Date End Date Dewey Astorga PA-C [address] [facility] [address] [place] [address] PCP - General Family Medicine 11/18/20 11/20/21 Johnathan Brand [address] [facility] [address] [place] [address] PCP - General Family Medicine 11/21/21 09/23/22 Jazmín Chavez PA-C [address] [place] [address] PCP - General Family Medicine 02/10/23 06/28/24 Dewey Astorga PA-C [address] [place] [address] Assigned PCP 07/23/20 08/02/22 Jazmín Chavez PA-C [address] [place] [address] Assigned PCP 08/03/22 08/30/22 [place] [address] [place] [address] Assigned PCP 09/28/22 02/14/23 Jazmín Chavez PA-C [address] [place] [address] Assigned PCP 02/15/23 documented as of this encounter
--- OUTSIDE RECORDS SUMMARY | 2024-07-01 22:17 | XMS_ITS | Encounter Summary ---
Author Organization [place] Address [address] [place] [address] Care Team Providers Care Chairman & Chief Executive Officer Name Role Phone Rosa Gorman RN Unavailable Unavailable Dewey Astorga PA-C Primary Care Provide r Dewey Astorga PA-C Unavailable Yoli Skinner MD Primary Care Provider Dewey Astorga PA-C Primary Care Provide r Johnathan Brand Primary Care Provider Unavailab le Jazmín Chavez PA-C Unavailable [phone] Johnathan Villanueva DO Unavailable [phone] Jazmín Chavez PA-C Primary Care Provider [phone] Jazmín Chavez PA-C Unavailable Encounter Details Date Type Department Care Team (Late st Contact Info) Description 09/04/2020 [facility] [place] Medical Advice [facility] [place] [address], [address] [place] [address] Dewey Astorga PA-C [address] [facility] [address] [place] [address] Social History Tobacco Use Types [...] have Coronavirus / COVID-19? No / Unsure 09/04/2020 9:01 AM MUD PLANT OPERATOR documented as of this encounter Plan of [...] Total Score: 4 08/11/20 17 7:57 AM MUD PLANT OPERATOR documented as of this encounter Care Teams Chairman & Chief Executive Officer Relationship Specialty Start Date End Date Dewey Astorga PA-C [address] [address] PCP - General Physician Phlebotomy Specialist 07/11/20 11/13/20 Yoli Skinner MD [address] [place] [address] PCP - General Internal Medicine 11/14/20 11/17/20 Dewey Astorga PA-C [address] [place] [address] PCP - General Family Medicine 11/18/20 11/20/21 Johnathan Brand [address] [place] [address] PCP - General Family Medicine 11/21/21 09/23/22 Jazmín Chavez PA-C [address] [place] [address] PCP - General Family Medicine 02/10/23 06/28/24 Rosa Gorman, RN Personal Advocate & Liaison (PAL) 03/14/20 09/04/20 Dewey Astorga PA-C [address] [facility] [address] [place] [address] Assigned PCP 07/23/20 08/02/22 Jazmín Chavez PA-C [address] [place] [address] Assigned PCP 08/03/22 08/30/22 [place] [address] [place] [address] Assigned PCP 09/28/22 02/14/23 Jazmín Chavez PA-C [address] [place] [address] Assigned PCP 02/15/23 documented as of this encounter
--- OUTSIDE RECORDS SUMMARY | 2024-07-01 22:17 | XMS_ITS | Encounter Summary ---
Author Organization [place] Address [address] [place] [address] Care Team Providers Care Epitaxial Reactor Operator Name Role Phone Dewey Astorga PA-C Primary Care Provide r Dewey Astorga PA-C Unavailable Yoli Skinner MD Primary Care Provider [phone] Dewey Astorga PA-C Primary Care Provide r Johnathan Brand Primary Care Provider Unavailab le Jazmín Chavez PA-C Unavailable [phone] Johnathan Villanueva DO Unavailable [phone] Jazmín Chavez PA-C Primary Care Provider [phone] Jazmín Chavez PA-C Unavailable [phone] Encounter Details Date Type Department Care Team (Late st Contact Info) Description 10/24/2020 MyC Medical Advice [address] [place] [address] Angelina Balderrama MD [address] [place] [address] KEVIN [place]OURKE [address] Pain following surgery or procedure (Primary Dx) Social History Tobacco Use Types Packs/Day Years [...] COVID-19? No / Unsure 10/23/2020 3:22 PM CLIENT SERVICE ASSOCIATE documented as of this encounter Miscellaneous Notes * Telephone Encounter - Angelina Balderrama MD - 10/24/2020 1:01 PM CLIENT SERVICE ASSOCIATE I can call in a narcotic , vicodin 5/325 1 tab orally at bedtime # 10 but I would still continue with ibuprofen. Faxed to [facility]. Thank you, Angelina Balderrama M.D. NT SERVICE ASSOCIATE * Telephone Encounter - Merle Naranjo RN - 10/24/2020 12:56 PM CLIENT SERVICE ASSOCIATE Please see Primekss message and advise. Thank you, Charis Diehl RN BSN [facility] [phone] NT SERVICE ASSOCIATE documented in this encounter Plan of Treatment Not on file documented as of this encounter Visit Diagnoses Diagnosis Pain following surgery or procedure- Primary Other acute postoperative pain documented in this encounter Additional Health Concerns Infection Onset Date Last Indicated Resolved Time Rule Out COVID-19 12/14/2021 12/14/2021 12/15/2021 11:31 PM CDT Rule Out COVID-19 12/26/2023 12/26/2023 12/26/2023 9:46 PM CDT Assessment Noted Time PHQ-9 Depression Total Score: 4 08/11/20 17 7:57 AM CLIENT SERVICE ASSOCIATE documented as of this encounter Care Teams Epitaxial Reactor Operator Relationship Specialty Start Date End Date Dewey Astorga PA-C [address] [place] [address] PCP - General Physician Contracts Paralegal 07/11/20 11/13/20 Yoli Skinner MD [address] [place] [address] PCP - General Internal Medicine 11/14/20 11/17/20 Dewey Astorga PA-C [address] [address] PCP - General Family Medicine 11/18/20 11/20/21 Johnathan Brand [address] [place] [address] PCP - General Family Medicine 11/21/21 09/23/22 Jazmín Chavez PA-C [address] [place] [address] PCP - General Family Medicine 02/10/23 06/28/24 Dewey Astorga PA-C [address] [address] Assigned PCP 07/23/20 08/02/22 Jazmín Chavez PA-C [address] [place] [address] Assigned PCP 08/03/22 08/30/22 [place] [address] [place] [address] Assigned PCP 09/28/22 02/14/23 Jazmín Chavez PA-C [address] [place] [address] Assigned PCP 02/15/23 documented as of this encounter
--- OUTSIDE RECORDS SUMMARY | 2024-07-01 22:17 | XMS_ITS | Encounter Summary ---
Author Organization [place] Address [address] [place] [address] Care Team Providers Care Cabin Service Agent Name Role Phone Dewey Astorga PA-C Unavailable Dewey Astorga PA-C Primary Care Provide r Johnathan Brand Primary Care Provider Unavailab le Jazmín Chavez PA-C Unavailable Johnathan Villanueva DO Unavailable [phone] Jazmín Chavez PA-C Primary Care Provider [phone] Jazmín Chavez PA-C Unavailable [phone] Encounter Details Date Type Department Care Team (Late st Contact Info) Description 12/07/2020 MyC Medical Advice [address] [address] Angelina Balderrama MD [address] [place] [address] KEVIN OROURKE [id number] Social History Tobacco Use Types Packs/Day Years [...] COVID-19? No / Unsure 12/05/2020 11:01 AM CAMPUS DEAN documented as of this encounter Miscellaneous Notes * Telephone Encounter - Luana Bates - 12/07/2020 5:29 PM CST LVM for patient to call back to schedule an office visit with Dr. Angelina Balderrama re: derm concern. Thank you An Le [facility] * Telephone Encounter - Merle Naranjo RN - 12/07/2020 5:26 PM CAMPUS DEAN Need in clinic appointment at the next available [facility] documented in this encounter Plan of Treatment Not on file documented as of this encounter Visit Diagnoses Not on filedocumented in this encounter Additional Health Concerns Infection Onset Date Last Indicated Resolved Time Rule Out COVID-19 12/14/2021 12/14/2021 12/15/2021 11:31 PM CDT Rule Out COVID-19 12/26/2023 12/26/2023 12/26/2023 9:46 PM CDT Assessment Noted Time PHQ-9 Depression Total Score: 4 08/11/20 17 7:57 AM CAMPUS DEAN documented as of this encounter Care Teams Cabin Service Agent Relationship Specialty Start Date End Date Dewey Astorga PA-C [address] [id number] PCP - General Family Medicine 11/18/20 11/20/21 Johnathan Brand [address] [address] PCP - General Family Medicine 11/21/21 09/23/22 Jazmín Chavez PA-C [address] [place] [address] PCP - General Family Medicine 02/10/23 06/28/24 Dewey Astorga PA-C [address] [facility] [address] [place] [address] Assigned PCP 07/23/20 08/02/22 Jazmín Chavez PA-C [address] [place] [address] Assigned PCP 08/03/22 08/30/22 [place] [address] [place] [address] Assigned PCP 09/28/22 02/14/23 Jazmín Chavez PA-C [address] [place] [address] Assigned PCP 02/15/23 documented as of this encounter
--- OUTSIDE RECORDS SUMMARY | 2024-07-01 22:17 | XMS_ITS | Encounter Summary ---
Author Organization [place] Address [address] [place] [address] Care Team Providers Care Patient Sitter Name Role Phone Dewey Astorga PA-C Primary Care Provide r Dewey Astorga PA-C Unavailable Yoli Skinner MD Primary Care Provider Dewey Astorga PA-C Primary Care Provide r Johnathan Brand Primary Care Provider Unavailab le Jazmín Chavez PA-C Unavailable Johnathan Villanueva DO Unavailable [phone] Jazmín Chavez PA-C Primary Care Provider [phone] Jazmín Chavez PA-C Unavailable Reason for Visit * Reason Onset Date Comments MyChart Communication 10/17/2020 Encounter Details Date Type Department Care Team (Late st Contact Info) Description 10/17/2020 Ernst Marroquin [facility] [place] [address], [address] [place] [address] Dewey Astorga PA-C [address] [facility] [address] [place] [address] MyChart Communication Social History Tobacco Use Types [...] have Coronavirus / COVID-19? No / Unsure 10/17/2020 8:15 AM COUNTER INTELLIGENCE documented as of this encounter Miscellaneous Notes * Telephone Encounter - Catherine Gonsalez RN - 10/19/2020 9:17 AM CST JS, Please see below XMPie message and advise. Thanks, Catherine Reese RN TER INTELLIGENCE documented in this encounter Plan of Treatment Not on file documented as of this encounter Visit Diagnoses Not on filedocumented in this encounter Additional Health Concerns Infection Onset Date Last Indicated Resolved Time Rule Out COVID-19 12/14/2021 12/14/2021 12/15/2021 11:31 PM CDT Rule Out COVID-19 12/26/2023 12/26/2023 12/26/2023 9:46 PM CDT Assessment Noted Time PHQ-9 Depression Total Score: 4 08/11/20 17 7:57 AM COUNTER INTELLIGENCE documented as of this encounter Care Teams Patient Sitter Relationship Specialty Start Date End Date Dewey Astorga PA-C [address] [facility] [address] [place] [address] PCP - General Physician Staffing Coordinator 07/11/20 11/13/20 Yoli Skinner MD [address] [facility] [address] [place], [place] [address] PCP - General Internal Medicine 11/14/20 11/17/20 Dewey Astorga PA-C [address] [place] [address] PCP - General Family Medicine 11/18/20 11/20/21 Johnathan Brand [address] [facility] [address] [place] [address] PCP - General Family Medicine 11/21/21 09/23/22 Jazmín Chavez PA-C [address] [place] [address] PCP - General Family Medicine 02/10/23 06/28/24 Dewey Astorga PA-C [address] [facility] [address] [place] [address] Assigned PCP 07/23/20 08/02/22 Jazmín Chavez PA-C [address] [place], [place] [address] Assigned PCP 08/03/22 08/30/22 [place] [address] [place] [address] Assigned PCP 09/28/22 02/14/23 Jazmín Chavez PA-C [address] [place], [place] [address] Assigned PCP 02/15/23 documented as of this encounter
--- OUTSIDE RECORDS SUMMARY | 2024-07-01 22:17 | XMS_ITS | Encounter Summary ---
Author Organization [place] Address [address] [place] [address]. [place] [address] Care Team Providers Care Special Education Teaching Assistant Name Role Phone Dewey Astorga PA-C Unavailable Dewey Astorga PA-C Primary Care Provide r Johnathan Brand Primary Care Provider Unavailab le Jazmín Chavez PA-C Unavailable Johnathan Villanueva DO Unavailable [phone] Jazmín Chavez PA-C Primary Care Provider [phone] Jazmín Chavez PA-C Unavailable Reason for Visit * Reason Onset Date Comments Refill Request 04/10/2021 Encounter Details Date Type Department Care Team (Late st Contact Info) Description 04/10/2021 [facility] [place] [address], [address] [place] [address] Dewey Astorga PA-C [address] [facility] [address] [place] [address] Refill Request Social History Tobacco [...] encounter Miscellaneous Notes * Telephone Encounter - Dewey Astorga PA-C - 04/12/2021 8:43 AM CDT Done Saman Astorga PA-C * Telephone Encounter - Catherine Gonsalez RN - 04/12/2021 7:37 AM CDT JS, Please see below MyChart message and advise. Catherine Estrada RN documented in this encounter Plan of [...] Total Score: 4 08/11/20 17 7:57 AM SETUP OPERATOR documented as of this encounter Care Teams Special Education Teaching Assistant Relationship Specialty Start Date End Date Dewey Astorga PA-C [address] [place] [address] PCP - General Family Medicine 11/18/20 11/20/21 Johnathan Brand [address] [place] [address] PCP - General Family Medicine 11/21/21 09/23/22 Jazmín Chavez PA-C [address] [place] [address] PCP - General Family Medicine 02/10/23 06/28/24 Dewey Astorga PA-C [address] [place] [address] Assigned PCP 07/23/20 08/02/22 Jazmín Chavez PA-C [address] [place] [address] Assigned PCP 08/03/22 08/30/22 [place] [address] [place] [address] Assigned PCP 09/28/22 02/14/23 Jazmín Chavez PA-C [address] [place] [address] Assigned PCP 02/15/23 documented as of this encounter
--- OUTSIDE RECORDS SUMMARY | 2024-07-01 22:17 | XMS_ITS | Encounter Summary ---
Author Organization [place] Address [address] [place] [address]. [place] [address] Care Team Providers Care Book Sewing Machine Operator Name Role Phone Dewey Astorga PA-C Unavailable Dewey Astorga PA-C Primary Care Provide r Johnathan Brand Primary Care Provider Unavailab le Jazmín Chavez PA-C Unavailable Johnathan Villanueva DO Unavailable [phone] Jazmín Chavez PA-C Primary Care Provider [phone] Jazmín Chavez PA-C Unavailable Reason for Visit * Reason Onset Date Comments MyChart Communication 01/02/2021 IV site Encounter Details Date Type Department Care Team (Late st Contact Info) Description 01/02/2021 MyC Medical Advice [facility] [place] [address], [address] [place] [address] Dewey Astorga PA-C [address] [place] [address] MyChart Communication (IV site) Social History Tobacco Use Types Packs/Day Years [...] Telephone Encounter - Sharon Styles RN - 01/02/2021 11:20 AM CDT JS, Please see MycMindmancert message below. Thanks, Symone Styles RN documented [...] Total Score: 4 08/11/20 17 7:57 AM TRANSFER TABLE OPERATOR documented as of this encounter Care Teams Book Sewing Machine Operator Relationship Specialty Start Date End Date Dewey Astorga PA-C [address] [address] PCP - General Family Medicine 11/18/20 11/20/21 Johnathan Brand [address] [address] PCP - General Family Medicine 11/21/21 09/23/22 Jazmín Chavez PA-C [address] [place] [address] PCP - General Family Medicine 02/10/23 06/28/24 Dewey Astorga PA-C [address] [facility] [address] [place] [address] Assigned PCP 07/23/20 08/02/22 Jazmín Chavez PA-C [address] [place] [address] Assigned PCP 08/03/22 08/30/22 [place] [address] [place] [address] Assigned PCP 09/28/22 02/14/23 Jazmín Chavez PA-C [address] [place] [address] Assigned PCP 02/15/23 documented as of this encounter
--- OUTSIDE RECORDS SUMMARY | 2024-07-01 22:17 | XMS_ITS | Encounter Summary ---
Author Organization [place] Address [address] [place] [address] Care Team Providers Care Optical Instrument Inspector Name Role Phone Rosa Gorman RN Unavailable Unavailable Dewey Astorga PA-C Primary Care Provide r Dewey Astorga PA-C Unavailable Yoli Skinner MD Primary Care Provider Dewey Astorga PA-C Primary Care Provide r Johnathan Brand Primary Care Provider Unavailab le Jazmín Chavez PA-C Unavailable [phone] Johnathan Villanueva DO Unavailable [phone] Jazmín Chavez PA-C Primary Care Provider [phone] Jazmín Chavez PA-C Unavailable Reason for Visit * Reason Onset Date Comments MyChart Communication 08/10/2020 Covid ques tion Encounter Details Date Type Department Care Team (Late st Contact Info) Description 08/10/2020 [facility] [place] [address], [address] [place] [address] Dewey Astorga PA-C [address] [facility] [address] [place] [address] MyChart Communication (Covid question) Social History Tobacco Use Types Packs/Day Years [...] Telephone Encounter - Sharon Styles RN - 08/10/2020 2:43 PM HAND COMPOSITOR JS, Please see hopTo message below. Thanks, Symone Styles RN COMPOSITOR documented in this encounter Plan of Treatment Not on file documented as of this encounter Visit Diagnoses Not on filedocumented in this encounter Additional Health Concerns Infection Onset Date Last Indicated Resolved Time Rule Out COVID-19 12/14/2021 12/14/2021 12/15/2021 11:31 PM CDT Rule Out COVID-19 12/26/2023 12/26/2023 12/26/2023 9:46 PM CDT Assessment Noted Time PHQ-9 Depression Total Score: 4 08/11/20 17 7:57 AM HAND COMPOSITOR documented as of this encounter Care Teams Optical Instrument Inspector Relationship Specialty Start Date End Date Dewey Astorga PA-C [address] [facility] 275 [place], [place] [address] PCP - General Physician Production Gear Cutter 07/11/20 11/13/20 Yoli Skinner MD [address] [facility] 200 [place] [address] PCP - General Internal Medicine 11/14/20 11/17/20 Dewey Astorga PA-C [address] [place] [address] PCP - General Family Medicine 11/18/20 11/20/21 Johnathan Brand [address] [place] [address] PCP - General Family Medicine 11/21/21 09/23/22 Jazmín Chavez PA-C [address] [place], [place] [address] PCP - General Family Medicine 02/10/23 06/28/24 Rosa Gorman, DANIEL Personal Advocate & Liaison (PAL) 03/14/20 09/04/20 Dewey Astorga PA-C [address] [place] [address] Assigned PCP 07/23/20 08/02/22 Jazmín Chavez PA-C [address] [place] [address] Assigned PCP 08/03/22 08/30/22 [place] [address] [place] [address] Assigned PCP 09/28/22 02/14/23 Jazmín Chavez PA-C [address] [place], [place] [address] Assigned PCP 02/15/23 documented as of this encounter
--- OUTSIDE RECORDS SUMMARY | 2024-07-01 22:18 | XMS_ITS | Encounter Summary ---
Author Organization [place] Address [address] [place] [address] Care Team Providers Care Lyft Driver Name Role Phone Jazmín Chavez PA-C Primary Care Provider Jazmín Chavez PA-C Unavailable [phone] Jazmín Chavez-C Unavailable [phone] Rosa Gorman RN Unavailable Unavailable Dewey Astorga PA-C Primary Care Provide r Dewey Astorga PA-C Unavailable [phone] Yoli Skinner MD Primary Care Provider Dewey Astorga PA-C Primary Care Provide r Johnathan Brand Primary Care Provider Unavailab le Jazmín Chavez-C Unavailable [phone] Johnathan Villanueva DO Unavailable [phone] Jazmín ChavezC Primary Care Provider [phone] Jazmín Chavez-C Unavailable [phone] Encounter Details Date Type Department Care Team (Late st Contact Info) Description 02/22/2018 MyC Medical Advice [address] [address] Micaela Baker MD [address] [place] [address] Social History Tobacco Use Types Packs/Day Years Used Date Smoking Tobacco: Never Smokeless Tobacco: Never Alcohol Use Standard Drinks/Week Comments No 0 (1 standard drink = 0.6 oz pur e alcohol) Comments Yes Sex and Gender Information Value [...] Total Score: 4 08/11/20 17 7:57 AM GROUNDWATER CONSULTANT documented as of this encounter Care Teams Lyft Driver Relationship Specialty Start Date End Date Jazmín Chavez PA-C [address] [place] [address] PCP - General Physician Wood Heel Back Liner 08/01/17 07/10/20 Jazmín Chavez PA-C [address] [place] [address] PCP - Assigned PCP 03/30/17 12/01/18 Dewey Astorga PA-C [address] [address] PCP - General Physician Wood Heel Back Liner 07/11/20 11/13/20 Yoli Skinner MD [address] [address] PCP - General Internal Medicine 11/14/20 11/17/20 Dewey Astorga PA-C [address] [facility] 275 [place] [address] PCP - General Family Medicine 11/18/20 11/20/21 Johnathan Brand [address] [facility] 200 [place] [address] PCP - General Family Medicine 11/21/21 09/23/22 Jazmín Chavez PA-C [address] [place] [address] PCP - General Family Medicine 02/10/23 06/28/24 Jazmín Chavez PA-C [address] [place] [address] Assigned PCP 03/30/17 07/22/20 Rosa Gorman, DANIEL Personal Advocate & Liaison (PAL) 03/14/20 09/04/20 Dewey Astorga PA-C [address] [address] Assigned PCP 07/23/20 08/02/22 Jazmín Chavez PA-C [address] [place] [address] Assigned PCP 08/03/22 08/30/22 [place] [address] [place] [address] Assigned PCP 09/28/22 02/14/23 Jazmín Chavez PA-C [address] [place] [address] Assigned PCP 02/15/23 documented as of this encounter
--- OUTSIDE RECORDS SUMMARY | 2024-07-01 22:18 | XMS_ITS | Encounter Summary ---
Author Organization [place] Address [address] [place] [address] Care Team Providers Care Outbound Supervisor Name Role Phone Jazmín Chavez PA-C Primary Care Provider Jazmín Chavez PA-C Unavailable [phone] Jazmín Chavez PA-C Unavailable [phone] Rosa Gorman RN Unavailable Unavailable Dewey Astorga PA-C Primary Care Provide r Dewey Astorga PA-C Unavailable [phone] Yoli Skinner MD Primary Care Provider Dewey Astorga PA-C Primary Care Provide r Johnathan Brand Primary Care Provider Unavailab le Jazmín Chavez PA-C Unavailable [phone] Johnathan Villanueva DO Unavailable [phone] Jazmín Chavez PA-C Primary Care Provider + [phone] Jazmín Chavez PA-C Unavailable [phone] Reason for Visit * Reason Onset Date Comments Care 01/06/2018 Encounter Details Date Type Department Care Team (Late st Contact Info) Description 01/06/2018 [facility] [address] [address] Micaela Baker MD [address] [place], [place] [address] Care Social History Tobacco Use Types Packs/Day Years [...] Total Score: 4 08/11/20 17 7:57 AM MANAGING SUPERVISOR documented as of this encounter Care Teams Outbound Supervisor Relationship Specialty Start Date End Date Jazmín Chavez PA-C [address] [place] [address] PCP - General Physician Executive Consultant 08/01/17 07/10/20 Jazmín Chavez PA-C [address] [place] [address] PCP - Assigned PCP 03/30/17 12/01/18 Dewey Astorga PA-C [address] [facility] [address] [address] PCP - General Physician Executive Consultant 07/11/20 11/13/20 Yoli Skinner MD [address] [place] [address] PCP - General Internal Medicine 11/14/20 11/17/20 Dewey Astorga PA-C [address] [address] PCP - General Family Medicine 11/18/20 11/20/21 Johnathan Brand [address] [place] [address] PCP - General Family Medicine 11/21/21 09/23/22 Jazmín Chavez PA-C [address] [place] [address] PCP - General Family Medicine 02/10/23 06/28/24 Jazmín Chavez PA-C [address] [place] [address] Assigned PCP 03/30/17 07/22/20 Rosa Gorman, DANIEL Personal Advocate & Liaison (PAL) 03/14/20 09/04/20 Dewey Astorga PA-C [address] [address] Assigned PCP 07/23/20 08/02/22 Jazmín Chavez PA-C [address] [place], [place] [address] Assigned PCP 08/03/22 08/30/22 [place] [address] [place] [address] Assigned PCP 09/28/22 02/14/23 Jazmín Chavez PA-C [address] [place] [address] Assigned PCP 02/15/23 documented as of this encounter
--- OUTSIDE RECORDS SUMMARY | 2024-07-01 22:18 | XMS_ITS | Encounter Summary ---
Author Organization [facility] Address [address] [place] [address] Care Team Providers Care Trauma Doctor Name Role Phone Jazmín Chavez PA-C Primary Care Provider Jazmín Chavez PA-C Unavailable [phone] Jazmín Chavez PA-C Unavailable [phone] Rosa Gorman RN Unavailable Unavailable Dewey Astorga PA-C Primary Care Provide r Dewey Astorga PA-C Unavailable [phone] Yoli Skinner MD Primary Care Provider [phone] Dewey Astorga PA-C Primary Care Provide r Johnathan Brand Primary Care Provider Unavailab le Jazmín Chavez PA-C Unavailable [phone] Johnathan Villanueva DO Unavailable [phone] Jazmín Chavez PA-C Primary Care Provider + [phone] Jazmín Chavez PA-C Unavailable [phone] Reason for Visit * Reason Onset Date Comments Care 04/13/2018 med question Encounter Details Date Type Department Care Team (Late st Contact Info) Description 04/13/2018 [facility] Medical Advice [facility] [address] [place] [address] Micaela Baker MD [address] [place] [address] Care (med question) Social History Tobacco Use Types Packs/Day [...] encounter Miscellaneous Notes * Telephone Encounter - Micaela Baker MD - 04/14/2018 10:56 AM CDT She needs to speak with her primary about a schedule for tapering. It should be fine to taper at 35-36 weeks. Micaela Baker MD * Telephone Encounter - María Huston RN - 04/13/2018 1:16 PM CDT 30w6d Pt taking ritalin as needed 5-10mg. Not more than 15mg daily. Pt wants to discontinue, but wants toproperly taper if needed. See mychart. María Toro R.N. [facility] documented in this encounter Plan of Treatment Not on file documented as of this encounter Visit Diagnoses Not on filedocumented in this encounter Additional Health Concerns Infection Onset Date Last Indicated Resolved Time Rule Out COVID-19 12/14/2021 12/14/2021 12/15/2021 11:31 PM CDT Rule Out COVID-19 12/26/2023 12/26/2023 12/26/2023 9:46 PM CDT Assessment Noted Time PHQ-9 Depression Total Score: 4 11/13/20 17 7:[address] COLLECTIONS OFFICER documented as of this encounter Care Teams Trauma Doctor Relationship Specialty Start Date End Date Jazmín Chavez PA-C [address] [place] [address] PCP - General Physician Sheep Farm Worker 08/01/17 07/10/20 Jazmín Chavez PA-C [address] [place] [address] PCP - Assigned PCP 03/30/17 12/01/18 Dewey Astorga PA-C [address] [address] PCP - General Physician Sheep Farm Worker 07/11/20 11/13/20 Yoli Skinner MD [address] [place] [address] PCP - General Internal Medicine 11/14/20 11/17/20 Dewey Astorga PA-C [address] [address] PCP - General Family Medicine 11/18/20 11/20/21 Johnathan Brand [address] [place] [address] PCP - General Family Medicine 11/21/21 09/23/22 Jazmín Chavez PA-C [address] [place] [address] PCP - General Family Medicine 02/10/23 06/28/24 Jazmín Chavez PA-C [address] [place] [address] Assigned PCP 03/30/17 07/22/20 Rosa Gorman, DANIEL Personal Advocate & Liaison (PAL) 03/14/20 09/04/20 Dewey Astorga PA-C [address] [place] [address] Assigned PCP 07/23/20 08/02/22 Jazmín Chavez PA-C [address] [place] [address] Assigned PCP 08/03/22 08/30/22 [place] [address] [place] [address] Assigned PCP 09/28/22 02/14/23 Jazmín Chavez PA-C [address] [place] [address] Assigned PCP 02/15/23 documented as of this encounter
--- OUTSIDE RECORDS SUMMARY | 2024-07-01 22:18 | XMS_ITS | Encounter Summary ---
Author Organization [place] Address [address] [place] [address] Care Team Providers Care Powered Bridge Specialist Name Role Phone Jazmín Chavez PA-C Primary Care Provider Jazmín Chavez PA-C Unavailable [phone] Jazmín Chavez-C Unavailable [phone] Rosa Gorman RN Unavailable Unavailable Dewey Astorga PA-C Primary Care Provide r Dewey Astorga PA-C Unavailable [phone] Yoli Skinner MD Primary Care Provider Dewey Astorga PA-C Primary Care Provide r Johnathan Brand Primary Care Provider Unavailab le Jazmín Chavez-C Unavailable [phone] Johnathan Villanueva DO Unavailable [phone] Jazmín ChavezC Primary Care Provider [phone] Jazmín Chavez-C Unavailable [phone] Encounter Details Date Type Department Care Team (Late st Contact Info) Description 11/03/2017 [facility] Medical Advice [address] [address] Micaela Baker MD [facility] [place] [address] Social History Tobacco Use Types Packs/Day Years Used Date Smoking Tobacco: Never Smokeless Tobacco: Never Alcohol Use Standard Drinks/Week Comments Yes 0 (1 standard drink = 0.6 oz pur e alcohol) Comments Yes Sex and Gender Information Value Date Recorded Sex Assigned at Female 02/28/2020 8:14 PM CDT Gender Identity Female 02/28/2020 8:14 PM CDT Sexual Orientation Straight 02/28/2020 8: 14 PM CDT documented as of this encounter Miscellaneous Notes * Telephone Encounter - Micaela Baker MD - 11/04/2017 9:15 AM CST This sounds a lot like gas pain from gas trapped in the colon--I would have her try some simethicone to see if that helps, and the heat is alright too. Thanks. Micaela Baker MD RANCE EXAMINER * Telephone Encounter - Zeina Drummond RN - 11/03/2017 7:38 PM INSURANCE EXAMINER ----- Message from Ze Kovacs MD sent at 11/03/2017 7:36 PM INSURANCE EXAMINER ----- I left a message for the pt to return my call Ze Kovacs MD . RANCE EXAMINER * Telephone Encounter - Danita Daly RN - 11/03/2017 4:47 PM CST Message routed to on-call. Bradley Daly RN RANCE EXAMINER documented in this encounter Plan of [...] Total Score: 4 08/11/20 17 7:57 AM INSURANCE EXAMINER documented as of this encounter Care Teams Powered Bridge Specialist Relationship Specialty Start Date End Date Jazmín Chavez PA-C [address] [place] [address] PCP - General Physician Master Control Supervisor 08/01/17 07/10/20 Jazmín Chavez PA-C [address] [place] [address] PCP - Assigned PCP 03/30/17 12/01/18 Dewey Astorga PA-C [address] [address] PCP - General Physician Master Control Supervisor 07/11/20 11/13/20 Yoli Skinner MD [address] [employer] [address] [place] [address] PCP - General Internal Medicine 11/14/20 11/17/20 Dewey Astorga PA-C [address] [address] PCP - General Family Medicine 11/18/20 11/20/21 Johnathan Brand [address] [place] [address] PCP - General Family Medicine 11/21/21 09/23/22 Jazmín Chavez PA-C [address] [place] [address] PCP - General Family Medicine 02/10/23 06/28/24 Jazmín Chavez PA-C [address] [place] [address] Assigned PCP 03/30/17 07/22/20 Rosa Gorman, DANIEL Personal Advocate & Liaison (PAL) 03/14/20 09/04/20 Dewey Astorga PA-C [address] [facility] [address] [place] [address] Assigned PCP 07/23/20 08/02/22 Jazmín Chavez PA-C [address] [place] [address] Assigned PCP 08/03/22 08/30/22 [place] [address] [place] [address] Assigned PCP 09/28/22 02/14/23 Jazmín Chavez PA-C [address] [place] [address] Assigned PCP 02/15/23 documented as of this encounter
--- OUTSIDE RECORDS SUMMARY | 2024-07-01 22:18 | XMS_ITS | Encounter Summary ---
Author Organization [facility] Address [address] [place] [address] Care Team Providers Care Matrix Drier Tender Name Role Phone Jazmín Chavez PA-C Primary Care Provider Jazmín Chavez PA-C Unavailable [phone] Jazmín Chavez PA-C Unavailable [phone] Rosa Gorman RN Unavailable Unavailable Dewey Astorga PA-C Primary Care Provide r Dewey Astorga PA-C Unavailable [phone] Yoli Skinner MD Primary Care Provider [phone] Dewey Astorga PA-C Primary Care Provide r Johnathan Brand Primary Care Provider Unavailab le Jazmín Chavez PA-C Unavailable [phone] Johnathan Villanueva DO Unavailable [phone] Jazmín Cahvez PA-C Primary Care Provider [phone] Jazmín Chavez PA-C Unavailable [phone] Reason for Referral * CV Cardio consult - Closed Specialty Diagnoses / Procedures Referred By Jessica parks Referred To Contact Diagnoses Fainting , supervision, normal, first Micaela Baker MD [address] [place] [address] [facility] [address] [facility] [address] [place] [address] Phone: [phone] Referral ID Status Reason Start Date Expiration Date Visits Re quested Visits Authorized [id number] Closed 03/24/2018 03/24/2019 1 1 Comments Preferred location: [facility] [email or web address] Please be aware that coverage of these services is subject to the terms and limitations of your health insurance plan. Call member services at your health plan with any benefit or coverage questions. Please bring the following to your appointment: Any x-rays, CTs or MRIs which have been performed. Contact the facility where they were done to arrange for peanut picker prior to your scheduled appointment. List of current medications This referral request Any documents/labs given to you for this referral Encounter Details Date Type Department Care Team (Late st Contact Info) Description 03/24/2018 [facility] [address] [facility] [address] [place] [address] Micaela Baker MD [address] [place] [address] Fainting (Primary Dx); , supervision, normal, first Social History Tobacco Use Types Packs/Day Years [...] encounter Miscellaneous Notes * Telephone Encounter - Danita Daly RN - 03/24/2018 3:13 PM CDT My chart message sent to the pt. SPhilip Daly RN * Telephone Encounter - Micaela Baker MD - 03/24/2018 3:01 PM CDT Needs cardiology b/c she will likely need a Holter monitor to see if there is anything happening when she feels dizzy, not just after. It's common to have a slightly elevated WBC count in . If she is having burning with urination or other urinary symptoms, definitely I would suggest a UA and UC. Thanks. Micaela Baker MD * Telephone Encounter - Danita Daly RN - 03/24/2018 2:16 PM CDT Referral placed and My chart message sent to the pt. Bradley Daly RN * Telephone Encounter - Micaela Baker MD - 03/24/2018 1:44 PM CDT I'd like her to follow up with cardiology for a consult this week if possible, just to rule out anyother issues. Thanks. Micaela Baker MD * Telephone Encounter - Danita Daly RN - 03/24/2018 12:50 PM CDT Routed to the . Next pn appt is on 03/31/18. Bradley Daly RN documented in this encounter Plan of Treatment Scheduled Referrals Name Type Priority Associated Diagnoses Orde r Schedule CARDIOLOGY EVAL ADULT REFERRAL Referral Routine Fainting , supervision, normal, first Ordered: 03/24/2018 documented as of this encounter Visit Diagnoses Diagnosis Fainting- Primary Syncope and collapse , supervision, normal, first Supervision of normal first documented in this encounter Additional Health Concerns Infection Onset Date Last Indicated Resolved Time Rule Out COVID-19 12/14/2021 12/14/2021 12/15/2021 11:31 PM CDT Rule Out COVID-19 12/26/2023 12/26/2023 12/26/2023 9:46 PM CDT Assessment Noted Time PHQ-9 Depression Total Score: 4 08/11/20 7:57 AM SENIOR SERVICE AIDE documented as of this encounter Care Teams Matrix Drier Tender Relationship Specialty Start Date End Date Jazmín Chavez PA-C [address] [place] [address] PCP - General Physician Pocket Setter Lockstitch 08/01/17 07/10/20 Jazmín Chavez PA-C [address] [place] [address] PCP - Assigned PCP 03/30/17 12/01/18 Dewey Astorga PA-C [address] [place], [place] [address] PCP - General Physician Pocket Setter Lockstitch 07/11/20 11/13/20 Yoli Skinner MD [address] [place], [place] [address] PCP - General Internal Medicine 11/14/20 11/17/20 Dewey Astorga PA-C [address] [place], [place] [address] PCP - General Family Medicine 11/18/20 11/20/21 Johnathan Brand [address] [place] [address] PCP - General Family Medicine 11/21/21 09/23/22 Jazmín Chavez PA-C [address] [place] [address] PCP - General Family Medicine 02/10/23 06/28/24 Jazmín Chavez PA-C [address] [place] [address] Assigned PCP 03/30/17 07/22/20 Rosa Gorman, DANIEL Personal Advocate & Liaison (PAL) 03/14/20 09/04/20 Dewey Astorga PA-C [address] [address] Assigned PCP 07/23/20 08/02/22 Jazmín Chavez PA-C [address] [place] [address] Assigned PCP 08/03/22 08/30/22 [place] [address] [place] [address] Assigned PCP 09/28/22 02/14/23 Jazmín Chavez PA-C [address] [place] [address] Assigned PCP 02/15/23 documented as of this encounter
--- OUTSIDE RECORDS SUMMARY | 2024-07-01 22:18 | XMS_ITS | Encounter Summary ---
Author Organization [facility] Address [address] [place] [address] Care Team Providers Care News Camera Operator Name Role Phone Jazmín Chavez PA-C Primary Care Provider Jazmín Chavez PA-C Unavailable [phone] Jazmín Chavez-C Unavailable [phone] Rosa Gorman RN Unavailable Unavailable Dewey Astorga PA-C Primary Care Provide r Dewey Astorga PA-C Unavailable [phone] Yoli Skinner MD Primary Care Provider Dewey Astorga PA-C Primary Care Provide r Johnathan Brand Primary Care Provider Unavailab le Jazmín Chavez-C Unavailable [phone] Johnathan Villanueva DO Unavailable [phone] Jazmín ChavezC Primary Care Provider [phone] Jazmín Chavez-C Unavailable [phone] Encounter Details Date Type Department Care Team (Late st Contact Info) Description 12/17/2017 [facility] Medical Advice [address] [address] Micaela Baker MD [address] [place] [address] Social History Tobacco Use Types Packs/Day Years [...] Total Score: 4 08/11/20 17 7:57 AM PIPE THREADER documented as of this encounter Care Teams News Camera Operator Relationship Specialty Start Date End Date Jazmín Chavez PA-C [address] [place] [address] PCP - General Physician Day Habilitation Specialist 08/01/17 07/10/20 Jazmín Chavez PA-C [address] [place] [address] PCP - Assigned PCP 03/30/17 12/01/18 Dewey Astorga PA-C [address] [address] PCP - General Physician Day Habilitation Specialist 07/11/20 11/13/20 Yoli Skinner MD [address] [address] PCP - General Internal Medicine 11/14/20 11/17/20 Dewey Astorga PA-C [address] [facility] 275 [place] [address] PCP - General Family Medicine 11/18/20 11/20/21 Johnathan Brand [address] [facility] 200 [place] [address] PCP - General Family Medicine 11/21/21 09/23/22 Jazmín Chavez PA-C [address] [place] [address] PCP - General Family Medicine 02/10/23 06/28/24 Jazmín Chavez PA-C [address] [place] [address] Assigned PCP 03/30/17 07/22/20 Rosa Gorman, DANIEL Personal Advocate & Liaison (PAL) 03/14/20 09/04/20 Dewey Astorga PA-C [address] [address] Assigned PCP 07/23/20 08/02/22 Jazmín Chavez PA-C [address] [place] [address] Assigned PCP 08/03/22 08/30/22 [place] [address] [place] [address] Assigned PCP 09/28/22 02/14/23 Jazmín Chavez PA-C [address] [place] [address] Assigned PCP 02/15/23 documented as of this encounter
--- OUTSIDE RECORDS SUMMARY | 2024-07-01 22:18 | XMS_ITS | Encounter Summary ---
Author Organization [facility] Address [address] [place] [address] Care Team Providers Care Automatic Fabric Cutter Name Role Phone Jazmín Chavez PA-C Primary Care Provider Jazmín Chavez PA-C Unavailable [phone] Jazmín Chavez PA-C Unavailable [phone] Rosa Gorman RN Unavailable Unavailable Dewey Astorga PA-C Primary Care Provide r Dewey Astorga PA-C Unavailable [phone] Yoli Skinner MD Primary Care Provider Dewey Astorga PA-C Primary Care Provide r Johnathan Brand Primary Care Provider Unavailab le Jazmín Chavez PA-C Unavailable [phone] Johnathan Villanueva DO Unavailable [phone] Jazmín Chavez PA-C Primary Care Provider + [phone] Jazmín Chavez PA-C Unavailable [phone] Reason for Visit * Reason Onset Date Comments Results 02/02/2018 Encounter Details Date Type Department Care Team (Late st Contact Info) Description 02/02/2018 [facility] [address] [address] Micaela Baker MD [address] [place] [address] Results Social History Tobacco Use Types Packs/Day Years [...] Telephone Encounter - Micaela Baker MD - 02/03/2018 11:23 AM CDT Yes, results are normal. No further follow up is needed! Thanks. Micaela Baker MD * Telephone Encounter - María Huston RN - 02/03/2018 10:00 AM CDT Most recent u/s result back, appears nml. Okay to advise? María Toro R.N. 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 documented as of this encounter Care Teams Automatic Fabric Cutter Relationship Specialty Start Date End Date Jazmín Chavez PA-C [address] [place] [address] PCP - General Physician Rod Buster Helper 08/01/17 07/10/20 Jazmín Chavez PA-C [address] [place] [address] PCP - Assigned PCP 03/30/17 12/01/18 Dewey Astorga PA-C [address] [place] [address] PCP - General Physician Rod Buster Helper 07/11/20 11/13/20 Yoli Skinner MD [address] [place] [address] PCP - General Internal Medicine 11/14/20 11/17/20 Dewey Astorga PA-C [address] [place] [address] PCP - General Family Medicine 11/18/20 11/20/21 Johnathan Brand [address] [place] [address] PCP - General Family Medicine 11/21/21 09/23/22 Jazmín Chavez PA-C [address] [place] [address] PCP - General Family Medicine 02/10/23 06/28/24 Jazmín Chavez PA-C [address] [place] [address] Assigned PCP 03/30/17 07/22/20 Rosa Gorman, ADNIEL Personal Advocate & Liaison (PAL) 03/14/20 09/04/20 Dewey Astorga PA-C [address] [place] [address] Assigned PCP 07/23/20 08/02/22 Jazmín Chavez PA-C [address] [place] [address] Assigned PCP 08/03/22 08/30/22 [place] [address] [place] [address] Assigned PCP 09/28/22 02/14/23 Jazmín Chavez PA-C [address] [place] [address] Assigned PCP 02/15/23 documented as of this encounter
--- OUTSIDE RECORDS SUMMARY | 2024-07-01 22:18 | XMS_ITS | Encounter Summary ---
Author Organization [facility] Address [address] [place] [address]. [place] [address] Care Team Providers Care Medical Front Desk Specialist Name Role Phone Jazmín Chavez PA-C Primary Care Provider [phone] Jazmín Chavez PA-C Unavailable Rosa Gorman RN Unavailable Unavailable Dewey Astorga PA-C Primary Care Provide r Dewey Astorga PA-C Unavailable Yoli Skinner MD Primary Care Provider Dewey Astorga PA-C Primary Care Provide r Johnathan Brand Primary Care Provider Unavailab le Jazmín Chavez PA-C Unavailable [phone] Johnathan Villanueva DO Unavailable Jazmín Chavez PA-C Primary Care Provider [phone] Jazmín Chavez PA-C Unavailable [phone] Encounter Details Date Type Department Care Team (Late st Contact Info) Description 02/29/2020 MyC Medical Advice [facility] [address] [place] [phone] Jazmín Chavez PA-C [id number] [place] [id number] Social History Tobacco Use Types Packs/Day Years [...] have Coronavirus / COVID-19? No / Unsure 02/29/2020 11:29 AM CDT documented as of this encounter Plan [...] Score: 4 08/11/20 17 7:57 AM DIRECTOR MERIT SYSTEM documented as of this encounter Care Teams Medical Front Desk Specialist Relationship Specialty Start Date End Date Jazmín Chavez PA-C [address] [place] [address] PCP - General Physician Operator Automated Process 08/01/17 07/10/20 Dewey Astorga PA-C 3033 [facility] 275 [place] [address] PCP - General Physician Operator Automated Process 07/11/20 11/13/20 Yoli Skinner MD [address] [facility] 200 [place] [address] PCP - General Internal Medicine 11/14/20 11/17/20 Dewey Astorga PA-C [address] [place] [address] PCP - General Family Medicine 11/18/20 11/20/21 Johnathan Brand [address] [place] [address] PCP - General Family Medicine 11/21/21 09/23/22 Jazmín Chavez PA-C [address] [place] [address] PCP - General Family Medicine 02/10/23 06/28/24 Jazmín Chavez PA-C [address] [place] [address] Assigned PCP 03/30/17 07/22/20 Rosa Gorman, DANIEL Personal Advocate & Liaison (PAL) 03/14/20 09/04/20 Dewey Astorga PA-C [address] [facility] 275 [place] [address] Assigned PCP 07/23/20 08/02/22 Jazmín Chavez PA-C [address] [place] [address] Assigned PCP 08/03/22 08/30/22 [place] [address] [place] [address] Assigned PCP 09/28/22 02/14/23 Jazmín Chavez PA-C [address] [place] [address] Assigned PCP 02/15/23 documented as of this encounter
--- OUTSIDE RECORDS SUMMARY | 2024-07-01 22:18 | XMS_ITS | Encounter Summary ---
Author Organization [facility] Address [address] [place] [address] Care Team Providers Care Icu Registered Nurse Name Role Phone Jazmín Chavez PA-C Primary Care Provider Jazmín Chavez PA-C Unavailable [phone] Jazmín Chavez-C Unavailable [phone] Rosa Gorman RN Unavailable Unavailable Dewey Astorga PA-C Primary Care Provide r Dewey Astorga PA-C Unavailable [phone] Yoli Skinner MD Primary Care Provider Dewey Astorga PA-C Primary Care Provide r Johnathan Brand Primary Care Provider Unavailab le Jazmín Chavez-C Unavailable [phone] Johnathan Villanueva DO Unavailable [phone] Jazmín ChavezC Primary Care Provider [phone] Jazmín Chavez-C Unavailable [phone] Encounter Details Date Type Department Care Team (Late st Contact Info) Description 11/11/2017 [facility] [address] [address] Micaela Baker MD [address] [place] [address] Social History Tobacco Use Types Packs/Day Years [...] Total Score: 4 08/11/20 17 7:57 AM 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 documented as of this encounter Care Teams Icu Registered Nurse Relationship Specialty Start Date End Date Jazmín Chavez PA-C [address] [place] [address] PCP - General Physician Insole Channeler 08/01/17 07/10/20 Jazmín Chavez PA-C [address] [place] [address] PCP - Assigned PCP 03/30/17 12/01/18 Dewey sAtorga PA-C [address] 4424[address] PCP - General Physician Insole Channeler 07/11/20 11/13/20 Yoli Skinner MD [address] [address] PCP - General Internal Medicine 11/14/20 11/17/20 Dewey Astorga PA-C [address] [facility] 275 [place] [address] PCP - General Family Medicine 11/18/20 11/20/21 Johnathan Brand [address] [facility] 200 [place] [address] PCP - General Family Medicine 11/21/21 09/23/22 Jazmín Chavez PA-C [address] [place] [address] PCP - General Family Medicine 02/10/23 06/28/24 Jazmín Chavez PA-C [address] [place] [address] Assigned PCP 03/30/17 07/22/20 Rosa Gorman, DANIEL Personal Advocate & Liaison (PAL) 03/14/20 09/04/20 Dewey Astorga PA-C [address] [address] Assigned PCP 07/23/20 08/02/22 Jazmín Chavez PA-C [address] [place] [address] Assigned PCP 08/03/22 08/30/22 [place] [address] [place] [address] Assigned PCP 09/28/22 02/14/23 Jazmín Chavez PA-C [address] [place] [address] Assigned PCP 02/15/23 documented as of this encounter
--- OUTSIDE RECORDS SUMMARY | 2024-07-01 22:18 | XMS_ITS | Encounter Summary ---
Author Organization [facility] Address [address] [place] [address]. [place] [address] Care Team Providers Care Mate Fourth Name Role Phone Jazmín Chavez PA-C Primary Care Provider [phone] Jazmín hCavez PA-C Unavailable [phone] Rosa Gorman RN Unavailable Unavailable Dewey Astorga PA-C Primary Care Provide r Dewey Astorga PA-C Unavailable Yoli Skinner MD Primary Care Provider [phone] Dewey Astorga PA-C Primary Care Provide r Johnathan Brand Primary Care Provider Unavailab le Jazmín Chavez PA-C Unavailable [phone] Johnathan Villanueva DO Unavailable [phone] Jazmín Chavez PA-C Primary Care Provider [phone] Jazmín Chavez PA-C Unavailable [phone] Encounter Details Date Type Department Care Team (Late st Contact Info) Description 03/14/2020 [facility] [address] [place] [address] [place] Social History Tobacco Use Types Packs/Day Years [...] Total Score: 4 08/11/20 17 7:57 AM WINDOWS SUPPORT ENGINEER documented as of this encounter Care Teams Mate Fourth Relationship Specialty Start Date End Date Jazmín Chavez PA-C [address] [place], [place] [address] PCP - General Physician Trial Consultant 08/01/17 07/10/20 Dewey Astorga PA-C [address] 275 [place], [place] [address] PCP - General Physician Trial Consultant 07/11/20 11/13/20 Yoli Skinner MD [address] [facility] 200 [place] [address] PCP - General Internal Medicine 11/14/20 11/17/20 Dewey Astorga PA-C [address] [id number] PCP - General Family Medicine 11/18/20 11/20/21 Jhonathan Brand [address] [facility] 200 [place] [address] PCP - General Family Medicine 11/21/21 09/23/22 Jazmín Chavez PA-C [address] [place] [address] PCP - General Family Medicine 02/10/23 06/28/24 Jazmín Chavez PA-C [address] [place] [address] Assigned PCP 03/30/17 07/22/20 Rosa Gorman, DANIEL Personal Advocate & Liaison (PAL) 03/14/20 09/04/20 Dewey Astorga PA-C 3033 [facility] [address] [place] [address] Assigned PCP 07/23/20 08/02/22 Jazmín Chavez PA-C [address] [place] [address] Assigned PCP 08/03/22 08/30/22 [place] [address] [place] [address] Assigned PCP 09/28/22 02/14/23 Jazmín Chavez PA-C [address] [place] [address] Assigned PCP 02/15/23 documented as of this encounter
--- OUTSIDE RECORDS SUMMARY | 2024-07-01 22:18 | XMS_ITS | Encounter Summary ---
Author Organization [facility] Address [address] [place] [address] Care Team Providers Care Marine Animal Trainer Name Role Phone Jazmín Chavez PA-C Primary Care Provider Jazmín Chavez PA-C Unavailable [phone] Jazmín Chavez PA-C Unavailable [phone] Rosa Gorman RN Unavailable Unavailable Dewey Astorga PA-C Primary Care Provide r Dewey Astorga PA-C Unavailable [phone] Yoli Skinner MD Primary Care Provider [phone] Dewey Astorga PA-C Primary Care Provide r Johnathan Brand Primary Care Provider Unavailab le Jazmín Chavez PA-C Unavailable [phone] Johnathan Villanueva DO Unavailable [phone] Jazmín Chavez PA-C Primary Care Provider + [phone] Jazmín Chavez PA-C Unavailable [phone] Reason for Visit * Reason Onset Date Comments Vaginal Problem 03/13/2018 Encounter Details Date Type Department Care Team (Late st Contact Info) Description 03/13/2018 [facility] [address] [address] Micaela Baker MD [address] [place] [address] Vaginal Problem Social History Tobacco Use Types Packs/Day [...] Telephone Encounter - Micaela Baker MD - 03/17/2018 8:18 AM CDT We'll look again on Friday to see if it's just the healing process or if it's growing back. Thanks. Micaela Baker MD * Telephone Encounter - María Huston RN - 03/16/2018 8:10 AM CDT See mychart message. María Toro R.N. [facility] documented in this encounter [...] Total Score: 4 08/11/20 17 7:57 AM CLAY MAKER documented as of this encounter Care Teams Marine Animal Trainer Relationship Specialty Start Date End Date Jazmín Chavez PA-C [address] [place] [address] PCP - General Physician Community Cultural Development Officer 08/01/17 07/10/20 Jazmín Chavez PA-C [address] [place] [address] PCP - Assigned PCP 03/30/17 12/01/18 Dewey Astorga PA-C [address] [place] [address] PCP - General Physician Community Cultural Development Officer 07/11/20 11/13/20 Yoli Skinner MD [address] [place] [address] PCP - General Internal Medicine 11/14/20 11/17/20 Dewey Astorga PA-C [address] [place] [address] PCP - General Family Medicine 11/18/20 11/20/21 Johnathan Brand [address] [place] [address] PCP - General Family Medicine 11/21/21 09/23/22 Jazmín Chavez PA-C [address] [place] [address] PCP - General Family Medicine 02/10/23 06/28/24 Jazmín Chavez PA-C [address] [place] [address] Assigned PCP 03/30/17 07/22/20 Rosa Gorman, DANIEL Personal Advocate & Liaison (PAL) 03/14/20 09/04/20 Dewey Astorga PA-C [address] [place] [address] Assigned PCP 07/23/20 08/02/22 Jazmín Chavez PA-C [address] [place] [address] Assigned PCP 08/03/22 08/30/22 [place] [address] [place] [address] Assigned PCP 09/28/22 02/14/23 Jazmín Chavez PA-C [address] [place] [address] Assigned PCP 02/15/23 documented as of this encounter
--- OUTSIDE RECORDS SUMMARY | 2024-07-01 22:18 | XMS_ITS | Encounter Summary ---
Author Organization [facility] Address [address] [place] [address] Care Team Providers Care Rail Car Unloader Name Role Phone Jazmín Chavez PA-C Primary Care Provider Jazmín Chavez PA-C Unavailable [phone] Jazmín Chavez-C Unavailable [phone] Rosa Gorman RN Unavailable Unavailable Dewey Astorga PA-C Primary Care Provide r Dewey Astorga PA-C Unavailable [phone] Yoli Skinner MD Primary Care Provider Dewey Astorga PA-C Primary Care Provide r Johnathan Brand Primary Care Provider Unavailab le Jazmín Chavez-C Unavailable [phone] Johnathan Villanueva DO Unavailable [phone] Jazmín ChavezC Primary Care Provider [phone] Jazmín Chavez-C Unavailable [phone] Encounter Details Date Type Department Care Team (Late st Contact Info) Description 11/17/2017 MyC Medical Advice [address] [address] Micaela Baker MD [address] [place] [address] Social History Tobacco Use Types Packs/Day Years [...] encounter Miscellaneous Notes * Telephone Encounter - Rosi Daniels RN - 11/17/2017 11:11 AM ARC AND GAS WELDER , AND GAS WELDER documented in this encounter Plan of Treatment Not on file documented as of this encounter Visit Diagnoses Not on filedocumented in this encounter Additional Health Concerns Infection Onset Date Last Indicated Resolved Time Rule Out COVID-19 12/14/2021 12/14/2021 12/15/2021 11:31 PM CDT Rule Out COVID-19 12/26/2023 12/26/2023 12/26/2023 9:46 PM CDT Assessment Noted Time PHQ-9 Depression Total Score: 4 08/11/20 17 7:57 AM ARC AND GAS WELDER documented as of this encounter Care Teams Rail Car Unloader Relationship Specialty Start Date End Date Jazmín Chavez PA-C [address] [place] [address] PCP - General Physician Combat Control 08/01/17 07/10/20 Jazmín Chavez PA-C [address] [place] [address] PCP - Assigned PCP 03/30/17 12/01/18 Dewey Astorga PA-C [address] [address] PCP - General Physician Combat Control 07/11/20 11/13/20 Yoli Skinner MD [address] [place] [address] PCP - General Internal Medicine 11/14/20 11/17/20 Dewey Astorga PA-C [address] [address] PCP - General Family Medicine 11/18/20 11/20/21 Johnathan Brand [address] [address] PCP - General Family Medicine 11/21/21 09/23/22 Jazmín Chavez PA-C [address] [place] [address] PCP - General Family Medicine 02/10/23 06/28/24 Jazmín Chavez PA-C [address] [place] [address] Assigned PCP 03/30/17 07/22/20 Rosa Gorman, DANIEL Personal Advocate & Liaison (PAL) 03/14/20 09/04/20 Dewey Astorga PA-C [address] [address] Assigned PCP 07/23/20 08/02/22 Jazmín Chavez PA-C [address] [place] [address] Assigned PCP 08/03/22 08/30/22 [place] [address] [place] [address] Assigned PCP 09/28/22 02/14/23 Jazmín Chavez PA-C [address] [place] [address] Assigned PCP 02/15/23 documented as of this encounter
--- OUTSIDE RECORDS SUMMARY | 2024-07-01 22:18 | XMS_ITS | Encounter Summary ---
Author Organization [facility] Address [address] [place] [address] Care Team Providers Care Software Engineering Manager Name Role Phone Jazmín Chavez PA-C Primary Care Provider [phone] Jazmín Chavez PA-C Unavailable [phone] Rosa Gorman RN Unavailable Unavailable Dewey Astorga PA-C Primary Care Provide r Dewey Astorga PA-C Unavailable Yoli Skinner MD Primary Care Provider Dewey Astorga PA-C Primary Care Provide r Johnathan Brand Primary Care Provider Unavailab le Jazmín Chavez PA-C Unavailable [phone] Johnathan Villanueva DO Unavailable Jazmín Chavez PA-C Primary Care Provider [phone] Jazmín Chavez PA-C Unavailable [phone] Reason for Visit * Reason Onset Date Comments Patient Request for Note/Letter 10/20/2019 Encounter Details Date Type Department Care Team (Late st Contact Info) Description 10/20/2019 MyC Medical Advice [address] [address] Micaela Baker MD [address] [place] [address] Patient Request for Note/Letter Social History Tobacco Use Types Packs/Day Years Used Date Smoking Tobacco: Never Smokeless Tobacco: Never Alcohol Use Standard Drinks/Week Comments No 0 (1 standard drink = 0.6 oz pur e alcohol) PHQ-2 Answer Date Recorded PHQ-2 Score 0 10/07/2018 Comments Yes Sex and Gender Information Value Date Recorded Sex Assigned at Female 02/28/2020 8:14 PM CDT Gender Identity Female 02/28/2020 8:14 PM CDT Sexual Orientation Straight 02/28/2020 8: 14 PM CDT documented as of this encounter Miscellaneous Notes * Telephone Encounter - Micaela Baker MD - 10/20/2019 3:11 PM CST I think lifting restrictions for just 2 weeks are okay. It's fine to Give a note to return to work.Thanks. I'm so sorry she went through all this! Micaela Baker MD TH AND SAFETY REPRESENTATIVE * Telephone Encounter - Rosi Daniels RN - 10/20/2019 9:16 AM CST Please see my chart message and advise. Rosi Daniels RN TH AND SAFETY REPRESENTATIVE documented in this encounter Plan of Treatment Not on file documented as of this encounter Visit Diagnoses Not on filedocumented in this encounter Additional Health Concerns Infection Onset Date Last Indicated Resolved Time Rule Out COVID-19 12/14/2021 12/14/2021 12/15/2021 11:31 PM CDT Rule Out COVID-19 12/26/2023 12/26/2023 12/26/2023 9:46 PM CDT Assessment Noted Time PHQ-9 Depression Total Score: 4 08/11/20 17 7:57 AM HEALTH AND SAFETY REPRESENTATIVE documented as of this encounter Care Teams Software Engineering Manager Relationship Specialty Start Date End Date Jazmín Chavez, ARLYNC [address] [facility] [place] [address] PCP - General Physician Warehouse Shipping Associate 08/01/17 07/10/20 Dewey Astorga PA-C [address] [address] PCP - General Physician Warehouse Shipping Associate 07/11/20 11/13/20 Yoli Skinner MD [address] [place] [address] PCP - General Internal Medicine 11/14/20 11/17/20 Dewey Astorga PA-C [address] [address] PCP - General Family Medicine 11/18/20 11/20/21 Johnathan Brand [facility] [address] [address] PCP - General Family Medicine 11/21/21 09/23/22 Jazmín Chavez PA-C [address] [place] [address] PCP - General Family Medicine 02/10/23 06/28/24 Jazmín Chavez PA-C [address] [place] [address] Assigned PCP 03/30/17 07/22/20 Rosa Gorman, DANIEL Personal Advocate & Liaison (PAL) 03/14/20 09/04/20 Dewey Astorga PA-C [address] [address] Assigned PCP 07/23/20 08/02/22 Jazmín Chavez PA-C [address] [place] [address] Assigned PCP 08/03/22 08/30/22 [place] [address] [place] [address] Assigned PCP 09/28/22 02/14/23 Jazmín Chavez PA-C [address] [place] [address] Assigned PCP 02/15/23 documented as of this encounter
--- OUTSIDE RECORDS SUMMARY | 2024-07-01 22:18 | XMS_ITS | Encounter Summary ---
Author Organization [facility] Address [address] [place] [address] Care Team Providers Care Loading And Unloading Supervisor Name Role Phone Jazmín Chavez PA-C Primary Care Provider Jazmín Chavez PA-C Unavailable [phone] Jazmín Chavez-C Unavailable [phone] Rosa Gorman RN Unavailable Unavailable Dewey Astorga PA-C Primary Care Provide r Dewey Astorga PA-C Unavailable [phone] Yoli Skinner MD Primary Care Provider Dewey Astorga PA-C Primary Care Provide r Johnathan Brand Primary Care Provider Unavailab le Jazmín ChavezC Unavailable [phone] Johnathan Villanueva DO Unavailable [phone] Jazmín Chavez PA-C Primary Care Provider [phone] Jazmín ChavezC Unavailable [phone] Encounter Details Date Type Department Care Team (Late st Contact Info) Description 12/24/2017 MyC Medical Advice [facility] [address] [place] [address] Micaela Baker MD [address] [place] [address] Social History Tobacco Use Types Packs/Day Years [...] Total Score: 4 08/11/20 17 7:57 AM TUFTER documented as of this encounter Care Teams Loading And Unloading Supervisor Relationship Specialty Start Date End Date Jazmín Chavez PA-C [address] [place] [address] PCP - General Physician Denture Laboratory Technician 08/01/17 07/10/20 Jazmín Chavez PA-C [address] [place] [address] PCP - Assigned PCP 03/30/17 12/01/18 Dewey Astorga PA-C [address] [address] PCP - General Physician Denture Laboratory Technician 07/11/20 11/13/20 Yoli Skinner MD [address] [address] PCP - General Internal Medicine 11/14/20 11/17/20 Dewey Astorga PA-C [address] [address] PCP - General Family Medicine 11/18/20 11/20/21 Johnathan Brand [address] [facility] 200 [place] [address] PCP - General Family Medicine 11/21/21 09/23/22 Jazmín Chavez PA-C [address] [place] [address] PCP - General Family Medicine 02/10/23 06/28/24 Jazmín Chavez PA-C [address] [place] [address] Assigned PCP 03/30/17 07/22/20 Rosa Gormna RN Personal Advocate & Liaison (PAL) 03/14/20 09/04/20 Dewey Astorga PA-C [address] [address] Assigned PCP 07/23/20 08/02/22 Jazmín Chavez PA-C [address] [place], [place] [address] Assigned PCP 08/03/22 08/30/22 [place] [address] [place] [address] Assigned PCP 09/28/22 02/14/23 Jazmín Chavez PA-C [address] [place] [address] Assigned PCP 02/15/23 documented as of this encounter
--- OUTSIDE RECORDS SUMMARY | 2024-07-01 22:18 | XMS_ITS | Encounter Summary ---
Author Organization [facility] Address [address] [place] [address] Care Team Providers Care Television Analyzer Name Role Phone Jazmín Chavez PA-C Primary Care Provider Jazmín Chavez PA-C Unavailable [phone] Jazmín Chavez-C Unavailable [phone] Rosa Gorman RN Unavailable Unavailable Dewey Astorga PA-C Primary Care Provide r Dewey Astorga PA-C Unavailable [phone] Yoli Skinner MD Primary Care Provider Dewey Astorga PA-C Primary Care Provide r Johnathan Brand Primary Care Provider Unavailab le Jazmín Chavez-C Unavailable [phone] Johnathan Villanueva DO Unavailable [phone] Jazmín ChavezC Primary Care Provider [phone] Jazmín Chavez-C Unavailable [phone] Encounter Details Date Type Department Care Team (Late st Contact Info) Description 03/04/2018 MyC Medical Advice [address] [address] Micaela Baker MD [address] [place] [address] Social History Tobacco Use Types Packs/Day Years [...] Total Score: 4 08/11/20 17 7:57 AM ANTHROPOLOGY FACULTY MEMBER documented as of this encounter Care Teams Television Analyzer Relationship Specialty Start Date End Date Jazmín Chavez PA-C [address] [place] [address] PCP - General Physician Precision Devices Inspector/Tester 08/01/17 07/10/20 Jazmín Chavez PA-C [address] [place] [address] PCP - Assigned PCP 03/30/17 12/01/18 Dewey Astorga PA-C [address] [address] PCP - General Physician Precision Devices Inspector/Tester 07/11/20 11/13/20 Yoli Skinner MD [address] [address] PCP - General Internal Medicine 11/14/20 11/17/20 Dewey Astorga PA-C [address] [facility] [address] [place] [address] PCP - General Family Medicine 11/18/20 11/20/21 Johnathan Brand [address] [facility] 200 [place] [address] PCP - General Family Medicine 11/21/21 09/23/22 Jazmín Chavez PA-C [address] [place] [address] PCP - General Family Medicine 02/10/23 06/28/24 Jazmín Chavez PA-C [address] [place] [address] Assigned PCP 03/30/17 07/22/20 Rosa Gorman, DANIEL Personal Advocate & Liaison (PAL) 03/14/20 09/04/20 Dewey Astorga PA-C [address] [address] Assigned PCP 07/23/20 08/02/22 Jazmín Chavez PA-C [address] [place] [address] Assigned PCP 08/03/22 08/30/22 [place] [address] [place] [address] Assigned PCP 09/28/22 02/14/23 Jazmín Chavez PA-C [address] [place] [address] Assigned PCP 02/15/23 documented as of this encounter
--- OUTSIDE RECORDS SUMMARY | 2024-07-01 22:18 | XMS_ITS | Encounter Summary ---
Author Organization [facility] Address [address] [place] [address] Care Team Providers Care Bobbin Stripper Name Role Phone Jazmín Chavez PA-C Primary Care Provider Jazmín Chavez PA-C Unavailable [phone] Jazmín Chavez PA-C Unavailable [phone] Rosa Gorman RN Unavailable Unavailable Dewey Astorga PA-C Primary Care Provide r Dewey Astorga PA-C Unavailable [phone] Yoli Skinner MD Primary Care Provider [phone] Dewey Astorga PA-C Primary Care Provide r Johnathan Brand Primary Care Provider Unavailab le Jazmín Chavez PA-C Unavailable [phone] Johnathan Villanueva DO Unavailable Jazmín Chavez PA-C Primary Care Provider + [phone] Jazmín Chavez PA-C Unavailable [phone] Reason for Visit * Reason Onset Date Comments MyChart Communication 03/16/2018 thyroid Encounter Details Date Type Department Care Team (Late st Contact Info) Description 03/16/[address] [address] Jazmín Chavez PA-C [address] [place] [address] [employer] (thyroid) Social History Tobacco Use Types Packs/Day Years [...] Telephone Encounter - Danita Daly RN - 03/16/2018 2:22 PM CDT Spoke with pt. Last TSH was on 01/06/18. I did tell the pt that she will need her TSH checked every trimester during her . I refilled the synthroid for 1 month. Pt has an appt on 03/18/18. Bradley Daly RN * Telephone Encounter - Yoli Raza RN - 03/16/2018 9:31 AM CDT See [email or web address] request, routed to Dr Baker per CJ, inform pt when final, also confirm rx is LONG, if needed recommend change to LONG synthroid 0.50 mcg, pt out of med now, inform pt via [employer] when final Rx sent for 30 days. Please call pt. OBGYN should be managing thyroid per their pop up notes in pt's chart and can change/adjust dose if needed going forward with . ?? Jazmín Chavez PA-C TSH Date Value Ref Range Status 01/06/2018 2.52 0.40 - 4.00 mU/L Final ] Last Written Prescription Date: Last Fill Quantity: 30, # refills: 0 Last office visit: 12/23/2017 with prescribing provider: Future Office Visit: Next 5 appointments (look out 90 days) Mar 18, 2018 3:15 PM CDT ESTABLISHED with Micaela Baker MD [facility] [address] [facility] [id number] Mar 31, 2018 3:15 PM CDT ESTABLISHED with Ze Kovacs MD [facility] [address] [facility] [id number] Requested Prescriptions Pending Prescriptions Disp Refills ??? levothyroxine (SYNTHROID/LEVOTHROID) 50 MCG tablet 30 tablet 0 Sig: Take 1 tablet (50 mcg) by mouth daily There is no refill protocol information for this order Yoli Raza RN, BSN Message handled by Nurse Triage. documented in this encounter Plan of Treatment [...] Total Score: 4 08/11/20 17 7:57 AM EVAPORATOR OPERATOR documented as of this encounter Care Teams Bobbin Stripper Relationship Specialty Start Date End Date Jazmín Chavez PA-C [address] [place] [address] PCP - General Physician Data Entry 08/01/17 07/10/20 Jazmín Chavez PA-C [address] [place] [address] PCP - Assigned PCP 03/30/17 12/01/18 Dewey Astorga PA-C [address] [address] PCP - General Physician Data Entry 07/11/20 11/13/20 Yoli Skinner MD [address] [place] [address] PCP - General Internal Medicine 11/14/20 11/17/20 Dewey Astorga PA-C [address] [place] [address] [place] [address] PCP - General Family Medicine 11/18/20 11/20/21 Johnathan Brand [address] [place] [address] PCP - General Family Medicine 11/21/21 09/23/22 Jazmín Chavez PA-C [address] [place] [address] PCP - General Family Medicine 02/10/23 06/28/24 Jazmín Chavez PA-C [address] [place] [address] Assigned PCP 03/30/17 07/22/20 Rosa Gorman, DANIEL Personal Advocate & Liaison (PAL) 03/14/20 09/04/20 Dewey Astorga PA-C [address] [place] [address] [place] [address] Assigned PCP 07/23/20 08/02/22 Jazmín Chavez PA-C [address] [place] [address] Assigned PCP 08/03/22 08/30/22 [place] [address] [place] [address] Assigned PCP 09/28/22 02/14/23 Jazmín Chavez PA-C [address] [place] [address] Assigned PCP 02/15/23 documented as of this encounter
--- OUTSIDE RECORDS SUMMARY | 2024-07-01 22:18 | XMS_ITS | Encounter Summary ---
Author Organization [facility] Address [address] [place] [address] Care Team Providers Care Cartographic Aide Name Role Phone Jazmín Chavez PA-C Primary Care Provider Jazmín Chavez PA-C Unavailable [phone] Jazmín Chavez-C Unavailable [phone] Rosa Gorman RN Unavailable Unavailable Dewey Astorga PA-C Primary Care Provide r Dewey Astorga PA-C Unavailable [phone] Yoli Skinner MD Primary Care Provider Dewey Astorga PA-C Primary Care Provide r Johnathan Brand Primary Care Provider Unavailab le Jazmín Chavez-C Unavailable [phone] Johnathan Villanueva DO Unavailable [phone] Jazmín ChavezC Primary Care Provider [phone] Jazmín Chavez-C Unavailable [phone] Encounter Details Date Type Department Care Team (Late st Contact Info) Description 02/25/2018 MyC Medical Advice [address] [address] Micaela Baker MD [address] [place] [address] Social History Tobacco Use Types Packs/Day Years [...] Total Score: 4 08/11/20 17 7:57 AM MOLD YARD WORKER documented as of this encounter Care Teams Cartographic Aide Relationship Specialty Start Date End Date Jazmín Chavez PA-C [address] [place] [address] PCP - General Physician Tobacco Prizer 08/01/17 07/10/20 Jazmín Chavez PA-C [address] [place] [address] PCP - Assigned PCP 03/30/17 12/01/18 Dewey Astorga PA-C [address] [address] PCP - General Physician Tobacco Prizer 07/11/20 11/13/20 Yoli Skinner MD [address] [address] PCP - General Internal Medicine 11/14/20 11/17/20 Dewey Astorga PA-C [address] [facility] 275 [place] [address] PCP - General Family Medicine 11/18/20 11/20/21 Johnathan Brand [address] [facility] 200 [place] [address] PCP - General Family Medicine 11/21/21 09/23/22 Jazmín Chavez PA-C [address] [place] [address] PCP - General Family Medicine 02/10/23 06/28/24 Jazmín Chavez PA-C [address] [place] [address] Assigned PCP 03/30/17 07/22/20 Rosa Gorman, DANIEL Personal Advocate & Liaison (PAL) 03/14/20 09/04/20 Dewey Astorga PA-C [address] [address] Assigned PCP 07/23/20 08/02/22 Jazmín Chavez PA-C [address] [place] [address] Assigned PCP 08/03/22 08/30/22 [place] [address] [place] [address] Assigned PCP 09/28/22 02/14/23 Jazmín Chavez PA-C [address] [place] [address] Assigned PCP 02/15/23 documented as of this encounter
--- OUTSIDE RECORDS SUMMARY | 2024-07-01 22:18 | XMS_ITS | Encounter Summary ---
Author Organization [facility] Address [address] [place] [address] Care Team Providers Care Commercial Hvac Technician Name Role Phone Jazmín Chavez PA-C Primary Care Provider Jazmín Chavez PA-C Unavailable [phone] Jazmín Chavez-C Unavailable [phone] Rosa Gorman RN Unavailable Unavailable Dewey Astorga PA-C Primary Care Provide r Dewey Astorga PA-C Unavailable [phone] Yoli Skinner MD Primary Care Provider Dewey Astorga PA-C Primary Care Provide r Johnathan Barnd Primary Care Provider Unavailab le Jazmín Chavez-C Unavailable [phone] Johnathan Villanueva DO Unavailable [phone] Jazmín ChavezC Primary Care Provider [phone] Jazmín Chavez-C Unavailable [phone] Encounter Details Date Type Department Care Team (Late st Contact Info) Description 10/29/2017 [facility] Medical Advice [address] [address] Micaela Baker MD [facility] [place] [address] Social History Tobacco Use Types Packs/Day Years [...] Telephone Encounter - Micaela Baker MD - 10/30/2017 1:48 PM CST Definitely prefer for her to be seen for a wet prep in , to confirm. Thanks. Micaela Baker MD UTER ANIMATOR * Telephone Encounter - Zeina Drummond RN - 10/30/2017 8:10 AM COMPUTER ANIMATOR Please advise if pt can have rx for BV, or if you would like her to be seen. Zeina Drummond RN UTER ANIMATOR * Telephone Encounter - Micaela Baker MD - 10/29/2017 2:29 PM CST I wouldn't recommend in . We have pretty good data regarding bacterial vaginosis in , and flagyl is the recommended treatment, so I'd usually go with that. Micaela Baker MD UTER ANIMATOR * Telephone Encounter - Zeina Drummond RN - 10/29/2017 12:44 PM COMPUTER ANIMATOR Please address the [employer] message. Zeina Drummond RN UTER ANIMATOR documented in this encounter Plan of Treatment Not on file documented as of this encounter Visit Diagnoses Not on filedocumented in this encounter Additional Health Concerns Infection Onset Date Last Indicated Resolved Time Rule Out COVID-19 12/14/2021 12/14/2021 12/15/2021 11:31 PM CDT Rule Out COVID-19 12/26/2023 12/26/2023 12/26/2023 9:46 PM CDT Assessment Noted Time PHQ-9 Depression Total Score: 4 08/11/20 17 7:57 AM COMPUTER ANIMATOR documented as of this encounter Care Teams Commercial Hvac Technician Relationship Specialty Start Date End Date Jazmín Chavez PA-C [address] [place] [address] PCP - General Physician Roll Press Operator 08/01/17 07/10/20 Jazmín Chavez PA-C [address] [place] [address] PCP - Assigned PCP 03/30/17 12/01/18 Dewey Astorga PA-C [address] [address] PCP - General Physician Roll Press Operator 07/11/20 11/13/20 Yoli Skinner MD [address] [employer] [place] [address] 943707 PCP - General Internal Medicine 11/14/20 11/17/20 Dewey Astorga PA-C [address] [employer] [address] [place] [address] PCP - General Family Medicine 11/18/20 11/20/21 Johnathan Brand [address] [place] [address] PCP - General Family Medicine 11/21/21 09/23/22 Jazmín Chavez PA-C [address] [place] [address] PCP - General Family Medicine 02/10/23 06/28/24 Jazmín Chavez PA-C [address] [place] [address] Assigned PCP 03/30/17 07/22/20 Rosa Gorman, DANIEL Personal Advocate & Liaison (PAL) 03/14/20 09/04/20 Dewey Astorga PA-C [address] [address] Assigned PCP 07/23/20 08/02/22 Jazmín Chavez PA-C [address] [place] [address] Assigned PCP 08/03/22 08/30/22 [place] [address] [place] [address] Assigned PCP 09/28/22 02/14/23 Jazmín Chavez PA-C [address] [place] [address] Assigned PCP 02/15/23 documented as of this encounter
--- OUTSIDE RECORDS SUMMARY | 2024-07-01 22:19 | XMS_ITS | Encounter Summary ---
Author Organization [facility] Address [address] [place] [address] Care Team Providers Care Registration Representative Name Role Phone Jazmín Chavez PA-C Primary Care Provider Jazmín Chavez PA-C Unavailable [phone] Jazmín Chavez-C Unavailable [phone] Rosa Gorman RN Unavailable Unavailable Dewey Astorga PA-C Primary Care Provide r Dewey Astorga PA-C Unavailable [phone] Yoli Skinner MD Primary Care Provider Dewey Astorga PA-C Primary Care Provide r Johnathan Brand Primary Care Provider Unavailab le Jazmín Chavez-C Unavailable [phone] Johnathan Villanueva DO Unavailable [phone] Jazmín ChavezC Primary Care Provider [phone] Jazmín Chavez-C Unavailable [phone] Encounter Details Date Type Department Care Team (Late st Contact Info) Description 10/21/2017 [facility] [address] [address] Micaela Baker MD [address] [place] [address] Social History Tobacco Use Types Packs/Day Years [...] Telephone Encounter - Micaela Baker MD - 10/21/2017 4:47 PM CST Lower carb and lower sugar would be okay, but significant carb restriction is not recommended (ketogenic.) Thanks. Micaela Baker MD TIONAL ADVISER documented in this encounter Plan of Treatment Not on file documented as of this encounter Visit Diagnoses Not on filedocumented in this encounter Additional Health Concerns Infection Onset Date Last Indicated Resolved Time Rule Out COVID-19 12/14/2021 12/14/2021 12/15/2021 11:31 PM CDT Rule Out COVID-19 12/26/2023 12/26/2023 12/26/2023 9:46 PM CDT Assessment Noted Time PHQ-9 Depression Total Score: 4 08/11/20 17 7:57 AM VOCATIONAL ADVISER documented as of this encounter Care Teams Registration Representative Relationship Specialty Start Date End Date Jazmín Chavez PA-C [address] [place] [address] PCP - General Physician Card Checker 08/01/17 07/10/20 Jazmín Chavez PA-C [address] [place] [address] PCP - Assigned PCP 03/30/17 12/01/18 Dewey Astorga PA-C [address] [place] [address] PCP - General Physician Card Checker 07/11/20 11/13/20 Yoli Skinner MD [address] [place] [address] PCP - General Internal Medicine 11/14/20 11/17/20 Dewey Astorga PA-C [address] [address] PCP - General Family Medicine 11/18/20 11/20/21 Johnathan Brand [address] [place] [address] PCP - General Family Medicine 11/21/21 09/23/22 Jazmín Chavez PA-C [address] [place] [address] PCP - General Family Medicine 02/10/23 06/28/24 Jazmín Chavez PA-C [address] [place] [address] Assigned PCP 03/30/17 07/22/20 Rosa Gorman, DANIEL Personal Advocate & Liaison (PAL) 03/14/20 09/04/20 Dewey Astorga PA-C [address] [address] Assigned PCP 07/23/20 08/02/22 Jazmín Chavez PA-C [address] [place] [address] Assigned PCP 08/03/22 08/30/22 [place] [address] [place] [address] Assigned PCP 09/28/22 02/14/23 Jazmín Chavez PA-C [address] [place] [address] Assigned PCP 02/15/23 documented as of this encounter
--- OUTSIDE RECORDS SUMMARY | 2024-07-01 22:19 | XMS_ITS | Encounter Summary ---
Author Organization [facility] Address [address] [place] [address] Care Team Providers Care Gift Wrapper Name Role Phone Sonia Lim MD Primary Care Provider Jazmín Chavez PA-C Primary Care Provider Jazmín Chavez-C Unavailable [phone] Jazmín Chavez-C Unavailable [phone] Rosa Gorman RN Unavailable Unavailable Dewey Astorga PA-C Primary Care Provide r Dewey Astorga PA-C Unavailable [phone] Yoli Skinner MD Primary Care Provider [phone] Dewey Astorga PA-C Primary Care Provide r Johnathan Brand Primary Care Provider Unavailab le Jazmín Chavez-C Unavailable [phone] Johnathan Villanueva DO Unavailable [phone] Jazmín ChavezC Primary Care Provider + [phone] Jazmín Chavez PA-C Unavailable [phone] Encounter Details Date Type Department Care Team (Late st Contact Info) Description 03/01/2016 [facility] [address] [place] [phone] Alma Kline, ROLLER COASTER ENGINEER SLOT SERVICE SPECIALIST [address] [place] [address] Social History Tobacco Use Types Packs/Day Years Used Date Smoking Tobacco: Never Smokeless Tobacco: Never Alcohol Use Standard Drinks/Week Comments Yes 0 (1 standard drink = 0.6 oz pur e alcohol) Sex and Gender Information Value Date Recorded [...] COVID-19 12/26/2023 12/26/2023 12/26/2023 9:46 PM CDT documented as of this encounter Care Teams Gift Wrapper Relationship Specialty Start Date End Date Sonia Lim MD [address] [place] [address] PCP - General Family Practice 01/20/16 07/31/17 Jazmín Chavez PA-C [address] [place] [address] PCP - General Physician Marketing Forecaster 08/01/17 07/10/20 Jazmín Chavez PA-C [address] [place] [address] PCP - Assigned PCP 03/30/17 12/01/18 Dewey Astorga PA-C [address] [place] [address] PCP - General Physician Marketing Forecaster 07/11/20 11/13/20 Yoli Skinner MD [address] [place] [address] PCP - General Internal Medicine 11/14/20 11/17/20 Dewey Astorga PA-C [address] [address] PCP - General Family Medicine 11/18/20 11/20/21 Johnathan Brand [address] [address] PCP - General Family Medicine 11/21/21 09/23/22 Jazmín Chavez PA-C [address] [place] [address] PCP - General Family Medicine 02/10/23 06/28/24 Jazmín Chavez PA-C [address] [place] [address] Assigned PCP 03/30/17 07/22/20 Rosa Gorman, DANIEL Personal Advocate & Liaison (PAL) 03/14/20 09/04/20 Dewey Astorga PA-C [address] [address] Assigned PCP 07/23/20 08/02/22 Jazmín Chavez PA-C [address] [place] [address] Assigned PCP 08/03/22 08/30/22 [place] [address] [place] [address] Assigned PCP 09/28/22 02/14/23 Jazmín Chavez PA-C [address] [place] [address] Assigned PCP 02/15/23 documented as of this encounter
--- OUTSIDE RECORDS SUMMARY | 2024-07-01 22:19 | XMS_ITS | Encounter Summary ---
Author Organization [facility] Address [address] [place] [address] Care Team Providers Care Oracle Wms Consultant Name Role Phone Jazmín Chavez PA-C Primary Care Provider Jazmín Chavez PA-C Unavailable [phone] Jazmín Chavez PA-C Unavailable [phone] Rosa Gorman RN Unavailable Unavailable Dewey Astorga PA-C Primary Care Provide r Dewey Astorga PA-C Unavailable [phone] Yoli Skinner MD Primary Care Provider Dewey Astorga PA-C Primary Care Provide r Johnathan Brand Primary Care Provider Unavailab le Jazmín Chavez PA-C Unavailable [phone] Johnathan Villanueva DO Unavailable [phone] Jazmín Chavez PA-C Primary Care Provider + [phone] Jazmín Chavez PA-C Unavailable [phone] Reason for Visit * Reason Onset Date Comments MyChart Communication 09/15/2017 derm probl em Encounter Details Date Type Department Care Team (Late st Contact Info) Description 09/15/2017 [facility] [address] [address] Jazmín Chavez PA-C [address] [place] [id number] MyChart Communication (derm problem) Social History Tobacco Use Types Packs/Day Years [...] Total Score: 4 08/11/20 17 7:57 AM TAX ASSESSOR documented as of this encounter Care Teams Oracle Wms Consultant Relationship Specialty Start Date End Date Jazmín Chavez PA-C [address] [place] [address] PCP - General Physician Per Diem Rn 08/01/17 07/10/20 Jazmín Chavez PA-C [address] [place] [address] PCP - Assigned PCP 03/30/17 12/01/18 Dewey Astorga PA-C [address] [address] PCP - General Physician Per Diem Rn 07/11/20 11/13/20 Yoli Skinner MD [address] [place] [address] PCP - General Internal Medicine 11/14/20 11/17/20 Dewey Astorga PA-C [address] [address] PCP - General Family Medicine 11/18/20 11/20/21 Johnathan Brand [address] [place] [address] PCP - General Family Medicine 11/21/21 09/23/22 Jazmín Chavez PA-C [address] [place] [address] PCP - General Family Medicine 02/10/23 06/28/24 Jazmín Chavez PA-C [address] [place] [address] Assigned PCP 03/30/17 07/22/20 Rosa Gorman, DANIEL Personal Advocate & Liaison (PAL) 03/14/20 09/04/20 Dewey Astorga PA-C [address] [address] Assigned PCP 07/23/20 08/02/22 Jazmín Chavez PA-C [address] [place], [place] [address] Assigned PCP 08/03/22 08/30/22 [place] [address] [place] [address] Assigned PCP 09/28/22 02/14/23 Jazmín Chavez PA-C [address] [place] [address] Assigned PCP 02/15/23 documented as of this encounter
--- OUTSIDE RECORDS SUMMARY | 2024-07-01 22:19 | XMS_ITS | Encounter Summary ---
Author Organization [facility] Address [address] [place] [address] Care Team Providers Care Water Treatment Operator Name Role Phone Sonia Lim MD Primary Care Provider Jazmín Chavez PA-C Primary Care Provider [phone] Jazmín Chaevz PA-C Unavailable [phone] Jazmín Chavez-C Unavailable [phone] Rosa Gorman RN Unavailable Unavailable Dewey Astorga PA-C Primary Care Provide r Dewey Astorga PA-C Unavailable [phone] Yoli Skinner MD Primary Care Provider Dewey Astorga PA-C Primary Care Provide r Johnathan Brand Primary Care Provider Unavailab le Jazmín ChavezC Unavailable [phone] Johnathan Villanueva DO Unavailable [phone] Jazmín Chavez PA-C Primary Care Provider + [phone] Jazmín Chavez-C Unavailable [phone] Reason for Visit * Reason Onset Date Comments MyChart Communication 05/14/2016 Back pain Encounter Details Date Type Department Care Team (Latest Contact Info) Description 05/14/2016 [facility] Skinner [address] [phone] Dulce Calabrese PA-C [address] [place] [address] MyChart Communication (Back pain) Social History Tobacco Use Types Packs/Day Years [...] encounter Miscellaneous Notes * Telephone Encounter - Unique Calderon RN - 05/14/2016 10:31 AM CDT Please see My Chart message below. Unique Leyva computer programming professor [employer] documented in this encounter Plan of Treatment Not on file documented as of this encounter Visit Diagnoses Diagnosis Cervical paraspinal muscle spasm- Primary Spasm of muscle documented in this encounter Additional Health Concerns Infection Onset Date Last Indicated Resolved Time Rule Out COVID-19 12/14/2021 12/14/2021 12/15/2021 11:31 PM CDT Rule Out COVID-19 12/26/2023 12/26/2023 12/26/2023 9:46 PM CDT Assessment Noted Time PHQ-9 Depression Total Score: 5 03/30/20 16 7:14 AM CDT documented as of this encounter Care Teams Water Treatment Operator Relationship Specialty Start Date End Date Sonia Lim MD [address] [place] [address] PCP - General Family Practice 01/20/16 07/31/17 Jazmín Chavez PA-C [address] [place] [address] PCP - General Physician Child & Adolescent Psychiatrist 08/01/17 07/10/20 Jazmín Chavez PA-C [address] [place] [address] PCP - Assigned PCP 03/30/17 12/01/18 Dewey Astorga PA-C [address] [place] [address] PCP - General Physician Child & Adolescent Psychiatrist 07/11/20 11/13/20 Yoli Skinner MD [address] [place] [address] PCP - General Internal Medicine 11/14/20 11/17/20 Dewey Astorga PA-C [address] [place] [address] PCP - General Family Medicine 11/18/20 11/20/21 Johnathan Brand [address] [place] [address] PCP - General Family Medicine 11/21/21 09/23/22 Jazmín Chavez PA-C [address] [place] [address] PCP - General Family Medicine 02/10/23 06/28/24 Jazmín Chavez PA-C [address] [place] [address] Assigned PCP 03/30/17 07/22/20 EarlvilleRosa bazzi RN Personal Advocate & Liaison (PAL) 03/14/20 09/04/20 Dewey Astorga PA-C 3033 [facility] 275 [place] [address] Assigned PCP 07/23/20 08/02/22 Jazmín Chavez PA-C [address] [place] [address] Assigned PCP 08/03/22 08/30/22 [place] [address] [place] [address] Assigned PCP 09/28/22 02/14/23 Jazmín Chavez PA-C [address] [place] [address] Assigned PCP 02/15/23 documented as of this encounter
--- OUTSIDE RECORDS SUMMARY | 2024-07-01 22:19 | XMS_ITS | Encounter Summary ---
Author Organization [facility] Address [address] [place] [address] Care Team Providers Care Director Of Enterprise Architecture Name Role Phone Jazmín Chavez PA-C Primary Care Provider [phone] Jazmín Chavez PA-C Unavailable [phone] Jazmín Chavez PA-C Unavailable [phone] Rosa Gorman RN Unavailable Unavailable Dewey Astorga PA-C Primary Care Provide r Dewey Astorga PA-C Unavailable [phone] Yoli Skinner MD Primary Care Provider Dewey Astorga PA-C Primary Care Provide r Johnathan Brand Primary Care Provider Unavailab le Jazmín Chavez PA-C Unavailable [phone] Johnathan Villanueva DO Unavailable [phone] Jazmín Chavez PA-C Primary Care Provider [phone] Jazmín Chavez PA-C Unavailable [phone] Encounter Details Date Type Department Care Team (Late st Contact Info) Description 09/12/2017 [facility] [id number] [place] [phone] Jazmín Chavez PA-C [address] [place] [address] Social History Tobacco Use Types Packs/Day Years [...] Total Score: 4 08/11/20 17 7:57 AM PAVING PLANT OPERATOR documented as of this encounter Care Teams Director Of Enterprise Architecture Relationship Specialty Start Date End Date Jazmín Chavez PA-C [address] [place] [address] PCP - General Physician Cfa 08/01/17 07/10/20 Jazmín Chavez PA-C [address] [place] [address] PCP - Assigned PCP 03/30/17 12/01/18 Dewey Astorga PA-C [address] [id number] PCP - General Physician Cfa 07/11/20 11/13/20 Yoli Skinner MD [address] [id number] PCP - General Internal Medicine 11/14/20 11/17/20 Dewey Astorga PA-C [address] [facility] 275 [place] [address] PCP - General Family Medicine 11/18/20 11/20/21 Johnathan Brand [address] [facility] 200 [place] [address] PCP - General Family Medicine 11/21/21 09/23/22 Jazmín Chavez PA-C [address] [place] [address] PCP - General Family Medicine 02/10/23 06/28/24 Jazmín Chavez PA-C [address]360 [place] [address] Assigned PCP 03/30/17 07/22/20 Rosa Gorman, DANIEL Personal Advocate & Liaison (PAL) 03/14/20 09/04/20 Dewey Astorga PA-C [address] [address] Assigned PCP 07/23/20 08/02/22 Jazmín Chavez PA-C [address] [place] [address] Assigned PCP 08/03/22 08/30/22 [place] [address] [place] [address] Assigned PCP 09/28/22 02/14/23 Jazmín Chavez PA-C [address] [place] [address] Assigned PCP 02/15/23 documented as of this encounter
--- OUTSIDE RECORDS SUMMARY | 2024-07-01 22:19 | XMS_ITS | Encounter Summary ---
Author Organization [facility] Address [address] [place] [address] Care Team Providers Care Jail Keeper Name Role Phone Sonia Lim MD Primary Care Provider Jazmín Chavez PA-C Primary Care Provider [phone] Jazmín Chavez PA-C Unavailable [phone] Jazmín Chavez-C Unavailable [phone] Rosa Gorman RN Unavailable Unavailable Dewey Astorga PA-C Primary Care Provide r Dewey Astorga PA-C Unavailable [phone] Yoli Skinner MD Primary Care Provider Dewey Astorga PA-C Primary Care Provide r Johnathan Brand Primary Care Provider Unavailab le Jazmín ChavezC Unavailable [phone] Johnathan Villanueva DO Unavailable [phone] Jazmín Chavez PA-C Primary Care Provider + [phone] Jazmín Chavez-C Unavailable [phone] Reason for Visit * Reason Onset Date Comments Patient Request 04/30/2017 Encounter Details Date Type Department Care Team (Late st Contact Info) Description 04/30/2017 [facility] Medical Advice [facility] [address] [place] [address] Jazmín Chvaez PA-C [address] [place] [address] Patient Request Social History Tobacco Use Types [...] Telephone Encounter - Faith Gee RN - 05/15/2017 8:38 AM CDT Jazmín-see mychart message below. Also 2nd message from phone call this am that you responded to already. Please advise. Faith Gee RN documented in this encounter Plan of Treatment Not on file documented as of this encounter Visit Diagnoses Diagnosis Muscle spasm- Primary Spasm of muscle Monilia infection Candidiasis of unspecified site documented in this encounter Additional Health Concerns Infection Onset Date Last Indicated Resolved Time Rule Out COVID-19 12/14/2021 12/14/2021 12/15/2021 11:31 PM CDT Rule Out COVID-19 12/26/2023 12/26/2023 12/26/2023 9:46 PM CDT Assessment Noted Time PHQ-9 Depression Total Score: 5 03/30/20 16 7:14 AM CDT documented as of this encounter Care Teams Jail Keeper Relationship Specialty Start Date End Date Sonia Lim MD [address] [place] [address] PCP - General Family Practice 01/20/16 07/31/17 Jazmín Chavez PA-C [address] [place] [address] PCP - General Physician Neurology Specialist 08/01/17 07/10/20 Jazmín Chavez PA-C [address] [place] [address] PCP - Assigned PCP 03/30/17 12/01/18 Dewey Astorga PA-C [address] [place] [address] PCP - General Physician Neurology Specialist 07/11/20 11/13/20 Yoli Skinner MD [address] [place] [address] PCP - General Internal Medicine 11/14/20 11/17/20 Dewey Astorga PA-C [address] [place] [address] PCP - General Family Medicine 11/18/20 11/20/21 Johnathan Brand [address] [place] [address] PCP - General Family Medicine 11/21/21 09/23/22 Jazmín Chavez PA-C [address] [place] [address] PCP - General Family Medicine 02/10/23 06/28/24 Jazmín Chavez PA-C [address] [place] [address] Assigned PCP 03/30/17 07/22/20 Rosa Gorman, RN Personal Advocate & Liaison (PAL) 03/14/20 09/04/20 Dewey Astorga PA-C [address] [address] Assigned PCP 07/23/20 08/02/22 Jazmín Chavez PA-C [address] [place] [address] Assigned PCP 08/03/22 08/30/22 [place] [address] [place] [address] Assigned PCP 09/28/22 02/14/23 Jazmín Chavez PA-C [address] [place] [address] Assigned PCP 02/15/23 documented as of this encounter
--- OUTSIDE RECORDS SUMMARY | 2024-07-01 22:19 | XMS_ITS | Encounter Summary ---
Author Organization [facility] Address [address] [place] [address] Care Team Providers Care Online Marketer Name Role Phone Jazmín Chavez PA-C Primary Care Provider Jazmín Chavez PA-C Unavailable [phone] Jazmín Chavez PA-C Unavailable [phone] Rosa Gorman RN Unavailable Unavailable Dewey Astorga PA-C Primary Care Provide r Dewey Astorga PA-C Unavailable [phone] Yoli Skinner MD Primary Care Provider Dewey Astorga PA-C Primary Care Provide r Johnathan Brand Primary Care Provider Unavailab le Jazmín Chavez PA-C Unavailable [phone] Johnathan Villanueva DO Unavailable [phone] Jazmín Chavez PA-C Primary Care Provider + [phone] Jazmín Chavez PA-C Unavailable [phone] Reason for Visit * Reason Onset Date Comments Ernsthart Communication 10/02/2017 Encounter Details Date Type Department Care Team (Late st Contact Info) Description 10/02/[address] [address] Jazmín Chavez PA-C [address] [place] [address] MyChart Communication Social History Tobacco Use Types [...] encounter Miscellaneous Notes * Telephone Encounter - Merle Grajeda RN - 10/02/2017 1:07 PM CST Please review Datahero message below Merle Grajeda RN BS' NING SUPERVISOR documented in this encounter Plan of [...] Total Score: 4 08/11/20 17 7:57 AM REFINING SUPERVISOR documented as of this encounter Care Teams Online Marketer Relationship Specialty Start Date End Date Jazmín Chavez PA-C [address] [place] [address] PCP - General Physician Battery Tester 08/01/17 07/10/20 Jazmín Chavez PA-C [address] [place] [address] PCP - Assigned PCP 03/30/17 12/01/18 Dewey Astorga PA-C [address] [place] [address] PCP - General Physician Battery Tester 07/11/20 11/13/20 Yoli Skinner MD [address] [place] [address] PCP - General Internal Medicine 11/14/20 11/17/20 Dewey Astorga PA-C [address] [address] PCP - General Family Medicine 11/18/20 11/20/21 Johnathan Brand [address] [place] [address] PCP - General Family Medicine 11/21/21 09/23/22 Jazmín Chavez PA-C [address] [place] [address] PCP - General Family Medicine 02/10/23 06/28/24 Jazmín Chavez PA-C [address] [place] [address] Assigned PCP 03/30/17 07/22/20 Rosa Gorman, DANIEL Personal Advocate & Liaison (PAL) 03/14/20 09/04/20 Dewey Astorga PA-C [address] [address] Assigned PCP 07/23/20 08/02/22 Jazmín Chavez PA-C [address] [place] [address] Assigned PCP 08/03/22 08/30/22 [place] [address] [place] [address] Assigned PCP 09/28/22 02/14/23 Jazmín Chavez PA-C [address] [place] [address] Assigned PCP 02/15/23 documented as of this encounter
--- OUTSIDE RECORDS SUMMARY | 2024-07-01 22:19 | XMS_ITS | Encounter Summary ---
Author Organization [facility] Address [address] [place] [address] Care Team Providers Care Auto Body Technician Name Role Phone Sonia Lim MD Primary Care Provider Jazmín Chavez PA-C Primary Care Provider [phone] Jazmín Chavez PA-C Unavailable [phone] Jazmín Chavez PA-C Unavailable [phone] Rosa Gorman RN Unavailable Unavailable Dewey Astorga PA-C Primary Care Provide r Dewey Astorga PA-C Unavailable [phone] Yoli Skinner MD Primary Care Provider [phone] Dewey Astorga PA-C Primary Care Provide r Johnathan Brand Primary Care Provider Unavailab le Jazmín Chavez PA-C Unavailable [phone] Johnathan Villanueva DO Unavailable [phone] Jazmín Chavez PA-C Primary Care Provider + [phone] Jazmín Chavez PA-C Unavailable [phone] Reason for Visit * Reason Onset Date Comments MyChart Communication 04/11/2017 request fo r Rx control Encounter Details Date Type Department Care Team (Late st Contact Info) Description 04/11/2017 MyC Medical Advice [facility] [address] [place] [phone] Jazmín Chavez PA-C [address] [place] [address] MyChart Communication (request for Rx cathi... Social History Tobacco Use Types Packs/Day Years [...] encounter Miscellaneous Notes * Telephone Encounter - aNrendra Allison RN - 04/11/2017 7:39 AM CDT Jazmín, E-visit, telephone or office visit? Narendra Allison RN documented in this encounter Plan of [...] documented as of this encounter Care Teams Auto Body Technician Relationship Specialty Start Date End Date Sonia Lim MD [address] [place] [address] PCP - General Family Practice 01/20/16 07/31/17 Jazmín Chavez PA-C [address] [place] [address] PCP - General Physician Grinding Operator 08/01/17 07/10/20 Jazmín Chavez PA-C [address] [place] [address] PCP - Assigned PCP 03/30/17 12/01/18 Dewey Astorga PA-C [address] [place] [address] PCP - General Physician Grinding Operator 07/11/20 11/13/20 Yoli Skinner MD [address] [place] [address] PCP - General Internal Medicine 11/14/20 11/17/20 Dewey Astorga PA-C [address] [place] [address] PCP - General Family Medicine 11/18/20 11/20/21 Johnathan Brand [address] [place] [address] PCP - General Family Medicine 11/21/21 09/23/22 Jazmín Chavez PA-C [address] [place] [address] PCP - General Family Medicine 02/10/23 06/28/24 Jazmín Chavez PA-C [address] [place] [address] Assigned PCP 03/30/17 07/22/20 Rosa Gorman, RN Personal Advocate & Liaison (PAL) 03/14/20 09/04/20 Dewey Astorga PA-C [address] [address] Assigned PCP 07/23/20 08/02/22 Jazmín Chavez PA-C [address] [place] [address] Assigned PCP 08/03/22 08/30/22 [place] [address] [place] [address] Assigned PCP 09/28/22 02/14/23 Jazmín Chavez PA-C [address] [place] [address] Assigned PCP 02/15/23 documented as of this encounter
--- OUTSIDE RECORDS SUMMARY | 2024-07-01 22:19 | XMS_ITS | Encounter Summary ---
Author Organization [facility] Address [address] [place] [address] Care Team Providers Care Account Manager Sales Representative Name Role Phone Belinda Almaraz MD Primary Care Provider Jazmín Chavez PA-C Primary Care Provider Jazmín Chavez PA-C Unavailable [phone] Jazmín ChavezC Unavailable [phone] Rosa Gorman RN Unavailable Unavailable Dewey Astorga PA-C Primary Care Provide r Dewey Astorga PA-C Unavailable [phone] Yoli Skinner MD Primary Care Provider Dewey Astorga PA-C Primary Care Provide r Johnathan Brand Primary Care Provider Unavailab le Jazmín ChavezC Unavailable [phone] Johnathan Villanueva DO Unavailable [phone] Jazmín Chavez PA-C Primary Care Provider + [phone] Jazmín Chavez-C Unavailable [phone] Reason for Visit * Reason Onset Date Comments MyChart Communication 03/01/2016 refill req uest Encounter Details Date Type Department Care Team (Latest Contact Info) Description 03/01/2016 MyC Medical Advice [facility] [address] [place] [address] Alma Kline, ZARINA CERTIFIED FINANCIAL PLANNER [address] [place] [address] MyChart Communication (refill request) Social History Tobacco Use Types Packs/Day Years [...] encounter Miscellaneous Notes * Telephone Encounter - Alyce Tanner - 03/01/2016 1:42 PM CDT Pending Prescriptions: Disp Refills methylphenidate (RITALIN) 10 MG tablet 30 tab*0 Sig: Take 1 tab in the evening twice weekly for late class or in addition to 1 -20mg tablet if side effects on 40mg total methylphenidate (RITALIN) 20 MG tablet 120 ta*0 Sig: Take 2 tablets (40 mg) by mouth 2 times daily Controlled Substance Refill Request for Ritalin Problem List Complete: Yes Patient is followed by BELINDA ALMARAZ for ongoing prescription of stimulants.?? All refillsshould be approved by this provider, or covering partner. Medication(s): ritalin 20mg IR 2 tabs twice daily and 10mg IR for breakthrough Maximum quantity per month: #30 of each Clinic visit frequency required: Q 3 months Controlled substance agreement on file: Yes ? Date(s): 11/08/2015 Neuropsych evaluation for ADD completed:?? [facility] [address] [facility] , not on file Last [facility] website verification:?? done on 11/08/2015 CHIEF LOCK OPERATOR checked in past 6 months? 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 documented in this encounter Additional Health Concerns Infection Onset Date Last Indicated Resolved Time Rule Out COVID-19 12/14/2021 12/14/2021 12/15/2021 11:31 PM CDT Rule Out COVID-19 12/26/2023 12/26/2023 12/26/2023 9:46 PM CDT documented as of this encounter Care Teams Account Manager Sales Representative Relationship Specialty Start Date End Date Belinda Almaraz MD [address] [place], [place] [address] PCP - General Family Practice 01/20/16 07/31/17 Jazmín Chavez PA-C [address] [place] [address] PCP - General Physician Medical Massage Therapist 08/01/17 07/10/20 Jazmín Chavez PA-C [address] [place] [address] PCP - Assigned PCP 03/30/17 12/01/18 Dewey Astorga PA-C [address] [place], [place] [address] PCP - General Physician Medical Massage Therapist 07/11/20 11/13/20 Yoli Skinner MD [address] [place], [place] [address] PCP - General Internal Medicine 11/14/20 11/17/20 Dewey Astorga PA-C [address] [place], [place] [address] PCP - General Family Medicine 11/18/20 11/20/21 Johnathan Brand [address] [facility] 200 [place] [address] PCP - General Family Medicine 11/21/21 09/23/22 Jazmín Chavez PA-C [address] [place] [address] PCP - General Family Medicine 02/10/23 06/28/24 Jazmín Chavez PA-C [address] [place] [address] Assigned PCP 03/30/17 07/22/20 Rosa Gorman RN Personal Advocate & Liaison (PAL) 03/14/20 09/04/20 Dewey Astorga PA-C [address] [facility] [address] [place] [address] Assigned PCP 07/23/20 08/02/22 Jazmín Chavez PA-C [address] [place] [address] Assigned PCP 08/03/22 08/30/22 [place] [address] [place] [address] Assigned PCP 09/28/22 02/14/23 Jazmín Chavez PA-C [address] [place] [address] Assigned PCP 02/15/23 documented as of this encounter
--- OUTSIDE RECORDS SUMMARY | 2024-07-01 22:19 | XMS_ITS | Encounter Summary ---
Author Organization [facility] Address [address] [place] [address] Care Team Providers Care Medical Billing Supervisor Name Role Phone Sonia Lim MD Primary Care Provider Jazmín Chavez PA-C Primary Care Provider Jazmín Chavez PA-C Unavailable [phone] Jazmín Chavez-C Unavailable [phone] Rosa Gorman RN Unavailable Unavailable Dewey Astorga PA-C Primary Care Provide r Dewey Astorga PA-C Unavailable [phone] Yoli Skinner MD Primary Care Provider Dewey Astorga PA-C Primary Care Provide r Johnathan Brand Primary Care Provider Unavailab le Jazmín ChavezC Unavailable [phone] Johnathan Villanueva DO Unavailable [phone] Jazmín ChavezC Primary Care Provider + [phone] Jazmín Chavez-C Unavailable [phone] Reason for Visit * Reason Onset Date Comments MyChart Communication 01/31/2017 Epi-pen Encounter Details Date Type Department Care Team (Late st Contact Info) Description 01/31/2017 MyC Medical [facility] [address] [place] [address] Jazmín Chavez PA-C [address] [place] [address] MyChart Communication (Epi-pen) Social History Tobacco Use Types Packs/Day Years [...] as of this encounter Visit Diagnoses Diagnosis Bee sting allergy Toxic effect of venom documented in this encounter Additional Health Concerns Infection Onset Date Last Indicated Resolved Time Rule Out COVID-19 12/14/2021 12/14/2021 12/15/2021 11:31 PM CDT Rule Out COVID-19 12/26/2023 12/26/2023 12/26/2023 9:46 PM CDT Assessment Noted Time PHQ-9 Depression Total Score: 5 03/30/20 16 7:14 AM CDT documented as of this encounter Care Teams Medical Billing Supervisor Relationship Specialty Start Date End Date Sonia Lim MD [address] [place] [address] PCP - General Family Practice 01/20/16 07/31/17 Jazmín Chavez PA-C [address] [place] [address] PCP - General Physician Diesel Engine Erector 08/01/17 07/10/20 Jazmín Chavez PA-C [address] [place] [address] PCP - Assigned PCP 03/30/17 12/01/18 Dewey Astorga PA-C [address] [place] [address] PCP - General Physician Diesel Engine Erector 07/11/20 11/13/20 Yoli Skinner MD [address] [place] [address] PCP - General Internal Medicine 11/14/20 11/17/20 Dewey Astorga PA-C [address] [address] PCP - General Family Medicine 11/18/20 11/20/21 Johnathan Brand [address] [place] [address] PCP - General Family Medicine 11/21/21 09/23/22 Jazmín Chavez PA-C [address] [place] [address] PCP - General Family Medicine 02/10/23 06/28/24 Jazmín Chavez PA-C [address] [place] [address] Assigned PCP 03/30/17 07/22/20 Rosa Gorman, DANIEL Personal Advocate & Liaison (PAL) 03/14/20 09/04/20 Dewey Astorga PA-C [address] [address] Assigned PCP 07/23/20 08/02/22 Jazmín Chavez PA-C [address] [place] [address] Assigned PCP 08/03/22 08/30/22 [place] [address] [place] [address] Assigned PCP 09/28/22 02/14/23 Jazmín Chavez PA-C [address] [place] [address] Assigned PCP 02/15/23 documented as of this encounter
--- OUTSIDE RECORDS SUMMARY | 2024-07-01 22:19 | XMS_ITS | Encounter Summary ---
Author Organization [facility] Address [address] [place] [address] Care Team Providers Care Merchandiser Seasonal Name Role Phone Jazmín Chavez PA-C Primary Care Provider [phone] Jazmín Chavez PA-C Unavailable [phone] Jazmín Chavez PA-C Unavailable [phone] Rosa Gorman RN Unavailable Unavailable Dewey Astorga PA-C Primary Care Provide r Dewey Astorga PA-C Unavailable [phone] Yoli Skinner MD Primary Care Provider Dewey Astorga PA-C Primary Care Provide r Johnathan Brand Primary Care Provider Unavailab le Jazmín Chavez PA-C Unavailable [phone] Johnathan Villanueva DO Unavailable [phone] Jazmín Chavez PA-C Primary Care Provider [phone] Jazmín Chavez PA-C Unavailable [phone] Encounter Details Date Type Department Care Team (Late st Contact Info) Description 08/07/2017 [facility] [address] [place] [address] Jazmín Chavez PA-C [address] [place] [address] Social History Tobacco Use Types Packs/Day Years [...] documented as of this encounter Care Teams Merchandiser Seasonal Relationship Specialty Start Date End Date Jazmín Chavez PA-C [address] [place] [address] PCP - General Physician Pet Food Deboner 08/01/17 07/10/20 Jazmín Chavez PA-C [address] [place] [address] PCP - Assigned PCP 03/30/17 12/01/18 Dewey Astorga PA-C [address] [id number] PCP - General Physician Pet Food Deboner 07/11/20 11/13/20 Yoli Skinner MD [address] [id number] PCP - General Internal Medicine 11/14/20 11/17/20 Dewey Astorga PA-C [address] [facility] 275 [place] [address] PCP - General Family Medicine 11/18/20 11/20/21 Johnathan Brand [address] [facility] 200 [place] [address] PCP - General Family Medicine 11/21/21 09/23/22 Jazmín Chavez PA-C [address] [place] [address] PCP - General Family Medicine 02/10/23 06/28/24 Jazmín Chavez PA-C [address] [place] [address] Assigned PCP 03/30/17 07/22/20 Rosa Gorman, DANIEL Personal Advocate & Liaison (PAL) 03/14/20 09/04/20 Dewey Astorga PA-C [address] [address] Assigned PCP 07/23/20 08/02/22 Jazmín Chavez PA-C [address] [place] [address] Assigned PCP 08/03/22 08/30/22 [place] [address] [place] [address] Assigned PCP 09/28/22 02/14/23 Jazmín Chavez PA-C [address] [place] [address] Assigned PCP 02/15/23 documented as of this encounter
--- OUTSIDE RECORDS SUMMARY | 2024-07-01 22:19 | XMS_ITS | Encounter Summary ---
Author Organization [facility] Address [address] [place] [address] Care Team Providers Care Cleaning Maid Name Role Phone Jazmín Chavez PA-C Primary Care Provider Jazmín Chavez PA-C Unavailable [phone] Jazmín Chavez PA-C Unavailable [phone] Rosa Gorman RN Unavailable Unavailable Dewey Astorga PA-C Primary Care Provide r Dewey Astorga PA-C Unavailable [phone] Yoli Skinner MD Primary Care Provider Dewey Astorga PA-C Primary Care Provide r Johnathan Brand Primary Care Provider Unavailab le Jazmín Chavez PA-C Unavailable [phone] Johnathan Villanueva DO Unavailable Jazmín Chavez PA-C Primary Care Provider + [phone] Jazmín Chavez PA-C Unavailable [phone] Reason for Visit * Reason Onset Date Comments MyChart Communication 09/16/2017 derm probl em Encounter Details Date Type Department Care Team (Late st Contact Info) Description 09/16/2017 [facility] [address] [address] Jazmín Chavez PA-C [address] [place] [address] MyChart Communication (derm problem) Social History Tobacco [...] encounter Miscellaneous Notes * Telephone Encounter - Zeina Zuñiga - 09/16/2017 7:59 PM CST Patient is scheduled to see Dr. Bullard at [facility] but would like to see if Jazmín can work her in for an appointment tomorrow? Please call to discuss as soon as possible. She is scheduled to see Dr. Bullard at 840am. Zeina Blunt Steam Shovel Runner OF [employer]IME [employer]LAK[employer] documented in this encounter Plan of Treatment Not on file documented as of this encounter Visit Diagnoses Not on filedocumented in this encounter Additional Health Concerns Infection Onset Date Last Indicated Resolved Time Rule Out COVID-19 12/14/2021 12/14/2021 12/15/2021 11:31 PM CDT Rule Out COVID-19 12/26/2023 12/26/2023 12/26/2023 9:46 PM CDT Assessment Noted Time PHQ-9 Depression Total Score: 4 08/11/20 17 7:57 AM MILK OF LIME SLAKER documented as of this encounter Care Teams Cleaning Maid Relationship Specialty Start Date End Date Jazmín Chavez PA-C [address] [place] [address] PCP - General Physician Sales Utility Representative 08/01/17 07/10/20 Jazmín Chavez PA-C [address] [place] [address] PCP - Assigned PCP 03/30/17 12/01/18 Dewey Astorga PA-C [address] [place] [address] PCP - General Physician Sales Utility Representative 07/11/20 11/13/20 Yoli Skinner MD [address] [place] [address] PCP - General Internal Medicine 11/14/20 11/17/20 Dewey Astorga PA-C [address] [address] PCP - General Family Medicine 11/18/20 11/20/21 Johnathan Brand [address] [place] [address] PCP - General Family Medicine 11/21/21 09/23/22 Jazmín Chavez PA-C [address] [place] [address] PCP - General Family Medicine 02/10/23 06/28/24 Jazmín Chavez PA-C [address] [place] [address] Assigned PCP 03/30/17 07/22/20 Rosa Gorman, DANIEL Personal Advocate & Liaison (PAL) 03/14/20 09/04/20 Dewey Astorga PA-C [address] [address] Assigned PCP 07/23/20 08/02/22 Jazmín Chavez PA-C [address] [place] [address] Assigned PCP 08/03/22 08/30/22 [place] [address] [place] [address] Assigned PCP 09/28/22 02/14/23 Jazmín Chavez PA-C [address] [place] [address] Assigned PCP 02/15/23 documented as of this encounter
--- OUTSIDE RECORDS SUMMARY | 2024-07-01 22:19 | XMS_ITS | Encounter Summary ---
Author Organization [facility] Address [address] [place] [address] Care Team Providers Care Funding Coordinator Name Role Phone Jazmín Chavez PA-C Primary Care Provider Jazmín Chavez PA-C Unavailable [phone] Jazmín Chavez-C Unavailable [phone] Rosa Gorman RN Unavailable Unavailable Dewey Astorga PA-C Primary Care Provide r Dewey Astorga PA-C Unavailable [phone] Yoli Skinner MD Primary Care Provider [phone] Dewey Astorga PA-C Primary Care Provide r Johnathan Brand Primary Care Provider Unavailab le Jazmín Chavez-C Unavailable [phone] Johnathan Villanueva DO Unavailable [phone] Jazmín ChavezC Primary Care Provider [phone] Jazmín Chavez-C Unavailable [phone] Encounter Details Date Type Department Care Team (Late st Contact Info) Description 10/10/2017 [facility] [address] [address] Micaela Baker MD [address] [place] [address] Social History Tobacco Use Types Packs/Day Years [...] Telephone Encounter - Micaela Baker MD - 10/10/2017 2:25 PM CST This is fine, we can order at her appointment. Micaela Baker MD MUTUEL TICKET CHECKER documented in this encounter Plan of Treatment Not on file documented as of this encounter Visit Diagnoses Not on filedocumented in this encounter Additional Health Concerns Infection Onset Date Last Indicated Resolved Time Rule Out COVID-19 12/14/2021 12/14/2021 12/15/2021 11:31 PM CDT Rule Out COVID-19 12/26/2023 12/26/2023 12/26/2023 9:46 PM CDT Assessment Noted Time PHQ-9 Depression Total Score: 4 08/11/20 17 7:57 AM PARIMUTUEL TICKET CHECKER documented as of this encounter Care Teams Funding Coordinator Relationship Specialty Start Date End Date Jazmín Chavez PA-C [address] [place] [address] PCP - General Physician Commercial Teller 08/01/17 07/10/20 Jazmín Chavez PA-C [address] [place] [address] PCP - Assigned PCP 03/30/17 12/01/18 Dewey Astorga PA-C [address] [place] [address] PCP - General Physician Commercial Teller 07/11/20 11/13/20 Yoli Skinner MD [address] [place] [address] PCP - General Internal Medicine 11/14/20 11/17/20 Dewey Astorga PA-C [address] [place] [address] PCP - General Family Medicine 11/18/20 11/20/21 Johnathan Brand [address] [place] [address] PCP - General Family Medicine 11/21/21 09/23/22 Jazmín Chavez PA-C [address] [place] [address] PCP - General Family Medicine 02/10/23 06/28/24 Jazmín Chavez PA-C [address] [place] [address] Assigned PCP 03/30/17 07/22/20 Rosa Gorman, DANIEL Personal Advocate & Liaison (PAL) 03/14/20 09/04/20 Dewey Astorga PA-C [address] [place] [address] Assigned PCP 07/23/20 08/02/22 Jazmín Chavez PA-C [address] [place] [address] Assigned PCP 08/03/22 08/30/22 [place] [address] [place] [address] Assigned PCP 09/28/22 02/14/23 Jazmín Chavez PA-C [address] [place] [address] Assigned PCP 02/15/23 documented as of this encounter
--- OUTSIDE RECORDS SUMMARY | 2024-07-01 22:19 | XMS_ITS | Encounter Summary ---
Author Organization [facility] Address [address] [place] [address] Care Team Providers Care Crosscutter Name Role Phone Sonia Lim MD Primary Care Provider Jazmín Chavez PA-C Primary Care Provider [phone] Jazmín Chavez PA-C Unavailable [phone] Jazmín Chavez-C Unavailable [phone] Rosa Gorman RN Unavailable Unavailable Dewey Astorga PA-C Primary Care Provide r Dewey Astorga PA-C Unavailable [phone] Yoli Skinner MD Primary Care Provider [phone] Dewey Astorga PA-C Primary Care Provide r Johnathan Brand Primary Care Provider Unavailab le Jazmín Chavez-C Unavailable [phone] Johnathan Villanueva DO Unavailable [phone] Jazmín ChavezC Primary Care Provider + [phone] Jazmín Chavez-C Unavailable [phone] Reason for Visit * Reason Onset Date Comments MyChart Communication 04/18/2016 Encounter Details Date Type Department Care Team (Latest Contact Info) Description 04/18/2016 [facility] Skinner [address] [phone] Dulce Calabrese PA-C [address] [place] [address] MyChart Communication Social History Tobacco Use Types [...] encounter Miscellaneous Notes * Telephone Encounter - Rubia Montana RN - 04/19/2016 3:51 PM CDT Please see ecobee message string below. Please advise. Thank you. Rubia Montana RN, BSN [facility] documented in this encounter Plan of Treatment Not on file documented as of this encounter Visit Diagnoses Diagnosis Bacterial vaginosis- Primary Vaginitis and vulvovaginitis, unspecified documented in this encounter Additional Health Concerns Infection Onset Date Last Indicated Resolved Time Rule Out COVID-19 12/14/2021 12/14/2021 12/15/2021 11:31 PM CDT Rule Out COVID-19 12/26/2023 12/26/2023 12/26/2023 9:46 PM CDT Assessment Noted Time PHQ-9 Depression Total Score: 5 03/30/20 16 7:14 AM CDT documented as of this encounter Care Teams Crosscutter Relationship Specialty Start Date End Date Sonia Lim MD [address] [place] [address] PCP - General Family Practice 01/20/16 07/31/17 Jazmín Chavez PA-C [address] [place] [address] PCP - General Physician Merchandising Manager 08/01/17 07/10/20 Jazmín Chavez PA-C [address] [place] [address] PCP - Assigned PCP 03/30/17 12/01/18 Dewey Astorga PA-C [address] [place] [address] PCP - General Physician Merchandising Manager 07/11/20 11/13/20 Yoli Skinner MD [address] [place] [address] PCP - General Internal Medicine 11/14/20 11/17/20 Dewey Astorga PA-C [address] [place] [address] PCP - General Family Medicine 11/18/20 11/20/21 Johnathan Brand [address] [place] [address] PCP - General Family Medicine 11/21/21 09/23/22 Jazmín Chavez PA-C [address] [place] [address] PCP - General Family Medicine 02/10/23 06/28/24 Jazmín Chavez PA-C [address] [place] [address] Assigned PCP 03/30/17 07/22/20 Rosa Gorman, DANIEL Personal Advocate & Liaison (PAL) 03/14/20 09/04/20 Dewey Astorga PA-C 3033 [facility] 275 [place] [address] Assigned PCP 07/23/20 08/02/22 Jazmín Chavez PA-C [address] [place] [address] Assigned PCP 08/03/22 08/30/22 [place] [address] [place] [address] Assigned PCP 09/28/22 02/14/23 Jazmín Chavez PA-C [address] [place] [address] Assigned PCP 02/15/23 documented as of this encounter
--- OUTSIDE RECORDS SUMMARY | 2024-07-01 22:19 | XMS_ITS | Encounter Summary ---
Author Organization [facility] Address [address] [place] [address] Care Team Providers Care Sugar Cane Planter Name Role Phone Sonia Lim MD Primary Care Provider Jazmín Chavez PA-C Primary Care Provider [phone] Jazmín Chavez PA-C Unavailable [phone] Jazmín ChavezC Unavailable [phone] Rosa Gorman RN Unavailable Unavailable Dewey Astorga PA-C Primary Care Provide r Dewey Astorga PA-C Unavailable [phone] Yoli Skinner MD Primary Care Provider [phone] Dewey Astorga PA-C Primary Care Provide r Johnathan Brand Primary Care Provider Unavailab le Jazmín ChavezC Unavailable [phone] Johnathan Villanueva DO Unavailable [phone] Jazmín Chavez PA-C Primary Care Provider + [phone] Jazmín Chavez-C Unavailable Reason for Visit * Reason Onset Date Comments Thyroid Problem 03/14/2017 Encounter Details Date Type Department Care Team (Late st Contact Info) Description 03/14/2017 MyC Medical Advice [facility] [address] [place] [address] Jazmín Chavez PA-C [address] [place] [address] Thyroid Problem Social History Tobacco Use Types Packs/Day [...] Telephone Encounter - Faith Gee RN - 03/14/2017 2:09 PM CDT Jazmín-see Apsmarthart message below. Lab is in process. Please advise. Faith Gee RN documented in [...] documented as of this encounter Care Teams Sugar Cane Planter Relationship Specialty Start Date End Date Sonia Lim MD [address] [place] [address] PCP - General Family Practice 01/20/16 07/31/17 Jazmín Chavez PA-C [address] [place] [address] PCP - General Physician Candy Spreader Helper 08/01/17 07/10/20 Jazmín Chavez PA-C [address] [place] [address] PCP - Assigned PCP 03/30/17 12/01/18 Dewey Astorga PA-C [address] [place] [address] PCP - General Physician Candy Spreader Helper 07/11/20 11/13/20 Yoli Skinner MD [address] [place] [address] PCP - General Internal Medicine 11/14/20 11/17/20 Dewey Astorga PA-C [address] [place] [address] PCP - General Family Medicine 11/18/20 11/20/21 Johnathan Brand [address] [place] [address] PCP - General Family Medicine 11/21/21 09/23/22 Jazmín Chavez PA-C [address] [place] [address] PCP - General Family Medicine 02/10/23 06/28/24 Jazmín Chavez PA-C [address] [place] [address] Assigned PCP 03/30/17 07/22/20 Rosa Gorman, DANIEL Personal Advocate & Liaison (PAL) 03/14/20 09/04/20 Dewey Astorga PA-C [address] [place] [address] Assigned PCP 07/23/20 08/02/22 Jazmín Chavez PA-C [address] [place] [address] Assigned PCP 08/03/22 08/30/22 [place] [address] [place] [address] Assigned PCP 09/28/22 02/14/23 Jazmín Chavez PA-C [address] [place] [address] Assigned PCP 02/15/23 documented as of this encounter
--- OUTSIDE RECORDS SUMMARY | 2024-07-01 22:19 | XMS_ITS | Encounter Summary ---
Author Organization [facility] Address [address] [place] [address] Care Team Providers Care Clip And Hanger Attacher Name Role Phone Jazmín Chavez PA-C Primary Care Provider Jazmín Chavez PA-C Unavailable [phone] Jazmín Chavez-C Unavailable [phone] Rosa Gorman RN Unavailable Unavailable Dewey Astorga PA-C Primary Care Provide r Dewey Astorga PA-C Unavailable [phone] Yoli Skinner MD Primary Care Provider Dewey Astorga PA-C Primary Care Provide r Johnathan Brand Primary Care Provider Unavailab le Jazmín Chavez-C Unavailable [phone] Johnathan Villanueva DO Unavailable [phone] Jazmín ChavezC Primary Care Provider [phone] Jazmín Chavez-C Unavailable [phone] Encounter Details Date Type Department Care Team (Late st Contact Info) Description 10/10/2017 [facility] [address] [address] Micaela Baker MD [address] [place] [address] Social History Tobacco Use Types Packs/Day Years [...] Total Score: 4 08/11/20 17 7:57 AM STAMP ANALYST documented as of this encounter Care Teams Clip And Hanger Attacher Relationship Specialty Start Date End Date Jazmín Chavez PA-C [address] [place] [address] PCP - General Physician Assembly Leader 08/01/17 07/10/20 Jazmín Chavez PA-C [address] [place] [address] PCP - Assigned PCP 03/30/17 12/01/18 Dewey Astorga PA-C [address] 633046 PCP - General Physician Assembly Leader 07/11/20 11/13/20 Yoli Skinner MD [address] 558487 PCP - General Internal Medicine 11/14/20 11/17/20 Dewey Astorga PA-C [address] [facility] 275 [place] [address] PCP - General Family Medicine 11/18/20 11/20/21 Johnathan Brand [address] [facility] 200 [place] [address] PCP - General Family Medicine 11/21/21 09/23/22 Jazmín Chavez PA-C [address] [place] [address] PCP - General Family Medicine 02/10/23 06/28/24 Jazmín Chavez PA-C [address] [place] [address] Assigned PCP 03/30/17 07/22/20 Rosa Gorman, DANIEL Personal Advocate & Liaison (PAL) 03/14/20 09/04/20 Dewey Astorga PA-C [address] [address] Assigned PCP 07/23/20 08/02/22 Jazmín Chavez PA-C [address] [place] [address] Assigned PCP 08/03/22 08/30/22 [place] [address] [place] [address] Assigned PCP 09/28/22 02/14/23 Jazmín Chavez PA-C [address] [place] [address] Assigned PCP 02/15/23 documented as of this encounter
--- OUTSIDE RECORDS SUMMARY | 2024-07-01 22:19 | XMS_ITS | Encounter Summary ---
Author Organization [facility] Address [address] [place] [address] Care Team Providers Care Mulling Machine Operator Name Role Phone Jazmín hCavez PA-C Primary Care Provider Jazmín Chavez PA-C Unavailable [phone] Jazmín Chavez-C Unavailable [phone] Rosa Gorman RN Unavailable Unavailable Dewey Astorga PA-C Primary Care Provide r Dewey Astorga PA-C Unavailable [phone] Yoli Skinner MD Primary Care Provider [phone] Dewey Astorga PA-C Primary Care Provide r Johnathan Brand Primary Care Provider Unavailab le Jazmín Chavez-C Unavailable [phone] Johnathan Villanueva DO Unavailable [phone] Jazmín ChavezC Primary Care Provider [phone] Jazmín Chavez-C Unavailable [phone] Encounter Details Date Type Department Care Team (Late st Contact Info) Description 10/10/2017 [facility] [address] [address] Micaela Baker MD [address] [place] [address] Social History Tobacco Use Types Packs/Day Years [...] Total Score: 4 08/11/20 17 7:57 AM CLINICAL TRANSFORMATION SPECIALIST documented as of this encounter Care Teams Mulling Machine Operator Relationship Specialty Start Date End Date Jazmín Chavez PA-C [address] [place] [address] PCP - General Physician Knife Edger 08/01/17 07/10/20 Jazmín Chavez PA-C [address] [place] [address] PCP - Assigned PCP 03/30/17 12/01/18 Dewey Astorga PA-C [address] 431896 PCP - General Physician Knife Edger 07/11/20 11/13/20 Yoli Skinner MD [address] 968657 PCP - General Internal Medicine 11/14/20 11/17/20 Dewey Astorga PA-C [address] [facility] 275 [place] [address] PCP - General Family Medicine 11/18/20 11/20/21 Johnathan Brand [address] [facility] 200 [place] [address] PCP - General Family Medicine 11/21/21 09/23/22 Jazmín Chavez PA-C [address] [place] [address] PCP - General Family Medicine 02/10/23 06/28/24 Jazmín Chavez PA-C [address] [place] [address] Assigned PCP 03/30/17 07/22/20 Rosa Gorman, DANIEL Personal Advocate & Liaison (PAL) 03/14/20 09/04/20 Dewey Astorga PA-C [address] [address] Assigned PCP 07/23/20 08/02/22 Jazmín Chavez PA-C [address] [place] [address] Assigned PCP 08/03/22 08/30/22 [place] [address] [place] [address] Assigned PCP 09/28/22 02/14/23 Jazmín Chavez PA-C [address] [place] [address] Assigned PCP 02/15/23 documented as of this encounter
--- OUTSIDE RECORDS SUMMARY | 2024-07-01 22:19 | XMS_ITS | Encounter Summary ---
Author Organization [facility] Address [address] [place] [address] Care Team Providers Care Drop Hammer Pile Driver Operator Name Role Phone Sonia Lim MD Primary Care Provider Jazmín Chavez PA-C Primary Care Provider [phone] Jazmín Chavez PA-C Unavailable [phone] Jazmín ChavezC Unavailable [phone] Rosa Gorman RN Unavailable Unavailable Dewey Astorga PA-C Primary Care Provide r Dewey Astorga PA-C Unavailable [phone] Yoli Skinner MD Primary Care Provider [phone] Dewey Astorga PA-C Primary Care Provide r Johnathan Brand Primary Care Provider Unavailab le Jazmín ChavezC Unavailable [phone] Johnathan Villanueva DO Unavailable [phone] Jazmín Chavez PA-C Primary Care Provider + [phone] Jazmín Chavez-C Unavailable [phone] Reason for Visit * Reason Onset Date Comments Referral 04/13/2016 podiatry Encounter Details Date Type Department Care Team (Late st Contact Info) Description 04/13/2016 [facility] [address] [phone] Dulce Calabrese PA-C [address] [place] [address] Referral (podiatry) Social History Tobacco Use Types Packs/Day Years [...] encounter Miscellaneous Notes * Telephone Encounter - Haley Bernard RN - 04/15/2016 9:41 AM CDT Please see [employer] message below Carmella Bernard RN- Triage [employer] documented in this encounter Plan of Treatment [...] documented as of this encounter Care Teams Drop Hammer Pile Driver Operator Relationship Specialty Start Date End Date Sonia Lim MD 4151 [place] [address] PCP - General Family Practice 01/20/16 07/31/17 Jazmín Chavez PA-C [address] [place] [address] PCP - General Physician Department Coordinator 08/01/17 07/10/20 Jazmín Chavez PA-C [address] [place] [address] PCP - Assigned PCP 03/30/17 12/01/18 Dewey Astorga PA-C [address] [place] [address] [place] [address] PCP - General Physician Department Coordinator 07/11/20 11/13/20 Yoli Skinner MD [address] [place] [address] PCP - General Internal Medicine 11/14/20 11/17/20 Dewey Astorga PA-C [address] [place] [address] [place] [address] PCP - General Family Medicine 11/18/20 11/20/21 Johnathan Brand [address] [place] [address] PCP - General Family Medicine 11/21/21 09/23/22 Jazmín Chavez PA-C [address] [place] [address] PCP - General Family Medicine 02/10/23 06/28/24 Jazmín Chavez PA-C [address] [place] [address] Assigned PCP 03/30/17 07/22/20 Rosa Gorman, DANIEL Personal Advocate & Liaison (PAL) 03/14/20 09/04/20 Dewey Astorga PA-C [address] [place] [address] [place] [address] Assigned PCP 07/23/20 08/02/22 Jazmín Chavez PA-C [address] [place] [address] Assigned PCP 08/03/22 08/30/22 [place] [address] [place] [address] Assigned PCP 09/28/22 02/14/23 Jazmín Chavez PA-C [address] [place] [address] Assigned PCP 02/15/23 documented as of this encounter
--- OUTSIDE RECORDS SUMMARY | 2024-07-01 22:19 | XMS_ITS | Encounter Summary ---
Author Organization [facility] Address [address] [place] [address] Care Team Providers Care Market Director Name Role Phone Sonia Lim MD Primary Care Provider Jazmín Chavez PA-C Primary Care Provider [phone] Jazmín Chavez PA-C Unavailable [phone] Jazmín Chavez-C Unavailable [phone] Rosa Gorman RN Unavailable Unavailable Dewey Astorga PA-C Primary Care Provide r Dewey Astorga PA-C Unavailable [phone] Yoli Skinner MD Primary Care Provider Dewey Astorga PA-C Primary Care Provide r Johnathan Brand Primary Care Provider Unavailab le Jazmín Chavez-C Unavailable [phone] Johnathan Villanueva DO Unavailable [phone] Jazmín ChavezC Primary Care Provider + [phone] Jazmín Chavez-C Unavailable [phone] Reason for Visit * Reason Onset Date Comments MyChart Communication 12/11/2016 Encounter Details Date Type Department Care Team (Late st Contact Info) Description 12/11/2016 [facility] [address] [place] [address] Jazmín Chavez PA-C [id number] [place] [address] [employer] Communication Social History Tobacco Use Types Packs/Day [...] encounter Miscellaneous Notes * Telephone Encounter - Sandy Elkins RN - 12/13/2016 7:08 AM CDT Pt. Requesting PO Diflucan d/t yeast infection. Pt. C/o vaginal itching with discharge. Would like to use PO versus topical. Please advise. Pharm td'up. See [employer] message for additional info. Sandy Elkins, RN, BSN, PHN documented in this encounter Plan of Treatment Not on file documented as of this encounter Visit Diagnoses Diagnosis Abbi infection- Primary Candidiasis of unspecified site documented in this encounter Additional Health Concerns Infection Onset Date Last Indicated Resolved Time Rule Out COVID-19 12/14/2021 12/14/2021 12/15/2021 11:31 PM CDT Rule Out COVID-19 12/26/2023 12/26/2023 12/26/2023 9:46 PM CDT Assessment Noted Time PHQ-9 Depression Total Score: 5 03/30/20 16 7:14 AM CDT documented as of this encounter Care Teams Market Director Relationship Specialty Start Date End Date Sonia Lim MD [address] [place] [address] PCP - General Family Practice 4/23/16 11/2/17 Jazmín Chavez PA-C [address] [place] [address] PCP - General Physician Long Term 08/01/17 07/10/20 Jazmín Chavez PA-C [address] [place] [address] PCP - Assigned PCP 03/30/17 12/01/18 Dewey Astorga PA-C [address] [address] PCP - General Physician Long Term 07/11/20 11/13/20 Yoli Skinner MD [address] [place] [address] PCP - General Internal Medicine 11/14/20 11/17/20 Dewey Astorga PA-C [address] [address] PCP - General Family Medicine 11/18/20 11/20/21 Johnathan Brand [address] [place] [address] PCP - General Family Medicine 11/21/21 09/23/22 Jazmín Chavez PA-C [address] [place] [address] PCP - General Family Medicine 02/10/23 06/28/24 Jazmín Chavez PA-C [address] [place] [address] Assigned PCP 03/30/17 07/22/20 Rosa Gorman, DANIEL Personal Advocate & Liaison (PAL) 03/14/20 09/04/20 Dewey Astorga PA-C [address] [place] [address] [place] [address] Assigned PCP 07/23/20 08/02/22 Jazmín Chavez PA-C [address] [place] [address] Assigned PCP 08/03/22 08/30/22 [place] [address] [place] [address] Assigned PCP 09/28/22 02/14/23 Jazmín Chavez PA-C [address] [place] [address] Assigned PCP 02/15/23 documented as of this encounter
--- OUTSIDE RECORDS SUMMARY | 2024-07-01 22:19 | XMS_ITS | Encounter Summary ---
Author Organization [facility] Address [address] [place] [address] Care Team Providers Care Diesel Lube Tech Name Role Phone Jazmín Chavez PA-C Primary Care Provider Jazmín Chavez PA-C Unavailable [phone] Jazmín Chavez-C Unavailable [phone] Rosa Gorman RN Unavailable Unavailable Dewey Astorga PA-C Primary Care Provide r Dewey Astorga PA-C Unavailable [phone] Yoli Skinner MD Primary Care Provider Dewey Astorga PA-C Primary Care Provide r Johnathan Brand Primary Care Provider Unavailab le Jazmín Chavez-C Unavailable [phone] Johnathan Villanueva DO Unavailable [phone] Jazmín ChavezC Primary Care Provider [phone] Jazmín Chavez-C Unavailable [phone] Encounter Details Date Type Department Care Team (Late st Contact Info) Description 10/24/2017 [facility] [address] [address] Micaela Baker MD [address] [place] [address] Social History Tobacco Use Types Packs/Day Years [...] Telephone Encounter - Micaela Baker MD - 10/24/2017 1:38 PM CST I think it will be okay for her to cancel the [place] with us, and just keep the 11/21 appointment! Congratulations :) Micaela Baker MD SSEMBLER documented in this encounter Plan of Treatment Not on file documented as of this encounter Visit Diagnoses Not on filedocumented in this encounter Additional Health Concerns Infection Onset Date Last Indicated Resolved Time Rule Out COVID-19 12/14/2021 12/14/2021 12/15/2021 11:31 PM CDT Rule Out COVID-19 12/26/2023 12/26/2023 12/26/2023 9:46 PM CDT Assessment Noted Time PHQ-9 Depression Total Score: 4 08/11/20 17 7:57 AM SUBASSEMBLER documented as of this encounter Care Teams Diesel Lube Tech Relationship Specialty Start Date End Date Jazmín Chavez PA-C [address] [place] [address] PCP - General Physician Clothing Sorter 08/01/17 07/10/20 Jazmín Chavez PA-C [address] [place] [address] PCP - Assigned PCP 03/30/17 12/01/18 Dewey Astorga PA-C [address] [place] [address] [place] [address] PCP - General Physician Clothing Sorter 07/11/20 11/13/20 Yoli Skinner MD [address] [place] [address] PCP - General Internal Medicine 11/14/20 11/17/20 Dewey Astorga PA-C [address] [place] [address] [place] [address] PCP - General Family Medicine 11/18/20 11/20/21 Johnathan Brand [address] [place] [address] PCP - General Family Medicine 11/21/21 09/23/22 Jazmín Chavez PA-C [address] [place] [address] PCP - General Family Medicine 02/10/23 06/28/24 Jazmín Chavez PA-C [address] [place] [address] Assigned PCP 03/30/17 07/22/20 Rosa Gorman, DANIEL Personal Advocate & Liaison (PAL) 03/14/20 09/04/20 Dewey Astorga PA-C [address] [address] Assigned PCP 07/23/20 08/02/22 Jazmín Chavez PA-C [address] [place] [address] Assigned PCP 08/03/22 08/30/22 [place] [address] [place] [address] Assigned PCP 09/28/22 02/14/23 Jazmín Chavez, PAPitoC [address] [place] [address] Assigned PCP 02/15/23 documented as of this encounter
--- OUTSIDE RECORDS SUMMARY | 2024-07-01 22:20 | XMS_ITS | Encounter Summary ---
Author Organization [facility] Address [address] [place] [address] Care Team Providers Care Business Banking Sales Assistant Name Role Phone Jazmín Chavez PA-C Primary Care Provider Alma Kline APRN [facility] Primary Care Provi misha Sonia Lim MD Primary Care Provider Jazmín Chavez-C Primary Care Provider [phone] Jazmín Chavez-C Unavailable [phone] Jazmín Chavez-C Unavailable [phone] Rosa Gorman RN Unavailable Unavailable Dewey Astorga PA-C Primary Care Provide r Dewey Astorga PA-C Unavailable [phone] Yoli Skinner MD Primary Care Provider [phone] Dewey Astorga PA-C Primary Care Provide r Johnathan Brand Primary Care Provider Unavailab le Jazmín Chavez-C Unavailable [phone] Johnathan Villanueva DO Unavailable [phone] Jazmín Chavez-C Primary Care Provider [phone] Jazmín Chavez-C Unavailable [phone] Reason for Visit * Reason Onset Date Comments MyChart Communication 02/15/2015 supplement s Encounter Details Date Type Department Care Team (Late st Contact Info) Description 02/15/2015 [facility] [address] [place] [address] Jazmín Chavez PA-C [address] [place], [place] [id number] MyChart Communication (supplements) Social History Tobacco Use Types Packs/Day Years [...] documented as of this encounter Care Teams Business Banking Sales Assistant Relationship Specialty Start Date End Date Jazmín Chavez PA-C [address] [place] [address] PCP - General Family Practice 04/20/13 06/25/15 Alma Kline APRN CNP [address] [place] [address] PCP - General Nurse Practitioner - Family 06/26/15 01/08/16 Sonia Lim MD [address] [place] [address] PCP - General Family Practice 01/20/16 07/31/17 Jazmín Chavez PA-C [address] [place] [address] PCP - General Physician Community Affairs Manager 08/01/17 07/10/20 Jazmín Chavez PA-C [address] [place] [address] PCP - Assigned PCP 03/30/17 12/01/18 Dewey Astorga PA-C [address] [address] PCP - General Physician Community Affairs Manager 07/11/20 11/13/20 Yoli Skinner MD [address] [place] [address] PCP - General Internal Medicine 11/14/20 11/17/20 Dewey Astorga PA-C [address] [address] PCP - General Family Medicine 11/18/20 11/20/21 Johnathan Brand [address] [place] [address] PCP - General Family Medicine 11/21/21 09/23/22 Jazmín Chavez PA-C [address] [place] [address] PCP - General Family Medicine 02/10/23 06/28/24 Jazmín Chavez PA-C [address] [place] [address] Assigned PCP 03/30/17 07/22/20 Rosa Gorman, RN Personal Advocate & Liaison (PAL) 03/14/20 09/04/20 Dewey Astorga PA-C [address] [place] [address] Assigned PCP 07/23/20 08/02/22 Jazmín Chavez PA-C [address] [place] [address] Assigned PCP 08/03/22 08/30/22 [place] [address] [place] [address] Assigned PCP 09/28/22 02/14/23 Jazmín Chavez PA-C [address] [place] [address] Assigned PCP 02/15/23 documented as of this encounter
--- OUTSIDE RECORDS SUMMARY | 2024-07-01 22:20 | XMS_ITS | Encounter Summary ---
Author Organization [facility] Address [address] [place] [address] Care Team Providers Care Religious Education Director Name Role Phone Jazmín Chavez PA-C Primary Care Provider Alma Kline APRN [facility] Primary Care Provi misha Sonia Lim MD Primary Care Provider Jazmín Chavez-C Primary Care Provider [phone] Jazmín Chavez-C Unavailable [phone] Jazmín Chavez-C Unavailable [phone] Rosa Gorman RN Unavailable Unavailable Dewey Astorga PA-C Primary Care Provide r Dewey Astorga PA-C Unavailable [phone] Yoli Skinner MD Primary Care Provider [phone] Dewey Astorga PA-C Primary Care Provide r Johnathan Brand Primary Care Provider Unavailab le Jazmín Chavez-C Unavailable [phone] Johnathan Villanueva DO Unavailable [phone] Jazmín Chavez-C Primary Care Provider [phone] Jazmín Chavez-C Unavailable [phone] Encounter Details Date Type Department Care Team (Late st Contact Info) Description 07/13/2014 [facility] [address] [place] [address] Rosario Santo APRN MARKET ANALYSIS DIRECTOR [address] [place] [address] Social History Tobacco Use Types Packs/Day Years [...] documented as of this encounter Care Teams Religious Education Director Relationship Specialty Start Date End Date Jazmín Chavez PA-C [address] [place] [address] PCP - General Family Practice 04/20/13 06/25/15 Alma Kline APRN MARKET ANALYSIS DIRECTOR [address] [place] [address] PCP - General Nurse Practitioner - Family 06/26/15 01/08/16 Sonia Lim MD 4151 [place], [place] [address] PCP - General Family Practice 01/20/16 07/31/17 Jazmín Chavez PA-C [address] [place] [address] PCP - General Physician Ice Cream Dipper 08/01/17 07/10/20 Jazmín Chavez PA-C [address] [place] [address] PCP - Assigned PCP 03/30/17 12/01/18 Dewey Astorga PA-C [address] [address] PCP - General Physician Ice Cream Dipper 07/11/20 11/13/20 Yoli Skinner MD [address] [place] [address] PCP - General Internal Medicine 11/14/20 11/17/20 Dewey Astorga PA-C [address] [address] PCP - General Family Medicine 11/18/20 11/20/21 Johnathan Brand [address] [place] [address] PCP - General Family Medicine 11/21/21 09/23/22 Jazmín Chavez PA-C [address] [place] [address] PCP - General Family Medicine 02/10/23 06/28/24 Jazmín Chavez PA-C [address] [place] [address] Assigned PCP 03/30/17 07/22/20 Rosa Gorman, DANIEL Personal Advocate & Liaison (PAL) 03/14/20 09/04/20 Dewey Astorga PA-C [address] [place] [address] Assigned PCP 07/23/20 08/02/22 Jazmín Chavez PA-C [address] [place] [address] Assigned PCP 08/03/22 08/30/22 [place] [address] [place] [address] Assigned PCP 09/28/22 02/14/23 Jazmín Chavez PA-C [address] [place] [address] Assigned PCP 02/15/23 documented as of this encounter
--- OUTSIDE RECORDS SUMMARY | 2024-07-01 22:20 | XMS_ITS | Encounter Summary ---
Author Organization [facility] Address [address] [place] [address] Care Team Providers Care Automobile Rental Representative Name Role Phone Alma Kline APRN [facility] Primary Care Provi misha Sonia Lim MD Primary Care Provider Jazmín Chavez PA-C Primary Care Provider [phone] Jazmín Chavez PA-C Unavailable [phone] Jazmín Chavez PA-C Unavailable [phone] Rosa Gorman RN Unavailable Unavailable Dewey Astorga PA-C Primary Care Provide r Dewey Astorga PA-C Unavailable [phone] Yoli Skinner MD Primary Care Provider Dewey Astorga PA-C Primary Care Provide r Johnathan Brand Primary Care Provider Unavailab le Jazmín Chavez PA-C Unavailable [phone] Johnathan Villanueva DO Unavailable Jazmín Chavez PA-C Primary Care Provider Jazmín Chavez PA-C Unavailable Reason for Visit * Reason Onset Date Comments Medication Refill 01/08/2016 Encounter Details Date Type Department Care Team (Late st Contact Info) Description 01/08/[address] [phone] [place] [address] [place] [address] Medication Refill Social History Tobacco Use Types [...] encounter Miscellaneous Notes * Telephone Encounter - Chelsi Bansk - 01/08/2016 9:20 AM CDT Called patient to inform her that we have a prescription for her that needs to be picked up, left patient VM. * Telephone Encounter - Chelsi Banks - 01/08/2016 9:16 AM CDT Prescription for Ritalin 20mg was given to the motel front desk attendant, patient needs to order picker. documented in this encounter Plan of Treatment Not on file documented as of this encounter Visit Diagnoses Not on filedocumented in this encounter Additional Health Concerns Infection Onset Date Last Indicated Resolved Time Rule Out COVID-19 12/14/2021 12/14/2021 12/15/2021 11:31 PM CDT Rule Out COVID-19 12/26/2023 12/26/2023 12/26/2023 9:46 PM CDT documented as of this encounter Care Teams Automobile Rental Representative Relationship Specialty Start Date End Date Alma Kline APRN STONE SPLITTER PCP - General Nurse Practitioner - Family 06/26/15 01/08/16 [place] [address] [place] [address] PCP - General Family Practice 01/20/16 07/31/17 Jazmín Chavez PA-C [address] [place] [address] PCP - General Physician Wrecker Operator 08/01/17 07/10/20 Jazmín Chavez PA-C [address] [place] [address] PCP - Assigned PCP 03/30/17 12/01/18 Dewey Astorga PA-C [address] [place] [address] [place] [address] PCP - General Physician Wrecker Operator 07/11/20 11/13/20 Yoli Skinner MD [address] [place] [address] PCP - General Internal Medicine 11/14/20 11/17/20 Dewey Astorga PA-C [address] [place] [address] PCP - General Family Medicine 11/18/20 11/20/21 Johnathan Brand [address] [place] [address] PCP - General Family Medicine 11/21/21 09/23/22 Jazmín Chavez PA-C [address] [place] [address] PCP - General Family Medicine 02/10/23 06/28/24 Jazmín Chavez PA-C [address] [place] [address] Assigned PCP 03/30/17 07/22/20 Rosa Gorman, DANIEL Personal Advocate & Liaison (PAL) 03/14/20 09/04/20 Dewey Astorga PA-C [address] [facility] [address] [place] [address] Assigned PCP 07/23/20 08/02/22 Jazmín Chavez PA-C [address] [place] [address] Assigned PCP 08/03/22 08/30/22 [place] [address] [place] [address] Assigned PCP 09/28/22 02/14/23 Jazmín Chavez PA-C [address] [place] [address] Assigned PCP 02/15/23 documented as of this encounter
--- OUTSIDE RECORDS SUMMARY | 2024-07-01 22:20 | XMS_ITS | Encounter Summary ---
Author Organization [facility] Address [address] [place] [address] Care Team Providers Care Beauty Operator Name Role Phone Alma Kline APRN [facility] Primary Care Provi misha Sonia Lim MD Primary Care Provider Jazmín Chavez PA-C Primary Care Provider [phone] Jazmín Chavez PA-C Unavailable [phone] Jazmín Chavez PA-C Unavailable [phone] Rosa Gorman RN Unavailable Unavailable Dewey Astorga PA-C Primary Care Provide r Dewey Astorga PA-C Unavailable [phone] Yoli Skinner MD Primary Care Provider [phone] Dewey Astorga PA-C Primary Care Provide r Johnathan Brand Primary Care Provider Unavailab le Jazmín Chavez PA-C Unavailable [phone] Johnathan Villanueva DO Unavailable [phone] Jazmín ChavezC Primary Care Provider Jazmín Chavez PA-C Unavailable [phone] Encounter Details Date Type Department Care Team (Late st Contact Info) Description 09/26/2015 [facility] [place] [address] [address] Alyce Tanner Social History Tobacco Use Types Packs/Day Years [...] documented as of this encounter Care Teams Beauty Operator Relationship Specialty Start Date End Date Alma Kline APRN BACK TENDER PCP - General Nurse Practitioner - Family 06/26/15 01/08/16 [place] [address] [place] [address] PCP - General Family Practice 01/20/16 07/31/17 Jazmín Chavez PA-C [address] [place] [address] PCP - General Physician Resistance Welding Machine Operator 08/01/17 07/10/20 Jazmín Chavez PA-C [address] [place] [address] PCP - Assigned PCP 03/30/17 12/01/18 Dewey Astorga PA-C [address] [place] [address] PCP - General Physician Resistance Welding Machine Operator 07/11/20 11/13/20 Yoli Skinner MD [address] [place] [address] PCP - General Internal Medicine 11/14/20 11/17/20 Dewey Astorga PA-C [address] [place] [address] [place] [address] PCP - General Family Medicine 11/18/20 11/20/21 Johnathan Brand [address] [place] [address] PCP - General Family Medicine 11/21/21 09/23/22 Jazmín Chavez PA-C [address] [place] [address] PCP - General Family Medicine 02/10/23 06/28/24 Jazmín Chavez PA-C [address] [place] [address] Assigned PCP 03/30/17 07/22/20 Rosa Gorman, DANIEL Personal Advocate & Liaison (PAL) 03/14/20 09/04/20 Dewey Astorga PA-C [address] [address] Assigned PCP 07/23/20 08/02/22 Jazmín Chavez PA-C [address] [place] [address] Assigned PCP 08/03/22 08/30/22 [place] [address] [place] [address] Assigned PCP 09/28/22 02/14/23 Jazmín Chavez PA-C [address] [place] [address] Assigned PCP 02/15/23 documented as of this encounter
--- OUTSIDE RECORDS SUMMARY | 2024-07-01 22:20 | XMS_ITS | Encounter Summary ---
Author Organization [facility] Address [address] [place] [address] Care Team Providers Care Engraver Set Up Operator Name Role Phone Jazmín Chavez PA-C Primary Care Provider Alma Kline APRN [facility] Primary Care Provi misha Sonia Lim MD Primary Care Provider Jazmín Chavez-C Primary Care Provider [phone] Jazmín Chavez-C Unavailable [phone] Jazmín Chavez-C Unavailable [phone] Rosa Gorman RN Unavailable Unavailable Dewey Astorga PA-C Primary Care Provide r Dewey Astorga PA-C Unavailable [phone] Yoli Skinner MD Primary Care Provider [phone] Dewey Astorga PA-C Primary Care Provide r Johnathan Brand Primary Care Provider Unavailab le Jazmín Chavez-C Unavailable [phone] Johnathan Villanueva DO Unavailable [phone] Jazmín Chavez-C Primary Care Provider [phone] Jazmín Chavez-C Unavailable [phone] Reason for Visit * Reason Onset Date Comments MyChart Communication 04/13/2015 vag yeast Encounter Details Date Type Department Care Team (Late st Contact Info) Description 04/13/2015 MyC Medical [facility] [address] [place] [address] Jazmín Chavez PA-C [address] [place] [address] MyChart Communication (vag yeast) Social History Tobacco Use Types Packs/Day Years [...] documented as of this encounter Care Teams Engraver Set Up Operator Relationship Specialty Start Date End Date Jazmín Chavez PA-C [address] [place] [address] PCP - General Family Practice 04/20/13 06/25/15 Alma Kline APRN CLINIC OFFICE COORDINATOR [address] [place] [address] PCP - General Nurse Practitioner - Family 06/26/15 01/08/16 Sonia Lim MD 4151 [place] [address] PCP - General Family Practice 01/20/16 07/31/17 Jazmín Chavez PA-C [address] [place] [address] PCP - General Physician Animal Cruelty Investigator 08/01/17 07/10/20 Jazmín Chavez PA-C [address] [place] [address] PCP - Assigned PCP 03/30/17 12/01/18 Dewey Astorga PA-C [address] [address] PCP - General Physician Animal Cruelty Investigator 07/11/20 11/13/20 Yoli Skinner MD [address] [place] [address] PCP - General Internal Medicine 11/14/20 11/17/20 Dewey Astorga PA-C [address] [address] PCP - General Family Medicine 11/18/20 11/20/21 Johnathan Brand [address] [place] [address] PCP - General Family Medicine 11/21/21 09/23/22 Jazmín Chavez PA-C [address] [place] [address] PCP - General Family Medicine 02/10/23 06/28/24 Jazmín Chavez PA-C [address] [place] [address] Assigned PCP 03/30/17 07/22/20 Rosa Gorman, RN Personal Advocate & Liaison (PAL) 03/14/20 09/04/20 Dewey Astorga PA-C [address] [facility] [address] [place] [address] Assigned PCP 07/23/20 08/02/22 Jazmín Chavez PA-C [address] [place] [address] Assigned PCP 08/03/22 08/30/22 [place] [address] [place] [address] Assigned PCP 09/28/22 02/14/23 Jazmín Chavez PA-C [address] [place] [address] Assigned PCP 02/15/23 documented as of this encounter
--- OUTSIDE RECORDS SUMMARY | 2024-07-01 22:20 | XMS_ITS | Encounter Summary ---
Author Organization [facility] Address [address] [place] [address] Care Team Providers Care Component Prep Operator Name Role Phone Jazmín Chavez PA-C Primary Care Provider Alma Kline APRN [facility] Primary Care Provi misha Sonia Lim MD Primary Care Provider Jazmín Chavez-C Primary Care Provider [phone] Jazmín Chavez-C Unavailable [phone] Jazmín Chavez-C Unavailable [phone] Rosa Gorman RN Unavailable Unavailable Dewey Astorga PA-C Primary Care Provide r Dewey Astorga PA-C Unavailable [phone] Yoli Skinner MD Primary Care Provider [phone] Dewey Astorga PA-C Primary Care Provide r Johnathan Brand Primary Care Provider Unavailab le Jazmín Chavez-C Unavailable [phone] Johnathan Villanueva DO Unavailable [phone] Jazmín Chavez-C Primary Care Provider [phone] Jazmín Chavez-C Unavailable [phone] Encounter Details Date Type Department Care Team (Late st Contact Info) Description 07/12/2014 [facility] [id number] [place] [phone] Jazmín Chavez PA-C [address] [place] [address] Social History Tobacco Use Types Packs/Day Years [...] documented as of this encounter Care Teams Component Prep Operator Relationship Specialty Start Date End Date Jazmín Chavez PA-C [address] [place] [address] PCP - General Family Practice 04/20/13 06/25/15 Alma Kline APRN COMMISSION SALES ASSOCIATE [address] [place] [address] PCP - General Nurse Practitioner - Family 06/26/15 01/08/16 Sonia Lim MD [address] [place] [address] PCP - General Family Practice 01/20/16 07/31/17 Jazmín Chavez PA-C [address] [place] [address] PCP - General Physician Preparer Samples And Repairs 08/01/17 07/10/20 Jazmín Chavez PA-C [address] [place] [address] PCP - Assigned PCP 03/30/17 12/01/18 Dewey Astorga PA-C [address] [address] PCP - General Physician Preparer Samples And Repairs 07/11/20 11/13/20 Yoli Skinner MD [address] [place] [address] PCP - General Internal Medicine 11/14/20 11/17/20 Dewey Astorga PA-C [address] [address] PCP - General Family Medicine 11/18/20 11/20/21 Johnathan Brand [address] [place] [address] PCP - General Family Medicine 11/21/21 09/23/22 Jazmín Chavez PA-C [address] [place] [address] PCP - General Family Medicine 02/10/23 06/28/24 Jazmín Chavez PA-C [address] [place] [address] Assigned PCP 03/30/17 07/22/20 Rosa Gorman, RN Personal Advocate & Liaison (PAL) 03/14/20 09/04/20 Dewey Astorga PA-C [address] [facility] [address] [place] [address] Assigned PCP 07/23/20 08/02/22 Jazmín Chavez PA-C [address] [place] [address] Assigned PCP 08/03/22 08/30/22 [place] [address] [place] [address] Assigned PCP 09/28/22 02/14/23 Jazmín Chavez PA-C [address] [place] [address] Assigned PCP 02/15/23 documented as of this encounter
--- OUTSIDE RECORDS SUMMARY | 2024-07-01 22:20 | XMS_ITS | Encounter Summary ---
Author Organization [facility] Address [address] [place] [address] Care Team Providers Care Ground Water Technician Name Role Phone Alma Kline APRN [facility] Primary Care Provi misha Sonia Lim MD Primary Care Provider Jazmín Chavez PA-C Primary Care Provider [phone] Jazmín Chavez PA-C Unavailable [phone] Jazmín Chavez PA-C Unavailable [phone] Rosa Gorman RN Unavailable Unavailable Dewey Astorga PA-C Primary Care Provide r Dewey Astorga PA-C Unavailable [phone] Yoli Skinner MD Primary Care Provider Dewey Astorga PA-C Primary Care Provide r Johnathan Brand Primary Care Provider Unavailab le Jazmín Chavez PA-C Unavailable [phone] Johnathan Villanueva DO Unavailable [phone] Jazmín ChavezC Primary Care Provider Jazmín Chavez PA-C Unavailable Reason for Visit * Reason Onset Date Comments MyChart Communication 06/26/2015 Encounter Details Date Type Department Care Team (Latest Contact Info) Description 06/26/2015 MyC Medical Advice [facility] [id number] [place] [phone] Alma Kline APRN RECORD CENTER COORDINATOR [address] [place] [address] MyChart Communication Social History Tobacco Use Types [...] encounter Miscellaneous Notes * Telephone Encounter - Rosario Santo RN - 06/28/2015 8:17 AM CDT Pt sent separate mychart for response below Rosario Santo RN, BSN documented in this encounter Plan of Treatment Not on file documented as of this encounter Visit Diagnoses Diagnosis Attention deficit disorder with hyperactivity(314.01)- Primary Attention deficit disorder with hyperactivity documented in this encounter Additional Health Concerns Infection Onset Date Last Indicated Resolved Time Rule Out COVID-19 12/14/2021 12/14/2021 12/15/2021 11:31 PM CDT Rule Out COVID-19 12/26/2023 12/26/2023 12/26/2023 9:46 PM CDT documented as of this encounter Care Teams Ground Water Technician Relationship Specialty Start Date End Date Alma Kline APRN RECORD CENTER COORDINATOR PCP - General Nurse Practitioner - Family 06/26/15 01/08/16 Sonia Lim MD [address] [place] [address] PCP - General Family Practice 01/20/16 07/31/17 Jazmín Chavez PA-C [address] [place] [address] PCP - General Physician Head Automatic Sawyer 08/01/17 07/10/20 Jazmín Chavez PA-C [address] [place] [address] PCP - Assigned PCP 03/30/17 12/01/18 Dewey Astorga PA-C [address] [place] [address] [place] [address] PCP - General Physician Head Automatic Sawyer 07/11/20 11/13/20 Yoli Skinner MD [address] [place] [address] PCP - General Internal Medicine 11/14/20 11/17/20 Dewey Astorga PA-C [address] [address] PCP - General Family Medicine 11/18/20 11/20/21 Johnathan Brand [address] [place] [address] PCP - General Family Medicine 11/21/21 09/23/22 Jazmín Chavez PA-C [address] [place] [address] PCP - General Family Medicine 02/10/23 06/28/24 Jazmín Chavez PA-C [address] [place] [address] Assigned PCP 03/30/17 07/22/20 Rosa Gorman, RN Personal Advocate & Liaison (PAL) 03/14/20 09/04/20 Dewey Astorga PA-C [address] [place] [address] Assigned PCP 07/23/20 08/02/22 Jazmín Chavez PA-C [address] [place] [address] Assigned PCP 08/03/22 08/30/22 [place] [address] [place] [address] Assigned PCP 09/28/22 02/14/23 Jazmín Chavez PA-C [address] [place] [address] Assigned PCP 02/15/23 documented as of this encounter
--- OUTSIDE RECORDS SUMMARY | 2024-07-01 22:20 | XMS_ITS | Encounter Summary ---
Author Organization [facility] Address [address] [place] [address] Care Team Providers Care Newspaper Vendor Name Role Phone Alma Kline APRN [facility] Primary Care Provi misha Sonia Lim MD Primary Care Provider Jazmín Chavez PA-C Primary Care Provider [phone] Jazmín Chavez PA-C Unavailable [phone] Jazmín Chavez PA-C Unavailable [phone] Rosa Gorman RN Unavailable Unavailable Dewey Astorga PA-C Primary Care Provide r Dewey Astorga PA-C Unavailable [phone] Yoli Skinner MD Primary Care Provider Dewey Astorga PA-C Primary Care Provide r Johnathan Brand Primary Care Provider Unavailab le Jazmín Chavez PA-C Unavailable [phone] Johnathan Villanueva DO Unavailable [phone] Jazmín ChavezC Primary Care Provider Jazmín Chavez PA-C Unavailable Reason for Visit * Reason Onset Date Comments Refill Request 06/28/2015 Encounter Details Date Type Department Care Team (Late st Contact Info) Description 06/28/2015 MyC Medical Advice [facility] [address] [place] [phone] Alma Kline APRN PLUSH DRESSER [address] [place] [address] Refill Request Social History Tobacco Use Types [...] encounter Miscellaneous Notes * Telephone Encounter - Yany Dinh - 06/28/2015 3:04 PM CDT Can you prescribe the Ritalin? Yany Dinh Junior Accounting Clerk documented in this encounter Plan of Treatment Not on file documented as of this encounter Visit Diagnoses Not on filedocumented in this encounter Additional Health Concerns Infection Onset Date Last Indicated Resolved Time Rule Out COVID-19 12/14/2021 12/14/2021 12/15/2021 11:31 PM CDT Rule Out COVID-19 12/26/2023 12/26/2023 12/26/2023 9:46 PM CDT documented as of this encounter Care Teams Newspaper Vendor Relationship Specialty Start Date End Date Alma Kline APRN PLUSH DRESSER PCP - General Nurse Practitioner - Family 06/26/15 01/08/16 [place] [address] [place] [address] PCP - General Family Practice 01/20/16 07/31/17 Jazmín Chavez PA-C [address] [place] [address] PCP - General Physician Band Straightener 08/01/17 07/10/20 Jazmín Chavez PA-C [address] [place] [address] PCP - Assigned PCP 03/30/17 12/01/18 Dewey Astorga PA-C [address] [address] PCP - General Physician Band Straightener 07/11/20 11/13/20 Yoli Skinner MD [address] [place] [address] PCP - General Internal Medicine 11/14/20 11/17/20 Dewey Astorga PA-C [address] [address] PCP - General Family Medicine 11/18/20 11/20/21 Johnathan Brand [address] [place] [address] PCP - General Family Medicine 11/21/21 09/23/22 Jazmín Chavez PA-C [address] [place] [address] PCP - General Family Medicine 02/10/23 06/28/24 Jazmín Chavez PA-C [address] [place] [address] Assigned PCP 03/30/17 07/22/20 Rosa Gorman, DANIEL Personal Advocate & Liaison (PAL) 03/14/20 09/04/20 Dewey Astorga PA-C [address] [place] [address] Assigned PCP 07/23/20 08/02/22 Jazmín Chavez PA-C [address] [place] [address] Assigned PCP 08/03/22 08/30/22 [place] [address] [place] [address] Assigned PCP 09/28/22 02/14/23 Jazmín Chavez PA-C [address] [place] [address] Assigned PCP 02/15/23 documented as of this encounter
--- OUTSIDE RECORDS SUMMARY | 2024-07-01 22:20 | XMS_ITS | Encounter Summary ---
Author Organization [facility] Address [address] [place] [address] Care Team Providers Care Tents Assembler Name Role Phone Alma Kline APRN [facility] Primary Care Provi misha Sonia Lim MD Primary Care Provider Jazmín Chavez PA-C Primary Care Provider [phone] Jazmín Chavez PA-C Unavailable [phone] Jazmín Chavez PA-C Unavailable [phone] Rosa Gorman RN Unavailable Unavailable Dewey sAtorga PA-C Primary Care Provide r Dewey Astorga PA-C Unavailable [phone] Yoli Skinner MD Primary Care Provider Dewey Astorga PA-C Primary Care Provide r Johnathan Brand Primary Care Provider Unavailab le Jazmín Chavez PA-C Unavailable [phone] Johnathan Villanueva DO Unavailable Jazmín ChavezC Primary Care Provider Jazmín Chavez PA-C Unavailable Reason for Visit * Reason Onset Date Comments MyChart Communication 12/24/2015 Mychart me landaverde regarding referral Encounter Details Date Type Department Care Team (Late st Contact Info) Description 12/24/2015 MyC Medical Advice [address] [phone] Sonia Lim MD [address] [place] [address] [id number] MyChart Communication (Mychart message reg... Social History Tobacco Use Types Packs/Day Years [...] encounter Miscellaneous Notes * Telephone Encounter - Bing Valladares RN - 12/25/2015 8:00 AM CDT mychart sent to pt regarding below. María Valladares RN documented in this encounter Plan of Treatment Not on file documented as of this encounter Visit Diagnoses Not on filedocumented in this encounter Additional Health Concerns Infection Onset Date Last Indicated Resolved Time Rule Out COVID-19 12/14/2021 12/14/2021 12/15/2021 11:31 PM CDT Rule Out COVID-19 12/26/2023 12/26/2023 12/26/2023 9:46 PM CDT documented as of this encounter Care Teams Tents Assembler Relationship Specialty Start Date End Date Alma Kline APRN CNP PCP - General Nurse Practitioner - Family 06/26/15 01/08/16 Sonia Lim MD [address] [place] [address] PCP - General Family Practice 01/20/16 07/31/17 Jazmín Chavez PA-C [address] [place] [address] PCP - General Physician Pest Control Supervisor 08/01/17 07/10/20 Jazmín Chavez PA-C [address] [place] [address] PCP - Assigned PCP 03/30/17 12/01/18 Dewey Astorga PA-C [address] [place] [place] [address] PCP - General Physician Pest Control Supervisor 07/11/20 11/13/20 Yoli Skinner MD [address] [place] [address] PCP - General Internal Medicine 11/14/20 11/17/20 Dewey Astorga PA-C [address] [place] [address] [place] [address] PCP - General Family Medicine 11/18/20 11/20/21 Johnathan Brand [address] [place] [address] PCP - General Family Medicine 11/21/21 09/23/22 Jazmín Chavez PA-C [address] [place] [address] PCP - General Family Medicine 02/10/23 06/28/24 Jazmín Chavez PA-C [address] [place] [address] Assigned PCP 03/30/17 07/22/20 Rosa Gorman, RN Personal Advocate & Liaison (PAL) 03/14/20 09/04/20 Dewey Astorga PA-C [address] [facility] [address] [place] [address] Assigned PCP 07/23/20 08/02/22 Jazmín Chavez PA-C [address] [place] [address] Assigned PCP 08/03/22 08/30/22 [place] [address] [place] [address] Assigned PCP 09/28/22 02/14/23 Jazmín Chavez PA-C [address] [place] [address] Assigned PCP 02/15/23 documented as of this encounter
--- OUTSIDE RECORDS SUMMARY | 2024-07-01 22:20 | XMS_ITS | Encounter Summary ---
Author Organization [place] Address [address] [place] [address] Care Team Providers Care Industrial Relations Director Name Role Phone Jazmín Chavez PA-C Primary Care Provider Alma Kline APRN [facility] Primary Care Provi misah Sonia Lim MD Primary Care Provider Jazmín Chavez-C Primary Care Provider [phone] Jazmín Chavez-C Unavailable [phone] Jazmín Chavez-C Unavailable [phone] Rosa Gorman RN Unavailable Unavailable Dewey Astorga PA-C Primary Care Provide r Dewey Astorga PA-C Unavailable [phone] Yoli Skinner MD Primary Care Provider [phone] Dewey Astorga PA-C Primary Care Provide r Johnathan Brand Primary Care Provider Unavailab le Jazmín Chavez-C Unavailable [phone] Johnathan Villanueva DO Unavailable [phone] Jazmín Chavez-C Primary Care Provider [phone] Jazmín Chavez-C Unavailable [phone] Reason for Visit * Reason Onset Date Comments MyChart Communication 04/11/2015 UTI Encounter Details Date Type Department Care Team (Late st Contact Info) Description 04/11/2015 MyC Medical [facility] [address] [place] [address] Jazmín Chavez PA-C [address] [place], [place] [id number] MyChart Communication (UTI) Social History Tobacco Use Types Packs/Day Years [...] documented as of this encounter Care Teams Industrial Relations Director Relationship Specialty Start Date End Date Jazmín Chavez PA-C [address] [place] [address] PCP - General Family Practice 04/20/13 06/25/15 Alma Kline APRN CNP [address] [place] [address] PCP - General Nurse Practitioner - Family 06/26/15 01/08/16 Sonia Lim MD [address] [place] [address] PCP - General Family Practice 01/20/16 07/31/17 Jazmín Chavez PA-C [address] [place] [address] PCP - General Physician First Officer 08/01/17 07/10/20 Jazmín Chavez PA-C [address] [place] [address] PCP - Assigned PCP 03/30/17 12/01/18 Dewey Astorga PA-C [address] [address] PCP - General Physician First Officer 07/11/20 11/13/20 Yoli Skinner MD [address] [place] [address] PCP - General Internal Medicine 11/14/20 11/17/20 Dewey Astorga PA-C [address] [address] PCP - General Family Medicine 11/18/20 11/20/21 Johnathan Brand [address] [place] [address] PCP - General Family Medicine 11/21/21 09/23/22 Jazmín Chavez PA-C [address] [place] [address] PCP - General Family Medicine 02/10/23 06/28/24 Jazmín Chavez PA-C [address] [place] [address] Assigned PCP 03/30/17 07/22/20 Rosa Gorman, RN Personal Advocate & Liaison (PAL) 03/14/20 09/04/20 Dewey Astorga PA-C [address] [place] [address] Assigned PCP 07/23/20 08/02/22 Jazmín Chavez PA-C [address] [place] [address] Assigned PCP 08/03/22 08/30/22 [place] [address] [place] [address] Assigned PCP 09/28/22 02/14/23 Jazmín Chavez PA-C [address] [place] [address] Assigned PCP 02/15/23 documented as of this encounter
--- OUTSIDE RECORDS SUMMARY | 2024-07-01 22:20 | XMS_ITS | Encounter Summary ---
Author Organization [place] Address [address] [place] [address] Care Team Providers Care Academic Support Center Director Name Role Phone Jazmín Chavez PA-C Primary Care Provider Alma Kline APRN [facility] Primary Care Provi misha Sonia Lim MD Primary Care Provider Jazmín Chavez-C Primary Care Provider [phone] Jazmín Chavez-C Unavailable [phone] Jazmín Chavez-C Unavailable [phone] Rosa Gorman RN Unavailable Unavailable Dewey Astorga PA-C Primary Care Provide r Dewey Astorga PA-C Unavailable [phone] Yoli Skinner MD Primary Care Provider [phone] Dewey Astorga PA-C Primary Care Provide r Johnathan Brand Primary Care Provider Unavailab le Jazmín Chavez-C Unavailable [phone] Johnathan Villanueva DO Unavailable [phone] Jazmín Chavez-C Primary Care Provider [phone] Jazmín Chavez-C Unavailable [phone] Reason for Visit * Reason Onset Date Comments MyChart Communication 08/04/2014 neuro appo intment 08/05 Encounter Details Date Type Department Care Team (Late st Contact Info) Description 08/04/2014 [facility] [address] [place] [phone] Jazmín Chavez PA-C [address] [place] [address] MyChart Communication (neuro appointment 1... Social History Tobacco Use Types Packs/Day Years [...] documented as of this encounter Care Teams Academic Support Center Director Relationship Specialty Start Date End Date Jazmín Chavez PA-C [address] [place] [address] PCP - General Family Practice 04/20/13 06/25/15 Alma Kline APRN CNP [address] [place] [address] PCP - General Nurse Practitioner - Family 06/26/15 01/08/16 Sonia Lim MD [address] [place] [address] PCP - General Family Practice 01/20/16 07/31/17 Jazmín Chavez PA-C [address] [place] [address] PCP - General Physician District Manager [employer] 08/01/17 07/10/20 Jazmín Chavez PA-C [address] [place] [address] PCP - Assigned PCP 03/30/17 12/01/18 Dewey Astorga PA-C [address] [address] PCP - General Physician District Manager [employer]s Sales 07/11/20 11/13/20 Yoli Skinner MD [address] [place] [address] PCP - General Internal Medicine 11/14/20 11/17/20 Dewey Astorga PA-C [address] [address] PCP - General Family Medicine 11/18/20 11/20/21 Johnathan Brand [address] [place] [address] PCP - General Family Medicine 11/21/21 09/23/22 Jazmín Chavez PA-C [address] [place] [address] PCP - General Family Medicine 02/10/23 06/28/24 Jazmín Chavez PA-C [address] [place] [address] Assigned PCP 03/30/17 07/22/20 Rosa Gorman, RN Personal Advocate & Liaison (PAL) 03/14/20 09/04/20 Dewey Astorga PA-C 3033 [facility] [address] [place] [address] Assigned PCP 07/23/20 08/02/22 Jazmín Chavez PA-C [address] [place] [address] Assigned PCP 08/03/22 08/30/22 [place] [address] [place] [address] Assigned PCP 09/28/22 02/14/23 Jazmín Chavez PA-C [address] [place] [address] Assigned PCP 02/15/23 documented as of this encounter
--- OUTSIDE RECORDS SUMMARY | 2024-07-01 22:20 | XMS_ITS | Encounter Summary ---
Author Organization [place] Address [address] [place] [address] Care Team Providers Care Professor Of Legal Studies Name Role Phone Jazmín Chavez PA-C Primary Care Provider Alma Kline APRN [facility] Primary Care Provi misha Sonia Lim MD Primary Care Provider Jazmín Chavez-C Primary Care Provider [phone] Jazmín Chavez-C Unavailable [phone] Jazmín Chavez-C Unavailable [phone] Rosa Gorman RN Unavailable Unavailable Dewey Astorga PA-C Primary Care Provide r Dewey Astorga PA-C Unavailable [phone] Yoli Skinner MD Primary Care Provider [phone] Dewey Astorga PA-C Primary Care Provide r Johnathan Brand Primary Care Provider Unavailab le Jazmín Chavez-C Unavailable [phone] Johnathan Villanueva DO Unavailable [phone] Jazmín Chavez-C Primary Care Provider [phone] Jazmín Chavez-C Unavailable [phone] Reason for Visit * Reason Onset Date Comments MyChart Communication 03/12/2015 iron suppl ement side effects Encounter Details Date Type Department Care Team (Late st Contact Info) Description 03/12/2015 MyC Medical [facility] [address] [place] [address] Jazmín Chavez PA-C [address] [place] [address] MyChart Communication (iron supplement cricket... Social History Tobacco Use Types Packs/Day Years [...] documented as of this encounter Care Teams Professor Of Legal Studies Relationship Specialty Start Date End Date Jazmín Chavez PA-C [address] [place] [address] PCP - General Family Practice 04/20/13 06/25/15 Alma Kline APRN CNP [address] [place] [address] PCP - General Nurse Practitioner - Family 06/26/15 01/08/16 Sonia Lim MD 4151 [place] [address] PCP - General Family Practice 01/20/16 07/31/17 Jazmín Chavez PA-C [address] [place] [address] PCP - General Physician Meter Calibrator 08/01/17 07/10/20 Jazmín Chavez PA-C [address] [place] [address] PCP - Assigned PCP 03/30/17 12/01/18 Dewey Astorga PA-C [address] [address] PCP - General Physician Meter Calibrator 07/11/20 11/13/20 Yoli Skinner MD [address] [place] [address] PCP - General Internal Medicine 11/14/20 11/17/20 Dewey Astorga PA-C [address] [address] PCP - General Family Medicine 11/18/20 11/20/21 Johnathan Brand [address] [place] [address] PCP - General Family Medicine 11/21/21 09/23/22 Jazmín Chavez PA-C [address] [place] [address] PCP - General Family Medicine 02/10/23 06/28/24 Jazmín Chavez PA-C [address] [place] [address] Assigned PCP 03/30/17 07/22/20 Rosa Gorman, RN Personal Advocate & Liaison (PAL) 03/14/20 09/04/20 Dewey Astorga PA-C 3033 [facility] [address] [place] [address] Assigned PCP 07/23/20 08/02/22 Jazmín Chavez PA-C [address] [place] [address] Assigned PCP 08/03/22 08/30/22 [place] [address] [place] [address] Assigned PCP 09/28/22 02/14/23 Jazmín Chavez PA-C [address] [place] [address] Assigned PCP 02/15/23 documented as of this encounter
--- OUTSIDE RECORDS SUMMARY | 2024-07-01 22:20 | XMS_ITS | Encounter Summary ---
Author Organization [place] Address [address] [place] [address] Care Team Providers Care Senior Research Executive Name Role Phone Jazmín Chavez PA-C Primary Care Provider Alma Kline APRN [facility] Primary Care Provi misha Sonia Lim MD Primary Care Provider Jazmín Chavez-C Primary Care Provider [phone] Jazmín Chavez-C Unavailable [phone] Jazmín Chavez-C Unavailable [phone] Rosa Gorman RN Unavailable Unavailable Dewey Astorga PA-C Primary Care Provide r Dewey Astorga PA-C Unavailable [phone] Yoli Skinner MD Primary Care Provider [phone] Dewey Astorga PA-C Primary Care Provide r Johnathan Brand Primary Care Provider Unavailab le Jazmín Chavez-C Unavailable [phone] Johnathan Villanueva DO Unavailable [phone] Jazmín Chavez-C Primary Care Provider [phone] Jazmín Chavez-C Unavailable [phone] Reason for Visit * Reason Onset Date Comments MyChart Communication 05/31/2015 abdominal pain Encounter Details Date Type Department Care Team (Late st Contact Info) Description 05/31/2015 [facility] Medical [facility] [address] [place] [address] Jazmín Chavez PA-C [address] [place] [address] MyChart Communication (abdominal pain) Social History Tobacco Use Types Packs/Day [...] encounter Miscellaneous Notes * Telephone Encounter - Gena Zuñiga, RN - 06/01/2015 9:50 AM CDT Jazmín, See mychart from patient below. I tried to phone patient to inquire further but there was no answer. I left a message for her to call back. Pricilla Zuñiga RN, BSN documented in this encounter Plan of Treatment Not on file documented as of this encounter Visit Diagnoses Not on filedocumented in this encounter Additional Health Concerns Infection Onset Date Last Indicated Resolved Time Rule Out COVID-19 12/14/2021 12/14/2021 12/15/2021 11:31 PM CDT Rule Out COVID-19 12/26/2023 12/26/2023 12/26/2023 9:46 PM CDT documented as of this encounter Care Teams Senior Research Executive Relationship Specialty Start Date End Date Jazmín Chavez PA-C [address] [place] [address] PCP - General Family Practice 04/20/13 06/25/15 Eliud Almapeter Mackey APRN CNP [address] [place], [place] [address] PCP - General Nurse Practitioner - Family 06/26/15 01/08/16 [place] [address] [place] [address] 265052 PCP - General Family Practice 01/20/16 07/31/17 Jazmín Chavez PA-C [address] [place] [address] PCP - General Physician Bilingual Instructor 08/01/17 07/10/20 Jazmín Chavez PA-C [address] [place] [address] PCP - Assigned PCP 03/30/17 12/01/18 Dewey Astorga PA-C [address] [employer] [address] PCP - General Physician Bilingual Instructor 07/11/20 11/13/20 Yoli Skinner MD [address] [address] PCP - General Internal Medicine 11/14/20 11/17/20 Dewey Astorga PA-C [address] [address] PCP - General Family Medicine 11/18/20 11/20/21 Johnathan Brand [address] [facility] [address] [place] [address] PCP - General Family Medicine 11/21/21 09/23/22 Jazmín Chavez PA-C [address] [place] [address] PCP - General Family Medicine 02/10/23 06/28/24 Jazmín Chavez PA-C [address] [place] [address] Assigned PCP 03/30/17 07/22/20 Rosa Gorman RN Personal Advocate & Liaison (PAL) 03/14/20 09/04/20 Dewey Astorga PA-C 3033 [facility] [address] [place] [address] Assigned PCP 07/23/20 08/02/22 Jazmín Chavez PA-C [address] [place] [address] Assigned PCP 08/03/22 08/30/22 [place] [address] [place] [address] Assigned PCP 09/28/22 02/14/23 Jazmín Chavez PA-C [address] [place] [address] Assigned PCP 02/15/23 documented as of this encounter
--- OUTSIDE RECORDS SUMMARY | 2024-07-01 22:20 | XMS_ITS | Encounter Summary ---
Author Organization [place] Address [address] [place] [address] Care Team Providers Care Nurse Auditor Name Role Phone Sonia Lim MD Primary Care Provider Jazmín Chavez PA-C Primary Care Provider [phone] Jazmín Chavez PA-C Unavailable [phone] Jazmín Chavez PA-C Unavailable [phone] Rosa Gorman RN Unavailable Unavailable Dewey Astorga PA-C Primary Care Provide r Dewey Astorga PA-C Unavailable [phone] Yoli kSinner MD Primary Care Provider [phone] Dewey Astorga PA-C Primary Care Provide r Johnathan Brand Primary Care Provider Unavailab le Jazmín Chavez PA-C Unavailable [phone] Johnathan Villanueva DO Unavailable [phone] Jazmín Chavez PA-C Primary Care Provider [phone] Jazmín Chavez-C Unavailable [phone] Reason for Visit * Reason Onset Date Comments MyChart Communication 01/09/2016 Vianney burton water pill question Encounter Details Date Type Department Care Team (Late st Contact Info) Description 01/09/2016 [facility] Medical Advice [address] [phone] Sonia Lim MD [address] [place] [address] 299982 Flexcomhart Communication (Ritalin and water p... Social History Tobacco Use Types Packs/Day Years [...] Telephone Encounter - Bing Valladares RN - 01/09/2016 12:55 PM CDT Izzui message sent to pt. María Valladares RN documented in this encounter Plan of Treatment Not on file documented as of this encounter Visit Diagnoses Not on filedocumented in this encounter Additional Health Concerns Infection Onset Date Last Indicated Resolved Time Rule Out COVID-19 12/14/2021 12/14/2021 12/15/2021 11:31 PM CDT Rule Out COVID-19 12/26/2023 12/26/2023 12/26/2023 9:46 PM CDT documented as of this encounter Care Teams Nurse Auditor Relationship Specialty Start Date End Date Sonia Lim MD [address] [place] [address] PCP - General Family Practice 01/20/16 07/31/17 Jazmín Chavez PA-C [address] [place] [address] PCP - General Physician Supervisor Pleating 08/01/17 07/10/20 Jazmín Chavez PA-C [address] [place] [address] PCP - Assigned PCP 03/30/17 12/01/18 Dewey Astorga PA-C [address] [place] [address] PCP - General Physician Supervisor Pleating 07/11/20 11/13/20 Yoli Skinner MD [address] [place] [address] PCP - General Internal Medicine 11/14/20 11/17/20 Dewey Astorga PA-C [address] [address] PCP - General Family Medicine 11/18/20 11/20/21 Johnathan Brand [address] [place] [address] PCP - General Family Medicine 11/21/21 09/23/22 Jazmín Chavez PA-C [address] [place] [address] PCP - General Family Medicine 02/10/23 06/28/24 Jazmín Chavez PA-C [address] [place] [address] Assigned PCP 03/30/17 07/22/20 Rosa Gorman, DANIEL Personal Advocate & Liaison (PAL) 03/14/20 09/04/20 Dewey Astorga PA-C [address] [place] [address] Assigned PCP 07/23/20 08/02/22 Jazmín Chavez PA-C [address] [place] [address] Assigned PCP 08/03/22 08/30/22 [place] [address] [place] [address] Assigned PCP 09/28/22 02/14/23 Jazmín Chavez PA-C [address] [place] [address] Assigned PCP 02/15/23 documented as of this encounter
--- OUTSIDE RECORDS SUMMARY | 2024-07-01 22:20 | XMS_ITS | Encounter Summary ---
Author Organization [place] Address [address] [place] [address] Care Team Providers Care Hrbp Name Role Phone Jazmín Chavez PA-C Primary Care Provider Alma Kline APRN [facility] Primary Care Provi misha Sonia Lim MD Primary Care Provider Jazmín Chavez-C Primary Care Provider [phone] Jazmín Chavez-C Unavailable [phone] Jazmín Chavez-C Unavailable [phone] Rosa Gorman RN Unavailable Unavailable Dewey Astorga PA-C Primary Care Provide r Dewey Astorga PA-C Unavailable [phone] Yoli Skinner MD Primary Care Provider [phone] Dewey Astorga PA-C Primary Care Provide r Johnathan Brand Primary Care Provider Unavailab le Jazmín Chavez-C Unavailable [phone] Johnathan Villanueva DO Unavailable [phone] Jazmín Chavez-C Primary Care Provider [phone] Jazmín Chavez-C Unavailable [phone] Reason for Visit * Reason Onset Date Comments MyChart Communication 02/22/2015 lymph node pain Encounter Details Date Type Department Care Team (Late st Contact Info) Description 02/22/2015 MyC Medical Advice [facility] [address] [place] [address] Jazmín Chavez PA-C [address] [place] [address] MyChart Communication (lymph node pain) Social History Tobacco Use Types Packs/Day [...] Miscellaneous Notes * Telephone Encounter - Gena Zuñiga RN - 02/23/2015 9:16 AM CDT CJ, See mychart from patient below and please advise. Thanks, Pricilla Zuñiga RN, BSN documented in this encounter Plan of Treatment Not on file documented as of this encounter Visit Diagnoses Not on filedocumented in this encounter Additional Health Concerns Infection Onset Date Last Indicated Resolved Time Rule Out COVID-19 12/14/2021 12/14/2021 12/15/2021 11:31 PM CDT Rule Out COVID-19 12/26/2023 12/26/2023 12/26/2023 9:46 PM CDT documented as of this encounter Care Teams Hrbp Relationship Specialty Start Date End Date Jazmín Chvaez PA-C [address] [place] [address] PCP - General Family Practice 04/20/13 06/25/15 Alma Kline APRN [employer] [address] [place] [address] PCP - General Nurse Practitioner - Family 06/26/15 01/08/16 [place] [address] [place] [address] 789822 PCP - General Family Practice 01/20/16 07/31/17 Jazmín Chavez PA-C [address] [place], [place] [address] PCP - General Physician Drug Department Worker 08/01/17 07/10/20 Jazmín Chavez PA-C [address] [place] [address] PCP - Assigned PCP 03/30/17 12/01/18 Dewey Astorga PA-C [address] [employer] [address] [address] PCP - General Physician Drug Department Worker 07/11/20 11/13/20 Yoli Skinner MD [address] [employer] [address] [place], [place] [address] PCP - General Internal Medicine 11/14/20 11/17/20 Dewey Astorga PA-C [address] [employer] [address] [place], [place] [address] PCP - General Family Medicine 11/18/20 11/20/21 Johnathan Brand [address] [employer] [address] [place] [address] PCP - General Family Medicine 11/21/21 09/23/22 Jazmín Chavez PA-C [address] [place] [address] PCP - General Family Medicine 02/10/23 06/28/24 Jazmín Chavez PA-C [address] [place] [address] Assigned PCP 03/30/17 07/22/20 Rosa Gorman, DANIEL Personal Advocate & Liaison (PAL) 03/14/20 09/04/20 Dewey Astorga PA-C [address] [address] Assigned PCP 07/23/20 08/02/22 Jazmín Chavez PA-C [address] [place] [address] Assigned PCP 08/03/22 08/30/22 [place] [address] [place] [address] Assigned PCP 09/28/22 02/14/23 Jazmín Chavez PA-C [address] [place] [address] Assigned PCP 02/15/23 documented as of this encounter
--- OUTSIDE RECORDS SUMMARY | 2024-07-01 22:20 | XMS_ITS | Encounter Summary ---
Author Organization [place] Address [address] [place] [address] Care Team Providers Care Water Sponger Name Role Phone Alma Kline APRN [facility] Primary Care Provi misha Sonia Lim MD Primary Care Provider Jazmín Chavez PA-C Primary Care Provider [phone] Jazmín Chavez PA-C Unavailable [phone] Jazmín Chavez PA-C Unavailable [phone] Rosa Gorman RN Unavailable Unavailable Dewey Astorga PA-C Primary Care Provide r Dewey Astorga PA-C Unavailable [phone] Yoli Skinner MD Primary Care Provider [phone] Dewey Astorga PA-C Primary Care Provide r Johnathan Brand Primary Care Provider Unavailab le Jazmín Chavez PA-C Unavailable [phone] Johnathan Villanueva DO Unavailable [phone] Jazmín ChavezC Primary Care Provider Jazmín ChavezC Unavailable [phone] Encounter Details Date Type Department Care Team (Late st Contact Info) Description 07/28/2015 MyC Medical Advice [facility] [address] [place] [phone] Alma Kline APRN [employer] [address] [place] [address] Social History Tobacco Use Types Packs/Day Years [...] as of this encounter Care Teams Water Sponger Relationship Specialty Start Date End Date Alma Kline APRN [employer] PCP - General Nurse Practitioner - Family 06/26/15 01/08/16 Sonia Lim MD [address] [place] [address] PCP - General Family Practice 01/20/16 07/31/17 Jazmín Chavez PA-C [address] [place] [address] PCP - General Physician Data Center Operator 08/01/17 07/10/20 Jazmín Chavez PA-C [address] [place] [address] PCP - Assigned PCP 03/30/17 12/01/18 Dewey Astorga PA-C [address] [place] [address] PCP - General Physician Data Center Operator 07/11/20 11/13/20 Yoli Skinner MD [address] [place] [address] PCP - General Internal Medicine 11/14/20 11/17/20 Dewey Astorga PA-C [address] [place] [address] PCP - General Family Medicine 11/18/20 11/20/21 Johnathan Brand [address] [place] [address] PCP - General Family Medicine 11/21/21 09/23/22 Jazmín Chavez PA-C [address] [place] [address] PCP - General Family Medicine 02/10/23 06/28/24 Jazmín Chavez PA-C [address] [place] [address] Assigned PCP 03/30/17 07/22/20 Rosa Gorman, DANIEL Personal Advocate & Liaison (PAL) 03/14/20 09/04/20 Dewey Astorga PA-C [address] [place] [address] Assigned PCP 07/23/20 08/02/22 Jazmín Chavez PA-C [address] [place] [address] Assigned PCP 08/03/22 08/30/22 [place] [address] [place] [address] Assigned PCP 09/28/22 02/14/23 Jazmín Chavez PA-C [address] [place] [address] Assigned PCP 02/15/23 documented as of this encounter
--- OUTSIDE RECORDS SUMMARY | 2024-07-01 22:20 | XMS_ITS | Encounter Summary ---
Author Organization [facility] Address [address] [place] [address] Care Team Providers Care Pasta Maker Name Role Phone Alma Kline APRN [facility] Primary Care Provi misha Sonia Lim MD Primary Care Provider Jazmín Chavez PA-C Primary Care Provider [phone] Jazmín Chavez PA-C Unavailable [phone] Jazmín Chavez PA-C Unavailable [phone] Rosa Gorman RN Unavailable Unavailable Dewey Astorga PA-C Primary Care Provide r Dewey Astorga PA-C Unavailable [phone] Yoli Skinner MD Primary Care Provider [phone] Dewey Astorga PA-C Primary Care Provide r Johnathan Brand Primary Care Provider Unavailab le Jazmín Chavez PA-C Unavailable [phone] Johnathan Villanueva DO Unavailable [phone] Jazmín ChavezC Primary Care Provider Jazmín ChavezC Unavailable [phone] Encounter Details Date Type Department Care Team (Late st Contact Info) Description 07/28/2015 MyC Medical Advice [facility] [id number] [place] [address] [phone] Alma Kline APRN COMMUNITY SERVICE DIRECTOR [address] [place] [address] Social History Tobacco Use Types Packs/Day Years [...] documented as of this encounter Care Teams Pasta Maker Relationship Specialty Start Date End Date Alma Kline APRN COMMUNITY SERVICE DIRECTOR PCP - General Nurse Practitioner - Family 06/26/15 01/08/16 Sonia Lim MD [address] [place] [address] PCP - General Family Practice 01/20/16 07/31/17 Jazmín Chavez PA-C [address] [place] [address] PCP - General Physician Counter Manager 08/01/17 07/10/20 Jazmín Chavez PA-C [address] [place] [address] PCP - Assigned PCP 03/30/17 12/01/18 Dewey Astorga PA-C [address] [place] [address] PCP - General Physician Counter Manager 07/11/20 11/13/20 Yoli Skinner MD [address] [place] [address] PCP - General Internal Medicine 11/14/20 11/17/20 Dewey Astorga PA-C [address] [place] [address] PCP - General Family Medicine 11/18/20 11/20/21 Johnathan Brand [address] [place] [address] PCP - General Family Medicine 11/21/21 09/23/22 Jazmín Chavez PA-C [address] [place] [address] PCP - General Family Medicine 02/10/23 06/28/24 Jazmín Chavez PA-C [address] [place] [address] Assigned PCP 03/30/17 07/22/20 Rosa Gorman, DANIEL Personal Advocate & Liaison (PAL) 03/14/20 09/04/20 Dewey Astorga PA-C [address] [place] [address] Assigned PCP 07/23/20 08/02/22 Jazmín Chavez PA-C [address] [place] [address] Assigned PCP 08/03/22 08/30/22 [place] [address] [place] [address] Assigned PCP 09/28/22 02/14/23 Jazmín Chavez PA-C [address] [place] [address] Assigned PCP 02/15/23 documented as of this encounter
--- OUTSIDE RECORDS SUMMARY | 2024-07-01 22:20 | XMS_ITS | Encounter Summary ---
Author Organization [facility] Address [address] [place] [address] Care Team Providers Care Government Affairs Director Name Role Phone Jazmín Chavez PA-C Primary Care Provider Alma Kline APRN [facility] Primary Care Provi misha Sonia Lim MD Primary Care Provider Jazmín Chavez-C Primary Care Provider [phone] Jazmín Chavez-C Unavailable [phone] Jazmín Chavez-C Unavailable [phone] Rosa Gorman RN Unavailable Unavailable Dewey Astorga PA-C Primary Care Provide r Dewey Astorga PA-C Unavailable [phone] Yoli Skinner MD Primary Care Provider [phone] Dewey Astorga PA-C Primary Care Provide r Johnathan Brand Primary Care Provider Unavailab le Jazmín Chavez-C Unavailable [phone] Johnathan Villanueva DO Unavailable [phone] Jazmín Chavez-C Primary Care Provider [phone] Jazmín Chavez-C Unavailable [phone] Encounter Details Date Type Department Care Team (Late st Contact Info) Description 01/04/2014 [facility] Medical Advice [facility] [address] [place] [address] [phone] Faith Barbour, SCRAP SHEAR OPERATOR Social History Tobacco Use Types Packs/Day Years [...] documented as of this encounter Care Teams Government Affairs Director Relationship Specialty Start Date End Date Jazmín Chavez PA-C [address] [place] [address] PCP - General Family Practice 04/20/13 06/25/15 Alma Kline APRN CNP [address] [place] [address] PCP - General Nurse Practitioner - Family 06/26/15 01/08/16 Sonia Lim MD [address] [place] [address] PCP - General Family Practice 01/20/16 07/31/17 Jazmín Chavez PA-C [address] [place] [address] PCP - General Physician Mill Hand 08/01/17 07/10/20 Jazmín Chavez PA-C [address] [place] [address] PCP - Assigned PCP 03/30/17 12/01/18 Dewey Astorga PA-C [address] [place] [address] PCP - General Physician Mill Hand 07/11/20 11/13/20 Yoli Skinner MD [address] [place] [address] PCP - General Internal Medicine 11/14/20 11/17/20 Dewey Astorga PA-C [address] [place] [address] PCP - General Family Medicine 11/18/20 11/20/21 Johnathan Brand [address] [place] [address] PCP - General Family Medicine 11/21/21 09/23/22 Jazmín Chavez PA-C [address] [place] [address] PCP - General Family Medicine 02/10/23 06/28/24 Jazmín Chavez PA-C [address] [place] [address] Assigned PCP 03/30/17 07/22/20 Rosa Gorman, DANIEL Personal Advocate & Liaison (PAL) 03/14/20 09/04/20 Deewy Astorga PA-C [address] [facility] [address] [place] [address] Assigned PCP 07/23/20 08/02/22 Jazmín Chavez PA-C [address] [place] [address] Assigned PCP 08/03/22 08/30/22 [place] [address] [place] [address] Assigned PCP 09/28/22 02/14/23 Jazmín Chavez PA-C [address] [place] [address] Assigned PCP 02/15/23 documented as of this encounter
--- OUTSIDE RECORDS SUMMARY | 2024-07-01 22:20 | XMS_ITS | Encounter Summary ---
Author Organization [facility] Address [address] [place] [address] Care Team Providers Care Hospital Manager Name Role Phone Jazmín Chavez PA-C Primary Care Provider Alma Kline APRN [facility] Primary Care Provi misha Sonia Lim MD Primary Care Provider Jazmín Chavez-C Primary Care Provider [phone] Jazmín Chavez-C Unavailable [phone] Jazmín Chavez-C Unavailable [phone] Rosa Gorman RN Unavailable Unavailable Dewey Astorga PA-C Primary Care Provide r Dewey Astorga PA-C Unavailable [phone] Yoli Skinner MD Primary Care Provider [phone] Dewey Astorga PA-C Primary Care Provide r Johnathan Brand Primary Care Provider Unavailab le Jazmín Chavez-C Unavailable [phone] Johnathan Villanueva DO Unavailable [phone] Jazmín Chavez-C Primary Care Provider [phone] Jazmín Chavez-C Unavailable [phone] Encounter Details Date Type Department Care Team (Late st Contact Info) Description 02/17/2014 [facility] Medical Advice [facility] [address] [place] [address] [phone] Faith Barbour, VICE PRESIDENT RESEARCH Social History Tobacco Use Types Packs/Day Years [...] as of this encounter Care Teams Hospital Manager Relationship Specialty Start Date End Date Jazmín Chavez PA-C [address] [place] [address] PCP - General Family Practice 04/20/13 06/25/15 Alma Kline APRN CNP [address] [place] [address] PCP - General Nurse Practitioner - Family 06/26/15 01/08/16 Sonia Lim MD [address] [place] [address] PCP - General Family Practice 01/20/16 07/31/17 Jazmín Chavez PA-C [address] [place] [address] PCP - General Physician Accounting Machine Servicer 08/01/17 07/10/20 Jazmín Chavez PA-C [address] [place] [address] PCP - Assigned PCP 03/30/17 12/01/18 Dewey Astorga PA-C [address] [place] [address] PCP - General Physician Accounting Machine Servicer 07/11/20 11/13/20 Yoli Skinner MD [address] [place] [address] PCP - General Internal Medicine 11/14/20 11/17/20 Dewey Astorga PA-C [address] [place] [address] PCP - General Family Medicine 11/18/20 11/20/21 Johnathan Brand [address] [place] [address] PCP - General Family Medicine 11/21/21 09/23/22 Jazmín Chavez PA-C [address] [place] [address] PCP - General Family Medicine 02/10/23 06/28/24 Jazmín Chavez PA-C [address] [place] [address] Assigned PCP 03/30/17 07/22/20 Rosa Gorman, DANIEL Personal Advocate & Liaison (PAL) 03/14/20 09/04/20 Dewey Astorga PA-C [address] [facility] [address] [place] [address] Assigned PCP 07/23/20 08/02/22 Jazmín Chavez PA-C [address] [place] [address] Assigned PCP 08/03/22 08/30/22 [place] [address] [place] [address] Assigned PCP 09/28/22 02/14/23 Jazmín Chavez PA-C [address] [place] [address] Assigned PCP 02/15/23 documented as of this encounter
--- OUTSIDE RECORDS SUMMARY | 2024-07-01 22:20 | XMS_ITS | Encounter Summary ---
Author Organization [facility] Address [address] [place] [address] Care Team Providers Care School Bus Monitor Name Role Phone Jazmín Chavez PA-C Primary Care Provider Alma Kline APRN [facility] Primary Care Provi misha Sonia Lim MD Primary Care Provider Jazmín Chavez-C Primary Care Provider [phone] Jazmín Chavez-C Unavailable [phone] Jazmín Chavez-C Unavailable [phone] Rosa Gorman RN Unavailable Unavailable Dewey Astorga PA-C Primary Care Provide r Dewey Astorga PA-C Unavailable [phone] Yoli Skinner MD Primary Care Provider [phone] Dewey Astorga PA-C Primary Care Provide r Johnathan Brand Primary Care Provider Unavailab le Jazmín Chavez-C Unavailable [phone] Johnathan Villanueva DO Unavailable [phone] Jazmín Chavez-C Primary Care Provider [phone] Jazmín Chavez-C Unavailable [phone] Reason for Visit * Reason Onset Date Comments MyChart Communication 08/30/2014 sinus Encounter Details Date Type Department Care Team (Late st Contact Info) Description 08/30/2014 [facility] [address] [place] [phone] Jazmín Chavez PA-C [address] [place], [place] [id number] MyChart Communication (sinus ) Social History Tobacco Use Types Packs/Day [...] documented as of this encounter Care Teams School Bus Monitor Relationship Specialty Start Date End Date Jazmín Chavez PA-C [address] [place] [address] PCP - General Family Practice 04/20/13 06/25/15 Alma Kline APRN CNP [address] [place] [address] PCP - General Nurse Practitioner - Family 06/26/15 01/08/16 Sonia Lim MD [address] [place] [address] PCP - General Family Practice 01/20/16 07/31/17 Jazmín Chavez PA-C [address] [place] [address] PCP - General Physician Sap Consultant 08/01/17 07/10/20 Jazmín Chavez PA-C [address] [place] [address] PCP - Assigned PCP 03/30/17 12/01/18 Dewey Astorga PA-C [address] [address] PCP - General Physician Sap Consultant 07/11/20 11/13/20 Yoli Skinner MD [address] [place] [place] [address] PCP - General Internal Medicine 11/14/20 11/17/20 Dewey Astorga PA-C [address] [address] PCP - General Family Medicine 11/18/20 11/20/21 Johnathan Brand [address] [place] [address] PCP - General Family Medicine 11/21/21 09/23/22 Jazmín Chavez PA-C [address] [place] [address] PCP - General Family Medicine 02/10/23 06/28/24 Jazmín Chavez PA-C [address] [place] [address] Assigned PCP 03/30/17 07/22/20 Rosa Gorman, RN Personal Advocate & Liaison (PAL) 03/14/20 09/04/20 Dewey Astorga PA-C [address] [place] [address] Assigned PCP 07/23/20 08/02/22 Jazmín Chavez PA-C [address] [place] [address] Assigned PCP 08/03/22 08/30/22 [place] [address] [place] [address] Assigned PCP 09/28/22 02/14/23 Jazmín Chavez PA-C [address] [place] [address] Assigned PCP 02/15/23 documented as of this encounter
--- OUTSIDE RECORDS SUMMARY | 2024-07-01 22:21 | XMS_ITS | Encounter Summary ---
Author Organization [facility] Address [address] [place] [address] Care Team Providers Care Hedis Specialist Name Role Phone Jazmín Chavez PA-C Primary Care Provider Alma Kline APRN [facility] Primary Care Provi misha Sonia Lim MD Primary Care Provider Jazmín Chavez-C Primary Care Provider [phone] Jazmín Chavez-C Unavailable [phone] Jazmín Chavez-C Unavailable [phone] Rosa Gorman RN Unavailable Unavailable Dewey Astorga PA-C Primary Care Provide r Dewey Astorga PA-C Unavailable [phone] Yoli Skinner MD Primary Care Provider [phone] Dewey Astorga PA-C Primary Care Provide r Johnathan Brand Primary Care Provider Unavailab le Jazmín Chavez-C Unavailable [phone] Johnathan Villanueva DO Unavailable [phone] Jazmín Chavez-C Primary Care Provider [phone] Jazmín Chavez-C Unavailable [phone] Encounter Details Date Type Department Care Team (Late st Contact Info) Description 09/17/2013 [facility] [address] [place] [address] [phone] Sonia Cooney PA-C [address] [address] [place] [address] Social History Tobacco Use Types Packs/Day Years [...] documented as of this encounter Care Teams Hedis Specialist Relationship Specialty Start Date End Date Jazmín Chavez PA-C [address] [place] [address] PCP - General Family Practice 04/20/13 06/25/15 Alma Kline APRN ARRESTING GEAR OPERATOR [address] [place] [address] PCP - General Nurse Practitioner - Family 06/26/15 01/08/16 [place] [address] [place] [address] PCP - General Family Practice 01/20/16 07/31/17 Jazmín Chavez PA-C [address] [place] [address] PCP - General Physician Onshore Diver 08/01/17 07/10/20 Jazmín Chavez PA-C [address] [place] [address] PCP - Assigned PCP 03/30/17 12/01/18 Dewey Astorga PA-C [address] [address] PCP - General Physician Onshore Diver 07/11/20 11/13/20 Yoli Skinner MD [address] [place] [address] PCP - General Internal Medicine 11/14/20 11/17/20 Dewey Astorga PA-C [address] [address] PCP - General Family Medicine 11/18/20 11/20/21 Johnathan Brand [address] [place] [address] PCP - General Family Medicine 11/21/21 09/23/22 Jazmín Chavez PA-C [address] [place] [address] PCP - General Family Medicine 02/10/23 06/28/24 Jazmín Chavez PA-C [address] [place] [address] Assigned PCP 03/30/17 07/22/20 Rosa Gorman, DANIEL Personal Advocate & Liaison (PAL) 03/14/20 09/04/20 Dewey Astorga PA-C [address] [place] [address] Assigned PCP 07/23/20 08/02/22 Jazmín Chavez PA-C [address] [place] [address] Assigned PCP 08/03/22 08/30/22 [place] [address] [place] [address] Assigned PCP 09/28/22 02/14/23 Jazmín Chavez PA-C [address] [place] [address] Assigned PCP 02/15/23 documented as of this encounter
--- OUTSIDE RECORDS SUMMARY | 2024-07-01 22:21 | XMS_ITS | Encounter Summary ---
Author Organization [facility] [place] Address [address] [place] [address] Care Team Providers Care Supervisor Printing Shop Name Role Phone Jazmín Chavez PA-C Primary Care Provider Alma Kline APRN [facility] Primary Care Provi misha Sonia Lim MD Primary Care Provider Jazmín Chavez-C Primary Care Provider [phone] Jazmín Chavez-C Unavailable [phone] Jazmín Chavez-C Unavailable [phone] Rosa Gorman RN Unavailable Unavailable Dewey Astorga PA-C Primary Care Provide r Dewey Astorga PA-C Unavailable [phone] Yoli Skinner MD Primary Care Provider [phone] Dewey Astorga PA-C Primary Care Provide r Johnathan Brand Primary Care Provider Unavailab le Jazmín Chavez-C Unavailable [phone] Johnathan Villanueva DO Unavailable [phone] Jazmín Chavez-C Primary Care Provider [phone] Jazmín Chavez-C Unavailable [phone] Reason for Visit * Reason Onset Date Comments MyChart Communication 12/07/2013 follow up surgery Encounter Details Date Type Department Care Team (Late st Contact Info) Description 12/07/2013 [facility] [address] [place] [phone] Jazmín Chavez PA-C [address] [place] [address] MyChart Communication (follow up surgery) Social History Tobacco Use Types Packs/Day Years [...] documented as of this encounter Care Teams Supervisor Printing Shop Relationship Specialty Start Date End Date Jazmín Chavez PA-C [address] [place] [address] PCP - General Family Practice 04/20/13 06/25/15 Alma Kline APRN CNP [address] [place] [address] PCP - General Nurse Practitioner - Family 06/26/15 01/08/16 Sonia Lim MD [address] [place] [address] PCP - General Family Practice 01/20/16 07/31/17 Jazmín Chavez PA-C [address] [place] [address] PCP - General Physician Administrative Program Specialist 08/01/17 07/10/20 Jazmín Chavez PA-C [address] [place] [address] PCP - Assigned PCP 03/30/17 12/01/18 Dewey Astorga PA-C [address] [place] [address] PCP - General Physician Administrative Program Specialist 07/11/20 11/13/20 Yoli Skinner MD [address] [place] [address] PCP - General Internal Medicine 11/14/20 11/17/20 Dewey Astorga PA-C [address] [place] [address] PCP - General Family Medicine 11/18/20 11/20/21 Johnathan Brand [address] [place] [address] PCP - General Family Medicine 11/21/21 09/23/22 Jazmín Chavez PA-C [address] [place] [address] PCP - General Family Medicine 02/10/23 06/28/24 Jazmín Chavez PA-C [address] [place] [address] Assigned PCP 03/30/17 07/22/20 Rosa Gorman, RN Personal Advocate & Liaison (PAL) 03/14/20 09/04/20 Dewey Astorga PA-C [address] [facility] [address] [place] [address] Assigned PCP 07/23/20 08/02/22 Jazmín Chavez PA-C [address] [place] [address] Assigned PCP 08/03/22 08/30/22 [place] [address] [place] [address] Assigned PCP 09/28/22 02/14/23 Jazmín Chavez PA-C [address] [place] [address] Assigned PCP 02/15/23 documented as of this encounter
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
--- OUTSIDE RECORDS SUMMARY | 2024-07-01 22:21 | XMS_ITS | Encounter Summary ---
Author Organization [facility] Address [address] [place] [address] Care Team Providers Care Car Hopper Name Role Phone Jazmín Chavez PA-C Primary Care Provider [phone] Encounter Details Date Type Department Care Team (Late st Contact Info) Description 03/03/2024 juan Foy [phone] Social History Tobacco Use Types Packs/Day Years [...] on file Sexual Orientation Not on file documented as of this encounter Progress Notes * FAMILY MEDICINEJUAN PROVIDER - 03/03/2024 12:24 AM CDT Juan Treatment Plan Diagnosis Urinary Tract Infection Visit Date March 03, 2024 Radha Muñoz Date of : 86 Provider Mario Bland, Physician Pelt Grader Note From Provider Forrest Garcia! Please read through the attached treatment plan. If you have any questions or concerns, please do not hesitate to reach out. Take care!Mario Gongora PA-C Treatment Plan Because you have a bacterial infection, I sent a prescription for an antibiotic to [facility]/pharmacy. I also listed a few ways to soothe your discomfort and additional self-care tips to get you on the road to feeling better. If your symptoms don't start to improve after 3 days, or if you have questions,please select Help to Request a Follow-up and we'll discuss next steps. Order(s) cephalexin 500 mg capsule Take 1 capsule oral every twelve hours as directed for 7 days Note: Refills: None fluconazole 150 mg tablet Take 1 tablet by mouth single dose as directed Note: Repeat in 3 days if symptoms persist Refills: None Sent To: [facility]/pharmacy [address] [place], [place] [id number] Treatment Plan Self Care Tip Topics Drink Water Avoid Caffeine Warm Packs Yeast Infection Prescription What to Expect If you follow the recommendations I made on the Treatment tab, your symptoms should start to improve in about 3 days. If your symptoms don't start to improve after 3 days, or if you have questions, please select Help to Request a Follow- up and we'll help determine next steps. What to Watch Out For Follow-up in clinic if you experience: ??? Fever higher than 99.9 degrees ??? Shaking or chills ??? Vomiting ??? Severe pain in your back, abdomen or pelvis ??? Extreme fatigue My Conditions, Orders, Allergies as of March 03, 2024 Standard condition list Fibromyalgia Muscle spasms Underactive Thyroid (Hypothyroid) ADD (Attention Deficit Disorder) Current orders fluconazole (fluconazole) cephalexin (cephalexin) fluconazole (fluconazole) QNASL (beclomethasone dipropionate) fluconazole (fluconazole) Cymbalta (duloxetine) Adderall (dextroamphetamine-amphetamine) Tylenol (acetaminophen) Benadryl Allergy (diphenhydramine HCl) Allergies amoxicillin (amoxicillin), oral [facility] [employer] We are an online clinic open 21/04. If you have any questions or comments about this visit, please call or email [email or web address]. documented in this encounter Plan of Treatment Not on file documented as of this encounter Visit Diagnoses Diagnosis Urinary tract infection, site not specified documented in this encounter Care Teams Car Hopper Relationship Specialty Start Date End Date Jazmín Chavez PA-C [address] [place] [address] PCP - General Physician Pelt Grader 07/04/20 documented as of this encounter
--- OUTSIDE RECORDS SUMMARY | 2024-07-01 22:21 | XMS_ITS | Encounter Summary ---
Author Organization [facility] Address [address] [place] [address] Care Team Providers Care Paralegal Supervisor Name Role Phone Jazmín Chavez PA-C Primary Care Provider Alma Kline APRN [facility] Primary Care Provi misha Sonia Lim MD Primary Care Provider Jazmín Chavez-C Primary Care Provider [phone] Jazmín Chavez-C Unavailable [phone] Jazmín Chavez-C Unavailable [phone] Rosa Gorman RN Unavailable Unavailable Dewey Astorga PA-C Primary Care Provide r Dewey Astorga PA-C Unavailable [phone] Yoli Skinner MD Primary Care Provider [phone] Dewey Astorga PA-C Primary Care Provide r Johnathan Brand Primary Care Provider Unavailab le Jazmín Chavez-C Unavailable [phone] Johnathan Villanueva DO Unavailable [phone] Jazmín Chavez-C Primary Care Provider [phone] Jazmín Chavez-C Unavailable [phone] Reason for Visit * Reason Onset Date Comments MyChart Communication 11/12/2013 sinus Encounter Details Date Type Department Care Team (Late st Contact Info) Description 11/12/2013 [facility] [address] [place] [phone] Jazmín Chavez PA-C [address] [place], [place] [id number] MyChart Communication (sinus) Social History Tobacco Use Types Packs/Day Years [...] documented as of this encounter Care Teams Paralegal Supervisor Relationship Specialty Start Date End Date Jazmín Chavez PA-C [address] [place] [address] PCP - General Family Practice 04/20/13 06/25/15 Alma Kline APRN CNP [address] [place] [address] PCP - General Nurse Practitioner - Family 06/26/15 01/08/16 Sonia Lim MD [address] [place] [address] PCP - General Family Practice 01/20/16 07/31/17 Jazmín Chavez PA-C [address] [place] [address] PCP - General Physician Home Health Registered Nurse 08/01/17 07/10/20 Jazmín Chavez PA-C [address] [place] [address] PCP - Assigned PCP 03/30/17 12/01/18 Dewey Astorga PA-C [address] [address] PCP - General Physician Home Health Registered Nurse 07/11/20 11/13/20 Yoli Skinner MD [address] [place] [address] PCP - General Internal Medicine 11/14/20 11/17/20 Dewey Astorga PA-C [address] [address] PCP - General Family Medicine 11/18/20 11/20/21 Johnathan Brand [address] [place] [address] PCP - General Family Medicine 11/21/21 09/23/22 Jazmín Chavez PA-C [address] [place] [address] PCP - General Family Medicine 02/10/23 06/28/24 Jazmín Chavez PA-C [address] [place] [address] Assigned PCP 03/30/17 07/22/20 Rosa Gorman, RN Personal Advocate & Liaison (PAL) 03/14/20 09/04/20 Dewey Astorga PA-C [address] [place] [address] Assigned PCP 07/23/20 08/02/22 Jazmín Chavez PA-C [address] [place] [address] Assigned PCP 08/03/22 08/30/22 [place] [address] [place] [address] Assigned PCP 09/28/22 02/14/23 Jazmín Chavez PA-C [address] [place] [address] Assigned PCP 02/15/23 documented as of this encounter
--- OUTSIDE RECORDS SUMMARY | 2024-07-01 22:21 | XMS_ITS | Clinical Summary ---
Author Organization [facility] Address [place], [place] [address] Care Team Providers Care Flower Shop Manager Name Role Phone Pcp, No Primary Care Provider Unavailabl e Allergies Active Allergy Reactions Criticality Noted Date Comments Amoxicillin Rash 08/28/2011 Apple (Fruit) Hives 01/02/2012 Carrot Hives 01/02/2012 Allergenic Extracts Itching 01/02/2012 Sneezing, itchy eyes Dexamethasone Anxiety,Tachycardia 07/05/2021 numbness in legs Droperidol *Unknown 07/05/2021 House Dust Itching 01/02/2012 Sneezing, itchy eyes Ketorolac Tromethamine *Unknown 07/05/2021 numbness in legs, sound sensitivity [place] (Prunus Persica) Hives 01/02/2012 [place] Hives 01/02/2012 Pollen Extracts Itching 01/02/2012 Sneezing, itchy eyes Medications Medication Sig Dispensed Refills Start Date End Date Status levothyroxine (SYNTHROID) 50 mcg tabletIndications:Hy pothyroidism, unspecified type Take 1 tablet by mouth before breakfast. 90 tablet 3 05/18/2020 Active dextroamphetamine-am phetamine (ADDERALL) 20 mg tabletIndications:At tention deficit hyperactivity disorder (ADHD), unspecified ADHD type Take 1 tablet by mouth once daily 30 tablet 05/24/2020 Active DULoxetine (CYMBALTA) 30 mg Delayed-release capsule Take 30 mg by mouth once daily. 12/13/2020 Active aspirin chewable 81 mg chewable tabletIndications:Hi story of gestational hypertension Chew 1 Tablet (81 mg) by mouth once daily with a meal. 0 07/08/2021 Active Additional Information Patient taking differently:81 mg OralBID, Reported on 08/06/2021 cyclobenzaprine (FLEXERIL) 10 mg tablet Take 10 mg by mouth at bedtime if needed for Muscle Spasm. Active cyclobenzaprine (FLEXERIL) 10 mg tabletIndications:Mu scle pain Take 1 Tablet (10 mg) by mouth 3 times daily if needed for Muscle Spasm. 30 Tablet 02/23/2023 Active Active Problems Problem Noted Date Diagnosed Date Gestational hypertension, second trimester 07/07 migraine 07/07/2021 Migraine with aura, not intractable 07/07/2021 Overview (07/07/2021): Neurology consult inpatient (07/06/2021): Dr. Jones Recommendations -As I see patient today she seems to be doing well in regards to headache -Would not consider rescue therapy (IV Solu-Medrol) due to and persistent hypertension at this time I will write order for the triptan Imitrex which she can use as needed, per directions, for recurrent headache and is safe during Hypothyroid in , antepartum, second tri mester 07/05/2021 Overview (07/07/2021): Currently on Levothyroxine replacement TSH (07/05/2021): 2.18 (0.30-4.50 mIU/mL) Rh negative status during in second tr imester 07/05/2021 History of gestational hypertension 07/05/2021 Arthralgia 05/18/2020 Neuropathy 05/18/2020 Pityriasis rosea 10/23/2017 ADD (attention deficit disorder with hyperactivi ty) 08/28/2011 Overview (12/14/2013): a system change updated this record. This will not affect patient care or billing. This comment can be deleted. Threatened premature labor in third trimester Resolved Problems Problem Noted Date Diagnosed Date Resolved Date Hypothyroidism 05/18/2020 07/07/2021 Early stage of 10/23/2017 Transient loss of consciousness 10/23/2017 07/07/2021 Anxiety state, unspecified 08/28/2011 1 Immunizations Name Administration Dates Next Due Influenza Virus, Unspecified 10/12/2015 Influenza, IIV4 06/22/2019, 8,09/02/2016,2015 Influenza, Inactivated IIV3 (Age 65+ Years) Preserv Free 10/12/2015 Tdap 04/20/2019, 8,09/02/2016,2004 Family History Medical History Relation Name Comments Diabetes Father Rheum arthritis Mother Psoriasis Sister 2 1974 with arthritis Relation Name Status Comments Brother 1978 Alive Father Alive Mother Alive Sister 1 1972 Alive Sister 2 1973 Alive Sister 3 1080 Alive Social History Tobacco Use Types Packs/Day Years Used Date Smoking Tobacco: Never Smokeless Tobacco: Never Tobacco Cessation:Counseling Given: No Comments:03/2020 Alcohol Use Standard Drinks/Week Comments Not Currently 1 (1 standard drink = 0.6 oz pur e alcohol) 03/2020 PHQ-2 Answer Date Recorded PHQ-2 TOTAL SCORE 0 04/26/2020 Social Connections Answer Date Recorded Frequency of Communication with Friends and Fami ly Not on file 09/29/2021 Financial Resource Strain Answer Date R ecorded Difficulty of Paying Living Expenses Not on file 09/29/2021 Difficulty of Paying Living Expenses Not on file 09/29/2021 Sex and Gender Information Value Date Recorded Sex Assigned at Not on file Gender Identity Not on file Sexual Orientation Not on file Obstetrics History Para Term AB IAB SAB Ectopic Multiple Livin g Live Births 3 2 2 0 0 2 2 Date Outcome GA Total Labor Labor/2nd/3rd Weight Sex Type Anes PTL Melissa A1 A5 Name Clin 018 Term 39w 2d 3.41 kg (7 lb 8.3 oz) M Vag-S pont Other, IV Meds,L ocal N Livin g Complications:Gestational hy pertension 019 Term 38w 1d 3.26 kg (7 lb 2.8 oz) F Vag-S pont Other N Livin g Complications:Gestational hy pertension Last Filed Vital Signs Vital Sign Reading Time Taken Comments Blood Pressure 134/89 02/23/2023 7:20 PM CDT Pulse 99 02/23/2023 7:20 PM CDT Temperature 36.2 ??C (97.1 ??F) 02/23/2023 7:20 PM CD T Respiratory Rate 17 02/23/2023 7:20 PM CDT Oxygen Saturation 100% 02/23/2023 7:20 PM CDT Inhaled Oxygen Concentration - - Weight 80 kg (176 lb 6.4 oz) 07/08/2021 6:34 AM CDT Height 169.5 cm (5' 6.75) 05/18/2020 10:47 AM C DT Body Mass Index 27.84 05/18/2020 10:47 AM CDT Plan of Treatment Health Maintenance Due Date Last Done Comments HIV for age 15-65 2003 Hepatitis C screening for age 18-79 2006 Depression screening for age 12+ 04/26/2021 04/26/2020, 09/25/2016 BMI (ht and wt on same day) for age 18+ 05/18/2021 05/18/2020, 04/26/2020, 10/23/2017, Additional history exists Pap test for age 21-65 02/10/2023 0 (Completed [facility] of [facility]), 09/25/2016 COVID-19 vaccine series (2023- season) 2024 Influenza for age 9-49 05/30/2024 9, 07/28/2018, 09/02/2016, Additional history exists Tetanus booster 04/20/2029 04/20/2019, 03/31, 09/02/2016, Additional history exists Tdap Completed 04/20/2019, 03/31, 09/02/2016, Additional history exists Pneumococcal series for age 6-64 Aged Out No longer eligible based on patient's age to complete this topic Procedures Procedure Name Priority Date/Time Associated Diagnosis Comments GEOPHYSICAL LABORATORY SUPERVISOR THIN PREP PAP SCREEN IMAGED Routine 09/25/2016 4:00 PM CAFE TEAM MEMBER Well woman exam from Last 3 Months or Most Recently Relevant to Health Maintenance Results * GEOPHYSICAL LABORATORY SUPERVISOR THIN PREP PAP SCREEN IMAGED (09/25/2016 4:00 PM CAFE TEAM MEMBER) Case Report Gynecologic Cytology Report ? Case: [id number] ? Authorizing Provider: ??Cinthia Fleming MD ??Collected: ? 09/25/2016 1600 ? Ordering Location: ? [facility] ? Received: ?09/25/2016 1626 ? Clinic ? First Screen: ?Rica Ware ? Specimen: ?GEOPHYSICAL LABORATORY SUPERVISOR ThinPrep Vial Screening, Cervical ? 10/04/2016 1:03 PM CAFE TEAM MEMBER [facility] LAB[facility]AT[facility]-C ENTRAL LABORATORY INTERPRETATION/ RESULT NEGATIVE FOR INTRAEPITHELIAL LESION OR MALIGNANCY (NIL) (none) 10/04/2016 1:03 PM [facility] [employer]-[facility] ENTRAL LABORATORY IMEN ADEQUACY Satisfactory for evaluation Endocervical component present 10/04/2016 1:03 PM CAFE TEAM MEMBER [facility] LAB[facility]-C ENTRAL LABORATORY HPV REQUEST HPV if ASCUS 10/04/2016 1:03 PM CAFE TEAM MEMBER [facility] ENTRAL LABORATORY Date of LMP 09/07/2016 10/04/2016 1:03 PM CAFE TEAM MEMBER [facility] EN[facility]AL LABORATORY Last Pap Date 201110/04/2016 1:03 PM [facility] [employer] LABOR[facility]-C ENTRAL LABORATORY Last Pap Result NIL 7 1:03 PM CAFE TEAM MEMBER [facility]- ENTRAL LABORATORY Abnormal Pap or Wall Bx in last 5 years No 10/04/2016 1:03 PM CAFE TEAM MEMBER [facility] Menstrual Status Regular Periods 10/04/2016 1:03 PM CAFE TEAM MEMBER [facility] Wall Bx Done Today No 10/04/2016 1:03 PM CAFE TEAM MEMBER [facility] Additional Information None given 10/04/2016 1:03 PM CAFE TEAM MEMBER [facility] ENTRND LABORATORY Automated Review Successful 10/04/2016 1:03 PM CAFE TEAM MEMBER [facility] ENTRND LABORATORY Comment:Specimen processed s uccessfully by automated magazine worker device, [employer] System, [employer] Note The pap test is a screening technique, not a diagnostic procedure. ??It is used primarily to screen for squamous cancers and precursor lesions. ??Published studies have shown that it is subject to both false negative and false positive results. ??The pap test should not be used as the sole means to diagnose or exclude pre-malignant and malignant lesions. Interpreted at [facility] ([facility], [facility], [facility], [facility], [facility], [facility], [facility]) 10/04/2016 1:[address] [facility] Other (Cervical) 09/25/2016 4:00 PM CAFE TEAM MEMBER 09/25/2016 4:26 PM CAFE TEAM MEMBER Cinthia Fleming MD PATHOLOGY/CYTOLO GY [facility] [address] [place] [address], from Last 3 Months or Most Recently Relevant to Health Maintenance Advance Directives * Full Code (Latest Code Status on File) Date Activated Date Inactivated Comments 07/05/2021 7:55 PM 07/08/2021 3:25 PM Question Answer Comments Code Status Discussion: Not Discussed Care Teams Flower Shop Manager Relationship Specialty Start Date End Date Pcp, No . PCP - General 05/10/24
--- OUTSIDE RECORDS SUMMARY | 2024-07-01 22:21 | XMS_ITS | Encounter Summary ---
Author Organization [facility] Address [address] [place] [address] Care Team Providers Care Middle School Technology Teacher Name Role Phone Jazmín Chavez PA-C Primary Care Provider Alma Kline APRN [facility] Primary Care Provi misha Sonia Lim MD Primary Care Provider Jazmín Chavez-C Primary Care Provider [phone] Jazmín Chavez-C Unavailable [phone] Jazmín Chavez-C Unavailable [phone] Rosa Gorman RN Unavailable Unavailable Dewey Astorga PA-C Primary Care Provide r Dewey Astorga PA-C Unavailable [phone] Yoli Skinner MD Primary Care Provider [phone] Dewey Astorga PA-C Primary Care Provide r Johnathan Brand Primary Care Provider Unavailab le Jazmín Chavez-C Unavailable [phone] Johnathan Villanueva DO Unavailable [phone] Jazmín Chavez-C Primary Care Provider [phone] Jazmín Chavez-C Unavailable [phone] Reason for Visit * Reason Onset Date Comments MyChart Communication 11/23/2013 F/U 4 OV Encounter Details Date Type Department Care Team (Late st Contact Info) Description 11/21/2013 MyC Medical Advice [facility] [address] [place] [phone] Jazmín Chavez PA-C [id number] [place] [address] MyChart Communication (F/U 11/18/13 OV) Social History Tobacco Use Types Packs/Day Years [...] documented as of this encounter Care Teams Middle School Technology Teacher Relationship Specialty Start Date End Date Jazmín Chavez PA-C [address] [place] [address] PCP - General Family Practice 04/20/13 06/25/15 Alma Kline APRN CNP [address] [place] [address] PCP - General Nurse Practitioner - Family 06/26/15 01/08/16 Sonia Lim MD [address] [place] [address] PCP - General Family Practice 01/20/16 07/31/17 Jazmín Chavez PA-C [address] [place] [address] PCP - General Physician Ignition Mechanic 08/01/17 07/10/20 Jazmín Chavez PA-C [address] [place] [address] PCP - Assigned PCP 03/30/17 12/01/18 Dewey Astorga PA-C [address] [address] PCP - General Physician Ignition Mechanic 07/11/20 11/13/20 Yoli Skinner MD [address] [place] [address] PCP - General Internal Medicine 11/14/20 11/17/20 Dewey Astorga PA-C [address] [address] PCP - General Family Medicine 11/18/20 11/20/21 Johnathan Brand [address] [place] [address] PCP - General Family Medicine 11/21/21 09/23/22 Jazmín Chavez PA-C [address] [place] [address] PCP - General Family Medicine 02/10/23 06/28/24 Jazmín Chavez PA-C [address] [place] [address] Assigned PCP 03/30/17 07/22/20 Rosa Gorman, DANIEL Personal Advocate & Liaison (PAL) 03/14/20 09/04/20 Dewey Astorga PA-C [address] [facility] [place] [address] [place] [address] Assigned PCP 07/23/20 08/02/22 Jazmín Chavez PA-C [address] [place] [address] Assigned PCP 08/03/22 08/30/22 [place] [address] [place] [address] Assigned PCP 09/28/22 02/14/23 Jazmín Chavez PA-C [address] [place] [address] Assigned PCP 02/15/23 documented as of this encounter
--- OUTSIDE RECORDS SUMMARY | 2024-07-01 22:21 | XMS_ITS | Encounter Summary ---
Author Organization [facility] Address [address] [place] [address] Care Team Providers Care Dice Manager Name Role Phone Jazmín Chavez PA-C Primary Care Provider Alma Kline APRN [facility] Primary Care Provi misha Sonia Lim MD Primary Care Provider Jazmín Chavez-C Primary Care Provider [phone] Jazmín Chavez-C Unavailable [phone] Jazmín Chavez-C Unavailable [phone] Rosa Gorman RN Unavailable Unavailable Dewey Astorga PA-C Primary Care Provide r Dewey Astorga PA-C Unavailable [phone] Yoli Skinner MD Primary Care Provider [phone] Dewey Astorga PA-C Primary Care Provide r Johnathan Brand Primary Care Provider Unavailab le Jazmín Chavez-C Unavailable [phone] Johnathan Villanueva DO Unavailable [phone] Jazmín Chavez-C Primary Care Provider [phone] Jazmín Chavez-C Unavailable [phone] Encounter Details Date Type Department Care Team (Late st Contact Info) Description 10/07/2013 [facility] [id number] [place] [phone] Rm Dotson Social History Tobacco Use Types Packs/Day Years [...] documented as of this encounter Care Teams Dice Manager Relationship Specialty Start Date End Date Jazmín Chavez PA-C [address] [place] [address] PCP - General Family Practice 04/20/13 06/25/15 Alma Kline APRN CNP [address] [place] [address] PCP - General Nurse Practitioner - Family 06/26/15 01/08/16 Sonia Lim MD [address] [place] [address] PCP - General Family Practice 01/20/16 07/31/17 Jazmín Chaevz PA-C [address] [place] [address] PCP - General Physician Entry Level Software Engineer 08/01/17 07/10/20 Jazmín Chavez PA-C [address] [place] [address] PCP - Assigned PCP 03/30/17 12/01/18 Dewey Astorga PA-C [address] [place] [address] [place] [address] PCP - General Physician Entry Level Software Engineer 07/11/20 11/13/20 Yoli Skinner MD [address] [place] [address] PCP - General Internal Medicine 11/14/20 11/17/20 Dewey Astorga PA-C [address] [address] PCP - General Family Medicine 11/18/20 11/20/21 Johnathan Brand [address] [place] [address] PCP - General Family Medicine 11/21/21 09/23/22 Jazmín Chavez PA-C [address] [place] [address] PCP - General Family Medicine 02/10/23 06/28/24 Jazmín Chavez PA-C [address] [place] [address] Assigned PCP 03/30/17 07/22/20 Rosa Gorman, DANIEL Personal Advocate & Liaison (PAL) 03/14/20 09/04/20 Dewey Astorga PA-C [address] [place] [address] Assigned PCP 07/23/20 08/02/22 Jazmín Chavez PA-C [address] [place] [address] Assigned PCP 08/03/22 08/30/22 [place] [address] [place] [address] Assigned PCP 09/28/22 02/14/23 Jazmín Chavez PA-C [address] [place] [address] Assigned PCP 02/15/23 documented as of this encounter
--- OUTSIDE RECORDS SUMMARY | 2024-07-01 22:21 | XMS_ITS | Encounter Summary ---
Author Organization [facility] Address [address] [place] [address] Care Team Providers Care Warehouse Shipping Receiving Clerk Name Role Phone Jazmín Chavez PA-C Primary Care Provider [phone] Encounter Details Date Type Department Care Team (Late st Contact Info) Description 06/27/2024 juan Foy [phone] Social History Tobacco Use Types Packs/Day Years [...] Progress Notes * FAMILY MEDICINEJUAN PROVIDER - 06/27/2024 10:18 PM CDT Juan Treatment Plan Diagnosis Urinary Tract Infection Visit Date June 27, 2024 Radha Muñoz Date of : 86 Provider Omaira Munson, Nurse Practitioner Note From Provider Forrest Garcia, I?? sorry to hear that you're having symptoms of a bladder infection.'ve sent a prescription for an antibiotic to your pharmacy. Take the medication with a full meal twice a day and remember to drink lots of fluids. We are here for you for any questions or concerns along the way, just submit a Follow Up Request. Feel better soon! Omaira GAUTAM Treatment Plan Because you have a bacterial infection, I sent a prescription for an antibiotic to [facility]. I also listed a few ways to soothe your discomfort and additional self-care tips to get you onthe road to feeling better. If your symptoms don't start to improve after 3 days, or if you have questions, please select Help to Request a Follow-up and we'll discuss next steps. Order(s) nitrofurantoin monohyd/m-cryst 100 mg capsule Take 1 capsule by mouth every twelve hours as directed for 5 days Note: Take with food to improve absorption. Refills: None Sent To: [facility] [address] [place], [place] [id number] Treatment Plan Self Care Tip Topics Drink Water Avoid Caffeine Warm Packs Yeast Infection What to Expect If you follow the [...] fatigue My Conditions, Orders, Allergies as of June 27, 2024 Standard condition list Fibromyalgia Muscle spasms Underactive Thyroid (Hypothyroid) ADD (Attention Deficit Disorder) Current orders nitrofurantoin monohyd/m-cryst (nitrofurantoin monohyd/m-cryst) fluconazole (fluconazole) fluconazole (fluconazole) QNASL (beclomethasone dipropionate) fluconazole (fluconazole) Cymbalta (duloxetine) Adderall (dextroamphetamine-amphetamine) Tylenol (acetaminophen) Benadryl Allergy (diphenhydramine HCl) Allergies amoxicillin (amoxicillin), oral [facility] [employer] We are an online clinic open 21/04. If you have any questions or comments about this visit, please call or email . documented in this encounter Plan of Treatment Not on file documented as of this encounter Visit Diagnoses Diagnosis Urinary tract infection, site not specified documented in this encounter Care Teams Warehouse Shipping Receiving Clerk Relationship Specialty Start Date End Date Jazmín Chavez PA-C [address] [place] [address] PCP - General Physician Manager Corporate Communications 07/04/20 documented as of this encounter
[2024-07-01 22:22] LABS: Albumin* 4.7 g/dL (3.3-5.0); Chloride* 104 mmol/L (96-114); Potassium* 3.9 mmol/L (3.6-5.1); Sodium* 138 mmol/L (135-149)
[2024-07-01 22:24] LABS: Creatinine* 0.8 mg/dL (0.5-1.5); Est. Creatinine Clearance* 95.45; Estimated Glomerular Filt Rate 98 ml/min
[2024-07-01 22:25] LABS: Alanine Aminotransferase* 20 U/L (4-35); Alkaline Phosphatase* 59 U/L (40-150); Anion Gap 7 mEq/L (7-15); Aspartate Amino Transferase* 21 U/L (12-35); Bilirubin Total* 0.6 mg/dL (0.1-1.5); Blood Urea Nitrogen* 15 mg/dL (5-24); Calcium* 9.2 mg/dL (8.4-10.6); Carbon Dioxide* 27 mmol/L (20-32); Glucose* 96 mg/dL (60-115); Lipase* 71 U/L (23-300); Total Protein* 7.6 g/dL (6.0-8.3)
[2024-07-01] MEDS: KETOROLAC 15 MG/ML inj IVP (22:32)
[2024-07-01] MEDS: LACTATED RINGERS 1000 ML 1,000 ML IV (22:32)
[2024-07-01 22:54] LABS: PCR FLU A Negative PCR FLU A (Negative); PCR FLU B Negative PCR FLU B (Negative); SARS PCR* Negative SARS-CoV-2 (Negative)
[2024-07-01] MEDS: HYDROmorphone 0.5 mg/0.5 ml inj IVP (22:54)
== END 2024-07-01 23:54 | disposition home or self-care (01) ==
PROVIDERS: Emergency Provider Student in an Organized Health Care Education/Training Program; PCP Physician Assistant
DX: R10.9 Unspecified abdominal pain (principal)
CPT/HCPCS: 36415; 51798; 74177; 80053; 81001; 81025; 83690; 85025; 87086; 87631; 96374; 96375; 99283; 99284; J1171; J1885; J7120; Q9967